=== PATIENT | male | born 1935 | race Caucasian/White ===

== ENCOUNTER → 2019-01-29 | Outpatient (CLI) | payer MEDICARE, OTHER ==
--- NOTE | 2019-01-29 16:03 | RADIOLOGY REPORT (SQ) ---
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 TECHNIQUE: Grayscale ultrasound, Doppler velocity and spectra, and color Doppler images acquired of the extra-cranial carotid and vertebral arteries. Images stored on PACS. LIMITATIONS: None. FINDINGS: RIGHT CAROTID CCA Velocities: Within normal limits. ICA Velocities Peak systolic 0.54 m/s. End diastolic 0.12 m/s. Proximal ICA/CCA peak systolic ratio normal. Spectra normal. No significant plaque. LEFT CAROTID CCA Velocities: Within normal limits. ICA Velocities Peak systolic 0.63 m/s. End diastolic 0.11 m/s. Proximal ICA/CCA peak systolic ratio normal. Spectra normal. No significant plaque. VERTEBRAL ARTERIES: Antegrade flow. Normal waveforms. SUBCLAVIAN ARTERIES: Not evaluated OTHER: No other significant finding. IMPRESSION: NO HEMODYNAMICALLY SIGNIFICANT STENOSIS. COMMENT: Quality ID #[id number]: Velocity criteria are extrapolated from the diameter data as defined by t he Society of Radiologists in Ultrasound Consensus Conference. Radiology 2003: 229; 340-346. TECHNICAL DOCUMENTATION: JOB ID: [id number] [employer]- All Rights Reserved Reading location - IP/workstation name: [email or web address]
== END ==
LOC: SP 08:54
PROVIDERS: ATTEND Ophthalmology
DX: H34.8111 Central retinal vein occlusion, right eye, with retinal neovascularization (principal)
CPT/HCPCS: 93880

== ENCOUNTER 2019-03-12 11:33 | Inpatient (IN) | payer MEDICARE, OTHER ==
[2019-03-12 12:20] LABS: HEMATOCRIT 38.9 % (37.9-51.0); MEAN CORPUSCULAR HEMOGLOBIN 29.4 pg (27.0-33.4); MEAN CORPUSCULAR HGB CONC 33.4 g/dL (32.0-36.0); MEAN CORPUSCULAR VOLUME 88 fl (80-97); PLATELET COUNT 226 10^3/uL (150-450); RED BLOOD COUNT 4.42 10^6/uL (4.35-5.55); RED CELL DISTRIBUTION WIDTH 14.4 % (11.5-14.0)
[2019-03-12 12:29] LABS: INTERNATIONAL RATION (INR) 1.56; PROTHROMBIN TIME 18.9 SEC (11.4-15.4)
[2019-03-12 12:36] LABS: ALBUMIN 4.5 g/dL (3.5-5.0); ALKALINE PHOSPHATASE 83 U/L (38-126); ANION GAP 19 (5-19); ASPARTATE AMINO TRANSFERASE 20 U/L (17-59); BILIRUBIN,DIRECT 0.4 mg/dL (0.0-0.4); BILIRUBIN,TOTAL 0.9 mg/dL (0.2-1.3); BLOOD UREA NITROGEN 24 mg/dL (7-20); CALCIUM 9.6 mg/dL (8.4-10.2); CARBON DIOXIDE 17 mmol/L (22-30); CHLORIDE 102 mmol/L (98-107); GLUCOSE 153 mg/dL (75-110); POTASSIUM 4.5 mmol/L (3.6-5.0); TOTAL PROTEIN 8.3 g/dL (6.3-8.2)
[2019-03-12 12:45] LABS: VENOUS BLOOD BASE EXCESS -2.7 mmol/L; VENOUS BLOOD HCO3 19.9 mmol/L (20-32); VENOUS BLOOD PCO2 28.8 mmHg (35-63); VENOUS BLOOD PH 7.46 (7.30-7.42)
[2019-03-12] MEDS ORDERED: NORMAL SALINE 1000 ML 500 ML IV ONE (12:46)
[2019-03-12 12:48] LABS: ABSOLUTE LYMPHOCYTES# (MANUAL) 0.4 10^3/uL (0.5-4.7); ABSOLUTE MONOCYTES # (MANUAL) 1.1 10^3/uL (0.1-1.4); BASOPHILS % (MANUAL) 0 % (0-2); EOSINOPHILS % (MANUAL) 0 % (0-6); LYMPHOCYTES % (MANUAL) 2 % (13-45); MONOCYTES % (MANUAL) 5 % (3-13); PLATELET COMMENT ADEQUATE; RBC MORPHOLOGY COMMENT NORMO-CYTIC/CHROMIC; SEGMENTED NEUTROPHILS % (MAN) 93 % (42-78); TOTAL CELLS COUNTED 100; TOXIC GRANULATION SLIGHT
[2019-03-12 12:59] LABS: CREATINE KINASE 53 U/L (55-170)
[2019-03-12 13:01] LABS: DIGOXIN < 0.40 ng/mL (0.8-2.0)
[2019-03-12 13:33] LABS: A TYPE INFLUENZA AG NEGATIVE (NEGATIVE); B INFLUENZA AG NEGATIVE (NEGATIVE)
--- NOTE | 2019-03-12 13:41 | ER Document Report ---
Entered by CLAYTON SAUNDERS SCRIBE 03/12/19 1234 Acting as scribe for:BRITTANY SULLIVAN MD ED General - General Chief Complaint: Fever Stated Complaint: POSSIBLE SEPSIS Time Seen by Provider: 03/12/19 12:32 Primary Care Provider: FRANCISCO PADRON DO [ACTIVE STAFF] - Follow up as needed Mode of Arrival: Medic Information source: Patient Notes: This 83 year old male patient with A fib on digoxin and pradaxa brought in by EMS presents to the ED today with complaints of aching in the left lower 2nd premolar that woke him up around midnight. Patient states that the pain has progressively worsened. Per EMS, patient was febrile and a HR in the 130s that was irregular. EMS administered 650 mg tylenol and 1g of rocephin IV prior to arrival. Patient reports an intermittent productive cough that began this morning and states that he had a flu shot earlier this year. TRAVEL OUTSIDE OF THE [place] IN LAST 30 DAYS: No - Related Data Allergies/Adverse Reactions: aspirin Allergy (Verified 03/12/19 12:44) Past Medical History - General Information source: Patient - Social History Smoking Status: Former Smoker Cigarette use (# per day): No Chew tobacco use (# tins/day): No Smoking Education Provided: No Frequency of alcohol use: Rare Drug Abuse: None Lives with: Family Family History: Reviewed & Not Pertinent Patient has suicidal ideation: No Patient has homicidal ideation: No - Past Medical History Cardiac Medical History: Reports: Hx Atrial Fibrillation, Hx Hypertension EENT Medical History: Reports: Ears - Hearing aid in R ear Renal/ Medical History: Reports: Hx Benign Prostatic Hyperplasia Malignancy Medical History: Reports Hx Lung Cancer - Left lower lung mother mentioned he had a third of the lung resected Past Surgical History: Reports: Other - 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 Other: One third of the left lower lung was resected for cancer surgery about 2010. Review of Systems - Review of Systems Constitutional: See HPI, Fever EENT: See HPI, Dental problem Cardiovascular: No symptoms reported Respiratory: See HPI, Cough, Sputum Gastrointestinal: No symptoms reported Genitourinary: No symptoms reported Male Genitourinary: No symptoms reported Musculoskeletal: No symptoms reported Skin: No symptoms reported Hematologic/Lymphatic: No symptoms reported Neurological/Psychological: No symptoms reported -: Yes All other systems reviewed and negative Physical Exam - Vital signs Vitals: Temp Resp BP Pulse Ox 100.0 F 24 H 113/62 97 03/12/19 11:53 03/12/19 11:53 03/12/19 11:53 03/12/19 11:53 Interpretation: Tachycardic, Febrile - General General appearance: Appears well, Alert - HEENT Head: Normocephalic, Atraumatic Eyes: Normal Pupils: PERRL Mouth/Lips: Other - 2nd premolar in the left lower side of mouth is tender to percussion. No gum swelling or adenopathy. 1st and 2nd molar of left side of mouth are gone. 3rd molar is broken off and decayed. On the right side of the mouth, molars 1-3 are gone. Neck: No: Carotid bruit - Respiratory Respiratory status: No respiratory distress Chest status: Nontender Breath sounds: Normal Chest palpation: Normal - Cardiovascular Rhythm: Irregularly irregular, Tachycardia Heart sounds: Normal auscultation Murmur: No - Abdominal Inspection: Normal Distension: No distension Bowel sounds: Normal Tenderness: Nontender Organomegaly: No organomegaly - Back Back: Normal, Nontender - Extremities General upper extremity: Normal inspection General lower extremity: Normal inspection. No: Edema - No peripheral edema - Neurological Neuro grossly intact: Yes - Psychological Associated symptoms: Normal affect, Normal mood - Skin Skin Temperature: Warm Skin Moisture: Dry Skin Color: Normal Notes: Patient has a excoriated lesion on the right preauricular area of his face. Course - Re-evaluation Re-evalutation: 03/12/19 13:57 The patient's digoxin level is undetectable, he will be given an IV dose of 0.25 mg IV. 03/12/19 14:17 At this time the patient's cough and congestion seems to be getting a little worse. His skin is quite warm now so I suspect his fever starting to spike. We will give him some Tylenol. - Vital Signs Vital signs: Temp Pulse Resp BP Pulse Ox 99.3 F 19 116/92 H 98 03/12/19 13:00 03/12/19 13:01 03/12/19 13:01 03/12/19 13:01 - Laboratory Result Diagrams: 03/12/19 11:04 03/12/19 11:04 Laboratory results interpreted by me: 03/12/19 03/12/19 03/12/19 11:04 11:04 11:04 WBC 22.0 H Hgb 13.0 L RDW 14.4 H Seg Neuts % (Manual) 93 H Lymphocytes % (Manual) 2 L Abs Neuts (Manual) 20.5 H Abs Lymphs (Manual) 0.4 L PT 18.9 H VBG pH VBG pCO2 VBG HCO3 Carbon Dioxide 17 L BUN 24 H Glucose 153 H Magnesium Creatine Kinase Total Protein 8.3 H Digoxin 03/12/19 03/12/19 12:20 12:20 WBC Hgb RDW Seg Neuts % (Manual) Lymphocytes % (Manual) Abs Neuts (Manual) Abs Lymphs (Manual) PT VBG pH 7.46 H VBG pCO2 28.8 L VBG HCO3 19.9 L Carbon Dioxide BUN Glucose Magnesium 1.5 L Creatine Kinase 53 L Total Protein Digoxin < 0.40 L - Diagnostic Test Radiology reviewed: Image reviewed, Reports reviewed - Chest x-ray shows developing left lower lobe pneumonia - EKG Interpretation by Me EKG shows normal: [place], Intervals, QRS Complexes. abnormal: ST-T Waves - Rate related repolarization abnormality Rate: Tachycardia - 135 Rhythm: A.Fib - Consults Dr. Solomon Time consulted: 14:10 Consulted provider: will come to ER Critical Care Note - Critical Care Note Total time excluding time spent on procedures (mins): 40 Discharge - Discharge Clinical Impression: Atrial fibrillation with RVR, Subtherapeutic digoxin level, Toothache, Dehydration Pneumonia Qualifiers: Pneumonia type: due to unspecified organism Laterality: left Lung location: lower lobe of lung Qualified Code(s): J18.9 - Pneumonia, unspecified organism Fever Qualifiers: Fever type: unspecified Qualified Code(s): R50.9 - Fever, unspecified Leukocytosis Qualifiers: Leukocytosis type: unspecified Qualified Code(s): D72.829 - Elevated white blood cell count, unspecified Condition: Fair Disposition: ADMITTED INPATIENT Admitting Provider: Neha (Hospitalist) Unit Admitted: Telemetry Referrals: FRANCISCO PADRON DO [ACTIVE STAFF] - Follow up as needed Scribe Attestation: 03/12/19 14:00 I personally performed the services described in the documentation, reviewed and edited the documentation which was dictated to the scribe in my presence, and it accurately records my words and actions. I personally performed the services described in the documentation, reviewed and edited the documentation which was dictated to the scribe in my presence, and it accurately records my words and actions.
--- NOTE | 2019-03-12 13:44 | RADIOLOGY REPORT (SQ) ---
EXAM DESCRIPTION: CHEST SINGLE VIEW COMPLETED DATE/TIME: 03/12/2019 1:24 pm REASON FOR STUDY: Fever, cough, toothache COMPARISON: None. EXAM PARAMETERS: NUMBER OF VIEWS: One view. TECHNIQUE: Single frontal radiographic view of the chest acquired. RADIATION DOSE: NA LIMITATIONS: None. FINDINGS: LUNGS AND PLEURA: Indistinct density in the left lung base with volume loss and indistinct appearance of the left hemidiaphragm. Right lung relatively clear. Chronic appearing interstitial changes. MEDIASTINUM AND HILAR STRUCTURES: No masses. Contour normal. HEART AND VASCULAR STRUCTURES: Heart normal in size. Normal vasculature. BONES: No acute findings. HARDWARE: Surgical clips on the left. OTHER: No other significant finding. IMPRESSION: INDISTINCT DENSITY IN THE LEFT LUNG BASE. NO PRIOR STUDIES SO UNABLE TO DETERMINE IF TH IS IS CHRONIC RELATED TO PREVIOUS SURGERY OR ACUTE SECONDARY TO DEVELOPING PNEUMONIA. TECHNICAL DOCUMENTATION: JOB ID: [id number] [employer]- All Rights Reserved Reading location - IP/workstation name: [email or web address]
[2019-03-12] MEDS ORDERED: DIGOXIN INJ 0.5 MG/2 ML AMPULE IV ONE (13:56)
[2019-03-12] MEDS ORDERED: ACETAMINOPHEN 325 MG TABLET PO ONE (14:08)
[2019-03-12] MEDS ORDERED: NORMAL SALINE 1000 ML 1,000 ML IV ONE (14:19)
--- NOTE | 2019-03-12 14:37 | EKG REPORT ---
SEVERITY:- ABNORMAL ECG - ATRIAL FIBRILLATION, V-RATE 87-161 RVR 130/min REPOLARIZATION ABNORMALITY, PROB RATE RELATED : Confirmed by: Osorio Hilton MD 12-Mar-2019 14:36:31
[2019-03-12 14:59] LABS: APPEARANCE,URINE CLOUDY; BILIRUBIN,URINE NEGATIVE (NEGATIVE); COLOR,URINE YELLOW; GLUCOSE, URINE NEGATIVE (NEGATIVE); KETONES,URINE NEGATIVE (NEGATIVE); LEUKOCYTE ESTERASE,URINE LARGE (NEGATIVE); NITRITE,URINE NEGATIVE (NEGATIVE); PROTEIN,URINE 30 mg/dL (NEGATIVE); UROBILINOGEN,URINE NEGATIVE mg/dL (<2.0)
[2019-03-12] MEDS ORDERED: ACETAMINOPHEN 325 MG TABLET PO PRN (15:04)
[2019-03-12] MEDS ORDERED: METOPROLOL TARTRATE 25 MG TABLET PO SCH (15:15)
[2019-03-12] MEDS ORDERED: DEXTROSE 40% GEL 15 GM TUBE PO PRN ×2 (15:16)
[2019-03-12] MEDS ORDERED: GLUCAGON,HUMAN RECOMB 1 MG INJ IM PRN (15:16)
[2019-03-12] MEDS ORDERED: DEXTROSE 50%-WATER 25 GM/50 ML DISP.SYRIN IV PRN ×2 (15:16)
--- NOTE | 2019-03-12 15:35 | PDOC H&P ---
History of Present Illness Admission Date/PCP: 03/12/19 14:27 TERRY SANDOVAL MD Patient complains of: fever, tooth pain, cough History of Present Illness: MICHAEL PIZARRO is a 83 year old male with a past medical history of lung cancer with prior left lower lobe resection, atrial fibrillation on Pradaxa, hypertension, and diabetes mellitus type 2 and history of retinal vein occlusion who presented with fever. Patient says that he woke last night because of pain on the left lower second premolar. He also reported fever at home. He does report he has been having minimally productive cough in the past 2 days. EMS was called and he was found to be in atrial fibrillation with RVR with a heart rate in the 130s. Reportedly he had POC lactate level of 8.0. He was also noted to be febrile. He was given Tylenol and was also given Rocephin. In the ER, he was noted to have leukocytosis with a neutrophilic predominance. He was also in A. fib in the 120s and 130s. Blood pressures running in the low normal end. 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 Social History Lives with: Family Smoking Status: Former Smoker Family History Family History: Reviewed & Not Pertinent Parental Family History Reviewed: Yes - No premature CAD Children Family History Reviewed: No Sibling(s) Family History Reviewed.: No Medication/Allergy Home Medications: Brinzolamide/Brimonidine Tart [Simbrinza 1%-0.2% Eye Drops] 1 drop OU TID 03/12/19 Dabigatran Etexilate Mesylate [Pradaxa 150 mg Capsule] 150 mg PO DAILY 03/12/19 Diltiazem HCl [Diltiazem 12Hr ER] 120 mg PO Q12 03/12/19 Finasteride [Proscar 5 mg Tablet] 5 mg PO DAILY 03/12/19 Meloxicam [Mobic 7.5 mg Tablet] 7.5 mg PO Q12 03/12/19 Metformin HCl 1,000 mg PO BIDBS 03/12/19 Metoprolol Succinate [Toprol Xl 25 mg Tab.sr] 25 mg PO Q12 03/12/19 Allergies/Adverse Reactions: aspirin Allergy (Verified 03/12/19 12:44) Review of Systems All systems: reviewed and no additional remarkable complaints except as stated - As mentioned in HPI Physical Exam Vital Signs: Temp Pulse Resp BP Pulse Ox 99.3 F 16 101/56 L 98 03/12/19 13:00 03/12/19 14:01 03/12/19 14:01 03/12/19 14:01 Intake & Output 03/11/19 03/12/19 03/13/19 06:59 06:59 06:59 Intake Total 500 Balance 500 Weight 185 lb 10.067 oz General appearance: PRESENT: no acute distress, well-developed, well-nourished Head exam: PRESENT: atraumatic, normocephalic Eye exam: PRESENT: conjunctiva pink, EOMI, PERRLA. ABSENT: scleral icterus Ear exam: PRESENT: normal external ear exam Mouth exam: PRESENT: moist, tongue midline Neck exam: ABSENT: carotid bruit, JVD, lymphadenopathy, thyromegaly Respiratory exam: PRESENT: rhonchi. ABSENT: rales, wheezes Cardiovascular exam: PRESENT: irregular rhythm, tachycardia. ABSENT: diastolic murmur, rubs, systolic murmur Pulses: PRESENT: normal dorsalis pedis pul GI/Abdominal exam: PRESENT: normal bowel sounds, soft. ABSENT: distended, guarding, mass, organolmegaly, rebound, tenderness Rectal exam: PRESENT: deferred Extremities exam: PRESENT: full ROM. ABSENT: calf tenderness, clubbing, pedal e minda Neurological exam: PRESENT: alert, awake, oriented to person, oriented to place, oriented to time, oriented to situation, CN II-XII grossly intact. ABSENT: motor sensory deficit Results Laboratory Results: 03/12/19 11:04 03/12/19 11:04 03/12/19 03/12/19 03/12/19 11:04 11:04 12:20 WBC 22.0 H RBC 4.42 Hgb 13.0 L Hct 38.9 MCV 88 MCH 29.4 MCHC 33.4 RDW 14.4 H Plt Count 226 Seg Neutrophils % Not Reportable VBG pH 7.46 H VBG pCO2 28.8 L VBG HCO3 19.9 L VBG Base Excess -2.7 Sodium 138.0 Potassium 4.5 Chloride 102 Carbon Dioxide 17 L Anion Gap 19 BUN 24 H Creatinine 1.10 Est GFR ( Amer) > 60 Glucose 153 H Lactic Acid Calcium 9.6 Magnesium Total Bilirubin 0.9 AST 20 Alkaline Phosphatase 83 Total Protein 8.3 H Albumin 4.5 Urine Color Urine Appearance Urine pH Ur Specific [place] Urine Protein Urine Glucose (UA) Urine Ketones Urine Blood Urine Nitrite Ur Leukocyte Esterase Urine WBC (Auto) Urine RBC (Auto) 03/12/19 03/12/19 03/12/19 12:20 12:20 14:45 WBC RBC Hgb Hct MCV MCH MCHC RDW Plt Count Seg Neutrophils % VBG pH VBG pCO2 VBG HCO3 VBG Base Excess Sodium Potassium Chloride Carbon Dioxide Anion Gap BUN Creatinine Est GFR ( Amer) Glucose Lactic Acid 2.1 Calcium Magnesium 1.5 L Total Bilirubin AST Alkaline Phosphatase Total Protein Albumin Urine Color YELLOW Urine Appearance CLOUDY Urine pH 6.0 Ur Specific [place] 1.010 Urine Protein 30 H Urine Glucose (UA) NEGATIVE Urine Ketones NEGATIVE Urine Blood LARGE H Urine Nitrite NEGATIVE Ur Leukocyte Esterase LARGE H Urine WBC (Auto) >182 Urine RBC (Auto) >182 03/12/19 03/12/19 11:04 12:20 Creatine Kinase 53 L Troponin I < 0.012 Impressions: Chest X-Ray 03/12/19 12:46 IMPRESSION: INDISTINCT DENSITY IN THE LEFT LUNG BASE. NO PRIOR STUDIES SO UNABLE TO DETERMINE IF THIS IS CHRONIC RELATED TO PREVIOUS SURGERY OR ACUTE SECONDARY TO DEVELOPING PNEUMONIA. Assessment and Plan - Diagnosis (1) Sepsis Is this a current diagnosis for this admission?: Yes Plan: He had initial reported lactic level of 8. Was also noted to be febrile by EMS. He is tachycardic and also has leukocytosis with neutrophilic predominance. He was given IV fluids, Tylenol and Rocephin. Lactate drawn in the ER appear to have normalized. Chest x-ray shows possible left sided pneumonia but he does have a prior history of lung mass resection on the left. Will pursue a chest CT to further assess the opacity. He does have a possible periodontitis on the left lower second premolar. Will start patient on IV antibiotics. Blood cultures have been drawn. He denies LUTS but he does have significant pyuria and bacteria in the urine. (2) Pneumonia Qualifiers: Pneumonia type: due to unspecified organism Laterality: left Lung location: lower lobe of lung Qualified Code(s): J18.9 - Pneumonia, unspecified organism Is this a current diagnosis for this admission?: Yes Plan: As per #1. (3) Atrial fibrillation with RVR Is this a current diagnosis for this admission?: Yes Plan: A. fib with RVR likely related to ongoing infection/sepsis. IV Lanoxin has been ordered in the ER. Will resume home meds once verified. (4) Hypertension Is this a current diagnosis for this admission?: Yes Plan: Hold off on home meds due to low normal blood pressures. (5) Diabetes mellitus type 2 in nonobese Is this a current diagnosis for this admission?: Yes - Time Time Spent with patient: 25-34 minutes
--- NOTE | 2019-03-12 15:36 | ADVANCED CARE ---
- Diagnosis (1) Atrial fibrillation with RVR Diagnosis Current: Yes (2) Diabetes mellitus type 2 in nonobese Diagnosis Current: Yes (3) Pneumonia Diagnosis Current: Yes (4) Sepsis Diagnosis Current: Yes Resuscitation Status: Full Code Discussion: Patient says that he wants us to attempt resuscitation and prefers to receive chest compressions, defibrillation or mechanical ventilation if the need arises. He does verbalize that he does not want to be on long-term ventilation. He says that his daughter Jocelyn in [place] is his surrogate medical decision maker.
--- NOTE | 2019-03-12 15:42 | RADIOLOGY REPORT (SQ) ---
EXAM DESCRIPTION: CT CHEST WITHOUT COMPLETED DATE/TIME: 03/12/2019 3:27 pm REASON FOR STUDY: cough, further assess infiltrates on CXR COMPARISON: 03/12/2019 radiographs. TECHNIQUE: CT scan performed of the chest without intravenous contrast. Images reviewed with lung, soft tissue and bone windows. Reconstructed coronal and sagittal MPR images reviewed. All images st ored on PACS. All CT scanners at this facility use dose modulation, iterative reconstruction, and/or weight based d osing when appropriate to reduce radiation dose to as low as reasonably achievable (ALARA). [facility]: Dose Right [facility]: CareDose [facility]: Dose Right [facility]: Teradose 4D [facility]: Smart American Board of Addiction Medicine (ABAM) RADIATION DOSE: CT Rad equipment meets quality standard of care and radiation dose reduction techniq ues were employed. CTDIvol: 9.1 mGy. DLP: 352 mGy-cm. mGy. LIMITATIONS: No technical limitations. FINDINGS: LUNGS AND PLEURA: Peripheral subpleural reticular opacities in the right greater than left upper lobes and in the bilateral lower lobes. Mild basilar fibrosis. Suspected areas of scarring. Mild areas of calcified pleural plaque. Acute bacterial pneumonia is not suggested. HILAR AND MEDIASTINAL STRUCTURES: Predominantly shotty mediastinal adenopathy. HEART AND VASCULAR STRUCTURES: Cardiomegaly. Moderate coronary calcification. No pericardial effusi on. No evidence of overt aortic aneurysm. UPPER ABDOMEN: No significant findings. Limited exam. THYROID AND OTHER SOFT TISSUES: No masses. No adenopathy. BONES: No significant finding. HARDWARE: None in the chest. OTHER: No other significant findings. IMPRESSION: 1. Lung changes are suspected to be generally chronic as above. 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 TECHNICAL DOCUMENTATION: JOB ID: [id number] Quality ID # [id number]: Final reports with documentation of one or more dose reduction techniques (e.g., Au tomated exposure control, adjustment of the mA and/or kV according to patient size, use of iterative reconstruction technique) 2010 [employer]- All Rights Reserved Reading location - IP/workstation name: [email or web address]
[2019-03-12] MEDS: CEFTRIAXONE 1 GM/D5W RTU 1 GM/50 ML RTUPB IV SCH (15:52)
[2019-03-12] MEDS ORDERED: MAGNESIUM SULFATE/D5W 1 GM/100 ML RTUPB IV ONE (16:00)
[2019-03-12] MEDS: CLINDAMYCIN 300 MG/D5W RTU 300 MG/50 ML RTUPB IV SCH ×2 (16:03→22:51)
[2019-03-12] MEDS: INSULIN LISPRO 100 UNIT/ML 3 ML VIAL SUBCUT SCH ×2 (18:35→22:47)
[2019-03-12] MEDS: NORMAL SALINE 1000 ML 1,000 ML IV PRN ×2 (18:37→20:27)
[2019-03-12] MEDS ORDERED: DABIGATRAN ETEXILATE 150 MG CAPSULE PO SCH (22:00)
[2019-03-12] MEDS: METOPROLOL SUCCINATE 25 MG TAB.SR.24H PO SCH (22:15)
[2019-03-12] MEDS: DILTIAZEM HCL 120 MG CAP.SR.24H PO SCH (22:16)
[2019-03-12] MEDS ORDERED: MELOXICAM 7.5 MG TABLET ONE (22:27)
[2019-03-12] MEDS ORDERED: CLINDAMYCIN PHOSPHATE INJ 300 MG/2 ML SDV ONE (22:27)
[2019-03-12] MEDS: MELOXICAM 7.5 MG TABLET PO SCH (22:52)
[2019-03-13 05:24] LABS: ABSOLUTE LYMPHOCYTES (AUTO) 0.9 10^3/uL (0.5-4.7); ABSOLUTE MONOCYTES (AUTO) 0.5 10^3/uL (0.1-1.4); BASOPHILS % (AUTO) 0.2 % (0-2); EOSINOPHILS % (AUTO) 0.2 % (0-6); HEMATOCRIT 35.6 % (37.9-51.0); HEMOGLOBIN 11.8 g/dL (13.5-17.0); LYMPHOCYTES % (AUTO) 8.1 % (13-45); MEAN CORPUSCULAR HEMOGLOBIN 29.2 pg (27.0-33.4); MEAN CORPUSCULAR VOLUME 88 fl (80-97); MONOCYTES % (AUTO) 4.5 % (3-13); PLATELET COUNT 191 10^3/uL (150-450); RED BLOOD COUNT 4.03 10^6/uL (4.35-5.55); RED CELL DISTRIBUTION WIDTH 14.7 % (11.5-14.0); TOTAL CELLS COUNTED % (AUTO) 100 %; WHITE BLOOD COUNT 11.5 10^3/uL (4.0-10.5)
[2019-03-13] MEDS: CLINDAMYCIN 300 MG/D5W RTU 300 MG/50 ML RTUPB IV SCH ×3 (05:33→21:17)
[2019-03-13 05:53] LABS: ANION GAP 11 (5-19); BLOOD UREA NITROGEN 20 mg/dL (7-20); CALCIUM 8.8 mg/dL (8.4-10.2); CARBON DIOXIDE 20 mmol/L (22-30); CHLORIDE 110 mmol/L (98-107); GLUCOSE 109 mg/dL (75-110); POTASSIUM 4.4 mmol/L (3.6-5.0)
[2019-03-13] MEDS: METOPROLOL TARTRATE PF/INJ 5 MG/5 ML SDV IV PRN ×2 (06:45)
[2019-03-13] MEDS: METOPROLOL SUCCINATE 25 MG TAB.SR.24H PO SCH ×2 (09:11→21:17)
[2019-03-13] MEDS: FINASTERIDE 5 MG TABLET PO SCH (09:11)
[2019-03-13] MEDS: DILTIAZEM HCL 120 MG CAP.SR.24H PO SCH ×2 (09:11→21:16)
[2019-03-13] MEDS: MELOXICAM 7.5 MG TABLET PO SCH ×2 (09:12→21:16)
[2019-03-13] MEDS: DABIGATRAN ETEXILATE 150 MG CAPSULE PO SCH (09:12)
[2019-03-13] MEDS: NORMAL SALINE 1000 ML 1,000 ML IV PRN ×2 (09:13→21:10)
[2019-03-13] MEDS: CEFTRIAXONE 1 GM/D5W RTU 1 GM/50 ML RTUPB IV SCH (09:13)
[2019-03-13] MEDS ORDERED: (PENDING PHARMACY ID) (Brinzolamide/Brimonidine Tart [Simbrinza 1%-0.2% Eye Drops] 1 DROP) OU SCH (10:00)
[2019-03-13] MEDS: INSULIN LISPRO 100 UNIT/ML 3 ML VIAL SUBCUT SCH ×2 (12:19→16:48)
--- NOTE | 2019-03-13 13:23 | PDOC PROGRESS REPORT ---
Subjective Progress Note for:: 03/13/19 Subjective:: MICHAEL PIZARRO is a 83 year old male with a past medical history of lung cancer with prior left lower lobe resection, atrial fibrillation on Pradaxa, hypertension, and diabetes mellitus type 2 and history of retinal vein occlusion who presented with fever. No acute event overnight. No recurrence of fever so far. Heart rate is slightly improved in the low 100s. He says he feels a lot better today but overall still feels weak. He denies LUTS but does have significant pyuria and bacteria in the urine. He says that his left premolar is a little less tender today. Reason For Visit: SEPSIS AFIB W/ RVR Physical Exam Vital Signs: Temp Pulse Resp BP Pulse Ox 98.9 F 109 H 16 138/71 H 100 03/13/19 11:24 03/13/19 11:24 03/13/19 11:24 03/13/19 11:24 03/13/19 11:24 Intake & Output 03/12/19 03/13/19 03/14/19 06:59 06:59 06:59 Intake Total 3458 360 Output Total 175 450 Balance 3283 -90 Weight 182 lb 15.739 oz General appearance: PRESENT: no acute distress, well-developed, well-nourished Head exam: PRESENT: atraumatic, normocephalic Eye exam: PRESENT: conjunctiva pink, EOMI, PERRLA. ABSENT: scleral icterus Ear exam: PRESENT: normal external ear exam Mouth exam: PRESENT: moist, tongue midline Neck exam: ABSENT: carotid bruit, JVD, lymphadenopathy, thyromegaly Respiratory exam: PRESENT: rhonchi. ABSENT: rales, wheezes Cardiovascular exam: PRESENT: RRR. ABSENT: diastolic murmur, rubs, systolic murmur Pulses: PRESENT: normal dorsalis pedis pul GI/Abdominal exam: PRESENT: normal bowel sounds, soft. ABSENT: distended, guarding, mass, organolmegaly, rebound, tenderness Rectal exam: PRESENT: deferred Neurological exam: PRESENT: alert, awake, oriented to person, oriented to place, oriented to time, oriented to situation, CN II-XII grossly intact. ABSENT: motor sensory deficit Results Laboratory Results: 03/13/19 04:25 03/13/19 04:25 03/12/19 03/12/19 03/12/19 14:45 15:39 18:46 WBC RBC Hgb Hct MCV MCH MCHC RDW Plt Count Seg Neutrophils % Sodium Potassium Chloride Carbon Dioxide Anion Gap BUN Creatinine Est GFR ( Amer) Glucose Lactic Acid 1.7 1.5 Calcium Magnesium TSH Urine Color YELLOW Urine Appearance CLOUDY Urine pH 6.0 Ur Specific [place] 1.010 Urine Protein 30 H Urine Glucose (UA) NEGATIVE Urine Ketones NEGATIVE Urine Blood LARGE H Urine Nitrite NEGATIVE Ur Leukocyte Esterase LARGE H Urine WBC (Auto) >182 Urine RBC (Auto) >182 03/13/19 03/13/19 03/13/19 04:25 04:25 04:25 WBC 11.5 H RBC 4.03 L Hgb 11.8 L Hct 35.6 L MCV 88 MCH 29.2 MCHC 33.0 RDW 14.7 H Plt Count 191 Seg Neutrophils % 87.0 H Sodium 141.2 Potassium 4.4 Chloride 110 H Carbon Dioxide 20 L Anion Gap 11 BUN 20 Creatinine 1.21 Est GFR ( Amer) > 60 Glucose 109 Lactic Acid Calcium 8.8 Magnesium 1.9 TSH 0.79 Urine Color Urine Appearance Urine pH Ur Specific [place] Urine Protein Urine Glucose (UA) Urine Ketones Urine Blood Urine Nitrite Ur Leukocyte Esterase Urine WBC (Auto) Urine RBC (Auto) 03/12/19 16:00 Sputum Gram Stain - Final 03/12/19 16:00 Sputum Sputum Culture - Final 03/12/19 03/12/19 11:04 12:20 Creatine Kinase 53 L Troponin I < 0.012 Impressions: Chest X-Ray 03/12/19 12:46 IMPRESSION: INDISTINCT DENSITY IN THE LEFT LUNG BASE. NO PRIOR STUDIES SO UNABLE TO DETERMINE IF THIS IS CHRONIC RELATED TO PREVIOUS SURGERY OR ACUTE SECONDARY TO DEVELOPING PNEUMONIA. Chest CT 03/12/19 15:02 IMPRESSION: 1. Lung changes are suspected to be generally chronic as above. Includes mild interstitial subpleural disease and basilar fibrosis with left basilar pleural calcified plaque. Assessment and Plan - Diagnosis (1) Sepsis Is this a current diagnosis for this admission?: Yes Plan: 03/12: He had initial reported lactic level of 8. Was also noted to be febrile by EMS. He is tachycardic and also has leukocytosis with neutrophilic predominance. He was given IV fluids, Tylenol and Rocephin. Lactate drawn in the ER appear to have normalized. Chest x-ray shows possible left sided pneumonia but he does have a prior history of lung mass resection on the left. Will pursue a chest CT to further assess the opacity. He does have a possible periodontitis on the left lower second premolar. Will start patient on IV antibiotics. Blood cultures have been drawn. 1/2: Chest CT does not show pneumonia. He denies LUTS but he does have significant pyuria and bacteria in the urine. We will send for a urine culture. Blood and sputum cultures pending. Continue Rocephin and clindamycin. (2) Atrial fibrillation with RVR Is this a current diagnosis for this admission?: Yes Plan: A. fib with RVR likely related to ongoing infection/sepsis. IV Lanoxin has been ordered in the ER. Will resume home meds once verified. 1/2: HR better in the low 100w. Continue metoprolol, cardizem and Pradaxa. (3) Diabetes mellitus type 2 in nonobese Is this a current diagnosis for this admission?: Yes (4) UTI (urinary tract infection) Is this a current diagnosis for this admission?: Yes Plan: Continue Rocephin. Urine culture ordered. - Time Time Spent with patient: 25-34 minutes
[2019-03-14] MEDS: INSULIN LISPRO 100 UNIT/ML 3 ML VIAL SUBCUT SCH ×2 (04:12→09:13)
[2019-03-14] MEDS: CLINDAMYCIN 300 MG/D5W RTU 300 MG/50 ML RTUPB IV SCH (05:25)
[2019-03-14 09:10] LABS: ABSOLUTE EOSINOPHILS # (AUTO) 0.1 10^3/uL (0.0-0.6); ABSOLUTE LYMPHOCYTES (AUTO) 1.4 10^3/uL (0.5-4.7); ABSOLUTE MONOCYTES (AUTO) 0.7 10^3/uL (0.1-1.4); ABSOLUTE NEUT (AUTO) 4.2 10^3/uL (1.7-8.2); BASOPHILS % (AUTO) 0.5 % (0-2); EOSINOPHILS % (AUTO) 2.2 % (0-6); HEMATOCRIT 35.6 % (37.9-51.0); HEMOGLOBIN 12.1 g/dL (13.5-17.0); LYMPHOCYTES % (AUTO) 21.5 % (13-45); MEAN CORPUSCULAR HEMOGLOBIN 29.8 pg (27.0-33.4); MEAN CORPUSCULAR HGB CONC 34.1 g/dL (32.0-36.0); MEAN CORPUSCULAR VOLUME 87 fl (80-97); PLATELET COUNT 183 10^3/uL (150-450); RED BLOOD COUNT 4.08 10^6/uL (4.35-5.55); SEGMENTED NEUTROPHILS % (AUTO) 64.8 % (42-78); TOTAL CELLS COUNTED % (AUTO) 100 %; WHITE BLOOD COUNT 6.4 10^3/uL (4.0-10.5)
[2019-03-14 09:29] LABS: ANION GAP 10 (5-19); BLOOD UREA NITROGEN 14 mg/dL (7-20); CALCIUM 8.9 mg/dL (8.4-10.2); CARBON DIOXIDE 21 mmol/L (22-30); CHLORIDE 109 mmol/L (98-107); GLUCOSE 121 mg/dL (75-110); POTASSIUM 4.2 mmol/L (3.6-5.0)
[2019-03-14] MEDS: DILTIAZEM HCL 120 MG CAP.SR.24H PO SCH (10:23)
[2019-03-14] MEDS: METOPROLOL SUCCINATE 25 MG TAB.SR.24H PO SCH (10:23)
[2019-03-14] MEDS: MELOXICAM 7.5 MG TABLET PO SCH (10:24)
[2019-03-14] MEDS: DABIGATRAN ETEXILATE 150 MG CAPSULE PO SCH (10:24)
[2019-03-14] MEDS: FINASTERIDE 5 MG TABLET PO SCH (10:25)
[2019-03-14] MEDS: CEFTRIAXONE 1 GM/D5W RTU 1 GM/50 ML RTUPB IV SCH (10:25)
[2019-03-14 11:35] VITALS: BP 124/69
--- NOTE | 2019-03-15 17:48 | PDOC DISCHARGE SUMMARY ---
Impression - Admit/DC Date/PCP Admission Date/Primary Care Provider: 03/12/19 14:27 TERRY SANDOVAL MD Discharge Date: 03/14/19 - Discharge Diagnosis (1) Sepsis Is this a current diagnosis for this admission?: Yes (2) Atrial fibrillation with RVR Is this a current diagnosis for this admission?: Yes (3) Diabetes mellitus type 2 in nonobese Is this a current diagnosis for this admission?: Yes (4) UTI (urinary tract infection) Is this a current diagnosis for this admission?: Yes - Additional Information Resuscitation Status: Full Code Discharge Diet: As Tolerated Discharge Activity: Activity As Tolerated, Balance Activity w/Rest Referrals: TERRY SANDOVAL MD [Primary Care Provider] - (sticker in book) Prescriptions: Amoxicillin/Potassium Clav [Augmentin 500-125 Tablet] 1 each PO BID 5 Days #10 tablet Home Medications: Brinzolamide/Brimonidine Tart [Simbrinza 1%-0.2% Eye Drops] 1 drop OU TID 03/12/19 Dabigatran Etexilate Mesylate [Pradaxa 150 mg Capsule] 150 mg PO DAILY 03/12/19 Diltiazem HCl [Diltiazem 12Hr ER] 120 mg PO Q12 03/12/19 Finasteride [Proscar 5 mg Tablet] 5 mg PO DAILY 03/12/19 Meloxicam [Mobic 7.5 mg Tablet] 7.5 mg PO Q12 03/12/19 Metformin HCl 1,000 mg PO BIDBS 03/12/19 Metoprolol Succinate [Toprol Xl 25 mg Tab.sr] 25 mg PO Q12 03/12/19 Amoxicillin/Potassium Clav [Augmentin 500-125 Tablet] 1 each PO BID 5 Days #10 tablet 03/14/19 History of Present Illiness History of Present Illness: MICHAEL PIZARRO is a 83 year old male with a past medical history of lung cancer with prior left lower lobe resection, atrial fibrillation on Pradaxa, hypertension, and diabetes mellitus type 2 and history of retinal vein occlusion who presented with fever. Patient says that he woke last night because of pain on the left lower second premolar. He also reported fever at home. He does report he has been having minimally productive cough in the past 2 days. EMS was called and he was found to be in atrial fibrillation with RVR with a heart rate in the 130s. Reportedly he had POC lactate level of 8.0. He was also noted to be febrile. He was given Tylenol and was also given Rocephin. In the ER, he was noted to have leukocytosis with a neutrophilic predominance. He was also in A. fib in the 120s and 130s. Blood pressures running in the low normal end. Hospital Course Hospital Course: This is an 84-year-old male who was admitted for sepsis. He did also present with worsening left lower premolar tenderness and pain. He was started on IV antibiotics for peritonitis as well. He initially denied lower urinary tract symptoms however later reported that he has been having urinary frequency in the past few weeks. His urinalysis did show significant pyuria and bacteria. Urine culture was done unfortunately 24 hours after he received IV antibiotics. He was initially also in A. fib with RVR. His home regimen for A. fib was released soon. His A. fib was better controlled. He significantly improved and returned to his baseline. He will be sent home on Augmentin to treat both periodontitis and UTI. His has confirmed an appointment with his dentist to have his premolar treated. Physical Exam Vital Signs: Temp Pulse Resp BP Pulse Ox 98.1 F 89 18 124/69 98 03/14/19 12:12 03/14/19 12:12 03/14/19 12:12 03/14/19 11:33 03/14/19 12:12 Intake & Output 03/14/19 03/15/19 03/16/19 06:59 06:59 06:59 Intake Total 8629 480 Output Total 8318 825 Balance -85 -345 Weight 182 lb 8.684 oz General appearance: PRESENT: no acute distress, well-developed, well-nourished Head exam: PRESENT: atraumatic, normocephalic Eye exam: PRESENT: conjunctiva pink, EOMI, PERRLA. ABSENT: scleral icterus Ear exam: PRESENT: normal external ear exam Mouth exam: PRESENT: moist, tongue midline Neck exam: ABSENT: carotid bruit, JVD, lymphadenopathy, thyromegaly Respiratory exam: PRESENT: clear to auscultation [place]. ABSENT: rales, rhonchi, wheezes Cardiovascular exam: PRESENT: irregular rhythm. ABSENT: diastolic murmur, rubs, systolic murmur Pulses: PRESENT: normal dorsalis pedis pul GI/Abdominal exam: PRESENT: normal bowel sounds, soft. ABSENT: distended, guarding, mass, organolmegaly, rebound, tenderness Rectal exam: PRESENT: deferred Extremities exam: PRESENT: full ROM. ABSENT: calf tenderness, clubbing, pedal edema Neurological exam: PRESENT: alert, awake, oriented to person, oriented to place, oriented to time, oriented to situation, CN II-XII grossly intact. ABSENT: motor sensory deficit Results Laboratory Results: WBC 6.4 10^3/uL (4.0-10.5) 03/14/19 08:34 RBC 4.08 10^6/uL (4.35-5.55) L 03/14/19 08:34 Hgb 12.1 g/dL (13.5-17.0) L 03/14/19 08:34 Hct 35.6 % (37.9-51.0) L 03/14/19 08:34 MCV 87 fl (80-97) 03/14/19 08:34 MCH 29.8 pg (27.0-33.4) 03/14/19 08:34 MCHC 34.1 g/dL (32.0-36.0) 03/14/19 08:34 RDW 15.0 % (11.5-14.0) H 03/14/19 08:34 Plt Count 183 10^3/uL (150-450) 03/14/19 08:34 Lymph % (Auto) 21.5 % (13-45) 03/14/19 08:34 [place] % (Auto) 11.0 % (3-13) 03/14/19 08:34 Eos % (Auto) 2.2 % (0-6) 03/14/19 08:34 Baso % (Auto) 0.5 % (0-2) 03/14/19 08:34 Absolute Neuts (auto) 4.2 10^3/uL (1.7-8.2) 03/14/19 08:34 Absolute Lymphs (auto) 1.4 10^3/uL (0.5-4.7) 03/14/19 08:34 Absolute Monos (auto) 0.7 10^3/uL (0.1-1.4) 03/14/19 08:34 Absolute Eos (auto) 0.1 10^3/uL (0.0-0.6) 03/14/19 08:34 Absolute Basos (auto) 0.0 10^3/uL (0.0-0.2) 03/14/19 08:34 Total Counted 100 03/12/19 11:04 Seg Neutrophils % 64.8 % (42-78) 03/14/19 08:34 Seg Neuts % (Manual) 93 % (42-78) H 03/12/19 11:04 Lymphocytes % (Manual) 2 % (13-45) L 03/12/19 11:04 Monocytes % (Manual) 5 % (3-13) 03/12/19 11:04 Eosinophils % (Manual) 0 % (0-6) 03/12/19 11:04 Basophils % (Manual) 0 % (0-2) 03/12/19 11:04 Abs Neuts (Manual) 20.5 10^3/uL (1.7-8.2) H 03/12/19 11:04 Abs Lymphs (Manual) 0.4 10^3/uL (0.5-4.7) L 03/12/19 11:04 Abs Monocytes (Manual) 1.1 10^3/uL (0.1-1.4) 03/12/19 11:04 Absolute Eos (Manual) 0.0 10^3/uL (0.0-0.6) 03/12/19 11:04 Abs Basophils (Manual) 0.0 10^3/uL (0.0-0.2) 03/12/19 11:04 Toxic Granulation SLIGHT 03/12/19 11:04 Platelet Comment ADEQUATE 03/12/19 11:04 RBC Morph Comment NORMO-CYTIC/CHROMIC 03/12/19 11:04 PT 18.9 SEC (11.4-15.4) H 03/12/19 11:04 INR 1.56 03/12/19 11:04 VBG pH 7.46 (7.30-7.42) H 03/12/19 12:20 VBG pCO2 28.8 mmHg (35-63) L 03/12/19 12:20 VBG HCO3 19.9 mmol/L (20-32) L 03/12/19 12:20 VBG Base Excess -2.7 mmol/L 03/12/19 12:20 Sodium 139.6 mmol/L (137-145) 03/14/19 08:34 Potassium 4.2 mmol/L (3.6-5.0) 03/14/19 08:34 Chloride 109 mmol/L (98-107) H 03/14/19 08:34 Carbon Dioxide 21 mmol/L (22-30) L 03/14/19 08:34 Anion Gap 10 (5-19) 03/14/19 08:34 BUN 14 mg/dL (7-20) 03/14/19 08:34 Creatinine 0.88 mg/dL (0.52-1.25) 03/14/19 08:34 Est GFR ( Amer) > 60 (>60) 03/14/19 08:34 Est GFR (MDRD) Non-Af > 60 (>60) 03/14/19 08:34 Glucose 121 mg/dL (75-110) H 03/14/19 08:34 POC Glucose 144 mg/dL (70-110) H 03/14/19 11:30 Hemoglobin A1c % 6.2 % (4.7-6.0) H 03/12/19 11:04 Lactic Acid 1.5 mmol/L (0.7-2.1) 03/12/19 18:46 Calcium 8.9 mg/dL (8.4-10.2) 03/14/19 08:34 Magnesium 1.9 mg/dL (1.6-2.3) 03/13/19 04:25 Total Bilirubin 0.9 mg/dL (0.2-1.3) 03/12/19 11:04 Direct Bilirubin 0.4 mg/dL (0.0-0.4) 03/12/19 11:04 Neonat Total Bilirubin Not Reportable 03/12/19 11:04 Neonat Direct Bilirubin Not Reportable 03/12/19 11:04 Neonat Indirect Bili Not Reportable 03/12/19 11:04 AST 20 U/L (17-59) 03/12/19 11:04 ALT 13 U/L (<50) 03/12/19 11:04 Alkaline Phosphatase 83 U/L (38-126) 03/12/19 11:04 Creatine Kinase 53 U/L (55-170) L 03/12/19 12:20 Troponin I < 0.012 ng/mL 03/12/19 11:04 Total Protein 8.3 g/dL (6.3-8.2) H 03/12/19 11:04 Albumin 4.5 g/dL (3.5-5.0) 03/12/19 11:04 TSH 0.79 uIU/mL (0.47-4.68) 03/13/19 04:25 Urine Color YELLOW 03/12/19 14:45 Urine Appearance CLOUDY 03/12/19 14:45 Urine pH 6.0 (5.0-9.0) 03/12/19 14:45 Ur Specific [place] 1.010 03/12/19 14:45 Urine Protein 30 mg/dL (NEGATIVE) H 03/12/19 14:45 Urine Glucose (UA) NEGATIVE mg/dL (NEGATIVE) 03/12/19 14:45 Urine Ketones NEGATIVE mg/dL (NEGATIVE) 03/12/19 14:45 Urine Blood LARGE (NEGATIVE) H 03/12/19 14:45 Urine Nitrite NEGATIVE (NEGATIVE) 03/12/19 14:45 Urine Bilirubin NEGATIVE (NEGATIVE) 03/12/19 14:45 Urine Urobilinogen NEGATIVE mg/dL (<2.0) 03/12/19 14:45 Ur Leukocyte Esterase LARGE (NEGATIVE) H 03/12/19 14:45 Urine WBC (Auto) >182 /HPF 03/12/19 14:45 Urine RBC (Auto) >182 /HPF 03/12/19 14:45 Urine Bacteria (Auto) 3+ /HPF 03/12/19 14:45 Urine WBC Clumps FEW /HPF 03/12/19 14:45 Squamous Epi Cells Auto <1 /HPF 03/12/19 14:45 U Non-Squamous Epis Auto 2 /HPF 03/12/19 14:45 Urine Mucus (Auto) RARE /LPF 03/12/19 14:45 Urine Yeast (Budding) PRESENT /HPF 03/12/19 14:45 Urine Ascorbic Acid NEGATIVE (NEGATIVE) 03/12/19 14:45 Digoxin < 0.40 ng/mL (0.8-2.0) L 03/12/19 12:20 Influenza A (Rapid) NEGATIVE (NEGATIVE) 03/12/19 13:00 Influenza B (Rapid) NEGATIVE (NEGATIVE) 03/12/19 13:00 03/12/19 11:04 Troponin I < 0.012 Impressions: Chest X-Ray 03/12/19 12:46 IMPRESSION: INDISTINCT DENSITY IN THE LEFT LUNG BASE. NO PRIOR STUDIES SO UNABLE TO DETERMINE IF THIS IS CHRONIC RELATED TO PREVIOUS SURGERY OR ACUTE SECONDARY TO DEVELOPING PNEUMONIA. Chest CT 03/12/19 15:02 IMPRESSION: 1. Lung changes are suspected to be generally chronic as above. Includes mild interstitial subpleural disease and basilar fibrosis with left basilar pleural calcified plaque. Stroke Is this a Stroke Patient?: No Acute Heart Failure - Is this a Heart Failure Patient?: No
== END 2019-03-14 13:30 | disposition home or self-care (01) | DRG 872 ==
LOC: ER 11:33 → EH 14:27 → 3N 20:02
PROVIDERS: ADMIT Internal Medicine; ATTEND Internal Medicine
DX: A41.9 Sepsis, unspecified organism (principal); N39.0 Urinary tract infection, site not specified; C34.32 Malignant neoplasm of lower lobe, left bronchus or lung; K05.30 Chronic periodontitis, unspecified; I48.91 Unspecified atrial fibrillation; K08.89 Other specified disorders of teeth and supporting structures; I10 Essential (primary) hypertension; E11.8 Type 2 diabetes mellitus with unspecified complications; R00.0 Tachycardia, unspecified; E86.0 Dehydration; D72.829 Elevated white blood cell count, unspecified; N40.0 Benign prostatic hyperplasia without lower urinary tract symptoms; Z79.02 Long term (current) use of antithrombotics/antiplatelets; Z90.2 Acquired absence of lung [part of]; Z79.84 Long term (current) use of oral hypoglycemic drugs
CPT/HCPCS: 36415; 71045; 71250; 80048; 80053; 80162; 81001; 82550; 82803; 82962; 83036; 83605; 83735; 84443; 84484; 85025; 85610; 87040; 87070; 87077; 87086; 87205; 87804; 93005; 93010; 96360; 99291; J0696; J1160; J3475; J3490; J7030

== ENCOUNTER 2019-04-30 10:07 | Inpatient (IN) | payer MEDICARE, OTHER ==
[2019-04-30] MEDS ORDERED: DILTIAZEM HCL INJ 25 MG/5 ML VIAL IV ONE (12:13)
[2019-04-30 12:40] LABS: ABSOLUTE EOSINOPHILS # (AUTO) 0.1 10^3/uL (0.0-0.6); ABSOLUTE LYMPHOCYTES (AUTO) 1.5 10^3/uL (0.5-4.7); ABSOLUTE MONOCYTES (AUTO) 0.6 10^3/uL (0.1-1.4); ABSOLUTE NEUT (AUTO) 9.6 10^3/uL (1.7-8.2); BASOPHILS % (AUTO) 0.3 % (0-2); EOSINOPHILS % (AUTO) 0.6 % (0-6); HEMATOCRIT 38.8 % (37.9-51.0); LYMPHOCYTES % (AUTO) 12.8 % (13-45); MEAN CORPUSCULAR HEMOGLOBIN 29.4 pg (27.0-33.4); MEAN CORPUSCULAR HGB CONC 33.6 g/dL (32.0-36.0); MEAN CORPUSCULAR VOLUME 88 fl (80-97); MONOCYTES % (AUTO) 5.4 % (3-13); PLATELET COUNT 226 10^3/uL (150-450); RED BLOOD COUNT 4.42 10^6/uL (4.35-5.55); RED CELL DISTRIBUTION WIDTH 15.8 % (11.5-14.0); SEGMENTED NEUTROPHILS % (AUTO) 80.9 % (42-78); TOTAL CELLS COUNTED % (AUTO) 100 %; WHITE BLOOD COUNT 11.9 10^3/uL (4.0-10.5)
--- NOTE | 2019-04-30 12:45 | RADIOLOGY REPORT (SQ) ---
EXAM DESCRIPTION: CT HEAD WITHOUT COMPLETED DATE/TIME: 04/30/2019 12:32 pm REASON FOR STUDY: left side weak COMPARISON: None. TECHNIQUE: Axial images acquired through the brain without intravenous contrast. Images reviewed wi th bone, brain and subdural windows. Additional sagittal and coronal reconstructions were generated. Images stored on PACS. All CT scanners at this facility use dose modulation, iterative reconstruction, and/or weight based d osing when appropriate to reduce radiation dose to as low as reasonably achievable (ALARA). [facility]: Dose Right [facility]: CareDose [facility]: Dose Right [facility]: Teradose 4D [facility]: Limbo RADIATION DOSE: CT Rad equipment meets quality standard of care and radiation dose reduction techniq ues were employed. CTDIvol: 23.9 - 53.2 mGy. DLP: 1527 mGy-cm. mGy. LIMITATIONS: None. FINDINGS: VENTRICLES: Normal for patient's age. CEREBRUM: No masses. No hemorrhage. No midline shift. Areas of low density in the white matter mos t likely due to chronic micro-vascular ischemic change. No evidence for acute infarction. CEREBELLUM: No masses. No hemorrhage. No alteration of density. No evidence for acute infarction. EXTRAAXIAL SPACES: Mild age-related involutional change. No fluid collections. No masses. ORBITS AND GLOBE: No intra- or extraconal masses. Normal contour of globe without masses. CALVARIUM: No fracture. PARANASAL SINUSES: No fluid or mucosal thickening. SOFT TISSUES: No mass or hematoma. OTHER: No other significant finding. IMPRESSION: MILD CHRONIC CHANGES OF ATROPHY AND MICROVASCULAR ISCHEMIA. NO ACUTE PROCESS. EVIDENCE OF ACUTE STROKE: NO. TECHNICAL DOCUMENTATION: JOB ID: [id number] Quality ID # [id number]: Final reports with documentation of one or more dose reduction techniques (e.g., Au tomated exposure control, adjustment of the mA and/or kV according to patient size, use of iterative reconstruction technique) 2010 [employer]- All Rights Reserved Reading location - IP/workstation name: [email or web address]
[2019-04-30 12:56] LABS: ALKALINE PHOSPHATASE 81 U/L (38-126); ANION GAP 16 (5-19); ASPARTATE AMINO TRANSFERASE 24 U/L (17-59); BILIRUBIN,DIRECT 0.6 mg/dL (0.0-0.4); BILIRUBIN,TOTAL 0.9 mg/dL (0.2-1.3); BLOOD UREA NITROGEN 30 mg/dL (7-20); CALCIUM 9.5 mg/dL (8.4-10.2); CARBON DIOXIDE 14 mmol/L (22-30); CHLORIDE 113 mmol/L (98-107); GLUCOSE 137 mg/dL (75-110); TOTAL PROTEIN 7.9 g/dL (6.3-8.2)
--- NOTE | 2019-04-30 12:58 | RADIOLOGY REPORT (SQ) ---
EXAM DESCRIPTION: CHEST SINGLE VIEW COMPLETED DATE/TIME: 04/30/2019 12:46 pm REASON FOR STUDY: htn COMPARISON: 03/12/2019 EXAM PARAMETERS: NUMBER OF VIEWS: One view. TECHNIQUE: Single frontal radiographic view of the chest acquired. RADIATION DOSE: NA LIMITATIONS: None. FINDINGS: LUNGS AND PLEURA: Persistent blunting of the costophrenic angles most likely chronic as de scribed on recent CT. Increasing left basilar airspace disease most likely atelectasis or pneumonia. MEDIASTINUM AND HILAR STRUCTURES: No masses. Contour normal. HEART AND VASCULAR STRUCTURES: Heart normal in size. Normal vasculature. BONES: No acute findings. HARDWARE: None in the chest. OTHER: No other significant finding. IMPRESSION: Increasing left basilar airspace disease probable effusion with underlying atelectasis o r pneumonia. TECHNICAL DOCUMENTATION: JOB ID: [id number] 2010 [employer]- All Rights Reserved Reading location - IP/workstation name: [email or web address]
[2019-04-30 13:00] LABS: A TYPE INFLUENZA AG NEGATIVE (NEGATIVE); B INFLUENZA AG NEGATIVE (NEGATIVE)
[2019-04-30 13:07] LABS: NT PRO BNP 1560 pg/mL (<450)
[2019-04-30 13:08] LABS: TROPONIN I < 0.012 ng/mL
[2019-04-30] MEDS ORDERED: CEFTRIAXONE 1 GM/D5W RTU 1 GM/50 ML RTUPB IV ONE (14:33)
[2019-04-30] MEDS ORDERED: AZITHROMYCIN INJ 500 MG VIAL IV ONE (14:33)
--- NOTE | 2019-04-30 14:48 | ER Document Report ---
Entered by ADALBERTO GEORGE SCRIBE 04/30/19 1144 Acting as scribe for:HOLLY IRBY DO ED General - General Chief Complaint: Irregular Pulse Stated Complaint: SHORTNESS OF BREATH Time Seen by Provider: 04/30/19 11:32 Primary Care Provider: TERRY SANDOVAL MD [Primary Care Provider] - Follow up as needed Mode of Arrival: Ambulatory Information source: Patient Notes: Patient is an 83 year old male that presents to the emergency department today with complaints of chest congestion with clear sputum as well as left-sided weakness. Patient states 3 days ago he woke up with left arm and left leg weakness as well as left shoulder pain. Patient states left shoulder pain has subsided but the weakness has remained. Patient is on Pradaxa for atrial fibrillation. 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 TRAVEL OUTSIDE OF THE [place] IN LAST 30 DAYS: No - Related Data Allergies/Adverse Reactions: aspirin Allergy (Verified 03/12/19 12:44) Past Medical History - General Information source: Patient - Social History Smoking Status: Former Smoker Cigarette use (# per day): No Chew tobacco use (# tins/day): No Frequency of alcohol use: None Drug Abuse: None Lives with: Family Family History: Reviewed & Not Pertinent Patient has suicidal ideation: No Patient has homicidal ideation: No - Past Medical History Cardiac Medical History: Reports: Hx Atrial Fibrillation, Hx Hypercholesterolemia, Hx Hypertension Pulmonary Medical History: Reports: Hx COPD Endocrine Medical History: Reports: Hx Diabetes Mellitus Type 2 Renal/ Medical History: Reports: Hx Benign Prostatic Hyperplasia Malignancy Medical History: Reports Hx Lung Cancer - left 1/3 lung resected Past Surgical History: Reports: Hx Orthopedic Surgery - knee replacement, back, Other - 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 Review of Systems - Review of Systems Constitutional: No symptoms reported EENT: See HPI, Nose congestion, Other - visual disturbance in right eye at baseline Cardiovascular: No symptoms reported Respiratory: See HPI, Cough Gastrointestinal: No symptoms reported Genitourinary: No symptoms reported Male Genitourinary: No symptoms reported Musculoskeletal: No symptoms reported Skin: No symptoms reported Hematologic/Lymphatic: No symptoms reported Neurological/Psychological: See HPI, Weakness - left sided -: Yes All other systems reviewed and negative Physical Exam - Vital signs Vitals: Resp 16 04/30/19 10:35 - Notes Notes: Physical Exam: General: Alert, appears well. HEENT: Normocephalic. Atraumatic. PERRL. Extraocular movements intact. Oropharynx clear. Right eye visual disturbance at baseline. Neck: Supple. Non-tender. Respiratory: No respiratory distress. Diminished at the bases bilaterally. Cardiovascular: Tachycardic, irregularly irregular. Abdominal: Normal Inspection. Non-tender. No distension. Normal Bowel Sounds. Back: No gross abnormalities. Extremities: Moves all four extremities. Upper extremities: 5/5 RUE strength, 4/5 LUE strength, diminished policy advisor strength on the left. Lower extremities: 5/5 RLE strength, 4/5 LLE strength. Neurological: Normal cognition. AAOx4. Normal speech. Psychological: Normal affect. Normal Mood. Skin: Warm. Dry. Normal color. Course - Re-evaluation Re-evalutation: 04/30/19 14:43 MDM Delightful 83 year old male has RLL airspace disease and had A fib with RVR upon arrival here. His HR is better after treatment with 10mg of cardizem. I have discussed with Dr Perrin who has graciously agreed to see and evaluate for admission. - Vital Signs Vital signs: Temp Pulse Resp BP Pulse Ox 18 126/98 H 99 04/30/19 13:32 04/30/19 13:32 04/30/19 13:32 - Laboratory Result Diagrams: 04/30/19 10:28 04/30/19 10:28 Laboratory results interpreted by me: 04/30/19 04/30/19 04/30/19 10:28 10:28 10:28 WBC 11.9 H Hgb 13.0 L RDW 15.8 H Lymph % (Auto) 12.8 L Absolute Neuts (auto) 9.6 H Seg Neutrophils % 80.9 H Chloride 113 H Carbon Dioxide 14 L BUN 30 H Creatinine 1.37 H Est GFR (MDRD) Non-Af 50 L Glucose 137 H Direct Bilirubin 0.6 H NT-Pro-B Natriuret Pep 1560 H - Diagnostic Test Radiology reviewed: Reports reviewed Critical Care Note - Critical Care Note Total time excluding time spent on procedures (mins): 30 Discharge - Discharge Clinical Impression: Atrial fibrillation with RVR Pneumonia Qualifiers: Pneumonia type: due to unspecified organism Laterality: right Lung location: lower lobe of lung Qualified Code(s): J18.9 - Pneumonia, unspecified organism Condition: Fair Disposition: ADMITTED INPATIENT Admitting Provider: Marychuy (Hospitalist) Unit Admitted: Telemetry Referrals: TERRY SANDOVAL MD [Primary Care Provider] - Follow up as needed I personally performed the services described in the documentation, reviewed and edited the documentation which was dictated to the scribe in my presence, and it accurately records my words and actions.
[2019-04-30] MEDS ORDERED: GUAIFENESIN SYRP 200 MG/10 ML UDC PO PRN (16:25)
[2019-04-30] MEDS ORDERED: LEVALBUTEROL HCL NEB 1.25 MG/3 ML AMPUL NEB PRN (16:25)
[2019-04-30] MEDS ORDERED: ACETAMINOPHEN 325 MG TABLET PO PRN (16:25)
[2019-04-30] MEDS ORDERED: PHARMACY COMMUNICATION ORDER MC NR (16:30)
--- NOTE | 2019-04-30 16:42 | PDOC H&P ---
History of Present Illness Admission Date/PCP: 04/30/19 16:07 TERRY SANDOVAL MD Patient complains of: Chest congestion with shortness of breath. Coughing up clear phlegm. History of Present Illness: MICHAEL PIZARRO is a 83 year old male who reports a 1 day history of chest congestion and cough. He does feel short of breath with exertion and is coughing up clear phlegm. He reports no wheezes, fever or chills. Of note, 3 days ago he woke up with left leg weakness and pain in his left arm. His left shoulder tends to hurt in the mornings. The left leg weakness and left arm discomfort resolve slowly on its own. The patient did not seek medical attention and it is likely he had a TIA as the symptoms appear to have completely resolved. This occurred while on anticoagulation. He does have a history of chronic atrial fibrillation and upon presentation he was found to be in A. fib with rapid ventricular response no doubt triggered by the infection. He did have a slightly elevated white blood cell count and imaging suggestive of left lower lobe pneumonia. He is not exhibiting any significant increased work of breathing nor does he require oxygen. He will be admitted primarily for the pneumonia and atrial fibrillation with rapid ventricular response but we will also obtain a physical therapy consult and consider modifications of his medications due to the likely TIA. 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, left lower lobectomy Social History Information Source: Patient, [facility] Records - Patient is Lives with: Family Smoking Status: Former Smoker Electronic Cigarette use?: No Last Time Smoked: 1964 Frequency of Alcohol Use: Rare Hx Recreational Drug Use: No Hx Prescription Drug Abuse: No - Advance Directive Resuscitation Status: Full Code Surrogate healthcare decision maker:: Children would be the decision makers as he is and has no siblings Family History Family History: DM Parental Family History Reviewed: Yes Children Family History Reviewed: Yes Sibling(s) Family History Reviewed.: NA Medication/Allergy Home Medications: Brinzolamide/Brimonidine Tart [Simbrinza 1%-0.2% Eye Drops] 1 drop OU TID 04/30/19 Dabigatran Etexilate Mesylate [Pradaxa 150 mg Capsule] 150 mg PO DAILY 04/30/19 Diltiazem HCl [Diltiazem 12Hr ER] 120 mg PO Q12 04/30/19 Finasteride [Proscar 5 mg Tablet] 5 mg PO DAILY 04/30/19 Meloxicam [Mobic] 7.5 mg PO Q12 04/30/19 Metformin HCl [Glucophage] 1,000 mg PO BIDBS 04/30/19 Metoprolol Succinate [Toprol Xl 25 mg Tab.sr] 25 mg PO Q12 04/30/19 Allergies/Adverse Reactions: aspirin Allergy (Verified 03/12/19 12:44) Review of Systems All systems: reviewed and no additional remarkable complaints except as stated Eyes: PRESENT: visual disturbances Cardiovascular: PRESENT: other - Fast heart rate Respiratory: PRESENT: cough, dyspnea, sputum Musculoskeletal: PRESENT: back pain, other - Neck pain Physical Exam Vital Signs: Temp Pulse Resp BP Pulse Ox 17 143/83 H 86 L 04/30/19 15:21 04/30/19 15:21 04/30/19 15:21 Intake & Output 04/29/19 04/30/19 05/01/19 06:59 06:59 06:59 Intake Total 50 Balance 50 Weight 78.2 kg General appearance: PRESENT: no acute distress, cooperative, well-developed Head exam: PRESENT: atraumatic, normocephalic Eye exam: PRESENT: conjunctiva pink, EOMI. ABSENT: scleral icterus Ear exam: PRESENT: normal external ear exam, other - Hearing aid. ABSENT: blee ding, drainage Mouth exam: PRESENT: moist, tongue midline Neck exam: ABSENT: carotid bruit, JVD, lymphadenopathy Respiratory exam: PRESENT: rales - Lateral bases, rhonchi - On the left, symmetrical, unlabored. ABSENT: prolonged expiratory phas, tachypnea, wheezes Cardiovascular exam: PRESENT: irregular rhythm, tachycardia GI/Abdominal exam: PRESENT: normal bowel sounds, soft. ABSENT: distended, guarding, tenderness Rectal exam: PRESENT: deferred Gentrourinary exam: ABSENT: indwelling catheter Extremities exam: ABSENT: pedal edema Musculoskeletal exam: PRESENT: ambulatory, normal inspection. ABSENT: deformity Neurological exam: PRESENT: alert, awake, oriented to person, oriented to place, oriented to time, oriented to situation, CN II-XII grossly intact - Except hearing and vision, motor sensory deficit - Hearing and vision loss Psychiatric exam: PRESENT: appropriate affect. ABSENT: agitated, anxious Focused psych exam: ABSENT: delusional, restlessness Skin exam: PRESENT: dry, normal color, warm. ABSENT: rash Results Laboratory Results: 04/30/19 10:28 04/30/19 10:28 04/30/19 04/30/19 10:28 10:28 WBC 11.9 H RBC 4.42 Hgb 13.0 L Hct 38.8 MCV 88 MCH 29.4 MCHC 33.6 RDW 15.8 H Plt Count 226 Seg Neutrophils % 80.9 H Sodium 143.1 Potassium 4.0 Chloride 113 H Carbon Dioxide 14 L Anion Gap 16 BUN 30 H Creatinine 1.37 H Est GFR ( Amer) > 60 Glucose 137 H Calcium 9.5 Magnesium 1.9 Total Bilirubin 0.9 AST 24 Alkaline Phosphatase 81 Total Protein 7.9 Albumin 4.0 04/30/19 10:28 Troponin I < 0.012 NT-Pro-B Natriuret Pep 1560 H Impressions: Chest X-Ray 04/30/19 12:11 IMPRESSION: Increasing left basilar airspace disease probable effusion with underlying atelectasis or pneumonia. Head CT 04/30/19 12:12 IMPRESSION: MILD CHRONIC CHANGES OF ATROPHY AND MICROVASCULAR ISCHEMIA. NO ACUTE PROCESS. EVIDENCE OF ACUTE STROKE: NO. Assessment and Plan - Diagnosis (1) Left lower lobe pneumonia Qualifiers: Pneumonia type: due to unspecified organism Qualified Code(s): J18.9 - Pneumonia, unspecified organism Is this a current diagnosis for this admission?: Yes (2) Leukocytosis Qualifiers: Leukocytosis type: unspecified Qualified Code(s): D72.829 - Elevated white blood cell count, unspecified Is this a current diagnosis for this admission?: Yes (3) Atrial fibrillation with RVR Is this a current diagnosis for this admission?: Yes (4) Hyperglycemia due to type 2 diabetes mellitus Qualifiers: Diabetes mellitus intermediate insulin use: without bed bug exterminator use Qualified Code(s): E11.65 - Type 2 diabetes mellitus with hyperglycemia Is this a current diagnosis for this admission?: Yes (5) Hypertension Qualifiers: Hypertension type: essential hypertension Qualified Code(s): I10 - Essential (primary) hypertension Is this a current diagnosis for this admission?: Yes (6) Benign prostatic hyperplasia with lower urinary tract symptoms Qualifiers: Lower urinary tract symptom detail: urinary hesitancy Qualified Code(s): N40.1 - Benign prostatic hyperplasia with lower urinary tract symptoms; R39.11 - Hesitancy of micturition Is this a current diagnosis for this admission?: Yes - Plan Summary Summary: 04/30/2019 Left lower lobe pneumonia-continue ceftriaxone and azithromycin. Monitor symptoms and pulse oximetry. Leukocytosis-secondary to pneumonia. Continue to monitor white blood cell count while on antibiotics. Atrial fibrillation with rapid ventricular response-A. fib adversely affected by the pneumonia. The patient's it program engagement director will consult. We may need to adjust medications to compensate. We will continue his metoprolol and diltiazem and I have made IV metoprolol available if needed. Continue anticoagulation. Diabetes mellitus-continue metformin. Monitor with Accu-Cheks and a sliding scale will be available. The patient will be on a diabetic/cardiac diet. Hypertension-in addition to monitor on telemetry the patient will have regular vital signs. Will monitor his blood pressure in addition to his pulse. Adjust medications if required. BPH with urinary symptoms-continue finasteride - Time Time Spent with patient: 35 or more minutes Medications reviewed and adjusted accordingly: Yes Anticipated discharge: Home - Inpatient Certification Based on my medical assessment, after consideration of the patient's comorbidities, presenting symptoms, or acuity I expect that the services needed warrant INPATIENT care.: Yes I certify that my determination is in accordance with my understanding of Medicare's requirements for reasonable and necessary INPATIENT services [42 CFR 412.3e].: Yes Medical Necessity: Need For Continuous Telemetry Monitoring, Need for IV Antibiotics Post Hospital Care: 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
[2019-04-30] MEDS ORDERED: (PENDING PHARMACY ID) (Brinzolamide/Brimonidine Tart [Simbrinza 1%-0.2% Eye Drops] 1 DROP) OU SCH (18:00)
[2019-04-30] MEDS: METFORMIN HCL 500 MG TABLET PO SCH (18:43)
[2019-04-30] MEDS: METOPROLOL TARTRATE PF/INJ 5 MG/5 ML SDV IV PRN (18:44)
[2019-04-30] MEDS ORDERED: (PENDING PHARMACY ID) (Diltiazem Hcl [Diltiazem 12hr Er] 120 MG) PO SCH (22:00)
[2019-04-30] MEDS: DILTIAZEM HCL 120 MG CAP.SR.24H PO SCH (22:04)
[2019-04-30] MEDS: GUAIFENESIN 600 MG TABLET.SA PO SCH (22:04)
[2019-04-30] MEDS: MELOXICAM 7.5 MG TABLET PO SCH (22:04)
[2019-04-30] MEDS: METOPROLOL SUCCINATE 25 MG TAB.SR.24H PO SCH (22:04)
--- NOTE | 2019-04-30 22:29 | EKG REPORT ---
SEVERITY:- ABNORMAL ECG - ATRIAL FIBRILLATION, V-RATE 75-142 BORDERLINE T WAVE ABNORMALITIES BORDERLINE PROLONGED QT INTERVAL : Confirmed by: Cathleen George 30-Apr-2019 22:28:24
[2019-05-01 06:31] LABS: ABSOLUTE BASOPHILS # (AUTO) 0.1 10^3/uL (0.0-0.2); ABSOLUTE EOSINOPHILS # (AUTO) 0.3 10^3/uL (0.0-0.6); ABSOLUTE LYMPHOCYTES (AUTO) 2.1 10^3/uL (0.5-4.7); ABSOLUTE MONOCYTES (AUTO) 0.6 10^3/uL (0.1-1.4); ABSOLUTE NEUT (AUTO) 6.4 10^3/uL (1.7-8.2); BASOPHILS % (AUTO) 0.7 % (0-2); EOSINOPHILS % (AUTO) 3.5 % (0-6); HEMATOCRIT 39.2 % (37.9-51.0); HEMOGLOBIN 13.7 g/dL (13.5-17.0); LYMPHOCYTES % (AUTO) 21.7 % (13-45); MEAN CORPUSCULAR HGB CONC 34.8 g/dL (32.0-36.0); MEAN CORPUSCULAR VOLUME 86 fl (80-97); MONOCYTES % (AUTO) 6.6 % (3-13); PLATELET COUNT 235 10^3/uL (150-450); RED BLOOD COUNT 4.56 10^6/uL (4.35-5.55); RED CELL DISTRIBUTION WIDTH 15.9 % (11.5-14.0); SEGMENTED NEUTROPHILS % (AUTO) 67.5 % (42-78); TOTAL CELLS COUNTED % (AUTO) 100 %; WHITE BLOOD COUNT 9.5 10^3/uL (4.0-10.5)
[2019-05-01 07:00] LABS: ANION GAP 13 (5-19); BLOOD UREA NITROGEN 23 mg/dL (7-20); CALCIUM 9.6 mg/dL (8.4-10.2); CARBON DIOXIDE 15 mmol/L (22-30); CHLORIDE 113 mmol/L (98-107); GLUCOSE 102 mg/dL (75-110)
[2019-05-01] MEDS: METOPROLOL TARTRATE PF/INJ 5 MG/5 ML SDV IV PRN ×2 (08:15→12:01)
[2019-05-01] MEDS: METFORMIN HCL 500 MG TABLET PO SCH ×2 (09:29→17:01)
[2019-05-01] MEDS: METOPROLOL SUCCINATE 25 MG TAB.SR.24H PO SCH (09:29)
[2019-05-01] MEDS: GUAIFENESIN 600 MG TABLET.SA PO SCH ×2 (09:30→21:28)
[2019-05-01] MEDS: DILTIAZEM HCL 120 MG CAP.SR.24H PO SCH ×2 (09:30→21:28)
[2019-05-01] MEDS: MELOXICAM 7.5 MG TABLET PO SCH ×2 (09:30→21:28)
[2019-05-01] MEDS: DABIGATRAN ETEXILATE 150 MG CAPSULE PO SCH (09:33)
[2019-05-01] MEDS: FINASTERIDE 5 MG TABLET PO SCH (09:33)
[2019-05-01] MEDS: CEFTRIAXONE 1 GM/D5W RTU 1 GM/50 ML RTUPB IV SCH (09:34)
--- NOTE | 2019-05-01 14:36 | PDOC PROGRESS REPORT ---
Subjective Progress Note for:: 05/01/19 Subjective:: The patient is doing well today. Unfortunately his heart rate gets above 110 and just walking to the bathroom. He is certainly improved from a pneumonia standpoint but I do not feel safe sending him home just yet as we need to get his atrial fibrillation under better control. Reason For Visit: PNEUMONIA, A FIB WITH RVR,DIABETES MELLITUS Physical Exam Vital Signs: Temp Pulse Resp BP Pulse Ox 96.8 F L 104 H 17 138/83 H 93 05/01/19 08:00 05/01/19 10:40 05/01/19 10:40 05/01/19 08:00 05/01/19 12:04 Pulse Oximeter Continuous Start: 04/30/19 16:25 Freq: RTQ4 Status: Active Protocol: Document 05/01/19 12:04 HCR (Rec: 05/01/19 12:04 HCR [id number]) Pulse Oximetry Assessment Oxygen Saturation (92-100) 93 Oxygen Delivery Method Room Air Fraction of Inspired Oxygen (FIO2) 21 Equipment Usage Equipment in Use Continuous SpO2 Machine # 3 Intake & Output 04/30/19 05/01/19 05/02/19 06:59 06:59 06:59 Intake Total 50 50 Balance 50 50 Weight 73.1 kg General appearance: PRESENT: no acute distress, cooperative, well-developed Head exam: PRESENT: atraumatic, normocephalic Eye exam: PRESENT: conjunctiva pink. ABSENT: scleral icterus Ear exam: PRESENT: normal external ear exam, other - Earing aids. ABSENT: bleeding, drainage Mouth exam: PRESENT: moist, tongue midline Respiratory exam: PRESENT: rales - Faint rales bilaterally, rhonchi - Left base, symmetrical, unlabored. ABSENT: tachypnea, wheezes Cardiovascular exam: PRESENT: irregular rhythm GI/Abdominal exam: PRESENT: normal bowel sounds, soft. ABSENT: distended, gu arding, mass, tenderness Rectal exam: PRESENT: deferred Gentrourinary exam: ABSENT: indwelling catheter Extremities exam: ABSENT: pedal edema Musculoskeletal exam: PRESENT: ambulatory, normal inspection. ABSENT: deformity Neurological exam: PRESENT: alert, awake, oriented to person, oriented to place, oriented to time, oriented to situation, CN II-XII grossly intact, other - Hearing loss Psychiatric exam: PRESENT: flat affect. ABSENT: agitated, anxious Results Laboratory Results: 05/01/19 05:37 05/01/19 05:37 05/01/19 05/01/19 05:37 05:37 WBC 9.5 RBC 4.56 Hgb 13.7 Hct 39.2 MCV 86 MCH 30.0 MCHC 34.8 RDW 15.9 H Plt Count 235 Seg Neutrophils % 67.5 Sodium 140.8 Potassium 4.0 Chloride 113 H Carbon Dioxide 15 L Anion Gap 13 BUN 23 H Creatinine 1.13 Est GFR ( Amer) > 60 Glucose 102 Calcium 9.6 Magnesium 1.7 04/30/19 10:28 Troponin I < 0.012 NT-Pro-B Natriuret Pep 1560 H Impressions: Chest X-Ray 04/30/19 12:11 IMPRESSION: Increasing left basilar airspace disease probable effusion with underlying atelectasis or pneumonia. Head CT 04/30/19 12:12 IMPRESSION: MILD CHRONIC CHANGES OF ATROPHY AND MICROVASCULAR ISCHEMIA. NO ACUTE PROCESS. EVIDENCE OF ACUTE STROKE: NO. Assessment and Plan - Diagnosis (1) Left lower lobe pneumonia Qualifiers: Pneumonia type: due to unspecified organism Qualified Code(s): J18.9 - Pneumonia, unspecified organism Is this a current diagnosis for this admission?: Yes (2) Leukocytosis Qualifiers: Leukocytosis type: unspecified Qualified Code(s): D72.829 - Elevated white blood cell count, unspecified Is this a current diagnosis for this admission?: Yes (3) Atrial fibrillation with RVR Is this a current diagnosis for this admission?: Yes (4) Hyperglycemia due to type 2 diabetes mellitus Qualifiers: Diabetes mellitus shelter insulin use: without shelter use Qualified Code(s): E11.65 - Type 2 diabetes mellitus with hyperglycemia Is this a current diagnosis for this admission?: Yes (5) Hypertension Qualifiers: Hypertension type: essential hypertension Qualified Code(s): I10 - Essential (primary) hypertension Is this a current diagnosis for this admission?: Yes (6) Benign prostatic hyperplasia with lower urinary tract symptoms Qualifiers: Lower urinary tract symptom detail: urinary hesitancy Qualified Code(s): N40.1 - Benign prostatic hyperplasia with lower urinary tract symptoms; R39.11 - Hesitancy of micturition Is this a current diagnosis for this admission?: Yes - Plan Summary Summary: 04/30/2019 Left lower lobe pneumonia-continue ceftriaxone and azithromycin. Monitor symptoms and pulse oximetry. Leukocytosis-secondary to pneumonia. Continue to monitor white blood cell count while on antibiotics. Atrial fibrillation with rapid ventricular response-A. fib adversely affected by the pneumonia. The patient's antenna machine operator will consult. We may need to adjust medications to compensate. We will continue his metoprolol and diltiazem and I have made IV metoprolol available if needed. Continue anticoagulation. Diabetes mellitus-continue metformin. Monitor with Accu-Cheks and a sliding scale will be available. The patient will be on a diabetic/cardiac diet. Hypertension-in addition to monitor on telemetry the patient will have regular vital signs. Will monitor his blood pressure in addition to his pulse. Adjust medications if required. BPH with urinary symptoms-continue finasteride 05/01/2019 Pneumonia-the patient's white blood cell count has normalized and his breathing is better. His lung sounds are clinically improved. He does not require oxygen supplementation. We will continue the current antibiotic regimen. Atrial fibrillation-unfortunately the patient is exhibiting very labile heart rate. I will change his metoprolol to metoprolol tartrate 50 mg twice daily. He still has intravenous metoprolol available if needed. We will continue the diltiazem at the same 120 mg dose twice daily. Continue anticoagulation. Diabetes mellitus-the Accu-Cheks are improved and with the metformin and diabetic diet the diabetes is well controlled. I did discuss the patient with his antenna machine operator. Because of the presence of diabetes I am going to add low- dose statin and low-dose FAHAD inhibitor therapy. Hypertension-good blood pressure control. Will need to continue to monitor on telemetry for the fibrillation and monitor vital signs especially with the addition of the low-dose lisinopril and increase in the metoprolol dose. Continue finasteride for BPH. I did review the patient with his antenna machine operator today as well. - Time Time Spent with patient: 15-24 minutes Medications reviewed and adjusted accordingly: Yes Anticipated discharge: Home Within: within 48 hours - Hopefully within a day or 2.
--- NOTE | 2019-05-01 14:56 | CDI QUERY ---
CDI Query CDI Review: Dear DANE, To better reflect your patients severity of illness, morbidity, and resource utilization Please LINK any condition to present on admission, if applicable. The terms probable, suspected, likely, possible or still to be ruled out may be used. If you agree, please add to the Progress Notes and Discharge Summary Query Clinical indicators PLEASE SPECIFY TYPE A FIB: PERSISTENT? PERMANENT? PAROXYSMAL? Atrial fibrillation with RVR Thank you, CANDY Clinical Documentation Physician Advisors SHELIA [email or web address] [email or web address] Office [phone]
[2019-05-01] MEDS ORDERED: METOPROLOL TARTRATE 25 MG TABLET PO ONE (15:00)
[2019-05-01] MEDS ORDERED: AZITHROMYCIN 500 MG in DEXTROSE 5%-WATER 250 ML IV SCH (18:00)
[2019-05-01 20:13] LABS: APPEARANCE,URINE SLIGHTLY-CLOUDY; BILIRUBIN,URINE NEGATIVE (NEGATIVE); COLOR,URINE YELLOW; GLUCOSE, URINE NEGATIVE (NEGATIVE); KETONES,URINE NEGATIVE (NEGATIVE); LEUKOCYTE ESTERASE,URINE SMALL (NEGATIVE); NITRITE,URINE NEGATIVE (NEGATIVE); PROTEIN,URINE 30 mg/dL (NEGATIVE); URINE SPECIFIC GRAVITY 1.019; UROBILINOGEN,URINE NEGATIVE mg/dL (<2.0)
[2019-05-01] MEDS: METOPROLOL SUCCINATE 50 MG TAB.SR.24H PO SCH (21:28)
[2019-05-01] MEDS ORDERED: ATORVASTATIN CALCIUM 20 MG TABLET PO SCH (22:00)
[2019-05-02] MEDS: METOPROLOL SUCCINATE 50 MG TAB.SR.24H PO SCH (09:14)
[2019-05-02] MEDS: MELOXICAM 7.5 MG TABLET PO SCH (09:15)
[2019-05-02] MEDS: METFORMIN HCL 500 MG TABLET PO SCH (09:15)
[2019-05-02] MEDS: GUAIFENESIN 600 MG TABLET.SA PO SCH (09:15)
[2019-05-02] MEDS: DABIGATRAN ETEXILATE 150 MG CAPSULE PO SCH (09:15)
[2019-05-02] MEDS: DILTIAZEM HCL 120 MG CAP.SR.24H PO SCH (09:15)
[2019-05-02] MEDS: FINASTERIDE 5 MG TABLET PO SCH (09:15)
[2019-05-02] MEDS: CEFTRIAXONE 1 GM/D5W RTU 1 GM/50 ML RTUPB IV SCH (09:16)
[2019-05-02] MEDS ORDERED: LISINOPRIL 5 MG TABLET PO SCH (10:00)
[2019-05-02 10:08] VITALS: BP 127/81
--- NOTE | 2019-05-02 12:54 | PDOC DISCHARGE SUMMARY ---
Impression - Admit/DC Date/PCP Admission Date/Primary Care Provider: 04/30/19 16:07 TERRY SANDOVAL MD Discharge Date: 05/02/19 - Discharge Diagnosis (1) Left lower lobe pneumonia Is this a current diagnosis for this admission?: Yes (2) Leukocytosis Is this a current diagnosis for this admission?: Yes (3) Atrial fibrillation with RVR Is this a current diagnosis for this admission?: Yes (4) Longstanding persistent atrial fibrillation Is this a current diagnosis for this admission?: Yes (5) Hyperglycemia due to type 2 diabetes mellitus Is this a current diagnosis for this admission?: Yes (6) Hypertension Is this a current diagnosis for this admission?: Yes (7) Benign prostatic hyperplasia with lower urinary tract symptoms Is this a current diagnosis for this admission?: Yes (8) Acute kidney injury Is this a current diagnosis for this admission?: Yes - Assessment Summary: 04/30/2019 Left lower lobe pneumonia-continue ceftriaxone and azithromycin. Monitor symptoms and pulse oximetry. Leukocytosis-secondary to pneumonia. Continue to monitor white blood cell count while on antibiotics. Atrial fibrillation with rapid ventricular response-A. fib adversely affected by the pneumonia. The patient's crimp setter will consult. We may need to adjust medications to compensate. We will continue his metoprolol and diltiazem and I have made IV metoprolol available if needed. Continue anticoagulation. Diabetes mellitus-continue metformin. Monitor with Accu-Cheks and a sliding scale will be available. The patient will be on a diabetic/cardiac diet. Hypertension-in addition to monitor on telemetry the patient will have regular vital signs. Will monitor his blood pressure in addition to his pulse. Adjust medications if required. BPH with urinary symptoms-continue finasteride 05/01/2019 Pneumonia-the patient's white blood cell count has normalized and his breathing is better. His lung sounds are clinically improved. He does not require oxygen supplementation. We will continue the current antibiotic regimen. Atrial fibrillation-unfortunately the patient is exhibiting very labile heart rate. I will change his metoprolol to metoprolol tartrate 50 mg twice daily. He still has intravenous metoprolol available if needed. We will continue the diltiazem at the same 120 mg dose twice daily. Continue anticoagulation. Diabetes mellitus-the Accu-Cheks are improved and with the metformin and diabetic diet the diabetes is well controlled. I did discuss the patient with his crimp setter. Because of the presence of diabetes I am going to add low- dose statin and low-dose FAHAD inhibitor therapy. Hypertension-good blood pressure control. Will need to continue to monitor on telemetry for the fibrillation and monitor vital signs especially with the addition of the low-dose lisinopril and increase in the metoprolol dose. Continue finasteride for BPH. I did review the patient with his crimp setter today as well. 05/01/2019-clarification The patient has longstanding persistent atrial fibrillation. The pneumonia has caused the rapid ventricular response. 05/02/2019- The patient's pneumonia continues to improve. His breathing is comfortable and he is stable and is comfortable with discharge to home. With the increase in his metoprolol he has better rate control for his longstanding atrial fibrillation. He will continue anticoagulation. He has Accu-Cheks continue to exhibit good control and his blood pressure is well controlled. Urinary symptoms from BPH remained stable. Lastly, his BUN and creatinine were slightly elevated admission. Mild acute kidney injury likely from his infection. His serum creatinine is now normal and his BUN is barely above the upper limit normal. - Additional Information Resuscitation Status: Full Code Discharge Diet: Cardiac, Diabetic Discharge Activity: Activity As Tolerated, Slowly Increase Activity Referrals: YONY AUSTIN MD [ASSOCIATE] - (NEXT WEEK AFIB) TERRY SANDOVAL MD [Primary Care Provider] - 05/12/19 10:00 am Prescriptions: Cefuroxime Axetil [Ceftin 250 mg Tablet] 1 tab PO BID 8 Days #16 tablet Atorvastatin Calcium [Lipitor 20 mg Tablet] 20 mg PO QHS 30 Days #30 tablet Lisinopril [Prinivil 5 mg Tablet] 2.5 mg PO DAILY 30 Days #30 tablet Metoprolol Succinate [Toprol Xl 50 mg Tab.sr] 50 mg PO Q12 30 Days #60 tab.sr.24h Azithromycin [Zithromax 250 mg Tablet] 250 mg PO DAILY #5 tablet Home Medications: Brinzolamide/Brimonidine Tart [Simbrinza 1%-0.2% Eye Drops] 1 drop OU TID 04/30/19 Dabigatran Etexilate Mesylate [Pradaxa 150 mg Capsule] 150 mg PO DAILY 04/30/19 Diltiazem HCl [Diltiazem 12Hr ER] 120 mg PO Q12 04/30/19 Finasteride [Proscar 5 mg Tablet] 5 mg PO DAILY 04/30/19 Meloxicam [Mobic] 7.5 mg PO Q12 04/30/19 Metformin HCl [Glucophage] 1,000 mg PO BIDBS 04/30/19 Atorvastatin Calcium [Lipitor 20 mg Tablet] 20 mg PO QHS 30 Days #30 tablet 05/02/19 Azithromycin [Zithromax 250 mg Tablet] 250 mg PO DAILY #5 tablet 05/02/19 Cefuroxime Axetil [Ceftin 250 mg Tablet] 1 tab PO BID 8 Days #16 tablet 05/02/19 Guaifenesin [Mucinex Sr 600 mg Tablet.sa] 600 mg PO Q12 tablet.sa 05/02/19 Lisinopril [Prinivil 5 mg Tablet] 2.5 mg PO DAILY 30 Days #30 tablet 05/02/19 Metoprolol Succinate [Toprol Xl 50 mg Tab.sr] 50 mg PO Q12 30 Days #60 tab.sr.24h 05/02/19 History of Present Illiness History of Present Illness: MICHAEL PIZARRO is a 83 year old male who reports a 1 day history of chest congestion and cough. He does feel short of breath with exertion and is coughing up clear phlegm. He reports no wheezes, fever or chills. Of note, 3 days ago he woke up with left leg weakness and pain in his left arm. His left shoulder tends to hurt in the mornings. The left leg weakness and left arm discomfort resolve slowly on its own. The patient did not seek medical attention and it is likely he had a TIA as the symptoms appear to have completely resolved. This occurred while on anticoagulation. He does have a history of chronic atrial fibrillation and upon presentation he was found to be in A. fib with rapid ventricular response no doubt triggered by the infection. He did have a slightly elevated white blood cell count and imaging suggestive of left lower lobe pneumonia. He is not exhibiting any significant increased work of breathing nor does he require oxygen. He will be admitted primarily for the pneumonia and atrial fibrillation with rapid ventricular response but we will also obtain a physical therapy consult and consider modifications of his medications due to the likely TIA. 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 Hospital Course Hospital Course: Benign hospital course. His atrial fibrillation is very sensitive to his comorbidities but with his increased metoprolol dose he is achieving reasonable control. See details of hospitalization above. Physical Exam Vital Signs: Temp Pulse Resp BP Pulse Ox 97.9 F 100 18 127/81 H 98 05/02/19 12:00 05/02/19 12:00 05/02/19 12:00 05/02/19 12:00 05/02/19 12:00 Pulse Oximeter Continuous Start: 04/30/19 16:25 Freq: RTQ4 Status: Complete Protocol: Document 05/01/19 21:15 LDI (Rec: 05/01/19 21:15 LDI [email or web address]) Pulse Oximetry Assessment Oxygen Saturation (92-100) 100 Oxygen Delivery Method Room Air Equipment Usage Equipment in Use Continuous SpO2 Machine # 3 Intake & Output 05/01/19 05/02/19 05/03/19 06:59 06:59 06:59 Intake Total 50 1050 Balance 50 1050 Weight 73.1 kg 73.2 kg General appearance: PRESENT: no acute distress, cooperative, well-developed Respiratory exam: PRESENT: rhonchi - Still with some rhonchi but improved, symmetrical, unlabored. ABSENT: prolonged expiratory phas, tachypnea, wheezes Cardiovascular exam: PRESENT: irregular rhythm GI/Abdominal exam: PRESENT: normal bowel sounds, soft. ABSENT: tenderness Results Laboratory Results: WBC 9.5 10^3/uL (4.0-10.5) 05/01/19 05:37 RBC 4.56 10^6/uL (4.35-5.55) 05/01/19 05:37 Hgb 13.7 g/dL (13.5-17.0) 05/01/19 05:37 Hct 39.2 % (37.9-51.0) 05/01/19 05:37 MCV 86 fl (80-97) 05/01/19 05:37 MCH 30.0 pg (27.0-33.4) 05/01/19 05:37 MCHC 34.8 g/dL (32.0-36.0) 05/01/19 05:37 RDW 15.9 % (11.5-14.0) H 05/01/19 05:37 Plt Count 235 10^3/uL (150-450) 05/01/19 05:37 Lymph % (Auto) 21.7 % (13-45) 05/01/19 05:37 [place] % (Auto) 6.6 % (3-13) 05/01/19 05:37 Eos % (Auto) 3.5 % (0-6) 05/01/19 05:37 Baso % (Auto) 0.7 % (0-2) 05/01/19 05:37 Absolute Neuts (auto) 6.4 10^3/uL (1.7-8.2) 05/01/19 05:37 Absolute Lymphs (auto) 2.1 10^3/uL (0.5-4.7) 05/01/19 05:37 Absolute Monos (auto) 0.6 10^3/uL (0.1-1.4) 05/01/19 05:37 Absolute Eos (auto) 0.3 10^3/uL (0.0-0.6) 05/01/19 05:37 Absolute Basos (auto) 0.1 10^3/uL (0.0-0.2) 05/01/19 05:37 Seg Neutrophils % 67.5 % (42-78) 05/01/19 05:37 Sodium 140.8 mmol/L (137-145) 05/01/19 05:37 Potassium 4.0 mmol/L (3.6-5.0) 05/01/19 05:37 Chloride 113 mmol/L (98-107) H 05/01/19 05:37 Carbon Dioxide 15 mmol/L (22-30) L 05/01/19 05:37 Anion Gap 13 (5-19) 05/01/19 05:37 BUN 23 mg/dL (7-20) H 05/01/19 05:37 Creatinine 1.13 mg/dL (0.52-1.25) 05/01/19 05:37 Est GFR ( Amer) > 60 (>60) 05/01/19 05:37 Est GFR (MDRD) Non-Af > 60 (>60) 05/01/19 05:37 Glucose 102 mg/dL (75-110) 05/01/19 05:37 Calcium 9.6 mg/dL (8.4-10.2) 05/01/19 05:37 Magnesium 1.7 mg/dL (1.6-2.3) 05/01/19 05:37 Total Bilirubin 0.9 mg/dL (0.2-1.3) 04/30/19 10:28 Direct Bilirubin 0.6 mg/dL (0.0-0.4) H 04/30/19 10:28 Neonat Total Bilirubin Not Reportable 04/30/19 10:28 Neonat Direct Bilirubin Not Reportable 04/30/19 10:28 Neonat Indirect Bili Not Reportable 04/30/19 10:28 AST 24 U/L (17-59) 04/30/19 10:28 ALT 14 U/L (<50) 04/30/19 10:28 Alkaline Phosphatase 81 U/L (38-126) 04/30/19 10:28 Troponin I < 0.012 ng/mL 04/30/19 10:28 NT-Pro-B Natriuret Pep 1560 pg/mL (<450) H 04/30/19 10:28 Total Protein 7.9 g/dL (6.3-8.2) 04/30/19 10:28 Albumin 4.0 g/dL (3.5-5.0) 04/30/19 10:28 Urine Color YELLOW 05/01/19 18:50 Urine Appearance SLIGHTLY-CLOUDY 05/01/19 18:50 Urine pH 5.0 (5.0-9.0) 05/01/19 18:50 Ur Specific [place] 1.019 05/01/19 18:50 Urine Protein 30 mg/dL (NEGATIVE) H 05/01/19 18:50 Urine Glucose (UA) NEGATIVE mg/dL (NEGATIVE) 05/01/19 18:50 Urine Ketones NEGATIVE mg/dL (NEGATIVE) 05/01/19 18:50 Urine Blood LARGE (NEGATIVE) H 05/01/19 18:50 Urine Nitrite NEGATIVE (NEGATIVE) 05/01/19 18:50 Urine Bilirubin NEGATIVE (NEGATIVE) 05/01/19 18:50 Urine Urobilinogen NEGATIVE mg/dL (<2.0) 05/01/19 18:50 Ur Leukocyte Esterase SMALL (NEGATIVE) H 05/01/19 18:50 Urine WBC (Auto) 20 /HPF 05/01/19 18:50 Urine RBC (Auto) >182 /HPF 05/01/19 18:50 Squamous Epi Cells Auto <1 /HPF 05/01/19 18:50 Urine Mucus (Auto) OCC /LPF 05/01/19 18:50 Urine Ascorbic Acid NEGATIVE (NEGATIVE) 05/01/19 18:50 Influenza A (Rapid) NEGATIVE (NEGATIVE) 04/30/19 12:37 Influenza B (Rapid) NEGATIVE (NEGATIVE) 04/30/19 12:37 04/30/19 10:28 Troponin I < 0.012 NT-Pro-B Natriuret Pep 1560 H Impressions: Chest X-Ray 04/30/19 12:11 IMPRESSION: Increasing left basilar airspace disease probable effusion with underlying atelectasis or pneumonia. Head CT 04/30/19 12:12 IMPRESSION: MILD CHRONIC CHANGES OF ATROPHY AND MICROVASCULAR ISCHEMIA. NO ACUTE PROCESS. EVIDENCE OF ACUTE STROKE: NO. Plan Health Concerns: Has longstanding atrial fibrillation is extremely sensitive to comorbidities. The infection caused him to experience rapid ventricular response. Also with underlying diabetes he is at increased risk for heart and kidney disease. Plan of Treatment: Follow-up with cardiology. Metoprolol dose has been increased. Low-dose statin therapy and low-dose FAHAD inhibitor therapy have been added for cardiorenal protection. Goals: Complete resolution of his pneumonia Time Spent: Greater than 30 Minutes Stroke Is this a Stroke Patient?: No Acute Heart Failure - Is this a Heart Failure Patient?: No
== END 2019-05-02 13:56 | disposition home or self-care (01) | DRG 194 ==
LOC: ER 10:07 → EH 16:07 → 4N 17:55
PROVIDERS: ADMIT Hospitalist; ATTEND Hospitalist
DX: J18.9 Pneumonia, unspecified organism (principal); I48.11 Longstanding persistent atrial fibrillation; N17.9 Acute kidney failure, unspecified; J44.9 Chronic obstructive pulmonary disease, unspecified; N40.1 Benign prostatic hyperplasia with lower urinary tract symptoms; R39.11 Hesitancy of micturition; I10 Essential (primary) hypertension; E78.5 Hyperlipidemia, unspecified; H53.8 Other visual disturbances; E11.65 Type 2 diabetes mellitus with hyperglycemia; I69.398 Other sequelae of cerebral infarction; Z79.84 Long term (current) use of oral hypoglycemic drugs; Z79.899 Other long term (current) drug therapy; Z96.642 Presence of left artificial hip joint; Z88.6 Allergy status to analgesic agent; Z87.891 Personal history of nicotine dependence; Z85.118 Personal history of other malignant neoplasm of bronchus and lung; Z90.2 Acquired absence of lung [part of]
CPT/HCPCS: 36415; 70450; 71045; 80048; 80053; 81001; 83735; 83880; 84484; 85025; 87040; 87804; 93005; 93010; 94762; 94799; 96365; 96375; 99285; J0456; J0696; J3490; J7060

== ENCOUNTER 2019-12-29 11:21 | Inpatient (IN) | payer MEDICARE, OTHER ==
--- NOTE | 2019-12-29 11:31 | ER Document Report ---
ED Medical Screen (RME) - General Chief Complaint: Arrhythmia Stated Complaint: DIFFCULTY BREATHING Time Seen by Provider: 12/29/19 11:28 Mode of Arrival: Wheelchair Information source: Patient Notes: 84-year-old male presents to ED with known history of A. fib. He states he woke up very short of breath this morning. He does have a very rapid heartbeat at this time. EKG showed rapid heartbeat of 135. Will get cardiac work-up started and get him on a monitor. He is always short of breath when his pulse is rapid. I have greeted and performed a rapid initial assessment of this patient. A comprehensive ED assessment and evaluation of the patient, analysis of test results and completion of medical decision making process will be conducted by an additional ED providers. TRAVEL OUTSIDE OF THE [place] IN LAST 30 DAYS: No - Related Data Allergies/Adverse Reactions: aspirin Allergy (Verified 03/12/19 12:44) Past Medical History - Past Medical History Cardiac Medical History: Reports: Hx Atrial Fibrillation, Hx Hypercholesterolemia, Hx Hypertension Pulmonary Medical History: Reports: Hx COPD Endocrine Medical History: Reports: Hx Diabetes Mellitus Type 2 Renal/ Medical History: Reports: Hx Benign Prostatic Hyperplasia Malignancy Medical History: Reports Hx Lung Cancer - left 1/3 lung resected Musculoskeltal Medical History: Reports Hx Arthritis - Neck and back primarily with other joint involvement. 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, left lower lobectomy Physical Exam - Vital signs Vitals: Temp Pulse Resp BP Pulse Ox 97.5 F 148 H 16 100/86 H 97 12/29/19 11:27 12/29/19 11:27 12/29/19 11:27 12/29/19 11:27 12/29/19 11:27 Course - Vital Signs Vital signs: Temp Pulse Resp BP Pulse Ox 97.5 F 148 H 15 128/87 H 98 12/29/19 11:29 12/29/19 11:27 12/29/19 18:46 12/29/19 18:46 12/29/19 18:46 - Laboratory Result Diagrams: 12/29/19 11:42 12/29/19 11:42 Laboratory results interpreted by me: 10/12/29/19 12/29/19 11:42 11:42 11:42 RBC 4.23 L Hgb 12.0 L Hct 36.8 L RDW 17.0 H PT APTT Chloride 108 H Carbon Dioxide 20 L BUN 26 H Creatinine 1.49 H Est GFR ( Amer) 54 L Est GFR (MDRD) Non-Af 45 L Glucose 126 H Direct Bilirubin 0.7 H NT-Pro-B Natriuret Pep 4370 H 12/29/19 11:42 RBC Hgb Hct RDW PT 24.8 H APTT 64.0 H Chloride Carbon Dioxide BUN Creatinine Est GFR ( Amer) Est GFR (MDRD) Non-Af Glucose Direct Bilirubin NT-Pro-B Natriuret Pep Doctor's Discharge - Discharge Clinical Impression: Atrial fibrillation with RVR, CHF (congestive heart failure) Condition: Fair Disposition: ADMITTED INPATIENT
[2019-12-29 11:54] LABS: ABSOLUTE BASOPHILS # (AUTO) 0.1 10^3/uL (0.0-0.2); ABSOLUTE LYMPHOCYTES (AUTO) 1.4 10^3/uL (0.5-4.7); ABSOLUTE MONOCYTES (AUTO) 0.6 10^3/uL (0.1-1.4); BASOPHILS % (AUTO) 0.8 % (0-2); EOSINOPHILS % (AUTO) 0.4 % (0-6); HEMATOCRIT 36.8 % (37.9-51.0); LYMPHOCYTES % (AUTO) 17.5 % (13-45); MEAN CORPUSCULAR HEMOGLOBIN 28.4 pg (27.0-33.4); MEAN CORPUSCULAR HGB CONC 32.7 g/dL (32.0-36.0); MEAN CORPUSCULAR VOLUME 87 fl (80-97); PLATELET COUNT 219 10^3/uL (150-450); RED BLOOD COUNT 4.23 10^6/uL (4.35-5.55); SEGMENTED NEUTROPHILS % (AUTO) 74.3 % (42-78); TOTAL CELLS COUNTED % (AUTO) 100 %
[2019-12-29] MEDS ORDERED: METOPROLOL TARTRATE PF/INJ 5 MG/5 ML SDV IV ONE (12:08)
[2019-12-29] MEDS: METOPROLOL TARTRATE PF/INJ 5 MG/5 ML SDV IV PRN ×3 (12:21→12:33)
[2019-12-29 12:35] LABS: INTERNATIONAL RATION (INR) 2.24; PROTHROMBIN TIME 24.8 SEC (11.4-15.4)
--- NOTE | 2019-12-29 12:35 | RADIOLOGY REPORT (SQ) ---
EXAM DESCRIPTION: CHEST 2 VIEWS IMAGES COMPLETED DATE/TIME: 12/29/2019 11:58 am REASON FOR STUDY: palpitation COMPARISON: 04/30/2019 EXAM PARAMETERS: NUMBER OF VIEWS: two views TECHNIQUE: Digital Frontal and Lateral radiographic views of the chest acquired. RADIATION DOSE: NA LIMITATIONS: none FINDINGS: LUNGS AND PLEURA: Persistent versus recurrent left-sided pleural effusion. Interval devel opment of diffusely increased interstitial markings. No pneumothorax. MEDIASTINUM AND HILAR STRUCTURES: No masses or contour abnormalities. HEART AND VASCULAR STRUCTURES: Cardiomegaly with mild central vascular congestion. BONES: No acute findings. HARDWARE: Midline surgical changes. OTHER: No other significant finding. IMPRESSION: Constellation of findings suggests CHF exacerbation. Infectious etiology is not exclude d. TECHNICAL DOCUMENTATION: JOB ID: [id number] [employer]- All Rights Reserved Reading location - IP/workstation name: [email or web address]
[2019-12-29 12:39] LABS: ALBUMIN 4.1 g/dL (3.5-5.0); ALKALINE PHOSPHATASE 65 U/L (38-126); ANION GAP 14 (5-19); ASPARTATE AMINO TRANSFERASE 23 U/L (17-59); BILIRUBIN,DIRECT 0.7 mg/dL (0.0-0.4); BILIRUBIN,TOTAL 1.3 mg/dL (0.2-1.3); BLOOD UREA NITROGEN 26 mg/dL (7-20); CALCIUM 9.6 mg/dL (8.4-10.2); CARBON DIOXIDE 20 mmol/L (22-30); CHLORIDE 108 mmol/L (98-107); CREATINE KINASE 63 U/L (55-170); GLUCOSE 126 mg/dL (75-110); POTASSIUM 4.1 mmol/L (3.6-5.0); TOTAL PROTEIN 7.3 g/dL (6.3-8.2)
[2019-12-29] MEDS ORDERED: METOPROLOL SUCCINATE 25 MG TAB.SR.24H PO ONE (12:51)
[2019-12-29 13:00] LABS: NT PRO BNP 4370 pg/mL (<450)
[2019-12-29 13:01] LABS: TROPONIN I < 0.012 ng/mL
[2019-12-29] MEDS ORDERED: FUROSEMIDE INJ/PF 40 MG/4 ML SDV IV ONE (15:05)
[2019-12-29] MEDS ORDERED: DILTIAZEM HCL INJ 25 MG/5 ML VIAL IV ONE (15:07)
[2019-12-29] MEDS ORDERED: DILTIAZEM HCL/D5W 125 MG/125 ML RTUINJ IV PRN (15:50)
--- NOTE | 2019-12-29 16:33 | ER Document Report ---
Entered by CLAYTON SAUNDERS SCRIBE 12/29/19 1206 Acting as scribe for:ANITHA CLINE MD ED General - General Chief Complaint: Arrhythmia Stated Complaint: DIFFCULTY BREATHING Time Seen by Provider: 12/29/19 11:28 Primary Care Provider: TERRY SANDOVAL MD [Primary Care Provider] - Follow up as needed Mode of Arrival: Wheelchair Information source: Patient Notes: This 84 year old male patient with a history of A fib on Pradaxa and COPD presents to the ED today with complaints of shortness of breath for the past x2 days. Patient states that the shortness of breath is worse with minimal exertion. He reports that he saw his PCP this morning with concerns for a UTI and was found to be short of breath at the office, so he advised to come to the ED for evaluation. He reports a runny nose, but denies any chest pain or nausea/vomiting/diarrhea. He states that he did take all of his medications this morning. Upon arrival to the ED, patient was found to be in A fib with a heart rate of 152 bpm via EKG. TRAVEL OUTSIDE OF THE [place] IN LAST 30 DAYS: No - Related Data Allergies/Adverse Reactions: aspirin Allergy (Verified 03/12/19 12:44) Past Medical History - General Information source: Patient, [facility] Records - Social History Smoking Status: Former Smoker Cigarette use (# per day): No Chew tobacco use (# tins/day): No Smoking Education Provided: No Frequency of alcohol use: None Drug Abuse: None Family History: Reviewed & Not Pertinent, DM Patient has suicidal ideation: No Patient has homicidal ideation: No - Past Medical History Cardiac Medical History: Reports: Hx Atrial Fibrillation, Hx Hypercholesterolemia, Hx Hypertension Pulmonary Medical History: Reports: Hx COPD Endocrine Medical History: Reports: Hx Diabetes Mellitus Type 2 Renal/ Medical History: Reports: Hx Benign Prostatic Hyperplasia Malignancy Medical History: Reports Hx Lung Cancer - left 1/3 lung resected Musculoskeletal Medical History: Reports Hx Arthritis - Neck and back primarily with other joint involvement. 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 denies: Chest pain Respiratory: See HPI, Short of breath Gastrointestinal: See HPI. denies: Abdominal pain, Diarrhea, Nausea, Vomiting Genitourinary: No symptoms reported Male Genitourinary: No symptoms reported Musculoskeletal: No symptoms reported Skin: No symptoms reported Hematologic/Lymphatic: No symptoms reported Neurological/Psychological: No symptoms reported -: Yes All other systems reviewed and negative Physical Exam - Vital signs Vitals: Temp Pulse Resp BP Pulse Ox 97.5 F 148 H 16 100/86 H 97 12/29/19 11:27 12/29/19 11:27 12/29/19 11:27 12/29/19 11:27 12/29/19 11:27 Interpretation: Normal - General General appearance: Alert In distress: Moderate - HEENT Head: Normocephalic, Atraumatic Eyes: Normal Pupils: PERRL - Respiratory Respiratory status: No respiratory distress Chest status: Nontender Breath sounds: Decreased air movement - Diminished breath sounds in the left base, Rales - Rales in bilateral bases, worse on the left Chest palpation: Normal - Cardiovascular Rhythm: Tachycardia Heart sounds: Normal auscultation Murmur: No Friction rub: No Gallop: None auscultated - Abdominal Inspection: Normal Distension: No distension Bowel sounds: Normal Tenderness: Nontender - Abdomen soft Organomegaly: No organomegaly - Back Back: Normal, Nontender - Extremities General upper extremity: Normal inspection General lower extremity: Normal inspection. No: Edema - Neurological Neuro grossly intact: Yes Orientation: AAOx4 [place] Coma Scale Eye Opening: Spontaneous [place] Coma Scale Verbal: Oriented [place] Coma Scale Motor: Obeys Commands [place] Coma Scale Total: 15 - Psychological Associated symptoms: Normal affect, Normal mood - Skin Skin Temperature: Warm Skin Moisture: Dry Skin Color: Normal Course - Vital Signs Vital signs: Temp Pulse Resp BP Pulse Ox 97.5 F 148 H 15 128/87 H 98 12/29/19 11:29 12/29/19 11:27 12/29/19 18:46 12/29/19 18:46 12/29/19 18:46 - Laboratory Result Diagrams: 12/29/19 11:42 12/29/19 11:42 Laboratory results interpreted by me: 12/29/19 12/29/19 12/29/19 11:42 11:42 11:42 RBC 4.23 L Hgb 12.0 L Hct 36.8 L RDW 17.0 H PT APTT Chloride 108 H Carbon Dioxide 20 L BUN 26 H Creatinine 1.49 H Est GFR ( Amer) 54 L Est GFR (MDRD) Non-Af 45 L Glucose 126 H Direct Bilirubin 0.7 H NT-Pro-B Natriuret Pep 4370 H 12/29/19 11:42 RBC Hgb Hct RDW PT 24.8 H APTT 64.0 H Chloride Carbon Dioxide BUN Creatinine Est GFR ( Amer) Est GFR (MDRD) Non-Af Glucose Direct Bilirubin NT-Pro-B Natriuret Pep Discharge - Discharge Clinical Impression: Atrial fibrillation with RVR CHF (congestive heart failure) Qualifiers: Heart failure type: unspecified Heart failure chronicity: acute on chronic Qualified Code(s): I50.9 - Heart failure, unspecified Condition: Fair Disposition: ADMITTED INPATIENT Admitting Provider: Edward (Hospitalist) Unit Admitted: Telemetry Referrals: TERRY SANDOVAL MD [Primary Care Provider] - Follow up as needed I personally performed the services described in the documentation, reviewed and edited the documentation which was dictated to the scribe in my presence, and it accurately records my words and actions.
[2019-12-29] MEDS ORDERED: ONDANSETRON 4 MG TAB.RAPDIS PO PRN (18:44)
[2019-12-29] MEDS ORDERED: ONDANSETRON HCL INJ/PF 4 MG/2 ML SDV IV PRN (18:44)
[2019-12-29] MEDS ORDERED: ACETAMINOPHEN 325 MG TABLET PO PRN (18:44)
--- NOTE | 2019-12-29 18:49 | EKG REPORT ---
SEVERITY:- ABNORMAL ECG - ATRIAL FIBRILLATION BORDERLINE LEFT AXIS DEVIATION BORDERLINE PROLONGED QT INTERVAL : Confirmed by: Rubén Painting MD 29-Dec-2019 18:48:55
--- NOTE | 2019-12-29 18:49 | EKG REPORT ---
SEVERITY:- ABNORMAL ECG - ATRIAL FIBRILLATION WITH RAPID V-RATE BORDERLINE LEFT AXIS DEVIATION NONSPECIFIC T ABNORMALITIES, LATERAL LEADS : Confirmed by: Rubén Painting MD 29-Dec-2019 18:49:03
--- NOTE | 2019-12-29 18:50 | EKG REPORT ---
SEVERITY:- ABNORMAL ECG - SINUS RHYTHM NONSPECIFIC T ABNORMALITIES, ANT-LAT LEADS BORDERLINE ST ELEVATION, INFERIOR LEADS : Confirmed by: Rubén Painting MD 29-Dec-2019 18:49:17
--- NOTE | 2019-12-29 18:55 | PDOC H&P ---
History of Present Illness Admission Date/PCP: TERRY SANDOVAL MD History of Present Illness: MICHAEL PIZARRO is a 84 year old male) looking for permanent A. fib, HTN, HLD, T2DM, right eye stroke, unspecified CHF, lung cancer status post left upper lobectomy who presents with a 3-day history of progressive shortness of breath/HERNANDEZ found to have heart rate in the 150s on admission. Patient has longstanding A. fib and states he is unable to feel palpitations since he was diagnosed with this. Patient takes Pradaxa and denies missing any doses of this or any of his other cardiac medications including diltiazem and his beta- [place]. He denies any fever/chills/recent illness. Patient follows with Dr. Painting in cardiology and Dr. Granados has been consulted from his group for this admission. Patient started on diltiazem drip in the ED with good response, continued on this. Home medications selectively restarted. Echocardiogram ordered. Pradaxa continued. Past Medical History Cardiac Medical History: Reports: Atrial Fibrillation, Congestive Heart Failure, Hyperlipidema, Hypertension Pulmonary Medical History: Reports: Chronic Obstructive Pulmonary Disease (COPD) Neurological Medical History: Reports: Ischemic CVA Endocrine Medical History: Reports: Diabetes Mellitus Type 2 Malignancy Medical History: Reports: Lung Cancer - left 1/3 lung resected Musculoskeltal Medical History: Reports: Arthritis - Neck and back primarily with other joint involvement. 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 fib with acute RVR All aspects of code status discussed with patient/POA including cardioversion, chest compressions, and intubation and the patient/POA indicated they wish to be full code MPOA is designated as: [email or web address] Time spent: Greater than 16 minutes Family History Family History: Reviewed & Not Pertinent, DM Parental Family History Reviewed: Yes Children Family History Reviewed: Yes Sibling(s) Family History Reviewed.: Yes Medication/Allergy Home Medications: Brinzolamide/Brimonidine Tart [Simbrinza 1%-0.2% Eye Drops] 1 drop OU TID 04/30/19 Dabigatran Etexilate Mesylate [Pradaxa 150 mg Capsule] 150 mg PO DAILY 04/30/19 Diltiazem HCl [Diltiazem 12Hr ER] 120 mg PO Q12 04/30/19 Finasteride [Proscar 5 mg Tablet] 5 mg PO DAILY 04/30/19 Meloxicam [Mobic] 7.5 mg PO Q12 04/30/19 Metformin HCl [Glucophage] 1,000 mg PO BIDBS 04/30/19 Atorvastatin Calcium [Lipitor 20 mg Tablet] 20 mg PO QHS 30 Days #30 tablet 05/02/19 Azithromycin [Zithromax 250 mg Tablet] 250 mg PO DAILY #5 tablet 05/02/19 Cefuroxime Axetil [Ceftin 250 mg Tablet] 1 tab PO BID 8 Days #16 tablet 05/02/19 Guaifenesin [Mucinex Sr 600 mg Tablet.sa] 600 mg PO Q12 tablet.sa 05/02/19 Lisinopril [Prinivil 5 mg Tablet] 2.5 mg PO DAILY 30 Days #30 tablet 05/02/19 Metoprolol Succinate [Toprol Xl 50 mg Tab.sr] 50 mg PO Q12 30 Days #60 ta b.sr.24h 05/02/19 Allergies/Adverse Reactions: aspirin Allergy (Verified 03/12/19 12:44) Review of Systems All systems: reviewed and no additional remarkable complaints except as stated - Review of systems per HPI otherwise negative Physical Exam Vital Signs: Temp Pulse Resp BP Pulse Ox 97.5 F 148 H 20 113/100 H 98 12/29/19 11:29 12/29/19 11:27 12/29/19 18:01 12/29/19 18:01 12/29/19 18:01 Intake & Output 12/28/19 12/29/19 12/30/19 06:59 06:59 06:59 Weight 77 kg Exam: General appearance: PRESENT: no acute distress, well-developed, well-nourished Head exam: PRESENT: atraumatic, normocephalic Eye exam: PRESENT: conjunctiva pink. ABSENT: scleral icterus Mouth exam: PRESENT: moist Respiratory exam: PRESENT: clear to auscultation socorro. ABSENT: rales, rhonchi, wheezes Cardiovascular exam: PRESENT: Irregularly irregular heart rhythm with tachycardic rate ABSENT: diastolic murmur, rubs, systolic murmur GI/Abdominal exam: PRESENT: normal bowel sounds, soft. ABSENT: distended, guarding, mass, organolmegaly, rebound, tenderness Neurological exam: PRESENT: alert, awake, oriented to person, oriented to place, oriented to time, oriented to situation Psychiatric exam: PRESENT: appropriate affect, normal mood Skin exam: PRESENT: dry, intact, warm, questionable gynecomastia Results Laboratory Results: 12/29/19 11:42 12/29/19 11:42 12/29/19 12/29/19 11:42 11:42 WBC 8.0 RBC 4.23 L Hgb 12.0 L Hct 36.8 L MCV 87 MCH 28.4 MCHC 32.7 RDW 17.0 H Plt Count 219 Seg Neutrophils % 74.3 Sodium 142.4 Potassium 4.1 Chloride 108 H Carbon Dioxide 20 L Anion Gap 14 BUN 26 H Creatinine 1.49 H Est GFR ( Amer) 54 L Glucose 126 H Calcium 9.6 Magnesium 1.6 Total Bilirubin 1.3 AST 23 Alkaline Phosphatase 65 Total Protein 7.3 Albumin 4.1 12/29/19 12/29/19 12/29/19 11:42 11:42 17:33 Creatine Kinase 63 Troponin I < 0.012 < 0.012 NT-Pro-B Natriuret Pep 4370 H Impressions: Chest X-Ray 12/29/19 11:29 IMPRESSION: Constellation of findings suggests CHF exacerbation. Infectious etiology is not excluded. Assessment and Plan - Diagnosis (1) Atrial fibrillation with RVR Is this a current diagnosis for this admission?: Yes Plan: Permanent A. fib with acute RVR rate up to 150 on admission Started on diltiazem drip, continued Restart home rate control medications Restart home Pradaxa Dr. Granados consulted Patient follows with Dr. Painting outpatient. (2) CHF (congestive heart failure) Qualifiers: Heart failure type: unspecified Heart failure chronicity: acute on chronic Qualified Code(s): I50.9 - Heart failure, unspecified Is this a current diagnosis for this admission?: Yes Plan: Unclear if systolic or diastolic or combined as there are no echocardiograms in his chart Get echocardiogram IV Lasix twice daily, he was only on 20 mg p.o. Lasix daily at home Suspect acute CHF with volume overload as a cause of acute RVR TSH, T4 (3) History of lung cancer Is this a current diagnosis for this admission?: Yes Plan: "Cancer free" per patient since his left upper lobectomy 12 years ago (4) History of lobectomy of lung Is this a current diagnosis for this admission?: Yes (5) Diabetes mellitus type 2 in nonobese Is this a current diagnosis for this admission?: Yes Plan: Accu-Cheks, low-dose correctional insulin (6) Hypertension Qualifiers: Hypertension type: essential hypertension Qualified Code(s): I10 - Essential (primary) hypertension Is this a current diagnosis for this admission?: Yes Plan: Home medications continued (7) Longstanding persistent atrial fibrillation Is this a current diagnosis for this admission?: Yes Plan: As above - Time Time Spent with patient: 35 or more minutes Medications reviewed and adjusted accordingly: Yes Anticipated Discharge Disposition: Home, Self Care Anticipated Discharge Timeframe: within 72 hours - Inpatient Certification Based on my medical assessment, after consideration of the patient's comorbidities, presenting symptoms, or acuity I expect that the services needed warrant INPATIENT care.: Yes I certify that my determination is in accordance with my understanding of Medicare's requirements for reasonable and necessary INPATIENT services [42 CFR 412.3e].: Yes Medical Necessity: Significant Comorbidiites Make Outpatient Treatment Too Ri soto, Need Close Monitoring Due to Risk of Patient Decompensation, Need For Continuous Telemetry Monitoring, Risk of Complication if Not Cared For in Hospital, Risk of Diagnosis Which Will Require Inpatient Eval/Care/Monitoring
--- NOTE | 2019-12-29 21:21 | XCELERA REPORT ---
[address] [address] Transthoracic Echocardiogram Report Name: MICHAEL PIZARRO Age: 84 yrs Gender: Male : 1935 Patient Status: Inpatient Patient [address] Study Date: 12/29/2019 07:37 PM Height: 71 in Weight: 169 lb BSA: 2.0 m2 Procedure: A complete two-dimensional transthoracic echocardiogram was performed (2D, M-mode, spectral and color flow Doppler). The study was technically adequate with some images being suboptimal in quality. The subcostal views were difficult to obtain and are suboptimal in quality. Reason For Study: CHF, afib Ordering Physician: KENDRA SCHULZ Performed By: Marie Monahan Interpretation Summary The left ventricle is grossly normal size. Left ventricular systolic function is severely reduced. The Ejection Fraction estimate is <20%. LV diastolic function could not be adequately assessed due to atrial fibrilation. There is severe global hypokinesis of the left ventricle. LV diastolic function could not be adequately assessed due to atrial fibrilation. RV systolic function is moderately decreased. Severe biatrial enlargement. Mild to moderate MR, trace AI, moderate to severe TR, mild PI. Moderate pulmonary hypertension with pressures estimated between 53 and 58 mmHg. Mildly dilated IVC with less than 50% respiratory variation. Minimal pericardial effusion. Small left pleural effusion. No prior studies for comparison. MMode/2D Measurements & Calculations RVDd: 3.1 cm LVIDd: 5.6 cm FS: 14.3 % Ao root diam: 3.5 cm IVSd: 1.2 cm LVIDs: 4.8 cm EDV(Teich): Ao root area: 152.0 ml LVPWd: 0.84 cm 9.6 cm2 ESV(Teich): LA dimension: 5.0 cm 106.4 ml EF(Teich): 30.0 % LVLd ap4: 6.8 cm SV(MOD-sp4): EDV(MOD-sp4): 35.0 ml 92.0 ml LVLs ap4: 6.6 cm ESV(MOD-sp4): 57.0 ml EF(MOD-sp4): 38.0 % Doppler Measurements & Calculations MV E max skip: MV P1/2t max skip: Ao V2 max: LV V1 max P.0 cm/sec 116.1 cm/sec 96.1 cm/sec 1.6 mmHg MV A max skip: MV P1/2t: 53.1 msec Ao max PG: LV V1 max: 26.8 cm/sec 3.7 mmHg 63.6 cm/sec MVA(P1/2t): 4.1 cm2 MV E/A: 3.1 MV dec slope: 640.6 cm/sec2 MV dec time: 0.18 sec PA V2 max: PI end-d skip: TR max skip: MV P1/2t-pr_phl: 51.3 cm/sec 187.3 cm/sec 329.8 cm/sec 53.1 msec PA max PG: TR max P.1 mmHg 43.5 mmHg Left Ventricle The left ventricle is grossly normal size. Left ventricular systolic function is severely reduced. The Ejection Fraction estimate is <20%. LV diastolic function could not be adequately assessed due to atrial fibrilation. There is severe global hypokinesis of the left ventricle. Right Ventricle The right ventricle is grossly normal size. The right ventricular systolic function is moderately reduced. Atria The right atrium is severely dilated. The left atrium is severely dilated. The interatrial septum is difficult to see, but appears to be grossly normal. Mitral Valve There is mild mitral leaflet calcification. There is no evidence of mitral valve prolapse. There is no mitral valve stenosis. There is a mild to moderate amount of mitral regurgitation. Aortic Valve The aortic valve is mildly calcified. There is no aortic valvular vegetation. There is no aortic valve stenosis. There is a trace amount of aortic regurgitation. Tricuspid Valve There is tricuspid annular calcification. There is no tricuspid valve prolapse. There is no tricuspid stenosis. There is a moderate to severe amount of tricuspid regurgitation. There is moderate pulmonary hypertension by echo. Best estimated RVSP is approximately 53-58 mm/Hg. Pulmonic Valve The pulmonic valve is not well seen, but is grossly normal. There is no vegetation on the pulmonic valve. There is no pulmonic valvular stenosis. There is a mild amount of pulmonic regurgitation. Great Vessels Mildly dilated IVC with less than 50% respiratory variation. Effusions Minimal pericardial effusion. Small left pleural effusion. : KENDRA SCHULZ Antonio
[2019-12-29] MEDS ORDERED: (PENDING PHARMACY ID) (Diltiazem Hcl [Diltiazem 12hr Er] 120 MG) PO SCH (22:00)
[2019-12-29] MEDS ORDERED: METOPROLOL SUCCINATE 50 MG TAB.SR.24H PO SCH (22:00)
[2019-12-29] MEDS ORDERED: ATORVASTATIN CALCIUM 20 MG TABLET PO SCH (22:00)
[2019-12-29] MEDS: METOPROLOL SUCCINATE 50 MG TAB.SR.24H PO SCH (23:09)
[2019-12-29] MEDS: INSULIN LISPRO 100 UNIT/ML 3 ML VIAL SUBCUT SCH (23:40)
[2019-12-30] MEDS: METOPROLOL SUCCINATE 50 MG TAB.SR.24H PO SCH
[2019-12-30] MEDS: DILTIAZEM HCL 120 MG CAP.SR.24H PO SCH ×2 (00:07→11:03)
[2019-12-30] MEDS: METOPROLOL TARTRATE 50 MG TABLET PO SCH ×4 (05:27→17:31)
[2019-12-30 06:52] LABS: ABSOLUTE EOSINOPHILS # (AUTO) 0.1 10^3/uL (0.0-0.6); ABSOLUTE LYMPHOCYTES (AUTO) 1.6 10^3/uL (0.5-4.7); ABSOLUTE MONOCYTES (AUTO) 0.6 10^3/uL (0.1-1.4); ABSOLUTE NEUT (AUTO) 4.4 10^3/uL (1.7-8.2); BASOPHILS % (AUTO) 0.5 % (0-2); EOSINOPHILS % (AUTO) 2.1 % (0-6); HEMATOCRIT 35.3 % (37.9-51.0); HEMOGLOBIN 11.8 g/dL (13.5-17.0); MEAN CORPUSCULAR HEMOGLOBIN 28.5 pg (27.0-33.4); MEAN CORPUSCULAR HGB CONC 33.5 g/dL (32.0-36.0); MEAN CORPUSCULAR VOLUME 85 fl (80-97); MONOCYTES % (AUTO) 8.6 % (3-13); PLATELET COUNT 197 10^3/uL (150-450); RED BLOOD COUNT 4.16 10^6/uL (4.35-5.55); RED CELL DISTRIBUTION WIDTH 16.4 % (11.5-14.0); SEGMENTED NEUTROPHILS % (AUTO) 64.8 % (42-78); TOTAL CELLS COUNTED % (AUTO) 100 %; WHITE BLOOD COUNT 6.7 10^3/uL (4.0-10.5)
[2019-12-30 07:04] LABS: ANION GAP 14 (5-19); BLOOD UREA NITROGEN 27 mg/dL (7-20); CALCIUM 9.5 mg/dL (8.4-10.2); CARBON DIOXIDE 22 mmol/L (22-30); CHLORIDE 105 mmol/L (98-107); GLUCOSE 111 mg/dL (75-110); POTASSIUM 3.7 mmol/L (3.6-5.0)
[2019-12-30 07:45] LABS: FREE T4 (FREE THYROXINE) 1.74 ng/dL (0.78-2.19); THYROID STIMULATING HORMONE 1.72 uIU/mL (0.47-4.68)
[2019-12-30] MEDS: INSULIN LISPRO 100 UNIT/ML 3 ML VIAL SUBCUT SCH ×4 (08:18→21:53)
[2019-12-30] MEDS ORDERED: LISINOPRIL 5 MG TABLET PO SCH (10:00)
[2019-12-30] MEDS ORDERED: (PENDING PHARMACY ID) (Brinzolamide/Brimonidine Tart [Simbrinza 1%-0.2% Eye Drops] 1 DROP) OU SCH (10:00)
[2019-12-30] MEDS: FINASTERIDE 5 MG TABLET PO SCH (11:07)
[2019-12-30] MEDS: DOCUSATE SODIUM 100 MG CAPSULE PO SCH (11:07)
[2019-12-30] MEDS: FUROSEMIDE INJ/PF 20 MG/2 ML SDV IV SCH ×2 (11:07→17:31)
[2019-12-30] MEDS: DABIGATRAN ETEXILATE 150 MG CAPSULE PO SCH (11:17)
--- NOTE | 2019-12-30 12:41 | PDOC CONSULTATION ---
Consultation Consult Date: 12/30/19 Attending physician:: KENDRA SCHULZ Provider Consulted: EDOUARD PRICE Consult reason:: Rapid a-fib History of Present Illness Admission Date/PCP: 12/29/19 18:58 TERRY SANDOVAL MD History of Present Illness: MICHAEL PIZARRO is a 84 year old male with history of permanent atrial fibrillation, hypertension, hyperlipidemia, type 2 diabetes, prior stroke, heart failure with preserved ejection fraction, lung cancer status post left upper lobe lobectomy whose outpatient invasive cardiologist is Dr. Rubén Painting and who is consulted to our service for evaluation of rapid atrial fibrillation and heart failure. I did receive some records from Dr. Painting's office at which time the patient was hemodynamically stable and without evidence of heart failure. His echocardiogram in 2019 demonstrated a normal ejection fraction. His outpatient heart rate was documented to be between 80 and 90 bpm. It is also noted that he was on digoxin 250 mcg daily at some point but the medication was discontinued due to being not effective. He presented to our emergency room yesterday in rapid A. fib in heart failure. Today he is found in bed with shortness of breath out of proportion to physical activity. He stated that he felt really short of breath when going to the bathroom however when he is doing leg kicks in the bed his heart rate only peaked at 110 bpm. His telemetry shows rapid atrial fibrillation without ventricular dysrhythmias. Physical exam on 12/30/2019: GENERAL: Pleasant and conversational. Oriented x3 with normal mood. Not in acute distress. Well groomed and well developed. HEENT: Normocephalic, atraumatic. Pupils equal. Sclerae anicteric. Oropharynx moist. NECK: No JVD. No carotid bruits. LUNGS: Crackles at both bases.. Normal respiratory effort without the use of accessory muscles or intercostal retractions. CARDIOVASCULAR: Tachycardic, irregularly irregular rate and rhythm, normal S1 and S2 without murmurs, rubs, or gallops. PMI not displaced. ABDOMEN: No masses or tenderness to palpation. No bruit. No splenomegaly or hepatomegaly. No abdominal aorta bruit noted. EXTREMITIES: No edema, no cyanosis, no clubbing. +2 pulses femoral and pedal pulses bilaterally. SKIN: No lesions or rashes. MUSCULOSKELETAL: No chest tenderness to palpation. NEUROLOGIC: Nonfocal. No gross sensory or motor deficits bilateral upper or lower extremities. Cardiac studies: Echocardiogram on 12/29/2019 at [facility]: -EF less than 20%. -The patient was in rapid A. fib during the study. -Severe global hypokinesis. -Moderately depressed right ventricular systolic function. -Severe biatrial lodgment. -Mild to moderate MR, trace AI, moderate to severe TR, mild PI. -Moderate pulmonary hypertension estimated between 53 and 58 mmHg. -Small left pleural effusion. Past Medical History Cardiac Medical History: Reports: Atrial Fibrillation, Congestive Heart Failure, Hyperlipidema, Hypertension Pulmonary Medical History: Reports: Chronic Obstructive Pulmonary Disease (COPD) Neurological Medical History: Reports: Ischemic CVA Endocrine Medical History: Reports: Diabetes Mellitus Type 2 Malignancy Medical History: Reports: Lung Cancer - left 1/3 lung resected Musculoskeltal Medical History: Reports: Arthritis - Neck and back primarily with other joint involvement. 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, left lower lobectomy Social History Lives with: Alone Smoking Status: Former Smoker Electronic Cigarette use?: No Frequency of Alcohol Use: Rare Hx Recreational Drug Use: No Drugs: None Hx Prescription Drug Abuse: No - Advance Directive Resuscitation Status: Full Code Family History Family History: Reviewed & Not Pertinent, DM Parental Family History Reviewed: Yes Children Family History Reviewed: Yes Sibling(s) Family History Reviewed.: Yes Medication/Allergy Home Medications: Dabigatran Etexilate Mesylate [Pradaxa 150 mg Capsule] 150 mg PO DAILY 04/30/19 Diltiazem HCl [Diltiazem 12Hr ER] 120 mg PO Q12 04/30/19 Meloxicam [Mobic] 7.5 mg PO Q12 04/30/19 Metformin HCl [Glucophage] 1,000 mg PO BIDBS 04/30/19 Metoprolol Succinate [Toprol Xl 50 mg Tab.sr] 50 mg PO Q12 30 Days #60 tab .sr.24h 05/02/19 Furosemide [Lasix 20 mg Tablet] 20 mg PO QAM 12/29/19 Tamsulosin HCl [Flomax] 0.4 mg PO DAILY 12/29/19 Allergies/Adverse Reactions: aspirin Allergy (Verified 03/12/19 12:44) Physical Exam Vital Signs: Temp Pulse Resp BP Pulse Ox 98.2 F 132 H 16 102/74 88 L 12/30/19 08:01 12/30/19 08:01 12/30/19 08:01 12/30/19 08:01 12/30/19 08:01 Intake & Output 12/29/19 12/30/19 12/31/19 06:59 06:59 06:59 Weight 77.7 kg Results Laboratory Results: 12/30/19 06:18 12/30/19 06:18 12/29/19 12/29/19 12/30/19 11:42 11:42 06:18 WBC 8.0 6.7 RBC 4.23 L 4.16 L Hgb 12.0 L 11.8 L Hct 36.8 L 35.3 L MCV 87 85 MCH 28.4 28.5 MCHC 32.7 33.5 RDW 17.0 H 16.4 H Plt Count 219 197 Seg Neutrophils % 74.3 64.8 Sodium 142.4 Potassium 4.1 Chloride 108 H Carbon Dioxide 20 L Anion Gap 14 BUN 26 H Creatinine 1.49 H Est GFR ( Amer) 54 L Glucose 126 H Calcium 9.6 Phosphorus Magnesium 1.6 Total Bilirubin 1.3 AST 23 Alkaline Phosphatase 65 Total Protein 7.3 Albumin 4.1 TSH Free T4 12/30/19 12/30/19 06:18 06:18 WBC RBC Hgb Hct MCV MCH MCHC RDW Plt Count Seg Neutrophils % Sodium 140.6 Potassium 3.7 Chloride 105 Carbon Dioxide 22 Anion Gap 14 BUN 27 H Creatinine 1.24 Est GFR ( Amer) > 60 Glucose 111 H Calcium 9.5 Phosphorus 4.0 Magnesium 1.6 Total Bilirubin AST Alkaline Phosphatase Total Protein Albumin TSH 1.72 Free T4 1.74 12/29/19 12/29/19 12/29/19 11:42 11:42 17:33 Creatine Kinase 63 Troponin I < 0.012 < 0.012 NT-Pro-B Natriuret Pep 4370 H 12/29/19 21:07 Creatine Kinase Troponin I < 0.012 NT-Pro-B Natriuret Pep Impressions: Chest X-Ray 12/29/19 11:29 IMPRESSION: Constellation of findings suggests CHF exacerbation. Infectious etiology is not excluded. 12/30/19 06:18 12/30/19 06:18 MCV 85 fl (80-97) 12/30/19 06:18 MCH 28.5 pg (27.0-33.4) 12/30/19 06:18 MCHC 33.5 g/dL (32.0-36.0) 12/30/19 06:18 RDW 16.4 % (11.5-14.0) H 12/30/19 06:18 Seg Neutrophils % 64.8 % (42-78) 12/30/19 06:18 Chloride 105 mmol/L (98-107) 12/30/19 06:18 Carbon Dioxide 22 mmol/L (22-30) 12/30/19 06:18 Anion Gap 14 (5-19) 12/30/19 06:18 Est GFR ( Amer) > 60 (>60) 12/30/19 06:18 Glucose 111 mg/dL (75-110) H 12/30/19 06:18 Calcium 9.5 mg/dL (8.4-10.2) 12/30/19 06:18 Phosphorus 4.0 mg/dL (2.5-4.5) 12/30/19 06:18 Magnesium 1.6 mg/dL (1.6-2.3) 12/30/19 06:18 Total Bilirubin 1.3 mg/dL (0.2-1.3) 12/29/19 11:42 AST 23 U/L (17-59) 12/29/19 11:42 Alkaline Phosphatase 65 U/L (38-126) 12/29/19 11:42 Total Protein 7.3 g/dL (6.3-8.2) 12/29/19 11:42 Albumin 4.1 g/dL (3.5-5.0) 12/29/19 11:42 TSH 1.72 uIU/mL (0.47-4.68) 12/30/19 06:18 Free T4 1.74 ng/dL (0.78-2.19) 12/30/19 06:18 12/29/19 12/29/19 12/29/19 11:42 11:42 17:33 Creatine Kinase 63 Troponin I < 0.012 < 0.012 NT-Pro-B Natriuret Pep 4370 H 12/29/19 21:07 Creatine Kinase Troponin I < 0.012 NT-Pro-B Natriuret Pep Current Medication List Generic Name Dose Route Start Last Admin Trade Name Melissa PRN Reason Stop Dose Admin Acetaminophen 650 mg 12/29/19 18:44 Tylenol 325 Mg Tablet PO 01/28/20 18:43 Q4HP PRN Pain or fever Dabigatran 150 mg 12/30/19 10:00 Pradaxa 150 Mg Capsule PO 01/29/20 09:59 DAILY [facility] Diltiazem HCl 120 mg 12/29/19 22:00 12/30/19 00:07 Cardizem Cd 120 Mg Capsule PO 01/28/20 21:59 Not Given Q12 [facility] Docusate Sodium 100 mg 12/30/19 10:00 Colace 100 Mg Capsule PO 01/29/20 09:59 DAILY [facility] Finasteride 5 mg 12/30/19 10:00 Proscar 5 Mg Tablet PO 01/29/20 09:59 DAILY [facility] Furosemide 20 mg 12/30/19 10:00 Lasix Inj/Pf 20 Mg/2 Ml Sdv IV 01/29/20 09:59 BID [facility] Insulin Human Lispro 0 - 12 unit 12/29/19 22:00 12/30/19 08:18 Humalog Insulin 100 Unit/1 Ml 3 Ml Vial SUBCUT 01/28/20 21:59 Not Given ACHS [facility] Protocol Lisinopril 2.5 mg 12/30/19 10:00 Prinivil 5 Mg Tablet PO 01/29/20 09:59 DAILY [facility] Metoprolol Tartrate 50 mg 12/30/19 00:00 12/30/19 05:27 Lopressor 50 Mg Tablet PO 01/29/20 00:00 50 mg Q6 [facility] Administration Ondansetron HCl 4 mg 12/29/19 18:44 Zofran Odt 4 Mg Tablet PO 01/28/20 18:43 Q4HP PRN FOR NAUSEA/VOMITING Ondansetron HCl 4 mg 12/29/19 18:44 Zofran Inj/Pf 4 Mg/2 Ml Sdv IV 01/28/20 18:43 Q4HP PRN FOR NAUSEA/VOMITING Patient Own Medication 1 drop 12/30/19 10:00 Brinzolamide/Brimonidine Tart [Simbrinza 1%-0.2% Eye Drops] OU 01/29/20 09:59 TID MONISHA Discontinued Medications Generic Name Dose Route Start Last Admin Trade Name Melissa PRN Reason Stop Dose Admin Diltiazem HCl 20 mg 12/29/19 15:07 12/29/19 15:26 Cardizem Inj 25 Mg/5 Ml Vial IV 12/29/19 15:08 10 mg NOW ONE Administration Furosemide 40 mg 12/29/19 15:05 12/29/19 15:22 Lasix Inj/Pf 40 Mg/4 Ml Sdv IV 12/29/19 15:06 40 mg NOW ONE Administration Diltiazem HCl 125 mg in 125 mls @ 0 mls/hr 12/29/19 15:50 Cardizem Rtu Inj 125 Mg-D5w 125 Ml Premix IV 01/28/20 15:49 CONTINUOUS PRN THIS MED IS NOT "PRN" Protocol Titrate Metoprolol Succinate 25 mg 12/29/19 12:51 12/29/19 12:58 Toprol Xl 25 Mg Tab.Sr PO 12/29/19 12:52 25 mg NOW ONE Administration Metoprolol Succinate 50 mg 12/29/19 22:00 Toprol Xl 50 Mg Tab.Sr PO 01/28/20 21:59 Q12 MONISHA Metoprolol Succinate 50 mg 12/29/19 18:33 12/30/19 00:00 Toprol Xl 50 Mg Tab.Sr PO 01/28/20 18:32 50 mg Q12 MONISHA Administration Metoprolol Tartrate 15 mg 12/29/19 12:08 12/29/19 12:26 Lopressor Inj/Pf 5 Mg/5 Ml Sdv IV 12/29/19 12:09 Not Given NOW ONE Metoprolol Tartrate 5 mg 12/29/19 12:17 12/29/19 12:33 Lopressor Inj/Pf 5 Mg/5 Ml Sdv IV 12/29/19 23:59 5 mg Q5MP PRN Administration SEE COMMENTS Assessment & Plan - Diagnosis (1) Atrial fibrillation with RVR Is this a current diagnosis for this admission?: Yes Plan: His heart rate is better controlled after receiving only 3 doses of Lopressor 50 mg although he continues to be short of breath out of proportion to his physical activities which I believe is secondary to his heart failure, pulmonary hypertension and fluid overload. Recommendations: -Continue with current doses of Lopressor. -Continue with cardiac telemetry. -Continue with anticoagulation. (2) Heart failure with reduced ejection fraction Is this a current diagnosis for this admission?: Yes Plan: Per Dr. Painting's records, the patient had a normal ejection fraction in 2019. Unfortunately, he presented in rapid A. fib with heart failure and now has an ejection fraction less than 20% among other findings including moderate pulmonary hypertension. It is possible that his heart failure is secondary to tachycardia induced cardiomyopathy versus other cardiomyopathies versus acute ischemic heart disease however his cardiac troponin has been negative x3 and he denies ischemic symptoms. He continues to be fluid overloaded and unfortunately his intake and output has not been measured. He does have crackles at both bases. His blood pressure is on the low side therefore I will discontinue his lisinopril to allow for more aggressive diuresis and addition of ARNI after 36- hour of discontinuing lisinopril. Recommendations: -Discontinue diltiazem and avoid calcium channel blockers. -Continue with diuresis with current doses of Lasix for now, if blood pressure allows increase it to 40 mg IV twice daily. -Discontinue lisinopril. -Restrict fluid intake to 1500 cc daily. -Low sodium diet, less than 1500 mg daily. -Strict intake and output. -Daily weights. -Daily BMP and magnesium and replace electrolytes as needed.
--- NOTE | 2019-12-30 15:36 | PDOC PROGRESS REPORT ---
Subjective Progress Note for:: 12/30/19 Subjective:: As per admitting physician MICHAEL PIZARRO is a 84 year old male) looking for permanent A. fib, HTN, HLD, T2DM, right eye stroke, unspecified CHF, lung cancer status post left upper lobectomy who presents with a 3-day history of progressive shortness of breath/HERNANDEZ found to have heart rate in the 150s on admission. Patient has longstanding A. fib and states he is unable to feel palpitations since he was diagnosed with this. Patient takes Pradaxa and denies missing any doses of this or any of his other cardiac medications including diltiazem and his beta-america. He denies any fever/chills/recent illness. Patient follows with Dr. Painting in cardiology and Dr. Granados has been consulted from his group for this admission. Patient started on diltiazem drip in the ED with good response, continued on this. Home medications selectively restarted. Echocardiogram ordered. Pradaxa continued. 12/30/2019. No acute events overnight. Patient currently resting bed no apparent rashes, off of Cardizem drip, heart rate is controlled, still on A. fib, has been evaluated by cardiology, recommendations noted, patient denies any palpitation, lightheadedness, chest pain, fever, chills, nausea, vomiting, diarrhea, constipation or any urinary symptoms. Reason For Visit: ATRIAL FIBRILLATION WITH RVR CHF Physical Exam Vital Signs: Temp Pulse Resp BP Pulse Ox 97.4 F 106 H 17 106/73 98 12/30/19 11:18 12/30/19 14:00 12/30/19 11:18 12/30/19 11:18 12/30/19 11:18 Intake & Output 12/29/19 12/30/19 12/31/19 06:59 06:59 06:59 Intake Total 460 Balance 460 Weight 77.7 kg General appearance: PRESENT: no acute distress, well-developed, well-nourished Head exam: PRESENT: atraumatic, normocephalic Neck exam: ABSENT: carotid bruit, JVD, lymphadenopathy, thyromegaly Respiratory exam: PRESENT: clear to auscultation socorro. ABSENT: rales, rhonchi, wheezes Cardiovascular exam: PRESENT: irregular rhythm. ABSENT: diastolic murmur, rubs, systolic murmur GI/Abdominal exam: PRESENT: normal bowel sounds, soft. ABSENT: distended, guarding, mass, organolmegaly, rebound, tenderness Extremities exam: PRESENT: full ROM. ABSENT: calf tenderness, clubbing, pedal edema Neurological exam: PRESENT: alert, awake, oriented to person, oriented to place, oriented to time, oriented to situation, CN II-XII grossly intact. ABSENT: motor sensory deficit Results Laboratory Results: 12/30/19 06:18 12/30/19 06:18 12/30/19 12/30/19 12/30/19 06:18 06:18 06:18 WBC 6.7 RBC 4.16 L Hgb 11.8 L Hct 35.3 L MCV 85 MCH 28.5 MCHC 33.5 RDW 16.4 H Plt Count 197 Seg Neutrophils % 64.8 Sodium 140.6 Potassium 3.7 Chloride 105 Carbon Dioxide 22 Anion Gap 14 BUN 27 H Creatinine 1.24 Est GFR ( Amer) > 60 Glucose 111 H Calcium 9.5 Phosphorus 4.0 Magnesium 1.6 TSH 1.72 Free T4 1.74 12/29/19 12/29/19 12/29/19 11:42 11:42 17:33 Creatine Kinase 63 Troponin I < 0.012 < 0.012 NT-Pro-B Natriuret Pep 4370 H 12/29/19 21:07 Creatine Kinase Troponin I < 0.012 NT-Pro-B Natriuret Pep Impressions: Chest X-Ray 12/29/19 11:29 IMPRESSION: Constellation of findings suggests CHF exacerbation. Infectious etiology is not excluded. Assessment and Plan - Diagnosis (1) Atrial fibrillation with RVR Is this a current diagnosis for this admission?: Yes Plan: History Permanent A. fib with acute RVR rate up to 150 on admission Initially placed on started on diltiazem drip, switched to p.o. beta-blockers. Anticoagulated. Rate controlled. Off of IV Cardizem. Restart home rate control medications Continue beta-blockers. As needed IV beta-blockers. Continue Pradaxa. Cardiology consulted. Recommendations noted. Patient follows with Dr. Mert westbrook. (2) CHF (congestive heart failure) Qualifiers: Heart failure type: unspecified Heart failure chronicity: acute on chronic Qualified Code(s): I50.9 - Heart failure, unspecified Is this a current diagnosis for this admission?: Yes Plan: Acute systolic heart failure. As per cardiology note patient has an ejection fraction of 20%. Likely due to A. fib RVR. TSH, T4 and troponins WNL. Cardiology consulted. Recommendations noted. Lisinopril has been discontinued. Pending initiation of ARNI 36 hours after lisinopril discontinuation. Continue IV Lasix, uptitrate as tolerated, strict in and out, cardiac diet, daily weights, fluid restriction, daily electrolytes. No diltiazem or calcium channel blockers as per cardiology. (3) History of lung cancer Is this a current diagnosis for this admission?: Yes Plan: "Cancer free" per patient since his left upper lobectomy 12 years ago Outpatient PCP and oncology follow-up. (4) Diabetes mellitus type 2 in nonobese Is this a current diagnosis for this admission?: Yes Plan: Controlled. Hemoglobin A1c 5.7%. Home medication is Metformin at 1000 mg p.o. twice daily. Hold metformin. Continue diabetic diet, sliding scale insulin, Accu-Chek, hypoglycemia protocol. Resume home meds upon discharge. Outpatient PCP follow-up. (5) Hypertension Qualifiers: Hypertension type: essential hypertension Qualified Code(s): I10 - Essential (primary) hypertension Is this a current diagnosis for this admission?: Yes Plan: Volume overloaded. Normotensive. Lisinopril discontinued by manager strategic sourcing. Pending initiation of ARNI's. Continue diltiazem and avoid calcium channel blockers as per cardiology recommendation. Beta-blockers, diuretics, ARNI. Adjust meds as needed. Outpatient PCP and cardiology follow-up. (6) Longstanding persistent atrial fibrillation Is this a current diagnosis for this admission?: Yes Plan: As above - Time Time Spent with patient: 25-34 minutes Anticipated Discharge Disposition: Home, Self Care Anticipated Discharge Timeframe: within 48 hours
[2019-12-31] MEDS: METOPROLOL TARTRATE 50 MG TABLET PO SCH ×2 (05:08)
[2019-12-31 06:44] LABS: ABSOLUTE EOSINOPHILS # (AUTO) 0.2 10^3/uL (0.0-0.6); ABSOLUTE LYMPHOCYTES (AUTO) 1.8 10^3/uL (0.5-4.7); ABSOLUTE MONOCYTES (AUTO) 0.7 10^3/uL (0.1-1.4); ABSOLUTE NEUT (AUTO) 4.6 10^3/uL (1.7-8.2); BASOPHILS % (AUTO) 0.7 % (0-2); EOSINOPHILS % (AUTO) 3.1 % (0-6); HEMATOCRIT 36.7 % (37.9-51.0); HEMOGLOBIN 12.2 g/dL (13.5-17.0); LYMPHOCYTES % (AUTO) 24.3 % (13-45); MEAN CORPUSCULAR HEMOGLOBIN 28.5 pg (27.0-33.4); MEAN CORPUSCULAR HGB CONC 33.2 g/dL (32.0-36.0); MEAN CORPUSCULAR VOLUME 86 fl (80-97); MONOCYTES % (AUTO) 9.4 % (3-13); PLATELET COUNT 192 10^3/uL (150-450); RED BLOOD COUNT 4.27 10^6/uL (4.35-5.55); RED CELL DISTRIBUTION WIDTH 16.3 % (11.5-14.0); SEGMENTED NEUTROPHILS % (AUTO) 62.5 % (42-78); TOTAL CELLS COUNTED % (AUTO) 100 %; WHITE BLOOD COUNT 7.4 10^3/uL (4.0-10.5)
[2019-12-31 07:07] LABS: ANION GAP 11 (5-19); BLOOD UREA NITROGEN 26 mg/dL (7-20); CALCIUM 9.2 mg/dL (8.4-10.2); CARBON DIOXIDE 22 mmol/L (22-30); CHLORIDE 106 mmol/L (98-107); GLUCOSE 93 mg/dL (75-110); POTASSIUM 3.5 mmol/L (3.6-5.0)
[2019-12-31] MEDS ORDERED: FUROSEMIDE 20 MG TABLET PO SCH (10:00)
--- NOTE | 2019-12-31 10:04 | PDOC PROGRESS REPORT ---
Subjective Progress Note for:: 12/31/19 Subjective:: MICHAEL PIZARRO is a 84 year old male with history of permanent atrial fibrillation, hypertension, hyperlipidemia, type 2 diabetes, prior stroke, heart failure with preserved ejection fraction, lung cancer status post left upper lobe lobectomy whose outpatient supervisor respiratory is Dr. Rubén Painting and who is consulted to our service for evaluation of rapid atrial fibrillation and heart failure. I did receive some records from Dr. Painting's office at which time the patient was hemodynamically stable and without evidence of heart failure. His echocardiogram in 2019 demonstrated a normal ejection fraction. His outpatient heart rate was documented to be between 80 and 90 bpm. It is also noted that he was on digoxin 250 mcg daily at some point but the medication was discontinued due to being not effective. He presented to our emergency room yesterday in rapid A. fib in heart failure. Today he is found in bed with shortness of breath out of proportion to physical activity. He stated that he felt really short of breath when going to the bathroom however when he is doing leg kicks in the bed his heart rate only peaked at 110 bpm. His telemetry shows rapid atrial fibrillation without ventricular dysrhythmias. 12/31/2019: The patient had an uneventful night and actually feels much better. He specifically denies cardiovascular complaints particularly heart failure symptoms. Unfortunately his telemetry continues to show rapid atrial fibrillation without ventricular dysrhythmias. He is found sitting up in bed eating breakfast with a heart rate of 120 bpm. His nurse walked him in the mobley and just reported that his heart rate was 150 bpm sustained but he remained asymptomatic. Physical exam on 12/31/2019: GENERAL: Pleasant and conversational. Oriented x3 with normal mood. Not in acute distress. Well groomed and well developed. HEENT: Normocephalic, atraumatic. Pupils equal. Sclerae anicteric. Oropharynx moist. NECK: No JVD. No carotid bruits. LUNGS: Crackles at both bases.. Normal respiratory effort without the use of accessory muscles or intercostal retractions. CARDIOVASCULAR: Tachycardic, irregularly irregular rate and rhythm, normal S1 and S2 without murmurs, rubs, or gallops. PMI not displaced. ABDOMEN: No masses or tenderness to palpation. No bruit. No splenomegaly or hepatomegaly. No abdominal aorta bruit noted. EXTREMITIES: No edema, no cyanosis, no clubbing. +2 pulses femoral and pedal pulses bilaterally. SKIN: No lesions or rashes. MUSCULOSKELETAL: No chest tenderness to palpation. NEUROLOGIC: Nonfocal. No gross sensory or motor deficits bilateral upper or lower extremities. Cardiac studies: Echocardiogram on 12/29/2019 at [facility]: -EF less than 20%. -The patient was in rapid A. fib during the study. -Severe global hypokinesis. -Moderately depressed right ventricular systolic function. -Severe biatrial lodgment. -Mild to moderate MR, trace AI, moderate to severe TR, mild PI. -Moderate pulmonary hypertension estimated between 53 and 58 mmHg. -Small left pleural effusion. Reason For Visit: ATRIAL FIBRILLATION WITH RVR CHF Physical Exam Vital Signs: Temp Pulse Resp BP Pulse Ox 97.7 F 107 H 20 113/74 98 12/31/19 03:18 12/31/19 03:18 12/31/19 03:18 12/31/19 03:18 12/31/19 03:18 Intake & Output 12/29/19 12/30/19 12/31/19 06:59 06:59 06:59 Intake Total 980 Output Total 750 Balance 230 Weight 77.7 kg Results Laboratory Results: 12/31/19 06:15 12/30/19 12/30/19 12/30/19 06:18 06:18 06:18 WBC 6.7 RBC 4.16 L Hgb 11.8 L Hct 35.3 L MCV 85 MCH 28.5 MCHC 33.5 RDW 16.4 H Plt Count 197 Seg Neutrophils % 64.8 Sodium 140.6 Potassium 3.7 Chloride 105 Carbon Dioxide 22 Anion Gap 14 BUN 27 H Creatinine 1.24 Est GFR ( Amer) > 60 Glucose 111 H Calcium 9.5 Phosphorus 4.0 Magnesium 1.6 TSH 1.72 Free T4 1.74 12/31/19 06:15 WBC 7.4 RBC 4.27 L Hgb 12.2 L Hct 36.7 L MCV 86 MCH 28.5 MCHC 33.2 RDW 16.3 H Plt Count 192 Seg Neutrophils % 62.5 Sodium Potassium Chloride Carbon Dioxide Anion Gap BUN Creatinine Est GFR ( Amer) Glucose Calcium Phosphorus Magnesium TSH Free T4 12/29/19 12/29/19 12/29/19 11:42 11:42 17:33 Creatine Kinase 63 Troponin I < 0.012 < 0.012 NT-Pro-B Natriuret Pep 4370 H 12/29/19 21:07 Creatine Kinase Troponin I < 0.012 NT-Pro-B Natriuret Pep Impressions: Chest X-Ray 12/29/19 11:29 IMPRESSION: Constellation of findings suggests CHF exacerbation. Infectious etiology is not excluded. Assessment & Plan - Diagnosis (1) Atrial fibrillation with RVR Is this a current diagnosis for this admission?: Yes Plan: Unfortunately he continues to have rapid atrial fibrillation particularly with walking at which time his heart rate increased to 150 bpm despite 200 mg of Lopressor daily. I discussed the case with his outpatient supervisor respiratory, Dr. Painting, and we both agree to load the patient up on amiodarone in an attempt to get better rate control and may be consider cardioversion down the road. Recommendations: -Change Lopressor to 100 mg p.o. twice daily. -IV amiodarone load per protocol followed by 400 mg of amiodarone twice daily p.o. -Continue with cardiac telemetry. -Continue with anticoagulation. (2) Heart failure with reduced ejection fraction Is this a current diagnosis for this admission?: Yes Plan: He denies heart failure symptoms. His exam is unchanged from yesterday and without gross evidence of fluid overload. His fluid balance is -220 cc. Recommendations: -Continue with current medical management for now. -Restrict fluid intake to 1500 cc daily. -Low sodium diet, less than 1500 mg daily. -Strict intake and output. -Daily weights. -Daily BMP and magnesium and replace electrolytes as needed.
[2019-12-31] MEDS: INSULIN LISPRO 100 UNIT/ML 3 ML VIAL SUBCUT SCH ×4 (11:15→22:11)
[2019-12-31] MEDS ORDERED: DEXTROSE 5%-WATER 500 ML with AMIODARONE HCL 900 MG IV PRN ×2 (11:30)
[2019-12-31] MEDS: FINASTERIDE 5 MG TABLET PO SCH (11:51)
[2019-12-31] MEDS: DOCUSATE SODIUM 100 MG CAPSULE PO SCH (11:51)
[2019-12-31] MEDS: DABIGATRAN ETEXILATE 150 MG CAPSULE PO SCH (11:52)
[2019-12-31] MEDS: FUROSEMIDE INJ/PF 20 MG/2 ML SDV IV SCH ×2 (11:52→22:28)
[2019-12-31] MEDS ORDERED: AMIODARONE HCL 150 MG in DEXTROSE 5%-WATER 100 ML IV ONE (12:00)
--- NOTE | 2019-12-31 13:38 | PDOC PROGRESS REPORT ---
Subjective Progress Note for:: 12/31/19 Subjective:: As per admitting physician MICHAEL PIZARRO is a 84 year old male) looking for permanent A. fib, HTN, HLD, T2DM, right eye stroke, unspecified CHF, lung cancer status post left upper lobectomy who presents with a 3-day history of progressive shortness of breath/HERNANDEZ found to have heart rate in the 150s on admission. Patient has longstanding A. fib and states he is unable to feel palpitations since he was diagnosed with this. Patient takes Pradaxa and denies missing any doses of this or any of his other cardiac medications including diltiazem and his beta-[place]. He denies any fever/chills/recent illness. Patient follows with Dr. Painting in cardiology and Dr. Granados has been consulted from his group for this admission. Patient started on diltiazem drip in the ED with good response, continued on this. Home medications selectively restarted. Echocardiogram ordered. Pradaxa continued. 12/30/2019. No acute events overnight. Patient currently resting bed no apparent rashes, off of Cardizem drip, heart rate is controlled, still on A. fib, has been evaluated by cardiology, recommendations noted, patient denies any palpitation, lightheadedness, chest pain, fever, chills, nausea, vomiting, diarrhea, constipation or any urinary symptoms. 12/31/2019. No acute events overnight. Unfortunately she was noted to have uncontrolled heart rate upon ambulation, was started on amiodarone by cardiology, patient denies any chest pain, palpitation, lightheadedness, nausea, vomiting, diarrhea, constipation or any urinary symptoms. Alert and oriented x3, no apparent distress, cooperative with physical examination. Answers question appropriately Reason For Visit: ATRIAL FIBRILLATION WITH RVR CHF Physical Exam Vital Signs: Temp Pulse Resp BP Pulse Ox 97.9 F 107 H 20 98/62 L 99 12/31/19 11:07 12/31/19 12:22 12/31/19 11:07 12/31/19 12:22 12/31/19 11:07 Intake & Output 12/30/19 12/31/19 01/01/20 06:59 06:59 06:59 Intake Total 980 Output Total 1200 Balance -220 Weight 77.7 kg 76.9 kg General appearance: PRESENT: no acute distress, well-developed, well-nourished Head exam: PRESENT: atraumatic, normocephalic Respiratory exam: PRESENT: clear to auscultation socorro. ABSENT: rales, rhonchi, wheezes Cardiovascular exam: PRESENT: irregular rhythm. ABSENT: diastolic murmur, rubs, systolic murmur GI/Abdominal exam: PRESENT: normal bowel sounds, soft. ABSENT: distended, guarding, mass, organolmegaly, rebound, tenderness Neurological exam: PRESENT: alert, awake, oriented to person, oriented to place, oriented to time, oriented to situation, CN II-XII grossly intact. ABSENT: motor sensory deficit Results Laboratory Results: 12/31/19 06:15 12/31/19 06:15 12/31/19 12/31/19 06:15 06:15 WBC 7.4 RBC 4.27 L Hgb 12.2 L Hct 36.7 L MCV 86 MCH 28.5 MCHC 33.2 RDW 16.3 H Plt Count 192 Seg Neutrophils % 62.5 Sodium 139.4 Potassium 3.5 L Chloride 106 Carbon Dioxide 22 Anion Gap 11 BUN 26 H Creatinine 1.38 H Est GFR ( Amer) 59 L Glucose 93 Calcium 9.2 12/29/19 12/29/19 12/29/19 11:42 11:42 17:33 Creatine Kinase 63 Troponin I < 0.012 < 0.012 NT-Pro-B Natriuret Pep 4370 H 12/29/19 21:07 Creatine Kinase Troponin I < 0.012 NT-Pro-B Natriuret Pep Impressions: Chest X-Ray 12/29/19 11:29 IMPRESSION: Constellation of findings suggests CHF exacerbation. Infectious etiology is not excluded. Assessment and Plan - Diagnosis (1) Atrial fibrillation with RVR Is this a current diagnosis for this admission?: Yes Plan: History Permanent A. fib with acute RVR rate up to 150 on admission Initially placed on started on diltiazem drip, switched to p.o. beta-blockers. Anticoagulated. Off of IV Cardizem. Restart home rate control medications rate not controlled. Has been a started on amiodarone by icd 9 coder. Continue beta-blockers and amiodarone. As needed IV beta-blockers. Continue Pradaxa. Cardiology consulted. Recommendations noted. Patient follows with Dr. Mert outpatient. (2) CHF (congestive heart failure) Qualifiers: Heart failure type: unspecified Heart failure chronicity: acute on chronic Qualified Code(s): I50.9 - Heart failure, unspecified Is this a current diagnosis for this admission?: Yes Plan: Acute systolic heart failure. As per cardiology note patient has an ejection fraction of 20%. Likely due to A. fib RVR. TSH, T4 and troponins WNL. Cardiology consulted. Recommendations noted. Lisinopril has been discontinued. Pending initiation of ARNI 36 hours after lisinopril discontinuation. Continue IV Lasix, uptitrate as tolerated, strict in and out, cardiac diet, daily weights, fluid restriction, daily electrolytes. No diltiazem or calcium channel blockers as per cardiology. (3) History of lung cancer Is this a current diagnosis for this admission?: Yes Plan: "Cancer free" per patient since his left upper lobectomy 12 years ago Outpatient PCP and oncology follow-up. (4) Diabetes mellitus type 2 in nonobese Is this a current diagnosis for this admission?: Yes Plan: Controlled. Hemoglobin A1c 5.7%. Home medication is Metformin at 1000 mg p.o. twice daily. Hold metformin. Continue diabetic diet, sliding scale insulin, Accu-Chek, hypoglycemia protocol. Resume home meds upon discharge. Outpatient PCP follow-up. (5) Hypertension Qualifiers: Hypertension type: essential hypertension Qualified Code(s): I10 - Essen tial (primary) hypertension Is this a current diagnosis for this admission?: Yes Plan: Volume overloaded. Normotensive. Lisinopril discontinued by icd 9 coder. Pending initiation of ARNI's. Continue diltiazem and avoid calcium channel blockers as per cardiology recommendation. Beta-blockers, diuretics, ARNI. Adjust meds as needed. Outpatient PCP and cardiology follow-up. (6) Longstanding persistent atrial fibrillation Is this a current diagnosis for this admission?: Yes Plan: As above - Time Time Spent with patient: 25-34 minutes Medications reviewed and adjusted accordingly: Yes Anticipated Discharge Disposition: Home, Self Care Anticipated Discharge Timeframe: within 48 hours
[2019-12-31] MEDS: METOPROLOL TARTRATE 100 MG TABLET PO SCH (22:28)
[2020-01-01 07:08] LABS: ABSOLUTE EOSINOPHILS # (AUTO) 0.2 10^3/uL (0.0-0.6); ABSOLUTE LYMPHOCYTES (AUTO) 1.9 10^3/uL (0.5-4.7); ABSOLUTE MONOCYTES (AUTO) 0.7 10^3/uL (0.1-1.4); ABSOLUTE NEUT (AUTO) 5.6 10^3/uL (1.7-8.2); BASOPHILS % (AUTO) 0.5 % (0-2); EOSINOPHILS % (AUTO) 2.4 % (0-6); HEMOGLOBIN 12.5 g/dL (13.5-17.0); LYMPHOCYTES % (AUTO) 22.4 % (13-45); MEAN CORPUSCULAR HEMOGLOBIN 28.7 pg (27.0-33.4); MEAN CORPUSCULAR HGB CONC 33.8 g/dL (32.0-36.0); MEAN CORPUSCULAR VOLUME 85 fl (80-97); MONOCYTES % (AUTO) 8.2 % (3-13); PLATELET COUNT 210 10^3/uL (150-450); RED BLOOD COUNT 4.34 10^6/uL (4.35-5.55); RED CELL DISTRIBUTION WIDTH 16.4 % (11.5-14.0); SEGMENTED NEUTROPHILS % (AUTO) 66.5 % (42-78); TOTAL CELLS COUNTED % (AUTO) 100 %; WHITE BLOOD COUNT 8.4 10^3/uL (4.0-10.5)
[2020-01-01 07:33] LABS: ANION GAP 13 (5-19); BLOOD UREA NITROGEN 28 mg/dL (7-20); CALCIUM 9.4 mg/dL (8.4-10.2); CARBON DIOXIDE 21 mmol/L (22-30); CHLORIDE 105 mmol/L (98-107); GLUCOSE 122 mg/dL (75-110); POTASSIUM 3.8 mmol/L (3.6-5.0)
[2020-01-01] MEDS: INSULIN LISPRO 100 UNIT/ML 3 ML VIAL SUBCUT SCH ×4 (08:33→22:00)
--- NOTE | 2020-01-01 09:40 | PDOC PROGRESS REPORT ---
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 Rubén Painting and who is consulted to our service for evaluation of rapid atrial fibrillation and heart failure. I did receive some records from Dr. Painting's office at which time the patient was hemodynamically stable and without evidence of heart failure. His echocardiogram in 2019 demonstrated a normal ejection fraction. His outpatient heart rate was documented to be between 80 and 90 bpm. It is also noted that he was on digoxin 250 mcg daily at some point but the medication was discontinued due to being not effective. He presented to our emergency room yesterday in rapid A. fib in heart failure. Today he is found in bed with shortness of breath out of proportion to physical activity. He stated that he felt really short of breath when going to the bathroom however when he is doing leg kicks in the bed his heart rate only peaked at 110 bpm. His telemetry shows rapid atrial fibrillation without ventricular dysrhythmias. 01/01/2020: The patient had an uneventful night and actually feels much better. His amiodarone IV loading is still ongoing. He specifically denies cardiovascular complaints particularly heart failure symptoms. His telemetry continues to show rapid atrial fibrillation with an improved heart rate and no ventricular dysrhythmias. He is found sitting up in bed eating breakfast with a heart rate of approximately 100 bpm which is better than yesterday. His fluid balance is - 590 cc. Physical exam on 01/01/2020: GENERAL: Pleasant and conversational. Oriented x3 with normal mood. Not in acute distress. Well groomed and well developed. HEENT: Normocephalic, atraumatic. Pupils equal. Sclerae anicteric. Oropharynx moist. NECK: No JVD. No carotid bruits. LUNGS: Clear to auscultation bilaterally with decreased breath sounds at the left base. Normal respiratory effort without the use of accessory muscles or intercostal retractions. CARDIOVASCULAR: Mildly tachycardic, irregularly irregular rate and rhythm, normal S1 and S2 without murmurs, rubs, or gallops. PMI not displaced. ABDOMEN: No masses or tenderness to palpation. No bruit. No splenomegaly or hepatomegaly. No abdominal aorta bruit noted. EXTREMITIES: No edema, no cyanosis, no clubbing. +2 pulses femoral and pedal pulses bilaterally. SKIN: No lesions or rashes. MUSCULOSKELETAL: No chest tenderness to palpation. NEUROLOGIC: Nonfocal. No gross sensory or motor deficits bilateral upper or lower extremities. Cardiac studies: Echocardiogram on 12/29/2019 at [facility]: -EF less than 20%. -The patient was in rapid A. fib during the study. -Severe global hypokinesis. -Moderately depressed right ventricular systolic function. -Severe biatrial lodgment. -Mild to moderate MR, trace AI, moderate to severe TR, mild PI. -Moderate pulmonary hypertension estimated between 53 and 58 mmHg. -Small left pleural effusion. Reason For Visit: ATRIAL FIBRILLATION WITH RVR CHF Physical Exam Vital Signs: Temp Pulse Resp BP Pulse Ox 97.8 F 86 14 98/69 L 99 01/01/20 04:06 01/01/20 04:06 01/01/20 04:06 01/01/20 04:06 01/01/20 04:06 Intake & Output 12/30/19 12/31/19 01/01/20 06:59 06:59 06:59 Intake Total 980 1211 Output Total 1200 1500 Balance -220 -289 Weight 77.7 kg 76.9 kg Results Laboratory Results: 12/31/19 06:15 12/31/19 06:15 12/31/19 12/31/19 06:15 06:15 WBC 7.4 RBC 4.27 L Hgb 12.2 L Hct 36.7 L MCV 86 MCH 28.5 MCHC 33.2 RDW 16.3 H Plt Count 192 Seg Neutrophils % 62.5 Sodium 139.4 Potassium 3.5 L Chloride 106 Carbon Dioxide 22 Anion Gap 11 BUN 26 H Creatinine 1.38 H Est GFR ( Amer) 59 L Glucose 93 Calcium 9.2 12/29/19 12/29/19 12/29/19 11:42 11:42 17:33 Creatine Kinase 63 Troponin I < 0.012 < 0.012 NT-Pro-B Natriuret Pep 4370 H 12/29/19 21:07 Creatine Kinase Troponin I < 0.012 NT-Pro-B Natriuret Pep Impressions: Chest X-Ray 12/29/19 11:29 IMPRESSION: Constellation of findings suggests CHF exacerbation. Infectious etiology is not excluded. 01/01/20 06:22 01/01/20 06:22 MCV 85 fl (80-97) 01/01/20 06:22 MCH 28.7 pg (27.0-33.4) 01/01/20 06:22 MCHC 33.8 g/dL (32.0-36.0) 01/01/20 06:22 RDW 16.4 % (11.5-14.0) H 01/01/20 06:22 Seg Neutrophils % 66.5 % (42-78) 01/01/20 06:22 Chloride 105 mmol/L (98-107) 01/01/20 06:22 Carbon Dioxide 21 mmol/L (22-30) L 01/01/20 06:22 Anion Gap 13 (5-19) 01/01/20 06:22 Est GFR ( Amer) > 60 (>60) 01/01/20 06:22 Glucose 122 mg/dL (75-110) H 01/01/20 06:22 Calcium 9.4 mg/dL (8.4-10.2) 01/01/20 06:22 Phosphorus 4.0 mg/dL (2.5-4.5) 12/30/19 06:18 Magnesium 1.9 mg/dL (1.6-2.3) 01/01/20 06:22 Total Bilirubin 1.3 mg/dL (0.2-1.3) 12/29/19 11:42 AST 23 U/L (17-59) 12/29/19 11:42 Alkaline Phosphatase 65 U/L (38-126) 12/29/19 11:42 Total Protein 7.3 g/dL (6.3-8.2) 12/29/19 11:42 Albumin 4.1 g/dL (3.5-5.0) 12/29/19 11:42 TSH 1.72 uIU/mL (0.47-4.68) 12/30/19 06:18 Free T4 1.74 ng/dL (0.78-2.19) 12/30/19 06:18 12/29/19 12/29/19 12/29/19 11:42 11:42 17:33 Creatine Kinase 63 Troponin I < 0.012 < 0.012 NT-Pro-B Natriuret Pep 4370 H 12/29/19 21:07 Creatine Kinase Troponin I < 0.012 NT-Pro-B Natriuret Pep Current Medication List Generic Name Dose Route Start Last Admin Trade Name Melissa PRN Reason Stop Dose Admin Acetaminophen 650 mg 12/29/19 18:44 Tylenol 325 Mg Tablet PO 01/28/20 18:43 Q4HP PRN Pain or fever Dabigatran 150 mg 12/30/19 10:00 12/31/19 11:52 Pradaxa 150 Mg Capsule PO 01/29/20 09:59 150 mg DAILY MONISHA Administration Docusate Sodium 100 mg 12/30/19 10:00 12/31/19 11:51 Colace 100 Mg Capsule PO 01/29/20 09:59 100 mg DAILY MONISHA Administration Finasteride 5 mg 12/30/19 10:00 12/31/19 11:51 Proscar 5 Mg Tablet PO 01/29/20 09:59 5 mg DAILY MONISHA Administration Furosemide 20 mg 12/31/19 10:00 12/31/19 22:28 Lasix Inj/Pf 20 Mg/2 Ml Sdv IV 01/30/20 09:59 20 mg Q12 MONISHA Administration Amiodarone HCl 900 mg/ 500 mls @ 0 mls/hr 12/31/19 11:30 12/31/19 18:19 Dextrose IV 01/03/20 11:29 16.6 mls/hr CONTINUOUS PRN 16.6 mls/hr THIS MED IS NOT "PRN" Titration Protocol Per Protocol Insulin Human Lispro 0 - 12 unit 12/29/19 22:00 01/01/20 08:33 Humalog Insulin 100 Unit/1 Ml 3 Ml Vial SUBCUT 01/28/20 21:59 Not Given ACHS [facility] Protocol Metoprolol Tartrate 100 mg 12/31/19 22:00 12/31/19 22:28 Lopressor 100 Mg Tablet PO 01/30/20 21:59 100 mg Q12 MONISHA Administration Ondansetron HCl 4 mg 12/29/19 18:44 Zofran Odt 4 Mg Tablet PO 01/28/20 18:43 Q4HP PRN FOR NAUSEA/VOMITING Ondansetron HCl 4 mg 12/29/19 18:44 Zofran Inj/Pf 4 Mg/2 Ml Sdv IV 01/28/20 18:43 Q4HP PRN FOR NAUSEA/VOMITING Patient Own Medication 1 drop 12/30/19 10:00 Brinzolamide/Brimonidine Tart [Simbrinza 1%-0.2% Eye Drops] OU 01/29/20 09:59 TID MONISHA Discontinued Medications Generic Name Dose Route Start Last Admin Trade Name Freq PRN Reason Stop Dose Admin Diltiazem HCl 20 mg 12/29/19 15:07 12/29/19 15:26 Cardizem Inj 25 Mg/5 Ml Vial IV 12/29/19 15:08 10 mg NOW ONE Administration Diltiazem HCl 120 mg 12/29/19 22:00 12/30/19 11:03 Cardizem Cd 120 Mg Capsule PO 01/28/20 21:59 Not Given Q12 MONISHA Furosemide 40 mg 12/29/19 15:05 12/29/19 15:22 Lasix Inj/Pf 40 Mg/4 Ml Sdv IV 12/29/19 15:06 40 mg NOW ONE Administration Furosemide 20 mg 12/30/19 10:00 12/30/19 17:31 Lasix Inj/Pf 20 Mg/2 Ml Sdv IV 01/29/20 09:59 20 mg BID MONISHA Administration Furosemide 10 mg 12/31/19 10:00 Lasix 20 Mg Tablet PO 01/30/20 09:59 DAILY MONISHA Diltiazem HCl 125 mg in 125 mls @ 0 mls/hr 12/29/19 15:50 Cardizem Rtu Inj 125 Mg-D5w 125 Ml Premix IV 01/28/20 15:49 CONTINUOUS PRN THIS MED IS NOT "PRN" Protocol Titrate Amiodarone HCl 150 mg/ 100 mls @ 600 mls/hr 12/31/19 12:00 12/31/19 11:52 Dextrose IV 12/31/19 12:09 600 mls/hr NOW ONE Administration Protocol Lisinopril 2.5 mg 12/30/19 10:00 12/30/19 11:07 Prinivil 5 Mg Tablet PO 01/29/20 09:59 2.5 mg DAILY MONISHA Administration Metoprolol Succinate 25 mg 12/29/19 12:51 12/29/19 12:58 Toprol Xl 25 Mg Tab.Sr PO 12/29/19 12:52 25 mg NOW ONE Administration Metoprolol Succinate 50 mg 12/29/19 22:00 Toprol Xl 50 Mg Tab.Sr PO 01/28/20 21:59 Q12 MONISHA Metoprolol Succinate 50 mg 12/29/19 18:33 12/30/19 00:00 Toprol Xl 50 Mg Tab.Sr PO 01/28/20 18:32 50 mg Q12 MONISHA Administration Metoprolol Tartrate 15 mg 12/29/19 12:08 12/29/19 12:26 Lopressor Inj/Pf 5 Mg/5 Ml Sdv IV 12/29/19 12:09 Not Given NOW ONE Metoprolol Tartrate 5 mg 12/29/19 12:17 12/29/19 12:33 Lopressor Inj/Pf 5 Mg/5 Ml Sdv IV 12/29/19 23:59 5 mg Q5MP PRN Administration SEE COMMENTS Metoprolol Tartrate 50 mg 12/30/19 00:00 12/31/19 05:08 Lopressor 50 Mg Tablet PO 01/29/20 00:00 50 mg Q6 MONISHA Administration Assessment & Plan - Diagnosis (1) Atrial fibrillation with RVR Is this a current diagnosis for this admission?: Yes Plan: He was begun on amiodarone IV loading which is still ongoing. His heart rate is improved with less episodes of rapid ventricular response. As a matter of fact, his heart rate was around 100 bpm while eating breakfast this morning which is much better than yesterday at which point he was set up around 120 bpm. Recommendations: -Continue with current medical management. -Once IV amiodarone loading is completed we will start him on amiodarone 400 mg p.o. twice daily. -I anticipate discharge him in the next 24 hours. (2) Heart failure with reduced ejection fraction Is this a current diagnosis for this admission?: Yes Plan: He continues to deny heart failure symptoms and his fluid balance is -509 cc although there is decreased breath sounds at the left base. Recommendations: -Continue with current medical management for now. -Restrict fluid intake to 1500 cc daily. -Low sodium diet, less than 1500 mg daily. -Strict intake and output. -Daily weights. -Daily BMP and magnesium and replace electrolytes as needed. -Chest x-ray and proBNP today.
[2020-01-01] MEDS: DABIGATRAN ETEXILATE 150 MG CAPSULE PO SCH (10:47)
[2020-01-01] MEDS: DOCUSATE SODIUM 100 MG CAPSULE PO SCH (10:47)
[2020-01-01] MEDS: METOPROLOL TARTRATE 100 MG TABLET PO SCH ×2 (10:47→21:36)
[2020-01-01] MEDS: FINASTERIDE 5 MG TABLET PO SCH (10:47)
--- NOTE | 2020-01-01 10:49 | PDOC PROGRESS REPORT ---
Subjective Progress Note for:: 01/01/20 Subjective:: As per admitting physician MICHAEL PIZARRO is a 84 year old male) looking for permanent A. fib, HTN, HLD, T2DM, right eye stroke, unspecified CHF, lung cancer status post left upper lobectomy who presents with a 3-day history of progressive shortness of breath/HERNANDEZ found to have heart rate in the 150s on admission. Patient has longstanding A. fib and states he is unable to feel palpitations since he was diagnosed with this. Patient takes Pradaxa and denies missing any doses of this or any of his other cardiac medications including diltiazem and his beta-amer[place]. He denies any fever/chills/recent illness. Patient follows with Dr. Painting in cardiology and Dr. Granados has been consulted from his group for this admission. Patient started on diltiazem drip in the ED with good response, continued on this. Home medications selectively restarted. Echocardiogram ordered. Pradaxa continued. 12/30/2019. No acute events overnight. Patient currently resting bed no apparent rashes, off of Cardizem drip, heart rate is controlled, still on A. fib, has been evaluated by cardiology, recommendations noted, patient denies any palpitation, lightheadedness, chest pain, fever, chills, nausea, vomiting, diarrhea, constipation or any urinary symptoms. 12/31/2019. No acute events overnight. Unfortunately she was noted to have uncontrolled heart rate upon ambulation, was started on amiodarone by cardiology, patient denies any chest pain, palpitation, lightheadedness, nausea, vomiting, diarrhea, constipation or any urinary symptoms. Alert and oriented x3, no apparent distress, cooperative with physical examination. Answers question appropriately 01/01/2020. No acute events overnight. Patient is still on amiodarone drip, will be transition to p.o. nitroglycerin, possible discharge home tomorrow, denies any fever, chills, nausea, vomiting, diarrhea, constipation or any urinary symptoms. Ambulatory, having normal bowel and bladder movements. Reason For Visit: ATRIAL FIBRILLATION WITH RVR CHF Physical Exam Vital Signs: Temp Pulse Resp BP Pulse Ox 97.8 F 105 H 19 94/77 L 100 01/01/20 04:06 01/01/20 08:05 01/01/20 08:05 01/01/20 08:05 01/01/20 08:05 Intake & Output 12/31/19 01/01/20 01/02/20 06:59 06:59 06:59 Intake Total 980 1211 Output Total 1200 3478 Balance -220 -764 Weight 76.9 kg 76.7 kg General appearance: PRESENT: no acute distress, well-developed, well-nourished Head exam: PRESENT: atraumatic, normocephalic Respiratory exam: PRESENT: clear to auscultation socorro. ABSENT: rales, rhonchi, wheezes Cardiovascular exam: PRESENT: irregular rhythm. ABSENT: diastolic murmur, rubs, systolic murmur Pulses: PRESENT: normal dorsalis pedis pul GI/Abdominal exam: PRESENT: normal bowel sounds, soft. ABSENT: distended, guarding, mass, organolmegaly, rebound, tenderness Neurological exam: PRESENT: alert, awake, oriented to person, oriented to place, oriented to time, oriented to situation, CN II-XII grossly intact. ABSENT: motor sensory deficit Results Laboratory Results: 01/01/20 06:22 01/01/20 06:22 01/01/20 01/01/20 06:22 06:22 WBC 8.4 RBC 4.34 L Hgb 12.5 L Hct 37.0 L MCV 85 MCH 28.7 MCHC 33.8 RDW 16.4 H Plt Count 210 Seg Neutrophils % 66.5 Sodium 139.0 Potassium 3.8 Chloride 105 Carbon Dioxide 21 L Anion Gap 13 BUN 28 H Creatinine 1.36 H Est GFR ( Amer) > 60 Glucose 122 H Calcium 9.4 Magnesium 1.9 12/29/19 12/29/19 12/29/19 11:42 11:42 17:33 Creatine Kinase 63 Troponin I < 0.012 < 0.012 NT-Pro-B Natriuret Pep 4370 H 12/29/19 21:07 Creatine Kinase Troponin I < 0.012 NT-Pro-B Natriuret Pep Impressions: Chest X-Ray 12/29/19 11:29 IMPRESSION: Constellation of findings suggests CHF exacerbation. Infectious etiology is not excluded. Assessment and Plan - Diagnosis (1) Atrial fibrillation with RVR Is this a current diagnosis for this admission?: Yes Plan: Improving. History chronic permanent A. fib with acute RVR rate up to 150 on admission Initially placed on started on diltiazem drip, switched to p.o. beta-blockers. Anticoagulated. Off of IV Cardizem. Restart home rate control medications rate not controlled. Has been started on amiodarone drip to be transitioned to p.o. this afternoon by cardiology. Continue beta-blockers and amiodarone. As needed IV beta-blockers. Continue Pradaxa. Cardiology consulted. Recommendations noted. Patient follows with Dr. Painting outpatient. (2) CHF (congestive heart failure) Qualifiers: Heart failure type: unspecified Heart failure chronicity: acute on chronic Qualified Code(s): I50.9 - Heart failure, unspecified Is this a current diagnosis for this admission?: Yes Plan: Acute systolic heart failure. As per cardiology note patient has an ejection fraction of 20%. Likely due to A. fib RVR. TSH, T4 and troponins WNL. Cardiology consulted. Recommendations noted. Lisinopril has been discontinued. Pending initiation of ARNI 36 hours after lisinopril discontinuation. Continue IV Lasix, uptitrate as tolerated, strict in and out, cardiac diet, daily weights, fluid restriction, daily electrolytes. No diltiazem or calcium channel blockers as per cardiology. (3) History of lung cancer Is this a current diagnosis for this admission?: Yes Plan: "Cancer free" per patient since his left upper lobectomy 12 years ago Outpatient PCP and oncology follow-up. (4) Diabetes mellitus type 2 in nonobese Is this a current diagnosis for this admission?: Yes Plan: Controlled. Hemoglobin A1c 5.7%. Home medication is Metformin at 1000 mg p.o. twice daily. Hold metformin. Continue diabetic diet, sliding scale insulin, Accu-Chek, hypoglycemia protocol. Resume home meds upon discharge. Outpatient PCP follow-up. (5) Hypertension Qualifiers: Hypertension type: essential hypertension Qualified Code(s): I10 - Essential (primary) hypertension Is this a current diagnosis for this admission?: Yes Plan: Volume overloaded. BP is on the soft side. Asymptomatic. Lisinopril discontinued by child support agent. Discontinue diltiazem and avoid calcium channel blockers as per cardiology recommendation. Beta-blockers, ARNI. Hold IV diuretics if mean arterial pressure less than 65 or symptomatic. Adjust meds as needed. Outpatient PCP and cardiology follow-up. (6) Longstanding persistent atrial fibrillation Is this a current diagnosis for this admission?: Yes Plan: As above - Time Time Spent with patient: 25-34 minutes Medications reviewed and adjusted accordingly: Yes Anticipated Discharge Disposition: Home, Self Care Anticipated Discharge Timeframe: within 24 hours
[2020-01-01] MEDS: FUROSEMIDE INJ/PF 20 MG/2 ML SDV IV SCH ×2 (11:19→21:37)
--- NOTE | 2020-01-01 12:55 | RADIOLOGY REPORT (SQ) ---
EXAM DESCRIPTION: CHEST 2 VIEWS IMAGES COMPLETED DATE/TIME: 01/01/2020 12:42 pm REASON FOR STUDY: Heart failure COMPARISON: 12/29/2019. EXAM PARAMETERS: NUMBER OF VIEWS: two views TECHNIQUE: Digital Frontal and Lateral radiographic views of the chest acquired. RADIATION DOSE: NA LIMITATIONS: none FINDINGS: LUNGS AND PLEURA: Diffuse interstitial prominence. Elevated left hemidiaphragm with faint left basilar atelectasis. Possible small left pleural effusion. MEDIASTINUM AND HILAR STRUCTURES: No masses or contour abnormalities. HEART AND VASCULAR STRUCTURES: Borderline cardiomegaly. BONES: No acute findings. Degenerative changes in the spine. HARDWARE: Surgical clips. OTHER: No other significant finding. IMPRESSION: DIFFUSE INTERSTITIAL PROMINENCE LIKELY DUE TO SCARRING. THERE MAY BE A MILD COMPONENT O F INTERSTITIAL EDEMA. LEFT BASILAR ATELECTASIS AND SMALL LEFT PLEURAL EFFUSION. SLIGHT IMPROVEMENT SINCE THE PRIOR STUDY. TECHNICAL DOCUMENTATION: JOB ID: [id number] 2010 [employer]- All Rights Reserved Reading location - IP/workstation name: [email or web address]
[2020-01-01] MEDS: AMIODARONE HCL 200 MG TABLET PO SCH (21:36)
[2020-01-02 08:30] LABS: ANION GAP 13 (5-19); BLOOD UREA NITROGEN 33 mg/dL (7-20); CALCIUM 9.6 mg/dL (8.4-10.2); CARBON DIOXIDE 21 mmol/L (22-30); CHLORIDE 108 mmol/L (98-107); GLUCOSE 112 mg/dL (75-110); POTASSIUM 3.9 mmol/L (3.6-5.0)
[2020-01-02] MEDS: INSULIN LISPRO 100 UNIT/ML 3 ML VIAL SUBCUT SCH ×2 (09:55→11:49)
[2020-01-02] MEDS: AMIODARONE HCL 200 MG TABLET PO SCH (10:06)
[2020-01-02] MEDS: FUROSEMIDE INJ/PF 20 MG/2 ML SDV IV SCH (10:06)
[2020-01-02] MEDS: DOCUSATE SODIUM 100 MG CAPSULE PO SCH (10:06)
[2020-01-02] MEDS: FINASTERIDE 5 MG TABLET PO SCH (10:06)
[2020-01-02] MEDS: DABIGATRAN ETEXILATE 150 MG CAPSULE PO SCH (10:06)
[2020-01-02] MEDS: METOPROLOL TARTRATE 100 MG TABLET PO SCH (10:12)
--- NOTE | 2020-01-02 12:07 | PDOC PROGRESS REPORT ---
Subjective Progress Note for:: 01/02/20 Subjective:: MICHAEL PIZARRO is a 84 year old male with history of permanent atrial fibrillation, hypertension, hyperlipidemia, type 2 diabetes, prior stroke, heart failure with preserved ejection fraction, lung cancer status post left upper lobe lobectomy whose outpatient commercial intern is Dr. Rubén Painting and who is consulted to our service for evaluation of rapid atrial fibrillation and heart failure. I did receive some records from Dr. Painting's office at which time the patient was hemodynamically stable and without evidence of heart failure. His echocardiogram in 2019 demonstrated a normal ejection fraction. His outpatient heart rate was documented to be between 80 and 90 bpm. It is also noted that he was on digoxin 250 mcg daily at some point but the medication was discontinued due to being not effective. He presented to our emergency room yesterday in rapid A. fib in heart failure. Today he is found in bed with shortness of breath out of proportion to physical activity. He stated that he felt really short of breath when going to the bathroom however when he is doing leg kicks in the bed his heart rate only peaked at 110 bpm. His telemetry shows rapid atrial fibrillation without ventricular dysrhythmias. 01/02/2020: The patient had an uneventful night and continues to feel better. His amiodarone IV was completed and he is tolerating PO amiodarone. He specifically denies cardiovascular complaints particularly heart failure symptoms. His telemetry shows a much better controlled ventricular response. He is found sitting up in bed eating breakfast without cardiac complaints. Physical exam on 01/02/2020: GENERAL: Pleasant and conversational. Oriented x3 with normal mood. Not in acute distress. Well groomed and well developed. HEENT: Normocephalic, atraumatic. Pupils equal. Sclerae anicteric. Oropharynx moist. NECK: No JVD. No carotid bruits. LUNGS: Clear to auscultation bilaterally with decreased breath sounds at the left base. Normal respiratory effort without the use of accessory muscles or intercostal retractions. CARDIOVASCULAR: Irregularly irregular rate and rhythm, normal S1 and S2 without murmurs, rubs, or gallops. PMI not displaced. ABDOMEN: No masses or tenderness to palpation. No bruit. No splenomegaly or hepatomegaly. No abdominal aorta bruit noted. EXTREMITIES: No edema, no cyanosis, no clubbing. +2 pulses femoral and pedal pulses bilaterally. SKIN: No lesions or rashes. MUSCULOSKELETAL: No chest tenderness to palpation. NEUROLOGIC: Nonfocal. No gross sensory or motor deficits bilateral upper or lower extremities. Cardiac studies: Echocardiogram on 12/29/2019 at [facility]: -EF less than 20%. -The patient was in rapid A. fib during the study. -Severe global hypokinesis. -Moderately depressed right ventricular systolic function. -Severe biatrial lodgment. -Mild to moderate MR, trace AI, moderate to severe TR, mild PI. -Moderate pulmonary hypertension estimated between 53 and 58 mmHg. -Small left pleural effusion. Reason For Visit: ATRIAL FIBRILLATION WITH RVR CHF Physical Exam Vital Signs: Temp Pulse Resp BP Pulse Ox 98.1 F 101 H 12 121/71 97 01/02/20 03:56 01/02/20 03:56 01/02/20 03:56 01/02/20 03:56 01/02/20 03:56 Intake & Output 12/31/19 01/01/20 01/02/20 06:59 06:59 06:59 Intake Total 980 1211 1499 Output Total 1200 1975 200 Balance -220 -764 1299 Weight 76.9 kg 76.7 kg Results Laboratory Results: 01/01/20 06:22 01/01/20 01/01/20 06:22 06:22 WBC 8.4 RBC 4.34 L Hgb 12.5 L Hct 37.0 L MCV 85 MCH 28.7 MCHC 33.8 RDW 16.4 H Plt Count 210 Seg Neutrophils % 66.5 Sodium 139.0 Potassium 3.8 Chloride 105 Carbon Dioxide 21 L Anion Gap 13 BUN 28 H Creatinine 1.36 H Est GFR ( Amer) > 60 Glucose 122 H Calcium 9.4 Magnesium 1.9 12/29/19 12/29/19 12/29/19 11:42 11:42 17:33 Creatine Kinase 63 Troponin I < 0.012 < 0.012 NT-Pro-B Natriuret Pep 4370 H 12/29/19 01/01/20 21:07 06:22 Creatine Kinase Troponin I < 0.012 NT-Pro-B Natriuret Pep 3050 H Impressions: Chest X-Ray 01/01/20 00:00 IMPRESSION: DIFFUSE INTERSTITIAL PROMINENCE LIKELY DUE TO SCARRING. THERE MAY BE A MILD COMPONENT OF INTERSTITIAL EDEMA. LEFT BASILAR ATELECTASIS AND SMALL LEFT PLEURAL EFFUSION. SLIGHT IMPROVEMENT SINCE THE PRIOR STUDY. 01/01/20 06:22 01/02/20 06:09 MCV 85 fl (80-97) 01/01/20 06:22 MCH 28.7 pg (27.0-33.4) 01/01/20 06:22 MCHC 33.8 g/dL (32.0-36.0) 01/01/20 06:22 RDW 16.4 % (11.5-14.0) H 01/01/20 06:22 Seg Neutrophils % 66.5 % (42-78) 01/01/20 06:22 Chloride 108 mmol/L (98-107) H 01/02/20 06:09 Carbon Dioxide 21 mmol/L (22-30) L 01/02/20 06:09 Anion Gap 13 (5-19) 01/02/20 06:09 Est GFR ( Amer) > 60 (>60) 01/02/20 06:09 Glucose 112 mg/dL (75-110) H 01/02/20 06:09 Calcium 9.6 mg/dL (8.4-10.2) 01/02/20 06:09 Phosphorus 4.0 mg/dL (2.5-4.5) 12/30/19 06:18 Magnesium 1.9 mg/dL (1.6-2.3) 01/02/20 06:09 Total Bilirubin 1.3 mg/dL (0.2-1.3) 12/29/19 11:42 AST 23 U/L (17-59) 12/29/19 11:42 Alkaline Phosphatase 65 U/L (38-126) 12/29/19 11:42 Total Protein 7.3 g/dL (6.3-8.2) 12/29/19 11:42 Albumin 4.1 g/dL (3.5-5.0) 12/29/19 11:42 TSH 1.72 uIU/mL (0.47-4.68) 12/30/19 06:18 Free T4 1.74 ng/dL (0.78-2.19) 12/30/19 06:18 12/29/19 12/29/19 12/29/19 11:42 11:42 17:33 Creatine Kinase 63 Troponin I < 0.012 < 0.012 NT-Pro-B Natriuret Pep 4370 H 12/29/19 01/01/20 21:07 06:22 Creatine Kinase Troponin I < 0.012 NT-Pro-B Natriuret Pep 3050 H Current Medication List Generic Name Dose Route Start Last Admin Trade Name Freq PRN Reason Stop Dose Admin Acetaminophen 650 mg 12/29/19 18:44 Tylenol 325 Mg Tablet PO 01/28/20 18:43 Q4HP PRN Pain or fever Amiodarone HCl 400 mg 01/01/20 22:00 01/02/20 10:06 Cordarone 200 Mg Tablet PO 01/31/20 21:59 400 mg Q12 MONISHA Administration Dabigatran 150 mg 12/30/19 10:00 01/02/20 10:06 Pradaxa 150 Mg Capsule PO 01/29/20 09:59 150 mg DAILY MONISHA Administration Docusate Sodium 100 mg 12/30/19 10:00 01/02/20 10:06 Colace 100 Mg Capsule PO 01/29/20 09:59 100 mg DAILY MONISHA Administration Finasteride 5 mg 12/30/19 10:00 01/02/20 10:06 Proscar 5 Mg Tablet PO 01/29/20 09:59 5 mg DAILY MONISHA Administration Furosemide 20 mg 12/31/19 10:00 01/02/20 10:06 Lasix Inj/Pf 20 Mg/2 Ml Sdv IV 01/30/20 09:59 20 mg Q12 MONISHA Administration Insulin Human Lispro 0 - 12 unit 12/29/19 22:00 01/02/20 09:55 Humalog Insulin 100 Unit/1 Ml 3 Ml Vial SUBCUT 01/28/20 21:59 Not Given ACHS [facility] Protocol Metoprolol Tartrate 100 mg 12/31/19 22:00 01/02/20 10:12 Lopressor 100 Mg Tablet PO 01/30/20 21:59 100 mg Q12 MONISHA Administration Ondansetron HCl 4 mg 12/29/19 18:44 Zofran Odt 4 Mg Tablet PO 01/28/20 18:43 Q4HP PRN FOR NAUSEA/VOMITING Ondansetron HCl 4 mg 12/29/19 18:44 Zofran Inj/Pf 4 Mg/2 Ml Sdv IV 01/28/20 18:43 Q4HP PRN FOR NAUSEA/VOMITING Patient Own Medication 1 drop 12/30/19 10:00 Brinzolamide/Brimonidine Tart [Simbrinza 1%-0.2% Eye Drops] OU 01/29/20 09:59 TID MONISHA Discontinued Medications Generic Name Dose Route Start Last Admin Trade Name Freq PRN Reason Stop Dose Admin Diltiazem HCl 20 mg 12/29/19 15:07 12/29/19 15:26 Cardizem Inj 25 Mg/5 Ml Vial IV 12/29/19 15:08 10 mg NOW ONE Administration Diltiazem HCl 120 mg 12/29/19 22:00 12/30/19 11:03 Cardizem Cd 120 Mg Capsule PO 01/28/20 21:59 Not Given Q12 MONISHA Furosemide 40 mg 12/29/19 15:05 12/29/19 15:22 Lasix Inj/Pf 40 Mg/4 Ml Sdv IV 12/29/19 15:06 40 mg NOW ONE Administration Furosemide 20 mg 12/30/19 10:00 12/30/19 17:31 Lasix Inj/Pf 20 Mg/2 Ml Sdv IV 01/29/20 09:59 20 mg BID MONISHA Administration Furosemide 10 mg 12/31/19 10:00 Lasix 20 Mg Tablet PO 01/30/20 09:59 DAILY MONISHA Diltiazem HCl 125 mg in 125 mls @ 0 mls/hr 12/29/19 15:50 Cardizem Rtu Inj 125 Mg-D5w 125 Ml Premix IV 01/28/20 15:49 CONTINUOUS PRN THIS MED IS NOT "PRN" Protocol Titrate Amiodarone HCl 150 mg/ 100 mls @ 600 mls/hr 12/31/19 12:00 12/31/19 11:52 Dextrose IV 12/31/19 12:09 600 mls/hr NOW ONE Administration Protocol Amiodarone HCl 900 mg/ 500 mls @ 0 mls/hr 12/31/19 11:30 01/01/20 14:13 Dextrose IV 01/03/20 11:29 Infused CONTINUOUS PRN Titration THIS MED IS NOT "PRN" Protocol Per Protocol Lisinopril 2.5 mg 12/30/19 10:00 12/30/19 11:07 Prinivil 5 Mg Tablet PO 01/29/20 09:59 2.5 mg DAILY MONISHA Administration Metoprolol Succinate 25 mg 12/29/19 12:51 12/29/19 12:58 Toprol Xl 25 Mg Tab.Sr PO 12/29/19 12:52 25 mg NOW ONE Administration Metoprolol Succinate 50 mg 12/29/19 22:00 Toprol Xl 50 Mg Tab.Sr PO 01/28/20 21:59 Q12 MONISHA Metoprolol Succinate 50 mg 12/29/19 18:33 12/30/19 00:00 Toprol Xl 50 Mg Tab.Sr PO 01/28/20 18:32 50 mg Q12 MONISHA Administration Metoprolol Tartrate 15 mg 12/29/19 12:08 12/29/19 12:26 Lopressor Inj/Pf 5 Mg/5 Ml Sdv IV 12/29/19 12:09 Not Given NOW ONE Metoprolol Tartrate 5 mg 12/29/19 12:17 12/29/19 12:33 Lopressor Inj/Pf 5 Mg/5 Ml Sdv IV 12/29/19 23:59 5 mg Q5MP PRN Administration SEE COMMENTS Metoprolol Tartrate 50 mg 12/30/19 00:00 12/31/19 05:08 Lopressor 50 Mg Tablet PO 01/29/20 00:00 50 mg Q6 MONISHA Administration Assessment & Plan - Diagnosis (1) Atrial fibrillation with RVR Is this a current diagnosis for this admission?: Yes Plan: He is doing much better and with an improved ventricular response. At this point he can be discharged from the cardiovascular standpoint with follow up with Dr. Painting in one week. Recommendations: -Continue with current medical management. -EKG prior to discharge. -F/U with Dr. Painting within one week of discharge, I will arrange for this. (2) Heart failure with reduced ejection fraction Is this a current diagnosis for this admission?: Yes Plan: He continues to deny heart failure symptoms and his fluid balance is -509 cc although there is decreased breath sounds at the left base. Recommendations: -Continue with current medical management for now. -Restrict fluid intake to 1500 cc daily. -Low sodium diet, less than 1500 mg daily. -Strict intake and output. -Daily weights. -Daily BMP and magnesium and replace electrolytes as needed. -Chest x-ray and proBNP today.
--- NOTE | 2020-01-02 15:27 | PDOC DISCHARGE SUMMARY ---
Impression - Admit/DC Date/PCP Admission Date/Primary Care Provider: 12/29/19 18:58 TERRY SANDOVAL MD Discharge Date: 01/02/20 - Discharge Diagnosis (1) Atrial fibrillation with RVR Is this a current diagnosis for this admission?: Yes (2) CHF (congestive heart failure) Is this a current diagnosis for this admission?: Yes (3) History of lung cancer Is this a current diagnosis for this admission?: Yes (4) Diabetes mellitus type 2 in nonobese Is this a current diagnosis for this admission?: Yes (5) Hypertension Is this a current diagnosis for this admission?: Yes (6) Longstanding persistent atrial fibrillation Is this a current diagnosis for this admission?: Yes - Additional Information Resuscitation Status: Full Code Discharge Diet: Cardiac, Diabetic Discharge Activity: Activity As Tolerated, Balance Activity w/Rest, Weigh Daily Referrals: LIZ CAMPOS MD [ACTIVE STAFF] - 01/08/20 10:15 am ETRRY SANDOVAL MD [Primary Care Provider] - 01/07/20 11:00 am Prescriptions: Amiodarone HCl [Amiodarone HCl 400 mg Tablet] 400 mg PO BID 30 Days #60 tablet Metoprolol Tartrate [Lopressor] 100 mg PO Q12 30 Days #60 tablet Home Medications: Dabigatran Etexilate Mesylate [Pradaxa 150 mg Capsule] 150 mg PO DAILY 04/30/19 Metformin HCl [Glucophage] 1,000 mg PO BIDBS 04/30/19 Furosemide [Lasix 20 mg Tablet] 20 mg PO QAM 12/29/19 Tamsulosin HCl [Flomax] 0.4 mg PO DAILY 12/29/19 Amiodarone HCl [Amiodarone HCl 400 mg Tablet] 400 mg PO BID 30 Days #60 tablet 01/02/20 Metoprolol Tartrate [Lopressor] 100 mg PO Q12 30 Days #60 tablet 01/02/20 History of Present Illiness History of Present Illness: As per admitting physician MICHAEL PIZARRO is a 84 year old male) looking for permanent A. fib, HTN, HLD, T2DM, right eye stroke, unspecified CHF, lung cancer status post left upper lobectomy who presents with a 3-day history of progressive shortness of breath/HERNANDEZ found to have heart rate in the 150s on admission. Patient has longstanding A. fib and states he is unable to feel pa lpitations since he was diagnosed with this. Patient takes Pradaxa and denies missing any doses of this or any of his other cardiac medications including diltiazem and his beta-america. He denies any fever/chills/recent illness. Patient follows with Dr. Campos in cardiology and Dr. Granados has been consulted from his group for this admission. Patient started on diltiazem drip in the ED with good response, continued on this. Home medications selectively restarted. Echocardiogram ordered. Pradaxa continued. Hospital Course Hospital Course: (1) Atrial fibrillation with RVR Rate controlled. History chronic permanent A. fib with acute RVR rate up to 150 on admission Initially placed on started on diltiazem drip, switched to p.o. beta-blockers. Anticoagulated. Cardizem was DC'd and switched to amiodarone drip followed by amiodarone p.o. by christmas tree grower. Was discharged on metoprolol and amiodarone. When asked to follow-up with PCP and cardiology within 1 week. Qtc WNL upon discharge. (2) CHF (congestive heart failure) Euvolemic. Admitted with acute systolic heart failure. As per cardiology note patient has an ejection fraction of 20%. Likely due to A. fib RVR. TSH, T4 and troponins WNL. Cardiology consulted. Recommendations noted. Lisinopril has discontinued by cardiology. Once started on IV Lasix uptitrate as tolerated, strict in and out, cardiac diet, daily weights, fluid restriction, daily electrolytes. No diltiazem or calcium channel blockers as per cardiology. Discharged on beta-blockers, Lasix, advised on cardiac diet and fluid restriction. (3) History of lung cancer "Cancer free" per patient since his left upper lobectomy 12 years ago Outpatient PCP and oncology follow-up. (4) Diabetes mellitus type 2 in nonobese Controlled. Hemoglobin A1c 5.7%. Home medication is Metformin at 1000 mg p.o. twice daily. Hold metformin. Continue diabetic diet, sliding scale insulin, Accu-Chek, hypoglycemia protocol. Advised to resume home meds upon discharge. Outpatient PCP follow-up. (5) Hypertension Euvolemic. Normotensive. Lisinopril discontinued by christmas tree grower. Discontinue diltiazem and avoid calcium channel blockers as per cardiology recommendation. Was discharged on beta-blockers and diuretics. Adjust meds as needed. Outpatient PCP and cardiology follow-up. (6) Longstanding persistent atrial fibrillation As above Physical Exam Vital Signs: Temp Pulse Resp BP Pulse Ox 97.3 F 90 18 97/70 L 99 01/02/20 11:07 01/02/20 11:07 01/02/20 11:07 01/02/20 11:07 01/02/20 11:07 Intake & Output 01/01/20 01/02/20 01/03/20 06:59 06:59 06:59 Intake Total 1211 1649 Output Total 1975 525 Balance -764 1124 Weight 76.7 kg 73.4 kg General appearance: PRESENT: no acute distress, well-developed, well-nourished Head exam: PRESENT: atraumatic, normocephalic Respiratory exam: PRESENT: clear to auscultation socorro. ABSENT: rales, rhonchi, wheezes Cardiovascular exam: PRESENT: irregular rhythm. ABSENT: diastolic murmur, rubs, systolic murmur GI/Abdominal exam: PRESENT: normal bowel sounds, soft. ABSENT: distended, guarding, mass, organolmegaly, rebound, tenderness Extremities exam: PRESENT: full ROM. ABSENT: calf tenderness, clubbing, pedal edema Neurological exam: PRESENT: alert, awake, oriented to person, oriented to place, oriented to time, oriented to situation, CN II-XII grossly intact. ABSENT: motor sensory deficit Skin exam: PRESENT: dry, intact, warm. ABSENT: cyanosis, rash Results Laboratory Results: WBC 8.4 10^3/uL (4.0-10.5) 01/01/20 06:22 RBC 4.34 10^6/uL (4.35-5.55) L 01/01/20 06:22 Hgb 12.5 g/dL (13.5-17.0) L 01/01/20 06:22 Hct 37.0 % (37.9-51.0) L 01/01/20 06:22 MCV 85 fl (80-97) 01/01/20 06:22 MCH 28.7 pg (27.0-33.4) 01/01/20 06:22 MCHC 33.8 g/dL (32.0-36.0) 01/01/20 06:22 RDW 16.4 % (11.5-14.0) H 01/01/20 06:22 Plt Count 210 10^3/uL (150-450) 01/01/20 06:22 Lymph % (Auto) 22.4 % (13-45) 01/01/20 06:22 Loíza % (Auto) 8.2 % (3-13) 01/01/20 06:22 Eos % (Auto) 2.4 % (0-6) 01/01/20 06:22 Baso % (Auto) 0.5 % (0-2) 01/01/20 06:22 Absolute Neuts (auto) 5.6 10^3/uL (1.7-8.2) 01/01/20 06:22 Absolute Lymphs (auto) 1.9 10^3/uL (0.5-4.7) 01/01/20 06:22 Absolute Monos (auto) 0.7 10^3/uL (0.1-1.4) 01/01/20 06:22 Absolute Eos (auto) 0.2 10^3/uL (0.0-0.6) 01/01/20 06:22 Absolute Basos (auto) 0.0 10^3/uL (0.0-0.2) 01/01/20 06:22 Seg Neutrophils % 66.5 % (42-78) 01/01/20 06:22 PT 24.8 SEC (11.4-15.4) H 12/29/19 11:42 INR 2.24 12/29/19 11:42 APTT 64.0 SEC (23.5-35.8) H 12/29/19 11:42 Sodium 141.7 mmol/L (137-145) 01/02/20 06:09 Potassium 3.9 mmol/L (3.6-5.0) 01/02/20 06:09 Chloride 108 mmol/L (98-107) H 01/02/20 06:09 Carbon Dioxide 21 mmol/L (22-30) L 01/02/20 06:09 Anion Gap 13 (5-19) 01/02/20 06:09 BUN 33 mg/dL (7-20) H 01/02/20 06:09 Creatinine 1.33 mg/dL (0.52-1.25) H 01/02/20 06:09 Est GFR ( Amer) > 60 (>60) 01/02/20 06:09 Est GFR (MDRD) Non-Af 51 (>60) L 01/02/20 06:09 Glucose 112 mg/dL (75-110) H 01/02/20 06:09 POC Glucose 126 mg/dL (70-110) H 01/02/20 11:07 Hemoglobin A1c % 5.7 % (4.7-6.0) 12/30/19 06:18 Calcium 9.6 mg/dL (8.4-10.2) 01/02/20 06:09 Phosphorus 4.0 mg/dL (2.5-4.5) 12/30/19 06:18 Magnesium 1.9 mg/dL (1.6-2.3) 01/02/20 06:09 Total Bilirubin 1.3 mg/dL (0.2-1.3) 12/29/19 11:42 Direct Bilirubin 0.7 mg/dL (0.0-0.4) H 12/29/19 11:42 Neonat Total Bilirubin Not Reportable 12/29/19 11:42 Neonat Direct Bilirubin Not Reportable 12/29/19 11:42 Neonat Indirect Bili Not Reportable 12/29/19 11:42 AST 23 U/L (17-59) 12/29/19 11:42 ALT 14 U/L (<50) 12/29/19 11:42 Alkaline Phosphatase 65 U/L (38-126) 12/29/19 11:42 Creatine Kinase 63 U/L (55-170) 12/29/19 11:42 Troponin I < 0.012 ng/mL 12/29/19 21:07 NT-Pro-B Natriuret Pep 3050 pg/mL (<450) H 01/01/20 06:22 Total Protein 7.3 g/dL (6.3-8.2) 12/29/19 11:42 Albumin 4.1 g/dL (3.5-5.0) 12/29/19 11:42 TSH 1.72 uIU/mL (0.47-4.68) 12/30/19 06:18 Free T4 1.74 ng/dL (0.78-2.19) 12/30/19 06:18 12/29/19 12/29/19 12/29/19 11:42 17:33 21:07 Troponin I < 0.012 < 0.012 < 0.012 NT-Pro-B Natriuret Pep 4370 H 01/01/20 06:22 Troponin I NT-Pro-B Natriuret Pep 3050 H Impressions: Chest X-Ray 12/29/19 11:29 IMPRESSION: Constellation of findings suggests CHF exacerbation. Infectious etiology is not excluded. Chest X-Ray 01/01/20 00:00 IMPRESSION: DIFFUSE INTERSTITIAL PROMINENCE LIKELY DUE TO SCARRING. THERE MAY BE A MILD COMPONENT OF INTERSTITIAL EDEMA. LEFT BASILAR ATELECTASIS AND SMALL LEFT PLEURAL EFFUSION. SLIGHT IMPROVEMENT SINCE THE PRIOR STUDY. Stroke Is this a Stroke Patient?: No Acute Heart Failure Is this a Heart Failure Patient?: No
--- NOTE | 2020-01-02 16:01 | EKG REPORT ---
SEVERITY:- ABNORMAL ECG - ATRIAL FIBRILLATION BORDERLINE LEFT AXIS DEVIATION CONSIDER ANTERIOR INFARCT NONSPECIFIC T ABNORMALITIES, LATERAL LEADS BORDERLINE PROLONGED QT INTERVAL : Confirmed by: Rubén Painting MD 02-Jan-2020 16:00:41
[2020-01-02 16:16] VITALS: BP 136/95
== END 2020-01-02 17:21 | disposition home or self-care (01) | DRG 308 ==
LOC: ER 11:21 → EH 18:58 → 3S 22:15
PROVIDERS: ADMIT Internal Medicine; ATTEND Internal Medicine
PROC: B24BZZ4 Ultrasonography of Heart with Aorta, Transesophageal (ICD-10-PCS; principal; 2019-12-29)
DX: I48.11 Longstanding persistent atrial fibrillation (principal); I50.23 Acute on chronic systolic (congestive) heart failure; E11.9 Type 2 diabetes mellitus without complications; I11.0 Hypertensive heart disease with heart failure; E78.5 Hyperlipidemia, unspecified; J44.9 Chronic obstructive pulmonary disease, unspecified; I48.21 Permanent atrial fibrillation; I27.20 Pulmonary hypertension, unspecified; E78.00 Pure hypercholesterolemia, unspecified; Z96.652 Presence of left artificial knee joint; Z60.2 Problems related to living alone; Z87.891 Personal history of nicotine dependence; Z85.118 Personal history of other malignant neoplasm of bronchus and lung; Z90.2 Acquired absence of lung [part of]; Z79.899 Other long term (current) drug therapy; Z79.84 Long term (current) use of oral hypoglycemic drugs; Z88.6 Allergy status to analgesic agent
CPT/HCPCS: 36415; 71046; 80048; 80053; 82550; 82962; 83036; 83735; 83880; 84100; 84439; 84443; 84484; 85025; 85610; 85730; 93005; 93010; 93306; 96374; 96375; 99285; J0282; J1940; J3490; J7060

== ENCOUNTER 2020-01-08 07:45 | Inpatient (IN) | payer MEDICARE, OTHER ==
--- NOTE | 2020-01-08 08:12 | RADIOLOGY REPORT (SQ) ---
EXAM DESCRIPTION: CHEST SINGLE VIEW IMAGES COMPLETED DATE/TIME: 01/08/2020 8:02 am REASON FOR STUDY: difficulty breathing COMPARISON: 01/01/2020 EXAM PARAMETERS: NUMBER OF VIEWS: One view. TECHNIQUE: Single frontal radiographic view of the chest acquired. RADIATION DOSE: NA LIMITATIONS: None. FINDINGS: LUNGS AND PLEURA: Persistent bilateral pleural effusions and basilar airspace disease left greater than right. Stable elevation of left hemidiaphragm. No significant interval change from pr ior study. MEDIASTINUM AND HILAR STRUCTURES: No masses. Contour normal. HEART AND VASCULAR STRUCTURES: Heart normal in size. Normal vasculature. BONES: No acute findings. HARDWARE: None in the chest. OTHER: No other significant finding. IMPRESSION: No significant interval changes with persistent basilar airspace disease and small effus ions left greater than right. TECHNICAL DOCUMENTATION: JOB ID: [id number] 2010 [employer]- All Rights Reserved Reading location - IP/workstation name: [email or web address]
[2020-01-08 08:21] LABS: ABSOLUTE BASOPHILS # (AUTO) 0.1 10^3/uL (0.0-0.2); ABSOLUTE EOSINOPHILS # (AUTO) 0.1 10^3/uL (0.0-0.6); ABSOLUTE LYMPHOCYTES (AUTO) 1.8 10^3/uL (0.5-4.7); ABSOLUTE MONOCYTES (AUTO) 0.5 10^3/uL (0.1-1.4); ABSOLUTE NEUT (AUTO) 4.6 10^3/uL (1.7-8.2); BASOPHILS % (AUTO) 1.2 % (0-2); EOSINOPHILS % (AUTO) 1.3 % (0-6); HEMATOCRIT 38.4 % (37.9-51.0); HEMOGLOBIN 12.7 g/dL (13.5-17.0); LYMPHOCYTES % (AUTO) 25.4 % (13-45); MEAN CORPUSCULAR HEMOGLOBIN 28.1 pg (27.0-33.4); MEAN CORPUSCULAR HGB CONC 33.1 g/dL (32.0-36.0); MEAN CORPUSCULAR VOLUME 85 fl (80-97); MONOCYTES % (AUTO) 7.7 % (3-13); PLATELET COUNT 241 10^3/uL (150-450); RED BLOOD COUNT 4.51 10^6/uL (4.35-5.55); RED CELL DISTRIBUTION WIDTH 16.4 % (11.5-14.0); SEGMENTED NEUTROPHILS % (AUTO) 64.4 % (42-78); TOTAL CELLS COUNTED % (AUTO) 100 %; WHITE BLOOD COUNT 7.1 10^3/uL (4.0-10.5)
[2020-01-08 08:57] LABS: ALBUMIN 4.2 g/dL (3.5-5.0); ALKALINE PHOSPHATASE 65 U/L (38-126); ANION GAP 14 (5-19); ASPARTATE AMINO TRANSFERASE 26 U/L (17-59); BILIRUBIN,DIRECT 0.4 mg/dL (0.0-0.4); BLOOD UREA NITROGEN 43 mg/dL (7-20); CALCIUM 9.6 mg/dL (8.4-10.2); CARBON DIOXIDE 24 mmol/L (22-30); CHLORIDE 100 mmol/L (98-107); GLUCOSE 107 mg/dL (75-110); POTASSIUM 4.7 mmol/L (3.6-5.0); TOTAL PROTEIN 8.1 g/dL (6.3-8.2)
[2020-01-08 09:22] LABS: NT PRO BNP 4610 pg/mL (<450)
[2020-01-08 09:26] LABS: TROPONIN I < 0.012 ng/mL
--- NOTE | 2020-01-08 10:25 | RADIOLOGY REPORT (SQ) ---
EXAM DESCRIPTION: CT CHEST WITHOUT IMAGES COMPLETED DATE/TIME: 01/08/2020 10:08 am REASON FOR STUDY: dyspnea/effusion COMPARISON: CT chest 03/12/2019 Chest films 01/08/2020, 01/01/2020, 12/29/2019 TECHNIQUE: CT scan performed of the chest without intravenous contrast. Images reviewed with lung, soft tissue and bone windows. Reconstructed coronal and sagittal MPR images reviewed. All images st ored on PACS. All CT scanners at this facility use dose modulation, iterative reconstruction, and/or weight based d osing when appropriate to reduce radiation dose to as low as reasonably achievable (ALARA). [facility]: Dose Right [facility]: CareDose [facility]: Dose Right [facility]: Teradose 4D [facility]: [employer] RADIATION DOSE: CT Rad equipment meets quality standard of care and radiation dose reduction techniq ues were employed. CTDIvol: 6.4 mGy. DLP: 243 mGy-cm. mGy. LIMITATIONS: No technical limitations. FINDINGS: LUNGS AND PLEURA: New alveolar and interstitial infiltrates are present in the posterior a spect right upper lobe (Image 20) and in the right lower lobe (axial image 32). Underlying pulmonary fibrosis with honeycomb appearance and thickened interlobular septa around the p eriphery of both lung bases, stable. Stable left pleural plaques. No pleural effusion. No pneumothorax. Old postsurgical changes left hilum post upper lobectomy. HILAR AND MEDIASTINAL STRUCTURES: No identified masses or abnormal nodes. No obvious aneurysm. HEART AND VASCULAR STRUCTURES: No aneurysm. No pericardial effusion. Heavily calcified coronary art eries UPPER ABDOMEN: 2 mm left upper pole intrarenal nonobstructive stone THYROID AND OTHER SOFT TISSUES: No masses. No adenopathy. BONES: No significant finding. HARDWARE: None in the chest. OTHER: No other significant findings. IMPRESSION: New alveolar and interstitial infiltrates in the right upper and lower lobe. TECHNICAL DOCUMENTATION: JOB ID: [id number] Quality ID # [id number]: Final reports with documentation of one or more dose reduction techniques (e.g., Au tomated exposure control, adjustment of the mA and/or kV according to patient size, use of iterative reconstruction technique) 2010 [employer]- All Rights Reserved Reading location - IP/workstation name: [email or web address]
--- NOTE | 2020-01-08 11:18 | ER Document Report ---
ED General - General Chief Complaint: Shortness Of Breath Stated Complaint: DIFFICULTY BREATHING Time Seen by Provider: 01/08/20 08:27 Primary Care Provider: TERRY SANDOVAL MD [Primary Care Provider] - Follow up as needed Mode of Arrival: Medic Information source: Patient TRAVEL OUTSIDE OF THE [place] IN LAST 30 DAYS: No - HPI Notes: Patient presents from home with shortness of breath. Patient states he was recently in the hospital with congestive heart failure and atrial fibrillation. He states he has had some subjective fever chills and congestion over the last couple of days today he woke up and felt that he could not catch his breath and called the ambulance. He has been short of breath it is worse with exertion. Is been moderate to severe in intensity. Is been relatively constant over the last couple of days. Patient states he has had no known Covid exposures. No vomiting or diarrhea. - Related Data Allergies/Adverse Reactions: aspirin Allergy (Verified 03/12/19 12:44) Past Medical History - General Information source: Patient - Social History Smoking Status: Former Smoker Frequency of alcohol use: None Drug Abuse: None Family History: Reviewed & Not Pertinent, DM - Past Medical History Cardiac Medical History: Reports: Hx Atrial Fibrillation, Hx Congestive Heart Failure, Hx Hypercholesterolemia, Hx Hypertension Pulmonary Medical History: Reports: Hx COPD Endocrine Medical History: Reports: Hx Diabetes Mellitus Type 2 Renal/ Medical History: Reports: Hx Benign Prostatic Hyperplasia Malignancy Medical History: Reports Hx Lung Cancer - left 1/3 lung resected Musculoskeletal Medical History: Reports Hx Arthritis - Neck and back primarily with other joint involvement. 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 denies: Chest pain Respiratory: Cough, Short of breath -: Yes All other systems reviewed and negative Physical Exam - Vital signs Vitals: Resp Pulse Ox 26 H 99 01/08/20 07:55 01/08/20 07:55 Interpretation: Normal - General General appearance: Appears well, Alert - HEENT Head: Normocephalic, Atraumatic Eyes: Normal Pupils: PERRL - Respiratory Respiratory status: Tachypnea Chest status: Nontender Breath sounds: Decreased air movement Chest palpation: Normal - Cardiovascular Rhythm: Irregularly irregular Heart sounds: Normal auscultation Murmur: No - Abdominal Inspection: Normal Distension: No distension Bowel sounds: Normal Tenderness: Nontender Organomegaly: No organomegaly - Back Back: Normal, Nontender - Extremities General upper extremity: Normal inspection, Nontender, Normal color, Normal ROM, Normal temperature General lower extremity: Normal inspection, Nontender, Normal color, Normal ROM, Normal temperature, Normal weight bearing. No: Sebastian's sign - Neurological Neuro grossly intact: Yes Cognition: Normal Orientation: AAOx4 Lori Coma Scale Eye Opening: Spontaneous [place] Coma Scale Verbal: Oriented [place] Coma Scale Motor: Obeys Commands [place] Coma Scale Total: 15 Speech: Normal Motor strength normal: LUE, RUE, LLE, RLE Sensory: Normal - Psychological Associated symptoms: Normal affect, Normal mood - Skin Skin Temperature: Warm Skin Moisture: Dry Skin Color: Normal Course - Re-evaluation Re-evalutation: 01/08/20 11:17 The patient was evaluated during a global COVID-19 pandemic and that diagnosis was suspected/considered upon their initial presentation. Their evaluation, treatment and testing was consistent with current guidelines for patients who present with complaints or symptoms and may be related to COVID-19. Patient presents with shortness of breath. CT scan shows bilateral pneumonia. Patient has significant comorbidities including an EF of less than 20%, a history of lung cancer with lobectomy, history of recent hospitalization for A. fib with congestive heart failure as well. No known Covid exposures however patient does have bilateral infiltrates on x-ray. - Vital Signs Vital signs: Temp Pulse Resp BP Pulse Ox 16 110/79 98 01/08/20 08:01 01/08/20 08:01 01/08/20 08:03 - Laboratory Result Diagrams: 01/08/20 07:54 01/08/20 07:54 Laboratory results interpreted by me: 01/08/20 01/08/20 01/08/20 07:54 07:54 07:54 Hgb 12.7 L RDW 16.4 H BUN 43 H Creatinine 1.81 H Est GFR ( Amer) 43 L Est GFR (MDRD) Non-Af 36 L NT-Pro-B Natriuret Pep 4610 H - Diagnostic Test Radiology reviewed: Image reviewed, Reports reviewed - EKG Interpretation by Me EKG shows normal: abnormal: Sinus rhythm Rate: Normal - 83 Rhythm: A.Fib Voltage: Consistent with LVH Discharge - Discharge Clinical Impression: Pneumonia Qualifiers: Pneumonia type: due to unspecified organism Laterality: bilateral Lung location: lower lobe of lung Qualified Code(s): J18.9 - Pneumonia, unspecified o rganism Condition: Serious Disposition: ADMITTED INPATIENT Admitting Provider: Edward (Hospitalist) Unit Admitted: IMCU Referrals: TERRY SANDOVAL MD [Primary Care Provider] - Follow up as needed
[2020-01-08] MEDS ORDERED: PIPERACILLIN/TAZOBACTAM 3.375 GM VIAL IV ONE (11:19)
--- NOTE | 2020-01-08 13:14 | EKG REPORT ---
SEVERITY:- ABNORMAL ECG - ATRIAL FIBRILLATION PROBABLE LEFT VENTRICULAR HYPERTROPHY BORDERLINE PROLONGED QT INTERVAL : Confirmed by: Osorio Hilton MD 08-Jan-2020 13:12:59
[2020-01-08] MEDS ORDERED: ONDANSETRON HCL INJ/PF 4 MG/2 ML SDV IV PRN (13:47)
[2020-01-08] MEDS ORDERED: ONDANSETRON 4 MG TAB.RAPDIS PO PRN (13:47)
[2020-01-08] MEDS ORDERED: IPRATROPIUM/ALBUTEROL 0.5-2.5 MG/3 ML AMPUL NEB PRN (13:47)
[2020-01-08] MEDS ORDERED: ACETAMINOPHEN 325 MG TABLET PO PRN (13:47)
[2020-01-08] MEDS ORDERED: METFORMIN HCL 500 MG TABLET PO SCH (16:00)
[2020-01-08 18:22] LABS: APPEARANCE,URINE CLEAR; BILIRUBIN,URINE NEGATIVE (NEGATIVE); COLOR,URINE YELLOW; GLUCOSE, URINE NEGATIVE (NEGATIVE); KETONES,URINE TRACE mg/dL (NEGATIVE); LEUKOCYTE ESTERASE,URINE MODERATE (NEGATIVE); NITRITE,URINE NEGATIVE (NEGATIVE); PROTEIN,URINE NEGATIVE (NEGATIVE); URINE SPECIFIC GRAVITY 1.015; UROBILINOGEN,URINE NEGATIVE mg/dL (<2.0)
[2020-01-08] MEDS: VANCOMYCIN HCL 1,000 MG in DEXTROSE 5%-WATER 250 ML IV SCH (18:22)
--- NOTE | 2020-01-08 19:32 | PDOC H&P ---
History of Present Illness Admission Date/PCP: 01/08/20 11:44 TERRY SANDOVAL MD History of Present Illness: MICHAEL PIZARRO is a 84 year old male) looking for permanent A. fib, HTN, HLD, T2 DM, right eye stroke, unspecified CHF, lung cancer status post left upper lobectomy who presents with a 3-day history of progressive shortness of breath/HERNANDEZ/productive cough/generalized fatigue and weakness/malaise. Patient was recently discharged from the hospital when he was admitted for A. fib with RVR. Patient states his current illness does not feel anything like his previous episodes of CHF and A. fib. He denies missing any of his medications. He denies fevers/chills/nausea/vomiting/diarrhea/sick contacts. He states that he primarily stays at home and does not have any 1 around him that could give him COVID-19. He was tested for COVID-19 in ED and this test is pending. His chest CT scan showed new alveolar and interstitial infiltrates in the right upper and lower lobe. WBC normal. Creatinine elevated at 1.81. BNP elevated but consistent with previous values. UA was not overtly positive for infection. Patient has no urinary symptoms. Given recent hospitalization, patient will be treated for HAP with broad-spectrum antibiotics. He is admitted to the coronavirus unit until we have his test results. Past Medical History Cardiac Medical History: Reports: Atrial Fibrillation, Congestive Heart Failure, Hyperlipidema, Hypertension Pulmonary Medical History: Reports: Chronic Obstructive Pulmonary Disease (COPD) Endocrine Medical History: Reports: Diabetes Mellitus Type 2 Malignancy Medical History: Reports: Lung Cancer - left 1/3 lung resected Musculoskeltal Medical History: Reports: Arthritis - Neck and back primarily with other joint involvement. 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, left lower lobectomy Social History Information Source: Patient, Emergency Med Personnel Smoking Status: Former Smoker Frequency of Alcohol Use: Rare Hx Recreational Drug Use: No Drugs: None Hx Prescription Drug Abuse: No - Advance Directive Resuscitation Status: Full Code Surrogate healthcare decision maker:: Admitting diagnosis: Right-sided hospital-acquired All aspects of code status discussed with patient/POA including cardioversion, chest compressions, and intubation and the patient/POA indicated they wish to be full code MPOA is designated as: [email or web address] Time spent: Greater than 16 minutes Family History Family History: Reviewed & Not Pertinent, DM Parental Family History Reviewed: Yes Children Family History Reviewed: Yes Sibling(s) Family History Reviewed.: Yes Medication/Allergy Home Medications: Dabigatran Etexilate Mesylate [Pradaxa 150 mg Capsule] 150 mg PO Q12 04/30/19 Metformin HCl [Glucophage] 1,000 mg PO BIDBS 04/30/19 Furosemide [Lasix 20 mg Tablet] 20 mg PO QAM 12/29/19 Tamsulosin HCl [Flomax] 0.4 mg PO DAILY 12/29/19 Metoprolol Tartrate [Lopressor] 100 mg PO Q12 30 Days #60 tablet 01/02/20 Amiodarone HCl [Amiodarone HCl 400 mg Tablet] 400 mg PO Q12 01/08/20 Cholecalciferol (Vitamin D3) [Vitamin D3 1000 Unit Tablet] 5,000 unit PO DAILY 01/08/20 Allergies/Adverse Reactions: aspirin Allergy (Verified 01/08/20 16:36) Review of Systems All systems: reviewed and no additional remarkable complaints except as stated - Per HPI otherwise negative Physical Exam Vital Signs: Temp Pulse Resp BP Pulse Ox 23 H 115/71 97 01/08/20 18:03 01/08/20 18:03 01/08/20 18:03 Intake & Output 01/07/20 01/08/20 01/09/20 06:59 06:59 06:59 Weight 74.843 kg Exam: General appearance: PRESENT: no acute distress, well-developed, well-nourished, states he feels poorly Head exam: PRESENT: atraumatic, normocephalic Eye exam: PRESENT: conjunctiva pink. ABSENT: scleral icterus Mouth exam: PRESENT: moist Respiratory exam: PRESENT: Scant right-sided rhonchi. ABSENT: rales, wheezes Cardiovascular exam: PRESENT: Irregularly irregular heart rhythm with tachycardic rate ABSENT: diastolic murmur, rubs, systolic murmur GI/Abdominal exam: PRESENT: normal bowel sounds, soft. ABSENT: distended, guarding, mass, organolmegaly, rebound, tenderness Neurological exam: PRESENT: alert, awake, oriented to person, oriented to place, oriented to time, oriented to situation Psychiatric exam: PRESENT: appropriate affect, normal mood Skin exam: PRESENT: dry, intact, warm, questionable gynecomastia Results Laboratory Results: 01/08/20 07:54 01/08/20 07:54 01/08/20 01/08/20 01/08/20 07:54 07:54 16:59 WBC 7.1 RBC 4.51 Hgb 12.7 L Hct 38.4 MCV 85 MCH 28.1 MCHC 33.1 RDW 16.4 H Plt Count 241 Seg Neutrophils % 64.4 Sodium 138.2 Potassium 4.7 Chloride 100 Carbon Dioxide 24 Anion Gap 14 BUN 43 H Creatinine 1.81 H Est GFR ( Amer) 43 L Glucose 107 Calcium 9.6 Total Bilirubin 1.0 AST 26 Alkaline Phosphatase 65 Total Protein 8.1 Albumin 4.2 Urine Color YELLOW Urine Appearance CLEAR Urine pH 6.0 Ur Specific [place] 1.015 Urine Protein NEGATIVE Urine Glucose (UA) NEGATIVE Urine Ketones TRACE H Urine Blood SMALL H Urine Nitrite NEGATIVE Ur Leukocyte Esterase MODERATE H Urine WBC (Auto) 4 Urine RBC (Auto) 1 01/08/20 07:54 Troponin I < 0.012 NT-Pro-B Natriuret Pep 4610 H Impressions: Chest X-Ray 01/08/20 07:52 IMPRESSION: No significant interval changes with persistent basilar airspace disease and small effusions left greater than right. Chest CT 01/08/20 08:56 IMPRESSION: New alveolar and interstitial infiltrates in the right upper and lower lobe. Assessment and Plan - Diagnosis (1) Hospital-acquired pneumonia Is this a current diagnosis for this admission?: Yes Plan: Right-sided pneumonia seen on CT chest, recent hospitalization necessitating treatment for hospital-acquired pneumonia Denies fever/chills, white blood cells normal Broad-spectrum antibiotics: Vancomycin and cefepime Respiratory culture Blood cultures (2) Acute kidney injury Is this a current diagnosis for this admission?: Yes Plan: Likely due to acute illness with pneumonia Hold Lasix and avoid IV fluids for the time being, high risk for volume overload but also admitted for acute pneumonia without sepsis; will need a delicate fluid balance Trend BMP Consider nephrology consult if this worsens (3) CHF (congestive heart failure) Qualifiers: Heart failure type: unspecified Heart failure chronicity: acute on chronic Qualified Code(s): I50.9 - Heart failure, unspecified Is this a current diagnosis for this admission?: Yes Plan: Stable, cardiac medications continued (4) Diabetes mellitus type 2 in nonobese Is this a current diagnosis for this admission?: Yes Plan: Accu-Chek, sliding scale insulin (5) Heart failure with reduced ejection fraction Is this a current diagnosis for this admission?: Yes Plan: As above (6) History of lobectomy of lung Is this a current diagnosis for this admission?: Yes (7) History of lung cancer Is this a current diagnosis for this admission?: Yes Plan: Cancer free per patient (8) Hypertension Qualifiers: Hypertension type: essential hypertension Qualified Code(s): I10 - Essential (primary) hypertension Is this a current diagnosis for this admission?: Yes Plan: Home meds (9) Longstanding persistent atrial fibrillation Is this a current diagnosis for this admission?: Yes Plan: Continue Pradaxa and rate control meds Heart rate stable Follows with Dr. Painting (10) Suspected COVID-19 virus infection Is this a current diagnosis for this admission?: Yes Plan: Test pending - Time Time Spent with patient: 35 or more minutes Medications reviewed and adjusted accordingly: Yes Anticipated Discharge Disposition: Home with Home Health Anticipated Discharge Timeframe: within 72 hours - Inpatient Certification Based on my medical assessment, after consideration of the patient's comorbidities, presenting symptoms, or acuity I expect that the services needed warrant INPATIENT care.: Yes I certify that my determination is in accordance with my understanding of Medicare's requirements for reasonable and necessary INPATIENT services [42 CFR 412.3e].: Yes Medical Necessity: Significant Comorbidiites Make Outpatient Treatment Too Risky, Need Close Monitoring Due to Risk of Patient Decompensation, Need for IV Antibiotics, Risk of Complication if Not Cared For in Hospital, Risk of Diagnosis Which Will Require Inpatient Eval/Care/Monitoring
[2020-01-08] MEDS: METOPROLOL TARTRATE 100 MG TABLET PO SCH (21:55)
[2020-01-08] MEDS: AMIODARONE HCL 200 MG TABLET PO SCH (21:55)
[2020-01-08] MEDS: DABIGATRAN ETEXILATE 150 MG CAPSULE PO SCH (21:57)
[2020-01-08] MEDS ORDERED: AMIODARONE HCL 400 MG PO SCH (22:00)
[2020-01-08] MEDS ORDERED: CEFEPIME 2 GM/D5W RTU 2 GM/50 ML RTUPB IV SCH (22:00)
[2020-01-08] MEDS: CEFEPIME 1 GM/D5W RTU 1 GM/50 ML RTUPB IV SCH (22:03)
[2020-01-08] MEDS: INSULIN LISPRO 100 UNIT/ML 3 ML VIAL SUBCUT SCH (22:04)
[2020-01-09 05:32] LABS: ABSOLUTE BASOPHILS # (AUTO) 0.1 10^3/uL (0.0-0.2); ABSOLUTE EOSINOPHILS # (AUTO) 0.2 10^3/uL (0.0-0.6); ABSOLUTE LYMPHOCYTES (AUTO) 1.5 10^3/uL (0.5-4.7); ABSOLUTE MONOCYTES (AUTO) 0.7 10^3/uL (0.1-1.4); ABSOLUTE NEUT (AUTO) 5.6 10^3/uL (1.7-8.2); BASOPHILS % (AUTO) 0.7 % (0-2); EOSINOPHILS % (AUTO) 2.2 % (0-6); HEMATOCRIT 39.3 % (37.9-51.0); LYMPHOCYTES % (AUTO) 18.9 % (13-45); MEAN CORPUSCULAR VOLUME 85 fl (80-97); MONOCYTES % (AUTO) 9.2 % (3-13); PLATELET COUNT 226 10^3/uL (150-450); RED BLOOD COUNT 4.63 10^6/uL (4.35-5.55); RED CELL DISTRIBUTION WIDTH 16.3 % (11.5-14.0); TOTAL CELLS COUNTED % (AUTO) 100 %; WHITE BLOOD COUNT 8.1 10^3/uL (4.0-10.5)
[2020-01-09 06:21] LABS: ANION GAP 12 (5-19); BLOOD UREA NITROGEN 33 mg/dL (7-20); CARBON DIOXIDE 25 mmol/L (22-30); CHLORIDE 102 mmol/L (98-107); GLUCOSE 89 mg/dL (75-110); PHOSPHORUS 3.8 mg/dL (2.5-4.5); POTASSIUM 4.7 mmol/L (3.6-5.0)
[2020-01-09 06:23] LABS: CALCIUM 9.6 mg/dL (8.4-10.2)
[2020-01-09] MEDS ORDERED: FUROSEMIDE 20 MG TABLET PO SCH (08:00)
[2020-01-09] MEDS ORDERED: VANCOMYCIN HCL INJ 1000 MG VIAL IV SCH (10:00)
[2020-01-09] MEDS: DABIGATRAN ETEXILATE 150 MG CAPSULE PO SCH ×2 (10:28→21:13)
[2020-01-09] MEDS: METOPROLOL TARTRATE 100 MG TABLET PO SCH ×2 (10:28→23:58)
[2020-01-09] MEDS: CHOLECALCIFEROL (D3) 1,000 UNIT (25 MCG) TABLET PO SCH (10:28)
[2020-01-09] MEDS: TAMSULOSIN HCL 0.4 MG CAP.SR.24H PO SCH (10:28)
[2020-01-09] MEDS: INSULIN LISPRO 100 UNIT/ML 3 ML VIAL SUBCUT SCH ×4 (10:29→21:18)
[2020-01-09] MEDS: CEFEPIME 1 GM/D5W RTU 1 GM/50 ML RTUPB IV SCH ×2 (10:29→21:13)
[2020-01-09] MEDS: AMIODARONE HCL 200 MG TABLET PO SCH ×2 (10:29→21:13)
--- NOTE | 2020-01-09 13:47 | CDI QUERY ---
CDI Query CDI Review: We are seeking further clarification of documentation to reflect the severity of illness of your patient. Hospital-acquired pneumonia Right-sided pneumonia seen on CT chest, recent hospitalization necessitating treatment for hospital-acquired pneumonia Broad-spectrum antibiotics: Vancomycin and cefepime Based on your medical judgment, can you further clarify in the progress notes the most likely or suspected underlying cause of the pneumonia: Viral Gram negative Staph Pseudomonas Pneumococcus Aspiration Other cause (please specify) None of the above / Not applicable Thank you for your consideration. SHELIA Finley RN Clinical Safety Investigator Physician Advisor [email or web address]
--- NOTE | 2020-01-09 13:59 | CDI QUERY ---
<ROBERT ELLIS - Last Filed: 01/09/20 13:57> CDI Query CDI Review: We are seeking further clarification of documentation to reflect the severity of illness of your patient. Per ED note: Patient has significant comorbidities including an EF of less than 20% Per H&P: CHF (congestive heart failure) Heart failure type: unspecified Heart failure chronicity: acute on chronic Qualified Code(s): I50.9 - Heart failure, unspecified Based on your medical judgment, can you further clarify in the progress notes the Type of the patients heart failure/dysfunction for this admission: Systolic Diastolic Combined systolic/diastolic Other (please specify) Unable to determine Thank you for your consideration. SHELIA Finley RN Clinical Human Resources Operations Specialist Physician Advisor [email or web address] <KENDRA SCHULZ - Last Filed: 01/11/20 07:43> CDI Query CDI Review: Look at Dr Palomares's progress notes Agree with Query: No
--- NOTE | 2020-01-09 14:16 | PDOC PROGRESS REPORT ---
Subjective Progress Note for:: 01/09/20 Subjective:: No adverse events overnight. No new complaints. He remains on room air. He said he is feeling little bit better. He has been afebrile. His cough has been productive. His coronavirus test was negative. Reason For Visit: SUSPECTED COVID-19 Physical Exam Vital Signs: Temp Pulse Resp BP Pulse Ox 97.1 F 73 18 99/60 L 99 01/09/20 13:09 01/09/20 13:09 01/09/20 13:09 01/09/20 13:09 01/09/20 13:09 Intake & Output 01/08/20 01/09/20 01/10/20 06:59 06:59 06:59 Intake Total 300 50 Balance 300 50 Weight 74.8 kg General appearance: PRESENT: no acute distress, cooperative, disheveled Head exam: PRESENT: atraumatic, normocephalic Eye exam: PRESENT: EOMI. ABSENT: conjunctival injection, scleral icterus Ear exam: PRESENT: normal external ear exam Respiratory exam: PRESENT: rhonchi, symmetrical, unlabored. ABSENT: accessory muscle use, chest wall tenderness, crackles, prolonged expiratory phas, tachypne a, wheezes Cardiovascular exam: PRESENT: irregular rhythm, +S1, +S2 Pulses: PRESENT: normal carotid pulses Vascular exam: PRESENT: normal capillary refill GI/Abdominal exam: PRESENT: normal bowel sounds, soft. ABSENT: distended, guarding, rebound, tenderness Extremities exam: ABSENT: clubbing, pedal edema Musculoskeletal exam: PRESENT: normal inspection. ABSENT: deformity Neurological exam: PRESENT: alert, awake, oriented to person, oriented to place, oriented to situation Psychiatric exam: PRESENT: appropriate affect, normal mood Skin exam: PRESENT: dry, warm Results Laboratory Results: 01/09/20 05:09 01/09/20 05:09 01/08/20 01/09/20 01/09/20 16:59 05:09 05:09 WBC 8.1 RBC 4.63 Hgb 13.0 L Hct 39.3 MCV 85 MCH 28.0 MCHC 33.0 RDW 16.3 H Plt Count 226 Seg Neutrophils % 69.0 Sodium 139.1 Potassium 4.7 Chloride 102 Carbon Dioxide 25 Anion Gap 12 BUN 33 H Creatinine 1.77 H Est GFR ( Amer) 44 L Glucose 89 Calcium 9.6 Phosphorus 3.8 Magnesium 1.9 Urine Color YELLOW Urine Appearance CLEAR Urine pH 6.0 Ur Specific [place] 1.015 Urine Protein NEGATIVE Urine Glucose (UA) NEGATIVE Urine Ketones TRACE H Urine Blood SMALL H Urine Nitrite NEGATIVE Ur Leukocyte Esterase MODERATE H Urine WBC (Auto) 4 Urine RBC (Auto) 1 01/08/20 07:54 Troponin I < 0.012 NT-Pro-B Natriuret Pep 4610 H Impressions: Chest X-Ray 01/08/20 07:52 IMPRESSION: No significant interval changes with persistent basilar airspace disease and small effusions left greater than right. Chest CT 01/08/20 08:56 IMPRESSION: New alveolar and interstitial infiltrates in the right upper and lower lobe. Assessment and Plan - Diagnosis (1) Hospital-acquired pneumonia Is this a current diagnosis for this admission?: Yes Plan: Most likely a bacterial pneumonia, coronavirus ruled out (2) Acute kidney injury Is this a current diagnosis for this admission?: Yes (3) CHF (congestive heart failure) Qualifiers: Heart failure type: combined systolic and diastolic Heart failure chronicity: chronic Qualified Code(s): I50.42 - Chronic combined systolic (congestive) and diastolic (congestive) heart failure Is this a current diagnosis for this admission?: Yes Plan: He has chronic combined systolic and diastolic congestive heart failure (4) Diabetes mellitus type 2 in nonobese Is this a current diagnosis for this admission?: Yes (5) History of lobectomy of lung Is this a current diagnosis for this admission?: Yes (6) History of lung cancer Is this a current diagnosis for this admission?: Yes (7) Longstanding persistent atrial fibrillation Is this a current diagnosis for this admission?: Yes (8) Sepsis Qualifiers: Sepsis type: sepsis due to unspecified organism Sepsis acute organ dysfunction status: with acute organ dysfunction Severe sepsis acute organ dysfunction type: acute renal failure Acute renal failure type: unspecified Severe sepsis shock status: without septic shock Qualified Code(s): A41.9 - Sepsis, unspecified organism; R65.20 - Severe sepsis without septic shock; N17.9 - Acute kidney failure, unspecified Is this a current diagnosis for this admission?: Yes (9) Benign prostatic hyperplasia with lower urinary tract symptoms Qualifiers: Lower urinary tract symptom detail: urinary hesitancy Qualified Code(s): N40.1 - Benign prostatic hyperplasia with lower urinary tract symptoms; R39.11 - Hesitancy of micturition Is this a current diagnosis for this admission?: Yes (10) Dehydration Is this a current diagnosis for this admission?: Yes - Plan Summary Summary: His coronavirus test was negative. He is improving with antibiotics. His heart failure does not appear to be exacerbated. We are gently hydrating him. His creatinine is slowly improving. His baseline seems to be around 1.3 or 1.4. With the severity of his chronic heart failure we will not try to get his creatinine back down to normal rapidly, more likely we will just give him some fluid and make sure that his creatinine is trending the right way. His atrial fibrillation is rate controlled. Blood and sputum cultures are pending. - Time Time Spent with patient: 15-24 minutes Anticipated Discharge Disposition: Home with Home Health Anticipated Discharge Timeframe: within 72 hours
[2020-01-09] MEDS: VANCOMYCIN HCL 1,000 MG in DEXTROSE 5%-WATER 250 ML IV SCH (18:05)
[2020-01-10 06:20] LABS: ABSOLUTE EOSINOPHILS # (AUTO) 0.2 10^3/uL (0.0-0.6); ABSOLUTE LYMPHOCYTES (AUTO) 1.9 10^3/uL (0.5-4.7); ABSOLUTE MONOCYTES (AUTO) 0.8 10^3/uL (0.1-1.4); ABSOLUTE NEUT (AUTO) 4.8 10^3/uL (1.7-8.2); BASOPHILS % (AUTO) 0.5 % (0-2); EOSINOPHILS % (AUTO) 2.3 % (0-6); HEMOGLOBIN 12.8 g/dL (13.5-17.0); LYMPHOCYTES % (AUTO) 24.8 % (13-45); MEAN CORPUSCULAR HEMOGLOBIN 28.5 pg (27.0-33.4); MEAN CORPUSCULAR HGB CONC 33.6 g/dL (32.0-36.0); MEAN CORPUSCULAR VOLUME 85 fl (80-97); MONOCYTES % (AUTO) 10.1 % (3-13); PLATELET COUNT 236 10^3/uL (150-450); RED BLOOD COUNT 4.48 10^6/uL (4.35-5.55); RED CELL DISTRIBUTION WIDTH 16.7 % (11.5-14.0); SEGMENTED NEUTROPHILS % (AUTO) 62.3 % (42-78); TOTAL CELLS COUNTED % (AUTO) 100 %; WHITE BLOOD COUNT 7.7 10^3/uL (4.0-10.5)
[2020-01-10 06:54] LABS: ANION GAP 12 (5-19); BLOOD UREA NITROGEN 29 mg/dL (7-20); CALCIUM 9.5 mg/dL (8.4-10.2); CARBON DIOXIDE 23 mmol/L (22-30); CHLORIDE 105 mmol/L (98-107); GLUCOSE 93 mg/dL (75-110); POTASSIUM 4.3 mmol/L (3.6-5.0)
[2020-01-10] MEDS: INSULIN LISPRO 100 UNIT/ML 3 ML VIAL SUBCUT SCH ×4 (07:28→21:42)
[2020-01-10] MEDS: CHOLECALCIFEROL (D3) 1,000 UNIT (25 MCG) TABLET PO SCH (09:13)
[2020-01-10] MEDS: METOPROLOL TARTRATE 100 MG TABLET PO SCH ×2 (09:13→21:42)
[2020-01-10] MEDS: AMIODARONE HCL 200 MG TABLET PO SCH ×2 (09:13→21:37)
[2020-01-10] MEDS: CEFEPIME 1 GM/D5W RTU 1 GM/50 ML RTUPB IV SCH ×2 (09:13→21:38)
[2020-01-10] MEDS: TAMSULOSIN HCL 0.4 MG CAP.SR.24H PO SCH (09:13)
[2020-01-10] MEDS: DABIGATRAN ETEXILATE 150 MG CAPSULE PO SCH ×2 (09:13→21:37)
--- NOTE | 2020-01-10 14:08 | PDOC PROGRESS REPORT ---
Subjective Progress Note for:: 01/10/20 Subjective:: No adverse events overnight. No new complaints. He remains on room air. He remains afebrile. Appetite is improving. Reason For Visit: SUSPECTED COVID-19 Physical Exam Vital Signs: Temp Pulse Resp BP Pulse Ox 97.9 F 92 16 117/66 97 01/10/20 08:45 01/10/20 07:37 01/10/20 07:37 01/10/20 07:37 01/10/20 07:37 Intake & Output 01/09/20 01/10/20 01/11/20 06:59 06:59 05:59 Intake Total 300 1006 50 Balance 300 1006 50 Weight 74.8 kg 71.7 kg General appearance: PRESENT: no acute distress, cooperative, disheveled Head exam: PRESENT: atraumatic, normocephalic Eye exam: PRESENT: EOMI. ABSENT: conjunctival injection, scleral icterus Ear exam: PRESENT: normal external ear exam Respiratory exam: PRESENT: rhonchi, symmetrical, unlabored. ABSENT: accessory muscle use, chest wall tenderness, crackles, prolonged expiratory phas, tachypnea, wheezes Cardiovascular exam: PRESENT: irregular rhythm, +S1, +S2 Pulses: PRESENT: normal carotid pulses Vascular exam: PRESENT: normal capillary refill GI/Abdominal exam: PRESENT: normal bowel sounds, soft. ABSENT: distended, guarding, rebound, tenderness Extremities exam: ABSENT: clubbing, pedal edema Musculoskeletal exam: PRESENT: normal inspection. ABSENT: deformity Neurological exam: PRESENT: alert, awake, oriented to person, oriented to place, oriented to situation Psychiatric exam: PRESENT: appropriate affect, normal mood Skin exam: PRESENT: dry, warm Results Laboratory Results: 01/10/20 05:25 01/10/20 05:25 01/10/20 01/10/20 05:25 05:25 WBC 7.7 RBC 4.48 Hgb 12.8 L Hct 38.0 MCV 85 MCH 28.5 MCHC 33.6 RDW 16.7 H Plt Count 236 Seg Neutrophils % 62.3 Sodium 139.8 Potassium 4.3 Chloride 105 Carbon Dioxide 23 Anion Gap 12 BUN 29 H Creatinine 1.57 H Est GFR ( Amer) 51 L Glucose 93 Calcium 9.5 01/09/20 12:00 Sputum Gram Stain - Final 01/09/20 12:00 Sputum Sputum Culture - Final 01/08/20 07:54 Troponin I < 0.012 NT-Pro-B Natriuret Pep 4610 H Impressions: Chest X-Ray 01/08/20 07:52 IMPRESSION: No significant interval changes with persistent basilar airspace disease and small effusions left greater than right. Chest CT 01/08/20 08:56 IMPRESSION: New alveolar and interstitial infiltrates in the right upper and lower lobe. Assessment and Plan - Diagnosis (1) Hospital-acquired pneumonia Is this a current diagnosis for this admission?: Yes (2) Acute kidney injury Is this a current diagnosis for this admission?: Yes (3) CHF (congestive heart failure) Qualifiers: Heart failure type: combined systolic and diastolic Heart failure chronicity: chronic Qualified Code(s): I50.42 - Chronic combined systolic (congestive) and diastolic (congestive) heart failure Is this a current diagnosis for this admission?: Yes (4) Diabetes mellitus type 2 in nonobese Is this a current diagnosis for this admission?: Yes (5) History of lobectomy of lung Is this a current diagnosis for this admission?: Yes (6) History of lung cancer Is this a current diagnosis for this admission?: Yes (7) Longstanding persistent atrial fibrillation Is this a current diagnosis for this admission?: Yes (8) Sepsis Qualifiers: Sepsis type: sepsis due to unspecified organism Sepsis acute organ dysfunction status: with acute organ dysfunction Severe sepsis acute organ dysfunction type: acute renal failure Acute renal failure type: unspecified Severe sepsis shock status: without septic shock Qualified Code(s): A41.9 - Sepsis, unspecified organism; R65.20 - Severe sepsis without septic shock; N17.9 - Acute kidney failure, unspecified Is this a current diagnosis for this admission?: Yes (9) Benign prostatic hyperplasia with lower urinary tract symptoms Qualifiers: Lower urinary tract symptom detail: urinary hesitancy Qualified Code(s): N40.1 - Benign prostatic hyperplasia with lower urinary tract symptoms; R39.11 - Hesitancy of micturition Is this a current diagnosis for this admission?: Yes (10) Dehydration Is this a current diagnosis for this admission?: Yes - Plan Summary Summary: His coronavirus test was negative. He is improving with antibiotics. His heart failure does not appear to be exacerbated. We are gently hydrating him. His creatinine is slowly improving. His baseline seems to be around 1.3 or 1.4. With the severity of his chronic heart failure we will not try to get his creatinine back down to normal rapidly, more likely we will just give him some fluid and make sure that his creatinine is trending the right way. His atrial fibrillation is rate controlled. Blood and sputum cultures are pending. If he continues to look this good tomorrow, we will probably discharge him home. - Time Time Spent with patient: 15-24 minutes Anticipated Discharge Disposition: Home, Self Care Anticipated Discharge Timeframe: within 24 hours
[2020-01-10] MEDS: VANCOMYCIN HCL 1,000 MG in DEXTROSE 5%-WATER 250 ML IV SCH (17:21)
[2020-01-11 06:26] LABS: ABSOLUTE BASOPHILS # (AUTO) 0.1 10^3/uL (0.0-0.2); ABSOLUTE EOSINOPHILS # (AUTO) 0.2 10^3/uL (0.0-0.6); ABSOLUTE LYMPHOCYTES (AUTO) 1.9 10^3/uL (0.5-4.7); ABSOLUTE MONOCYTES (AUTO) 0.7 10^3/uL (0.1-1.4); ABSOLUTE NEUT (AUTO) 4.8 10^3/uL (1.7-8.2); BASOPHILS % (AUTO) 0.7 % (0-2); EOSINOPHILS % (AUTO) 2.7 % (0-6); HEMATOCRIT 39.6 % (37.9-51.0); LYMPHOCYTES % (AUTO) 24.8 % (13-45); MEAN CORPUSCULAR HEMOGLOBIN 27.9 pg (27.0-33.4); MEAN CORPUSCULAR HGB CONC 32.8 g/dL (32.0-36.0); MEAN CORPUSCULAR VOLUME 85 fl (80-97); MONOCYTES % (AUTO) 9.4 % (3-13); PLATELET COUNT 224 10^3/uL (150-450); RED BLOOD COUNT 4.64 10^6/uL (4.35-5.55); RED CELL DISTRIBUTION WIDTH 16.6 % (11.5-14.0); SEGMENTED NEUTROPHILS % (AUTO) 62.4 % (42-78); TOTAL CELLS COUNTED % (AUTO) 100 %; WHITE BLOOD COUNT 7.7 10^3/uL (4.0-10.5)
[2020-01-11 07:13] LABS: ANION GAP 12 (5-19); BLOOD UREA NITROGEN 23 mg/dL (7-20); CALCIUM 9.6 mg/dL (8.4-10.2); CARBON DIOXIDE 23 mmol/L (22-30); CHLORIDE 105 mmol/L (98-107); GLUCOSE 102 mg/dL (75-110)
[2020-01-11 07:14] LABS: POTASSIUM 4.2 mmol/L (3.6-5.0)
[2020-01-11] MEDS: INSULIN LISPRO 100 UNIT/ML 3 ML VIAL SUBCUT SCH ×4 (07:59→21:56)
[2020-01-11] MEDS: CEFEPIME 1 GM/D5W RTU 1 GM/50 ML RTUPB IV SCH (10:31)
[2020-01-11] MEDS: DABIGATRAN ETEXILATE 150 MG CAPSULE PO SCH ×2 (10:37→21:20)
[2020-01-11] MEDS: TAMSULOSIN HCL 0.4 MG CAP.SR.24H PO SCH (10:39)
[2020-01-11] MEDS: AMIODARONE HCL 200 MG TABLET PO SCH ×2 (10:39→21:20)
[2020-01-11] MEDS: METOPROLOL TARTRATE 100 MG TABLET PO SCH ×2 (10:39→21:20)
[2020-01-11] MEDS: CHOLECALCIFEROL (D3) 1,000 UNIT (25 MCG) TABLET PO SCH (10:39)
[2020-01-11] MEDS: CEFPODOXIME 200 MG TABLET PO SCH ×2 (12:12→21:20)
[2020-01-11] MEDS: DOXYCYCLINE HYCLATE 100 MG TABLET PO SCH ×2 (12:12→21:20)
--- NOTE | 2020-01-11 16:08 | PDOC PROGRESS REPORT ---
Subjective Progress Note for:: 01/11/20 Subjective:: No adverse events overnight. No new complaints. He remains on room air. He remains afebrile. He said he has a little discomfort off and on in his right lateral posterior chest or flank area but it comes and goes. He feels pretty fatigued. Reason For Visit: SUSPECTED COVID-19 Physical Exam Vital Signs: Temp Pulse Resp BP Pulse Ox 97.3 F 58 L 18 98/74 L 100 01/11/20 12:13 01/11/20 12:13 01/11/20 08:01 01/11/20 12:13 01/11/20 12:13 Intake & Output 01/10/20 01/11/20 01/12/20 07:59 06:59 06:59 Intake Total 480 Balance 480 Weight General appearance: PRESENT: no acute distress, cooperative, disheveled Head exam: PRESENT: atraumatic, normocephalic Eye exam: PRESENT: EOMI. ABSENT: conjunctival injection, scleral icterus Ear exam: PRESENT: normal external ear exam Respiratory exam: PRESENT: rhonchi, symmetrical, unlabored. ABSENT: accessory muscle use, chest wall tenderness, crackles, prolonged expiratory phas, tachypnea, wheezes Cardiovascular exam: PRESENT: irregular rhythm, +S1, +S2 Pulses: PRESENT: normal carotid pulses Vascular exam: PRESENT: normal capillary refill GI/Abdominal exam: PRESENT: normal bowel sounds, soft. ABSENT: distended, guarding, rebound, tenderness Extremities exam: ABSENT: clubbing, pedal edema Musculoskeletal exam: PRESENT: normal inspection. ABSENT: deformity Neurological exam: PRESENT: alert, awake, oriented to person, oriented to place, oriented to situation Psychiatric exam: PRESENT: appropriate affect, normal mood Skin exam: PRESENT: dry, warm Results Laboratory Results: 01/11/20 05:49 01/11/20 05:49 01/11/20 01/11/20 05:49 05:49 WBC 7.7 RBC 4.64 Hgb 13.0 L Hct 39.6 MCV 85 MCH 27.9 MCHC 32.8 RDW 16.6 H Plt Count 224 Seg Neutrophils % 62.4 Sodium 139.6 Potassium 4.2 Chloride 105 Carbon Dioxide 23 Anion Gap 12 BUN 23 H Creatinine 1.46 H Est GFR ( Amer) 56 L Glucose 102 Calcium 9.6 01/08/20 07:54 Troponin I < 0.012 NT-Pro-B Natriuret Pep 4610 H Impressions: Chest X-Ray 01/08/20 07:52 IMPRESSION: No significant interval changes with persistent basilar airspace disease and small effusions left greater than right. Chest CT 01/08/20 08:56 IMPRESSION: New alveolar and interstitial infiltrates in the right upper and lower lobe. Assessment and Plan - Diagnosis (1) Hospital-acquired pneumonia Is this a current diagnosis for this admission?: Yes (2) Acute kidney injury Is this a current diagnosis for this admission?: Yes (3) CHF (congestive heart failure) Qualifiers: Heart failure type: combined systolic and diastolic Heart failure chronicity: chronic Qualified Code(s): I50.42 - Chronic combined systolic (congestive) and diastolic (congestive) heart failure Is this a current diagnosis for this admission?: Yes (4) Diabetes mellitus type 2 in nonobese Is this a current diagnosis for this admission?: Yes (5) History of lobectomy of lung Is this a current diagnosis for this admission?: Yes (6) History of lung cancer Is this a current diagnosis for this admission?: Yes (7) Longstanding persistent atrial fibrillation Is this a current diagnosis for this admission?: Yes (8) Sepsis Qualifiers: Sepsis type: sepsis due to unspecified organism Sepsis acute organ dysfunction status: with acute organ dysfunction Severe sepsis acute organ dysfunction type: acute renal failure Acute renal failure type: unspecified Severe sepsis shock status: without septic shock Qualified Code(s): A41.9 - Sepsis, unspecified organism; R65.20 - Severe sepsis without septic shock; N17.9 - Acute kidney failure, unspecified Is this a current diagnosis for this admission?: Yes (9) Benign prostatic hyperplasia with lower urinary tract symptoms Qualifiers: Lower urinary tract symptom detail: urinary hesitancy Qualified Code(s): N40.1 - Benign prostatic hyperplasia with lower urinary tract symptoms; R39.11 - Hesitancy of micturition Is this a current diagnosis for this admission?: Yes (10) Dehydration Is this a current diagnosis for this admission?: Yes - Plan Summary Summary: His coronavirus test was negative. He is improving with antibiotics. His heart failure does not appear to be exacerbated. We are gently hydrating him. His creatinine is slowly improving. His baseline seems to be around 1.3 or 1.4. With the severity of his chronic heart failure we will not try to get his creatinine back down to normal rapidly, more likely we will just give him some fluid and make sure that his creatinine is trending the right way. His atrial fibrillation is rate controlled. Blood and sputum cultures are pending but negative thus far. He looks a little more rundown today I am going to switch him to oral antibiotics today, watch him overnight, with possible discharge home in the morning. - Time Time Spent with patient: 15-24 minutes Anticipated Discharge Disposition: Home with Home Health Anticipated Discharge Timeframe: within 72 hours
[2020-01-12] MEDS: INSULIN LISPRO 100 UNIT/ML 3 ML VIAL SUBCUT SCH ×2 (07:20→12:08)
[2020-01-12] MEDS: DOXYCYCLINE HYCLATE 100 MG TABLET PO SCH (09:49)
[2020-01-12] MEDS: CEFPODOXIME 200 MG TABLET PO SCH (09:49)
[2020-01-12] MEDS: CHOLECALCIFEROL (D3) 1,000 UNIT (25 MCG) TABLET PO SCH (09:49)
[2020-01-12] MEDS: TAMSULOSIN HCL 0.4 MG CAP.SR.24H PO SCH (09:50)
[2020-01-12] MEDS: DABIGATRAN ETEXILATE 150 MG CAPSULE PO SCH (09:51)
[2020-01-12] MEDS: METOPROLOL TARTRATE 100 MG TABLET PO SCH (09:53)
[2020-01-12] MEDS: AMIODARONE HCL 200 MG TABLET PO SCH (09:53)
[2020-01-12 12:42] VITALS: BP 98/56
--- NOTE | 2020-01-12 15:54 | PDOC DISCHARGE SUMMARY ---
Impression - Admit/DC Date/PCP Admission Date/Primary Care Provider: 01/08/20 11:44 TERRY SANDOVAL MD Discharge Date: 01/12/20 - Discharge Diagnosis (1) Hospital-acquired pneumonia Is this a current diagnosis for this admission?: Yes (2) Acute kidney injury Is this a current diagnosis for this admission?: Yes (3) CHF (congestive heart failure) Is this a current diagnosis for this admission?: Yes (4) Diabetes mellitus type 2 in nonobese Is this a current diagnosis for this admission?: Yes (5) History of lobectomy of lung Is this a current diagnosis for this admission?: Yes (6) History of lung cancer Is this a current diagnosis for this admission?: Yes (7) Longstanding persistent atrial fibrillation Is this a current diagnosis for this admission?: Yes (8) Sepsis Is this a current diagnosis for this admission?: Yes (9) Benign prostatic hyperplasia with lower urinary tract symptoms Is this a current diagnosis for this admission?: Yes (10) Dehydration Is this a current diagnosis for this admission?: Yes - Assessment Summary: His coronavirus test was negative. He is improving with antibiotics. His heart failure does not appear to be exacerbated. We are gently hydrating him. His creatinine is slowly improving. His baseline seems to be around 1.3 or 1.4. With the severity of his chronic heart failure we will not try to get his creatinine back down to normal rapidly, more likely we will just give him some fluid and make sure that his creatinine is trending the right way. His atrial fibrillation is rate controlled. Blood and sputum cultures are pending but negative thus far. He looks a little more rundown today I am going to switch him to oral antibiotics today, watch him overnight, with possible discharge home in the morning. - Additional Information Resuscitation Status: Full Code Discharge Diet: Cardiac Discharge Activity: Activity As Tolerated, Balance Activity w/Rest, Weigh Daily Referrals: TERRY SANDOVAL MD [Primary Care Provider] - 01/14/20 10:15 am () Prescriptions: Cefpodoxime Proxetil [Vantin 200 mg Tablet] 200 mg PO Q12 #12 tablet Doxycycline Hyclate [Vibramycin 100 mg Tablet] 100 mg PO Q12 #12 tablet Home Medications: Dabigatran Etexilate Mesylate [Pradaxa 150 mg Capsule] 150 mg PO Q12 04/30/19 Metformin HCl [Glucophage] 1,000 mg PO BIDBS 04/30/19 Furosemide [Lasix 20 mg Tablet] 20 mg PO QAM 12/29/19 Tamsulosin HCl [Flomax] 0.4 mg PO DAILY 12/29/19 Metoprolol Tartrate [Lopressor] 100 mg PO Q12 30 Days #60 tablet 01/02/20 Amiodarone HCl [Amiodarone HCl 400 mg Tablet] 400 mg PO Q12 01/08/20 Cholecalciferol (Vitamin D3) [Vitamin D3 1000 Unit Tablet] 5,000 unit PO DAILY 01/08/20 Cefpodoxime Proxetil [Vantin 200 mg Tablet] 200 mg PO Q12 #12 tablet 01/12/20 Doxycycline Hyclate [Vibramycin 100 mg Tablet] 100 mg PO Q12 #12 tablet 01/12/20 History of Present Illiness History of Present Illness: MICHAEL PIZARRO is a 84 year old male with past medical history significant for permanent A. fib, HTN, HLD, T2DM, right eye stroke, unspecified CHF, lung cancer status post left upper lobectomy who presents with a 3-day history of progressive shortness of breath/HERNANDEZ/productive cough/generalized fatigue and weakness/malaise. Patient was recently discharged from the hospital when he was admitted for A. fib with RVR. Patient states his current illness does not feel anything like his previous episodes of CHF and A. fib. He denies missing any of his medications. He denies fevers/chills/nausea/vomiting/diarrhea/sick contacts. He states that he primarily stays at home and does not have any 1 around him that could give him COVID-19. He was tested for COVID-19 in ED and this test is pending. His chest CT scan showed new alveolar and interstitial infiltrates in the right upper and lower lobe. WBC normal. Creatinine elevated at 1.81. BNP elevated but consistent with previous values. UA was not overtly positive for infection. Patient has no urinary symptoms. Given recent hospitalization, patient will be treated for HAP with broad-spectrum antibiotics. He is admitted to the coronavirus unit until we have his test results. Hospital Course Hospital Course: He tested negative for coronavirus. With some IV fluids antibiotics, his creatinine trended back down to his baseline. He was on room air and was ambulating independently in the room. His blood cultures were negative. He will go home on a course of cefdinir and doxycycline to complete his treatment at home. His labs and examination were reassuring and he was discharged in stable condition. He has follow-up with his primary care provider within 1 week. Physical Exam Vital Signs: Temp Pulse Resp BP Pulse Ox 97.5 F 83 20 98/56 L 99 01/12/20 13:06 01/12/20 13:06 01/12/20 13:06 01/12/20 13:06 01/12/20 13:06 Intake & Output 01/11/20 01/12/20 01/13/20 06:59 06:59 06:59 Intake Total 720 1127 Balance 720 1127 Weight 72.4 kg 72.4 kg General appearance: PRESENT: no acute distress, cooperative, disheveled Head exam: PRESENT: atraumatic, normocephalic Eye exam: PRESENT: EOMI. ABSENT: conjunctival injection, scleral icterus Ear exam: PRESENT: normal external ear exam Respiratory exam: PRESENT: rhonchi, symmetrical, unlabored. ABSENT: accessory muscle use, chest wall tenderness, crackles, prolonged expiratory phas, tachypnea, wheezes Cardiovascular exam: PRESENT: irregular rhythm, +S1, +S2 Pulses: PRESENT: normal carotid pulses Vascular exam: PRESENT: normal capillary refill GI/Abdominal exam: PRESENT: normal bowel sounds, soft. ABSENT: distended, guarding, rebound, tenderness Extremities exam: ABSENT: clubbing, pedal edema Musculoskeletal exam: PRESENT: normal inspection. ABSENT: deformity Neurological exam: PRESENT: alert, awake, oriented to person, oriented to place, oriented to situation Psychiatric exam: PRESENT: appropriate affect, normal mood Skin exam: PRESENT: dry, warm Results Laboratory Results: WBC 7.7 10^3/uL (4.0-10.5) 01/11/20 05:49 RBC 4.64 10^6/uL (4.35-5.55) 01/11/20 05:49 Hgb 13.0 g/dL (13.5-17.0) L 01/11/20 05:49 Hct 39.6 % (37.9-51.0) 01/11/20 05:49 MCV 85 fl (80-97) 01/11/20 05:49 MCH 27.9 pg (27.0-33.4) 01/11/20 05:49 MCHC 32.8 g/dL (32.0-36.0) 01/11/20 05:49 RDW 16.6 % (11.5-14.0) H 01/11/20 05:49 Plt Count 224 10^3/uL (150-450) 01/11/20 05:49 Lymph % (Auto) 24.8 % (13-45) 01/11/20 05:49 [place] % (Auto) 9.4 % (3-13) 01/11/20 05:49 Eos % (Auto) 2.7 % (0-6) 01/11/20 05:49 Baso % (Auto) 0.7 % (0-2) 01/11/20 05:49 Absolute Neuts (auto) 4.8 10^3/uL (1.7-8.2) 01/11/20 05:49 Absolute Lymphs (auto) 1.9 10^3/uL (0.5-4.7) 01/11/20 05:49 Absolute Monos (auto) 0.7 10^3/uL (0.1-1.4) 01/11/20 05:49 Absolute Eos (auto) 0.2 10^3/uL (0.0-0.6) 01/11/20 05:49 Absolute Basos (auto) 0.1 10^3/uL (0.0-0.2) 01/11/20 05:49 Seg Neutrophils % 62.4 % (42-78) 01/11/20 05:49 Sodium 139.6 mmol/L (137-145) 01/11/20 05:49 Potassium 4.2 mmol/L (3.6-5.0) 01/11/20 05:49 Chloride 105 mmol/L (98-107) 01/11/20 05:49 Carbon Dioxide 23 mmol/L (22-30) 01/11/20 05:49 Anion Gap 12 (5-19) 01/11/20 05:49 BUN 23 mg/dL (7-20) H 01/11/20 05:49 Creatinine 1.46 mg/dL (0.52-1.25) H 01/11/20 05:49 Est GFR ( Amer) 56 (>60) L 01/11/20 05:49 Est GFR (MDRD) Non-Af 46 (>60) L 01/11/20 05:49 Glucose 102 mg/dL (75-110) 01/11/20 05:49 POC Glucose 105 mg/dL (70-110) 01/12/20 11:09 Calcium 9.6 mg/dL (8.4-10.2) 01/11/20 05:49 Phosphorus 3.8 mg/dL (2.5-4.5) 01/09/20 05:09 Magnesium 1.9 mg/dL (1.6-2.3) 01/09/20 05:09 Total Bilirubin 1.0 mg/dL (0.2-1.3) 01/08/20 07:54 Direct Bilirubin 0.4 mg/dL (0.0-0.4) 01/08/20 07:54 Neonat Total Bilirubin Not Reportable 01/08/20 07:54 Neonat Direct Bilirubin Not Reportable 01/08/20 07:54 Neonat Indirect Bili Not Reportable 01/08/20 07:54 AST 26 U/L (17-59) 01/08/20 07:54 ALT 12 U/L (<50) 01/08/20 07:54 Alkaline Phosphatase 65 U/L (38-126) 01/08/20 07:54 Troponin I < 0.012 ng/mL 01/08/20 07:54 NT-Pro-B Natriuret Pep 4610 pg/mL (<450) H 01/08/20 07:54 Total Protein 8.1 g/dL (6.3-8.2) 01/08/20 07:54 Albumin 4.2 g/dL (3.5-5.0) 01/08/20 07:54 Urine Color YELLOW 01/08/20 16:59 Urine Appearance CLEAR 01/08/20 16:59 Urine pH 6.0 (5.0-9.0) 01/08/20 16:59 Ur Specific [place] 1.015 01/08/20 16:59 Urine Protein NEGATIVE mg/dL (NEGATIVE) 01/08/20 16:59 Urine Glucose (UA) NEGATIVE mg/dL (NEGATIVE) 01/08/20 16:59 Urine Ketones TRACE mg/dL (NEGATIVE) H 01/08/20 16:59 Urine Blood SMALL (NEGATIVE) H 01/08/20 16:59 Urine Nitrite NEGATIVE (NEGATIVE) 01/08/20 16:59 Urine Bilirubin NEGATIVE (NEGATIVE) 01/08/20 16:59 Urine Urobilinogen NEGATIVE mg/dL (<2.0) 01/08/20 16:59 Ur Leukocyte Esterase MODERATE (NEGATIVE) H 01/08/20 16:59 Urine WBC (Auto) 4 /HPF 01/08/20 16:59 Urine RBC (Auto) 1 /HPF 01/08/20 16:59 Urine Bacteria (Auto) TRACE /HPF 01/08/20 16:59 Urine Mucus (Auto) RARE /LPF 01/08/20 16:59 Urine Ascorbic Acid NEGATIVE (NEGATIVE) 01/08/20 16:59 COVID-19 Source See comment 01/08/20 10:07 COVID-19 (NIR) Not Detected (Not Detect) 01/08/20 10:07 01/08/20 07:54 Troponin I < 0.012 NT-Pro-B Natriuret Pep 4610 H Impressions: Chest X-Ray 01/08/20 07:52 IMPRESSION: No significant interval changes with persistent basilar airspace disease and small effusions left greater than right. Chest CT 01/08/20 08:56 IMPRESSION: New alveolar and interstitial infiltrates in the right upper and lower lobe. Plan Time Spent: Greater than 30 Minutes Stroke Is this a Stroke Patient?: No Acute Heart Failure Is this a Heart Failure Patient?: No
== END 2020-01-12 13:43 | disposition home or self-care (01) | DRG 194 ==
LOC: ER 07:45 → EH 11:44 → 3W 01-09 → 4N 01-09 12:55
PROVIDERS: ADMIT Internal Medicine; ATTEND Family Medicine
DX: J18.9 Pneumonia, unspecified organism (principal); N17.9 Acute kidney failure, unspecified; I48.11 Longstanding persistent atrial fibrillation; I50.42 Chronic combined systolic (congestive) and diastolic (congestive) heart failure; I11.0 Hypertensive heart disease with heart failure; E11.9 Type 2 diabetes mellitus without complications; R39.11 Hesitancy of micturition; Z20.828 Contact with and (suspected) exposure to other viral communicable diseases; M19.90 Unspecified osteoarthritis, unspecified site; Z96.652 Presence of left artificial knee joint; Z86.73 Personal history of transient ischemic attack (TIA), and cerebral infarction without residual deficits; Z85.118 Personal history of other malignant neoplasm of bronchus and lung; Z90.2 Acquired absence of lung [part of]; J44.9 Chronic obstructive pulmonary disease, unspecified; N40.1 Benign prostatic hyperplasia with lower urinary tract symptoms; Z79.84 Long term (current) use of oral hypoglycemic drugs; Z88.8 Allergy status to other drugs, medicaments and biological substances; Z79.899 Other long term (current) drug therapy
CPT/HCPCS: 36415; 71045; 71250; 80048; 80053; 81001; 82962; 83735; 83880; 84100; 84484; 85025; 87040; 87070; 87205; 87635; 93005; 93010; 99285; C9803; J0692; J2543; J3370; J3490; J7060

== ENCOUNTER 2020-01-14 18:00 | Inpatient (IN) | payer MEDICARE, OTHER ==
[2020-01-14] MEDS ORDERED: OXYCODONE-ACETAMINOPHEN 5-325 MG TABLET PO ONE (19:15)
--- NOTE | 2020-01-14 19:19 | ER Document Report ---
ED Medical Screen (RME) - General Chief Complaint: Fall Stated Complaint: FALL - RIGHT HIP PAIN Time Seen by Provider: 01/14/20 19:08 Primary Care Provider: TERRY SANDOVAL MD [Primary Care Provider] - Follow up as needed Mode of Arrival: Medic Information source: Patient Notes: 84-year-old male presented to ED for tripping and falling at home. He states he landed on his right hip. He states that up to answer the front door and his leg gave out and he fell landing on the hip. He has excruciating pain in the right hip. He states when he was in the they went to do an epidural for surgery and next upper nerve that goes to his foot and he has had problems with that leg since then. He does have a extensive medical history he stated. He states he was just recently in the hospital for pneumonia and tested negative for Covid. He states he is a former smoker very rarely drinks and does not use any illicit drugs. He states he is on Pradaxa. I have ordered an x-ray and some Percocet and he will be seen by another provider. I have greeted and performed a rapid initial assessment of this patient. A comprehensive ED assessment and evaluation of the patient, analysis of test results and completion of medical decision making process will be conducted by an additional ED providers. TRAVEL OUTSIDE OF THE [place] IN LAST 30 DAYS: No - Related Data Allergies/Adverse Reactions: aspirin Allergy (Verified 01/08/20 16:36) Past Medical History - General Information source: Patient - Social History Cigarette use (# per day): No - former Frequency of alcohol use: None Drug Abuse: None Lives with: Alone Family history: Reviewed & Not Pertinent - Past Medical History Cardiac Medical History: Reports: Hx Atrial Fibrillation, Hx Congestive Heart Failure, Hx Hypercholesterolemia, Hx Hypertension Pulmonary Medical History: Reports: Hx COPD, Hx Pneumonia EENT Medical History: Reports: None Neurological Medical History: Reports: None Endocrine Medical History: Reports: Hx Diabetes Mellitus Type 2 Renal/ Medical History: Reports: Hx Benign Prostatic Hyperplasia Malignancy Medical History: Reports Hx Lung Cancer - left 1/3 lung resected GI Medical History: Reports: None Musculoskeltal Medical History: Reports Hx Arthritis - Neck and back primarily with other joint involvement. 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
--- NOTE | 2020-01-14 20:17 | RADIOLOGY REPORT (SQ) ---
EXAM DESCRIPTION: HIP RIGHT AP/LATERAL IMAGES COMPLETED DATE/TIME: 01/14/2020 7:32 pm REASON FOR STUDY: Fall pain to the right hip and pelvis COMPARISON: None. NUMBER OF VIEWS: Two views. TECHNIQUE: AP pelvis and additional frog legview of the right hip. LIMITATIONS: None. FINDINGS: MINERALIZATION: Osteopenic RIGHT HIP: Acute nondisplaced nonangulated right intertrochanteric proximal femur fracture. LEFT HIP: No fracture or dislocation. No worrisome bone lesions. Limited views. PUBIS AND ISCHIUM: No fracture. PELVIS: No fracture. SACRUM: No fracture or dislocation. No worrisome bone lesions. LOWER LUMBAR SPINE: Fusion at L3-4 SOFT TISSUES: Densely calcified prostate OTHER: No other significant finding. IMPRESSION: Acute nondisplaced nonangulated right intertrochanteric proximal femoral fracture TECHNICAL DOCUMENTATION: JOB ID: [id number] 2010 [employer]- All Rights Reserved Reading location - IP/workstation name: [id number]
--- NOTE | 2020-01-14 21:35 | RADIOLOGY REPORT (SQ) ---
EXAM DESCRIPTION: XR CHEST 1 VIEW COMPLETED DATE/TME: 01/14/2020 20:43 CLINICAL HISTORY: 84 years, Male, lung ca copd mi fall COMPARISON: CT chest 01/08/2020. Chest x-ray 01/01/2020. TECHNIQUE: Semiupright portable chest x-ray FINDINGS: Mild decreased size of the left hemithorax secondary to lobectomy. Surgical clips are present. Right lung mildly hyperinflated. Bilateral interstitial abnormalities better appreciated on recent CT chest. The current study demonstrates increased opacity in the left lower chest which may represent a new left pleural effusion as well as parenchymal abnormality. No overt left rib fractures on the image provided. IMPRESSION: 1. Significant chronic findings. 2. There is increased left lower chest pleural parenchymal abnormality which may be related to trauma. The finding could also represent worsening of parenchymal abnormality related to the patient's interstitial lung disease and cancer.
[2020-01-14 21:46] LABS: ABSOLUTE LYMPHOCYTES (AUTO) 1.5 10^3/uL (0.5-4.7); ABSOLUTE MONOCYTES (AUTO) 0.7 10^3/uL (0.1-1.4); ABSOLUTE NEUT (AUTO) 12.3 10^3/uL (1.7-8.2); BASOPHILS % (AUTO) 0.2 % (0-2); EOSINOPHILS % (AUTO) 0.1 % (0-6); HEMATOCRIT 40.2 % (37.9-51.0); HEMOGLOBIN 13.2 g/dL (13.5-17.0); LYMPHOCYTES % (AUTO) 10.5 % (13-45); MEAN CORPUSCULAR HEMOGLOBIN 27.7 pg (27.0-33.4); MEAN CORPUSCULAR HGB CONC 32.7 g/dL (32.0-36.0); MEAN CORPUSCULAR VOLUME 85 fl (80-97); MONOCYTES % (AUTO) 4.8 % (3-13); PLATELET COUNT 225 10^3/uL (150-450); RED BLOOD COUNT 4.75 10^6/uL (4.35-5.55); RED CELL DISTRIBUTION WIDTH 16.7 % (11.5-14.0); SEGMENTED NEUTROPHILS % (AUTO) 84.4 % (42-78); TOTAL CELLS COUNTED % (AUTO) 100 %; WHITE BLOOD COUNT 14.6 10^3/uL (4.0-10.5)
[2020-01-14 21:53] LABS: INTERNATIONAL RATION (INR) 1.98; PROTHROMBIN TIME 22.6 SEC (11.4-15.4)
[2020-01-14 21:54] LABS: PARTIAL THROMBOPLASTIN TIME 53.5 SEC (23.5-35.8)
[2020-01-14 22:04] LABS: ALBUMIN 4.4 g/dL (3.5-5.0); ALKALINE PHOSPHATASE 79 U/L (38-126); ANION GAP 11 (5-19); ASPARTATE AMINO TRANSFERASE 29 U/L (17-59); BILIRUBIN,DIRECT 0.4 mg/dL (0.0-0.4); BILIRUBIN,TOTAL 0.8 mg/dL (0.2-1.3); BLOOD UREA NITROGEN 34 mg/dL (7-20); CALCIUM 9.8 mg/dL (8.4-10.2); CARBON DIOXIDE 23 mmol/L (22-30); CHLORIDE 102 mmol/L (98-107); GLUCOSE 146 mg/dL (75-110); POTASSIUM 4.4 mmol/L (3.6-5.0); TOTAL PROTEIN 8.3 g/dL (6.3-8.2)
[2020-01-14] MEDS ORDERED: ACETAMINOPHEN 1,000 MG/100 ML RTUPB IV ONE (23:40)
[2020-01-14] MEDS ORDERED: MORPHINE SULFATE 10 MG/ML INJ IV PRN (23:42)
--- NOTE | 2020-01-14 23:42 | PDOC H&P ---
History of Present Illness Admission Date/PCP: TERRY SANDOVAL MD Patient complains of: Fall, right hip pain History of Present Illness: MICHAEL PIZARRO is a 84 year old male with a history of lung cancer status post lobectomy, A. fib on anticoagulation, type 2 diabetes, heart failure and BPH who was recently discharged from hospital after being treated for pneumonia now presents to the ED after he sustained a fall while he was trying to get outdoor to walk his dog. Patient states that he had no dizziness/lightheadedness, shortness of breath, chest pain, palpitation or loss of consciousness immediately before during or after the fall. Currently patient reports 8/10 intensity right hip pain which is dull aching in character, nonradiating and aggravated by movement. He denies any cough, fever, chills, nausea, vomiting. He denies any head injury during the incident. He had no bleeding from the site. X-ray done at the ED shows acute nondisplaced and nonangulated right internal trochanteric proximal femoral fracture and orthopedic surgeon was cont acted and recommended admitting patient for possible surgery in the a.m. Past Medical History Cardiac Medical History: Reports: Atrial Fibrillation, Congestive Heart Failure, Hyperlipidema, Hypertension Pulmonary Medical History: Reports: Chronic Obstructive Pulmonary Disease (COPD), Pneumonia EENT Medical History: Reports: None Neurological Medical History: Reports: None Endocrine Medical History: Reports: Diabetes Mellitus Type 2 Malignancy Medical History: Reports: Lung Cancer - left 1/3 lung resected GI Medical History: Reports: None Musculoskeltal Medical History: Reports: Arthritis - Neck and back primarily with other joint involvement. 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, left lower lobectomy Social History Information Source: Patient Lives with: Alone Smoking Status: Former Smoker Frequency of Alcohol Use: Rare Hx Recreational Drug Use: No Drugs: None Hx Prescription Drug Abuse: No - Advance Directive Resuscitation Status: Full Code Family History Family History: Reviewed & Not Pertinent, DM Parental Family History Reviewed: Yes Children Family History Reviewed: Yes Sibling(s) Family History Reviewed.: Yes Medication/Allergy Home Medications: Dabigatran Etexilate Mesylate [Pradaxa 150 mg Capsule] 150 mg PO Q12 04/30/19 Metformin HCl [Glucophage] 1,000 mg PO BIDBS 04/30/19 Furosemide [Lasix 20 mg Tablet] 20 mg PO QAM 12/29/19 Tamsulosin HCl [Flomax] 0.4 mg PO DAILY 12/29/19 Metoprolol Tartrate [Lopressor] 100 mg PO Q12 30 Days #60 tablet 01/02/20 Amiodarone HCl [Amiodarone HCl 400 mg Tablet] 400 mg PO Q12 01/08/20 Cholecalciferol (Vitamin D3) [Vitamin D3 1000 Unit Tablet] 5,000 unit PO DAILY 01/08/20 Cefpodoxime Proxetil [Vantin 200 mg Tablet] 200 mg PO Q12 #12 tablet 01/12/20 Doxycycline Hyclate [Vibramycin 100 mg Tablet] 100 mg PO Q12 #12 tablet 01/12/20 Allergies/Adverse Reactions: aspirin Allergy (Verified 01/08/20 16:36) Review of Systems Constitutional: ABSENT: chills, fever(s), headache(s), weight gain, weight loss Eyes: ABSENT: visual disturbances Ears: ABSENT: hearing changes Nose, Mouth, and Throat: ABSENT: as per HPI, headache(s), mouth pain, sore throat, vertigo, other Cardiovascular: ABSENT: chest pain, dyspnea on exertion, edema, orthropnea, palpitations Respiratory: ABSENT: cough, hemoptysis Gastrointestinal: ABSENT: abdominal pain, constipation, diarrhea, hematemesis, hematochezia, nausea, vomiting Genitourinary: ABSENT: dysuria, hematuria Musculoskeletal: PRESENT: as per HPI Integumentary: ABSENT: rash, wounds Neurological: ABSENT: abnormal gait, abnormal speech, confusion, dizziness, focal weakness, syncope Psychiatric: ABSENT: anxiety, depression, homidical ideation, suicidal ideation Endocrine: ABSENT: cold intolerance, heat intolerance, polydipsia, polyuria Hematologic/Lymphatic: ABSENT: easy bleeding, easy bruising Physical Exam Vital Signs: Temp Pulse Resp BP Pulse Ox 98.3 F 82 18 123/76 100 01/14/20 18:58 01/14/20 20:22 01/14/20 20:22 01/14/20 20:22 01/14/20 20:22 Intake & Output 01/13/20 01/14/20 01/15/20 06:59 06:59 06:59 Weight 68.7 kg Additional comments: GENERAL APPEARANCE: Alert and oriented x4, in no acute respiratory distress HEENT: Normocephalic and atraumatic. No scleral icterus. Moist oral mucosa NECK: Supple. No evidence of thyroid enlargement. No lymphadenopathy or tenderness. No JVD CHEST: Symmetric. Nontender to palpation. LUNGS: Breath sounds are equal and clear bilaterally. No wheezes, rhonchi, or rales. HEART: Regular rate and rhythm with normal S1 and S2. No murmurs, gallops, or rubs. ABDOMEN: Soft, flat, and benign. No mass, tenderness, guarding, or rebound. No organomegaly or hernia. Bowel sounds are present. No CVA tenderness or flank mass.. EXTREMITIES: No cyanosis, clubbing, or edema. MUSCULOSKELETAL: Tenderness to palpation on the lateral aspect of the right hip but there is no visible open wound or bruits PSYCHIATRIC: The patient is awake, alert, and oriented x3. Recent and remote memory is intact. Appropriate mood and affect. SKIN: Warm, dry, and well perfused. No lesions or rashes are noted. NEUROLOGIC: No focal sensory or motor deficits are noted. Patient unable to m ove right lower extremity due to pain and femoral fracture but can fully move toes and no sensory loss noted Results Laboratory Results: 01/14/20 21:25 01/14/20 21:25 01/14/20 01/14/20 01/14/20 21:25 21:25 22:06 WBC 14.6 H RBC 4.75 Hgb 13.2 L Hct 40.2 MCV 85 MCH 27.7 MCHC 32.7 RDW 16.7 H Plt Count 225 Seg Neutrophils % 84.4 H Sodium 135.7 L Potassium 4.4 Chloride 102 Carbon Dioxide 23 Anion Gap 11 BUN 34 H Creatinine 1.59 H Est GFR ( Amer) 50 L Glucose 146 H Calcium 9.8 Total Bilirubin 0.8 AST 29 Alkaline Phosphatase 79 Total Protein 8.3 H Albumin 4.4 Blood Type A NEGATIVE Antibody Screen NEGATIVE 01/14/20 21:25 NT-Pro-B Natriuret Pep 3030 H Impressions: Hip/Pelvis X-Ray 01/14/20 19:13 IMPRESSION: Acute nondisplaced nonangulated right intertrochanteric proximal femoral fracture Chest X-Ray 01/14/20 20:43 overt left rib fractures on the image provided. IMPRESSION: 1. Significant chronic findings. 2. There is increased left lower chest pleural parenchymal abnormality which may be related to trauma. The finding could also represent worsening of parenchymal abnormality related to the patient's interstitial lung disease and cancer. Assessment and Plan - Diagnosis (1) Intertrochanteric fracture of right hip Is this a current diagnosis for this admission?: Yes Plan: Patient presented after a fall with right hip pain X-ray: shows a nondisplaced and nonangulated right intertrochanteric femoral fracture Orthopedic surgery on board and planning to do surgery next a.m. Will control pain with as needed morphine Will obtain repeat INR in the morning kept n.p.o. (2) Leukocytosis Qualifiers: Leukocytosis type: unspecified Qualified Code(s): D72.829 - Elevated white blood cell count, unspecified Is this a current diagnosis for this admission?: Yes Plan: Likely reactive, patient currently recovering from pneumonia Has no sign of new infection at this point Continue to closely monitor CBC (3) CHF (congestive heart failure) Qualifiers: Heart failure type: combined systolic and diastolic Heart failure chronicity: chronic Qualified Code(s): I50.42 - Chronic combined systolic (congestive) and diastolic (congestive) heart failure Is this a current diagnosis for this admission?: Yes Plan: Currently patient appears euvolemic and not in acute exacerbation Continue home medications Low-sodium diet, monitor weight and fluid restriction (4) Longstanding persistent atrial fibrillation Is this a current diagnosis for this admission?: Yes Plan: We will hold anticoagulation for possible surgery Currently rate controlled and will continue metoprolol at home dose - Time Time Spent with patient: 35 or more minutes Total Critical Time (Minutes): 40 Medications reviewed and adjusted accordingly: Yes Anticipated Discharge Disposition: Home with Home Health Anticipated Discharge Timeframe: within 72 hours - Inpatient Certification Medical Necessity: Need Close Monitoring Due to Risk of Patient Decompensation, Need for Pain Control, Need for Surgery Post Hospital Care: D/C or Transfer Summary
[2020-01-14] MEDS ORDERED: DEXTROSE 40% GEL 15 GM TUBE PO PRN ×2 (23:43)
[2020-01-14] MEDS ORDERED: GLUCAGON,HUMAN RECOMB 1 MG INJ IM PRN (23:43)
[2020-01-14] MEDS ORDERED: DEXTROSE 50%-WATER 25 GM/50 ML DISP.SYRIN IV PRN ×2 (23:43)
--- NOTE | 2020-01-15 00:51 | ER Document Report ---
ED General - General Chief Complaint: Fall Stated Complaint: FALL - RIGHT HIP PAIN Time Seen by Provider: 01/14/20 19:08 Primary Care Provider: TERRY SANDOVAL MD [Primary Care Provider] - Follow up as needed Mode of Arrival: Medic Notes: 84-year-old male history of hypertension hyperlipidemia A. fib on Pradaxa CHF distant lung CA post resection COPD diabetes recent admission for pneumonia discharged few days ago presents with right hip pain after mechanical fall. Patient says that he has chronic right leg weakness times decades after complication of surgery and has to concentrate to walk steadily and was rushing and felt his right leg gave out and fell onto right hip without any other injury. Patient has been improving since hospital discharge with mild bleed productive cough. Patient denies any chest pain, shortness of breath, fever, dizziness, LOC, headache, neck pain, back pain, urinary symptoms, weakness or numbness, GI or abdominal symptoms TRAVEL OUTSIDE OF THE [place] IN LAST 30 DAYS: No - Related Data Allergies/Adverse Reactions: aspirin Allergy (Verified 01/08/20 16:36) Home Medications: pradaxa Past Medical History - General Information source: Patient, [facility] Records - Social History Smoking Status: Former Smoker Cigarette use (# per day): No - former Frequency of alcohol use: None Drug Abuse: None Lives with: Alone Family History: Reviewed & Not Pertinent, DM - Past Medical History Cardiac Medical History: Reports: Hx Atrial Fibrillation, Hx Congestive Heart Failure, Hx Hypercholesterolemia, Hx Hypertension Pulmonary Medical History: Reports: Hx COPD, Hx Pneumonia EENT Medical History: Reports: None Neurological Medical History: Reports: None Endocrine Medical History: Reports: Hx Diabetes Mellitus Type 2 Renal/ Medical History: Reports: Hx Benign Prostatic Hyperplasia Malignancy Medical History: Reports Hx Lung Cancer - left 1/3 lung resected GI Medical History: Reports: None Musculoskeletal Medical History: Reports Hx Arthritis - Neck and back primarily with other joint involvement. 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 EENT: Denies recent cold/sinus symptoms, denies throat pain CARDIOVASCULAR: Denies chest pain, CHERYL RESPIRATORY: Denies cough, denies shortness of breath. GASTROINTESTINAL: Denies abdominal pain, nausea/vomiting. GENITOURINARY: Denies difficulty urinating, painful urination. MUSCULOSKELETAL: Denies neck pain, back pain. SKIN: Denies rash or skin lesions. HEMATOLOGIC : Denies easy bruising or bleeding. LYMPHATIC: Denies swollen, enlarged glands. NEUROLOGICAL: Denies headache, denies change in gait. PSYCHIATRIC: Denies anxiety or stress or depression. Physical Exam - Vital signs Vitals: Temp Pulse Resp BP Pulse Ox 98.3 F 84 18 100/59 L 99 01/14/20 18:58 01/14/20 18:58 01/14/20 18:58 01/14/20 18:58 01/14/20 18:58 - Notes Notes: PHYSICAL EXAMINATION: GENERAL: Well-appearing, well-nourished and in no acute distress. HEAD: Atraumatic, normocephalic. EYES: Pupils equal round and appropriate constriction, sclera anicteric, conjunctiva are normal. ENT: nares patent, moist mucous membranes. NECK/BACK: Normal range of motion, supple without lymphadenopathy, no C/C/L/L spinal tenderness or deformity LUNGS: Breath sounds clear to auscultation bilaterally and equal. No wheezes rales or rhonchi. Normal respiratory rate and effort HEART: Regular rate and rhythm with systolic murmur ABDOMEN: Soft, nontender, no guarding, no masses, no CVAT EXTREMITIES: Bilateral DP pulses 2+, full distal strength and sensation, range of motion on the right leg limited by pain and hip, tenderness at hip, no other bony tenderness in any of patient's extremities, pelvis stable NEUROLOGICAL: Awake, alert, conversing appropriately, moves all extremities spontaneously. PSYCH: Normal mood, normal affect. SKIN: Warm, Dry, normal turgor, no rashes or lesions noted. Course - Re-evaluation Re-evalutation: 01/15/20 00:51 Well-appearing patient with multiple medical comorbidities with mechanical fall just prior to arrival with isolated right hip injury likely fracture. Patient neurovascularly intact, recent admission for pneumonia but symptoms have been improving since discharge. Ordered preop labs which show a leukocytosis, equivalent possible persistent x-ray changes from recent pneumonia, patient sy mptoms improving afebrile and no indication for antibiotics at this time. Discussed case with Dr. Luz who says that if hospitalization fails patient is optimized that he can bring patient to the OR on 01/14. Discussed patient with Dr. Galvan who has accepted patient to medical floor. - Vital Signs Vital signs: Temp Pulse Resp BP Pulse Ox 98.2 F 87 18 116/72 99 01/14/20 23:41 01/14/20 23:41 01/14/20 20:22 01/14/20 23:41 01/14/20 23:41 - Laboratory Result Diagrams: 01/14/20 21:25 01/14/20 21:25 Laboratory results interpreted by me: 01/14/20 01/14/20 01/14/20 21:25 21:25 21:25 WBC 14.6 H Hgb 13.2 L RDW 16.7 H Lymph % (Auto) 10.5 L Absolute Neuts (auto) 12.3 H Seg Neutrophils % 84.4 H PT 22.6 H APTT 53.5 H Sodium 135.7 L BUN 34 H Creatinine 1.59 H Est GFR ( Amer) 50 L Est GFR (MDRD) Non-Af 42 L Glucose 146 H NT-Pro-B Natriuret Pep Total Protein 8.3 H 01/14/20 21:25 WBC Hgb RDW Lymph % (Auto) Absolute Neuts (auto) Seg Neutrophils % PT APTT Sodium BUN Creatinine Est GFR ( Amer) Est GFR (MDRD) Non-Af Glucose NT-Pro-B Natriuret Pep 3030 H Total Protein Discharge - Discharge Clinical Impression: Hip fracture, intertrochanteric Qualifiers: Encounter type: initial encounter Fracture type: closed Fracture alignment: nondisplaced Laterality: right Qualified Code(s): S72.144A - Nondisplaced in tertrochanteric fracture of right femur, initial encounter for closed fracture Leukocytosis Qualifiers: Leukocytosis type: unspecified Qualified Code(s): D72.829 - Elevated white blood cell count, unspecified Disposition: ADMITTED INPATIENT Admitting Provider: Mandy Unit Admitted: Medical Floor Referrals: TERRY SANDOVAL MD [Primary Care Provider] - Follow up as needed
[2020-01-15] MEDS: INSULIN REG, HUMAN 100 UNIT/ML 3 ML VIAL (PYX) SUBCUT SCH ×3 (01:06→11:31)
[2020-01-15] MEDS: METOPROLOL TARTRATE 100 MG TABLET PO SCH ×3 (01:11→22:24)
[2020-01-15 06:04] LABS: ABSOLUTE LYMPHOCYTES (AUTO) 1.7 10^3/uL (0.5-4.7); ABSOLUTE MONOCYTES (AUTO) 0.7 10^3/uL (0.1-1.4); ABSOLUTE NEUT (AUTO) 6.4 10^3/uL (1.7-8.2); BASOPHILS % (AUTO) 0.4 % (0-2); EOSINOPHILS % (AUTO) 0.2 % (0-6); HEMATOCRIT 35.5 % (37.9-51.0); HEMOGLOBIN 11.7 g/dL (13.5-17.0); LYMPHOCYTES % (AUTO) 19.5 % (13-45); MEAN CORPUSCULAR HEMOGLOBIN 27.9 pg (27.0-33.4); MEAN CORPUSCULAR HGB CONC 33.1 g/dL (32.0-36.0); MEAN CORPUSCULAR VOLUME 84 fl (80-97); MONOCYTES % (AUTO) 7.8 % (3-13); PLATELET COUNT 177 10^3/uL (150-450); RED BLOOD COUNT 4.21 10^6/uL (4.35-5.55); RED CELL DISTRIBUTION WIDTH 16.7 % (11.5-14.0); SEGMENTED NEUTROPHILS % (AUTO) 72.1 % (42-78); TOTAL CELLS COUNTED % (AUTO) 100 %; WHITE BLOOD COUNT 8.8 10^3/uL (4.0-10.5)
[2020-01-15 06:14] LABS: ANION GAP 12 (5-19); BLOOD UREA NITROGEN 32 mg/dL (7-20); CALCIUM 9.6 mg/dL (8.4-10.2); CARBON DIOXIDE 24 mmol/L (22-30); CHLORIDE 102 mmol/L (98-107); GLUCOSE 122 mg/dL (75-110); POTASSIUM 4.4 mmol/L (3.6-5.0)
[2020-01-15 07:44] LABS: INTERNATIONAL RATION (INR) 1.77; PROTHROMBIN TIME 20.7 SEC (11.4-15.4)
[2020-01-15] MEDS ORDERED: DEXTROSE 5%-1/2 NORMAL SALINE 1,000 ML IV PRN (09:11)
[2020-01-15] MEDS ORDERED: CEFAZOLIN SODIUM 2 GM in DEXTROSE 5%-WATER 100 ML IV PRN (09:13)
[2020-01-15] MEDS ORDERED: TRANEXAMIC ACID INJ/PF 1,000 MG/10 ML SDV IV PRN (09:14)
[2020-01-15] MEDS ORDERED: CEFAZOLIN 2 GM/D5W RTU 2 GM/50 ML RTUPB IV PRN (09:26)
--- NOTE | 2020-01-15 09:26 | PDOC CONSULTATION ---
Consultation Consult Date: 01/15/20 Attending physician:: CAMILA AUGUST Provider Consulted: BRENDA NAGEL Consult reason:: Right hip displaced intertrochanteric fracture History of Present Illness Admission Date/PCP: 01/15/20 00:46 TERRY SANDOVAL MD Patient complains of: Right hip pain following a fall History of Present Illness: MICHAEL PIZARRO is a 84 year old male with atrial fibrillation, type 2 diabetes, lung cancer post lobectomy, and COPD. He was recently discharged from the hospital after being treated for pneumonia. He sustained a low-energy fall yesterday outside his home while walking his dog. He presented to the emergency department complaining of right hip pain and inability to walk. Radiographic evaluation demonstrated a minimally displaced right hip intertrochanteric fracture. He denies lightheadedness or loss of consciousness. His only complaint is pain in his right hip. Past Medical History Cardiac Medical History: Reports: Atrial Fibrillation, Congestive Heart Failure, Hyperlipidema, Hypertension Pulmonary Medical History: Reports: Chronic Obstructive Pulmonary Disease (COPD), Pneumonia EENT Medical History: Reports: None Neurological Medical History: Reports: None Endocrine Medical History: Reports: Diabetes Mellitus Type 2 Malignancy Medical History: Reports: Lung Cancer - left 1/3 lung resected GI Medical History: Reports: None Musculoskeltal Medical History: Reports: Arthritis - Neck and back primarily with other joint involvement. 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, left lower lobectomy Social History Lives with: Alone Smoking Status: Former Smoker Electronic Cigarette use?: No Last Time Smoked: 03/12/1964 Frequency of Alcohol Use: Rare Hx Recreational Drug Use: No Drugs: None Hx Prescription Drug Abuse: No - Advance Directive Resuscitation Status: Full Code Family History Family History: Reviewed & Not Pertinent, DM Parental Family History Reviewed: No Children Family History Reviewed: No Sibling(s) Family History Reviewed.: No Medication/Allergy Home Medications: Dabigatran Etexilate Mesylate [Pradaxa 150 mg Capsule] 150 mg PO Q12 04/30/19 Metformin HCl [Glucophage] 1,000 mg PO BIDBS 04/30/19 Furosemide [Lasix 20 mg Tablet] 20 mg PO QAM 12/29/19 Tamsulosin HCl [Flomax] 0.4 mg PO DAILY 12/29/19 Metoprolol Tartrate [Lopressor] 100 mg PO Q12 30 Days #60 tablet 01/02/20 Amiodarone HCl [Amiodarone HCl 400 mg Tablet] 400 mg PO Q12 01/08/20 Diltiazem HCl [Diltiazem 12Hr ER] 120 mg PO Q12 01/15/20 Allergies/Adverse Reactions: aspirin Allergy (Verified 01/15/20 09:25) Review of Systems All systems: reviewed and no additional remarkable complaints except as stated - As per HPI Physical Exam Vital Signs: Temp Pulse Resp BP Pulse Ox 98.1 F 84 16 104/57 L 100 01/15/20 07:37 01/15/20 07:37 01/15/20 07:37 01/15/20 07:37 01/15/20 07:37 Intake & Output 01/14/20 01/15/20 01/16/20 06:59 06:59 06:59 Weight 68.7 kg General appearance: PRESENT: no acute distress, hard of hearing Head exam: PRESENT: atraumatic, normocephalic Eye exam: PRESENT: conjunctiva pink, EOMI, PERRLA. ABSENT: scleral icterus Mouth exam: PRESENT: moist, tongue midline Neck exam: PRESENT: full ROM Respiratory exam: PRESENT: clear to auscultation socorro. ABSENT: rales, rhonchi, wheezes Cardiovascular exam: PRESENT: RRR. ABSENT: diastolic murmur, rubs, systolic murmur Pulses: PRESENT: +2 pedal pulses bilateral GI/Abdominal exam: PRESENT: normal bowel sounds, soft. ABSENT: distended, guarding, mass, organolmegaly, rebound, tenderness Rectal exam: PRESENT: deferred Musculoskeletal exam: PRESENT: other - There is normal alignment of the right leg. The patient is able to dorsiflex and plantarflex the ankle. Sensation is intact to touch. 2+ DP and PT pulses. Results Laboratory Results: 01/15/20 04:59 01/15/20 04:59 01/14/20 01/14/20 01/14/20 21:25 21:25 22:06 WBC 14.6 H RBC 4.75 Hgb 13.2 L Hct 40.2 MCV 85 MCH 27.7 MCHC 32.7 RDW 16.7 H Plt Count 225 Seg Neutrophils % 84.4 H Sodium 135.7 L Potassium 4.4 Chloride 102 Carbon Dioxide 23 Anion Gap 11 BUN 34 H Creatinine 1.59 H Est GFR ( Amer) 50 L Glucose 146 H Calcium 9.8 Total Bilirubin 0.8 AST 29 Alkaline Phosphatase 79 Total Protein 8.3 H Albumin 4.4 Blood Type A NEGATIVE Antibody Screen NEGATIVE 01/15/20 01/15/20 04:59 04:59 WBC 8.8 RBC 4.21 L Hgb 11.7 L Hct 35.5 L MCV 84 MCH 27.9 MCHC 33.1 RDW 16.7 H Plt Count 177 Seg Neutrophils % 72.1 Sodium 138.2 Potassium 4.4 Chloride 102 Carbon Dioxide 24 Anion Gap 12 BUN 32 H Creatinine 1.37 H Est GFR ( Amer) > 60 Glucose 122 H Calcium 9.6 Total Bilirubin AST Alkaline Phosphatase Total Protein Albumin Blood Type Antibody Screen 01/14/20 21:25 NT-Pro-B Natriuret Pep 3030 H Impressions: Hip/Pelvis X-Ray 01/14/20 19:13 IMPRESSION: Acute nondisplaced nonangulated right intertrochanteric proximal femoral fracture Chest X-Ray 01/14/20 20:43 overt left rib fractures on the image provided. IMPRESSION: 1. Significant chronic findings. 2. There is increased left lower chest pleural parenchymal abnormality which may be related to trauma. The finding could also represent worsening of parenchymal abnormality related to the patient's interstitial lung disease and cancer. Assessment & Plan - Diagnosis (1) Intertrochanteric fracture of right hip Qualifiers: Encounter type: initial encounter Fracture alignment: displaced Is this a current diagnosis for this admission?: Yes - Time Time Spent: 30 to 50 Minutes Anticipated discharge: SNF Anticipated DC Timeframe: within 72 hours - Plan Summary Plan Summary: The patient has sustained a mildly displaced right hip intertrochanteric fracture. I have recommended open reduction internal fixation with a cephalomedullary gamma nail. Risk, benefits, and alternatives were discussed with the patient. An opportunity for questions was provided. All questions were answered to his satisfaction. The patient understands and wishes to proceed.
[2020-01-15 09:32] LABS: APPEARANCE,URINE CLEAR; BILIRUBIN,URINE NEGATIVE (NEGATIVE); COLOR,URINE YELLOW; GLUCOSE, URINE NEGATIVE (NEGATIVE); KETONES,URINE TRACE mg/dL (NEGATIVE); PROTEIN,URINE NEGATIVE (NEGATIVE); URINE SPECIFIC GRAVITY 1.015; UROBILINOGEN,URINE NEGATIVE mg/dL (<2.0)
[2020-01-15] MEDS ORDERED: MIDAZOLAM 2 MG/2 ML INJ ONE (10:34)
[2020-01-15] MEDS ORDERED: ONDANSETRON HCL INJ/PF 4 MG/2 ML SDV ONE (10:34)
[2020-01-15] MEDS ORDERED: PROPOFOL INJ 200 MG/20 ML VIAL IV ONE (10:34)
[2020-01-15] MEDS ORDERED: FENTANYL CITRATE INJ/PF 100 MCG/2 ML AMPUL ONE (10:34)
[2020-01-15] MEDS ORDERED: CEFAZOLIN INJ 1 GM VIAL ONE (10:57)
[2020-01-15] MEDS ORDERED: MORPHINE SULFATE 10 MG/ML INJ ONE (11:56)
[2020-01-15] MEDS ORDERED: ONDANSETRON HCL INJ/PF 4 MG/2 ML SDV IV PRN (12:32)
[2020-01-15] MEDS ORDERED: DIPHENHYDRAMINE HCL 50 MG/ML VIAL IV PRN (12:32)
[2020-01-15] MEDS ORDERED: OXYCODONE-ACETAMINOPHEN 5-325 MG TABLET PO PRN (12:32)
[2020-01-15] MEDS ORDERED: FENTANYL CITRATE INJ/PF 100 MCG/2 ML AMPUL IV PRN ×2 (12:32)
[2020-01-15] MEDS ORDERED: MORPHINE SULFATE 10 MG/ML INJ IV PRN (12:32)
--- NOTE | 2020-01-15 13:12 | Operative Report ---
Operative Report DATE OF SURGERY: 01/15/20 PREOPERATIVE DIAGNOSIS: Right hip displaced intertrochanteric fracture POSTOPERATIVE DIAGNOSIS: Right hip displaced intertrochanteric fracture OPERATION: Open reduction internal fixation with right hip cephalomedullary gamma nail SURGEON: BRENDA NAGEL COMPLICATIONS: None ESTIMATED BLOOD LOSS: 200 cc PROCEDURE: Indications for procedure: The patient is an 84-year-old man who sustained a low-energy fall at home yesterday resulting in a displaced intertrochanteric fracture of the right hip. Description of procedure: Following the induction of a general anesthetic and administration of 2 g of Ancef, the patient was positioned on the fracture table. All bony prominences were padded. Traction was placed on the right lower extremity to realign the fracture. Image intensification was brought in which confirmed anatomic alignment of the fracture. The right lower extremity was then sterilely prepped with ChloraPrep and draped in standard fashion. An incision was made proximal to the greater trochanter. Guidewire was placed centrally within the femur at the trochanteric insertion. The guidewire was then overreamed. A long guidewire was placed down the canal and its position checked proximally and distally. This long guidewire was then overreamed to a size 12. A 10 mm gamma nail was then placed down the medullary canal. With the guide for the gamma nail, a guidewire was placed centrally within the femoral head and neck. Its position was checked. It was then overreamed. A compression screw was placed centrally within the head. This was locked dynamically proximally. Both wounds were then copiously irrigated. The fascia was closed with 2-0 Vicryl. The subcutaneous tissue was closed with 2-0 barbed suture. The skin was reapproximated with a 3-0 Monocryl barbed suture. This was then over closed with a sterile glue tape construct. A sterile dressing was then applied. Patient tolerated procedure well without complication was brought recovery room in stable condition. Patient be maintained on 24 hours of antibiotics and begin therapy weightbearing as tolerated.
[2020-01-15] MEDS ORDERED: PHENYLEPHRINE HCL INJ/PF 10 MG/1 ML SDV ONE (14:48)
[2020-01-15] MEDS ORDERED: ETOMIDATE INJ/PF 20 MG/10 ML SDV IV ONE (14:48)
--- NOTE | 2020-01-15 15:11 | PDOC PROGRESS REPORT ---
Subjective Progress Note for:: 01/15/20 Subjective:: In the past 2 weeks, this patient has been discharged after a hospitalization for atrial fibrillation and congestive heart failure, readmitted and subsequently discharged for a pneumonia, and he is admitted this time for a mechanical fall at home with a hip fracture. He is going to the OR for surgery this morning. His vital signs have been stable. Reason For Visit: RIGHT FEMORAL FRACTURE Physical Exam Vital Signs: Temp Pulse Resp BP Pulse Ox 97.5 F 96 16 102/63 98 01/15/20 14:45 01/15/20 14:45 01/15/20 14:45 01/15/20 14:45 01/15/20 14:45 Intake & Output 01/14/20 01/15/20 01/16/20 06:59 06:59 06:59 Intake Total 200 Balance 200 Weight 68.7 kg General appearance: PRESENT: no acute distress, cooperative, thin Head exam: PRESENT: atraumatic, normocephalic Respiratory exam: PRESENT: clear to auscultation socorro, symmetrical, unlabored. ABSENT: accessory muscle use, chest wall tenderness, crackles, prolonged expiratory phas, rhonchi, tachypnea, wheezes Cardiovascular exam: PRESENT: RRR, +S1, +S2 Pulses: PRESENT: normal carotid pulses Vascular exam: PRESENT: normal capillary refill GI/Abdominal exam: PRESENT: normal bowel sounds, soft. ABSENT: distended, guarding, rebound, tenderness Extremities exam: PRESENT: other - Tenderness palpation over right hip. ABSENT: clubbing, pedal edema Neurological exam: PRESENT: alert, awake, oriented to person, oriented to place, oriented to situation Psychiatric exam: PRESENT: appropriate affect, normal mood Skin exam: PRESENT: dry, warm Results Laboratory Results: 01/15/20 04:59 01/15/20 04:59 01/14/20 01/14/20 01/14/20 21:25 21:25 22:06 WBC 14.6 H RBC 4.75 Hgb 13.2 L Hct 40.2 MCV 85 MCH 27.7 MCHC 32.7 RDW 16.7 H Plt Count 225 Seg Neutrophils % 84.4 H Sodium 135.7 L Potassium 4.4 Chloride 102 Carbon Dioxide 23 Anion Gap 11 BUN 34 H Creatinine 1.59 H Est GFR ( Amer) 50 L Glucose 146 H Calcium 9.8 Total Bilirubin 0.8 AST 29 Alkaline Phosphatase 79 Total Protein 8.3 H Albumin 4.4 Urine Color Urine Appearance Urine pH Ur Specific Lutz Urine Protein Urine Glucose (UA) Urine Ketones Urine Blood Urine RBC (Auto) Blood Type A NEGATIVE Antibody Screen NEGATIVE 01/15/20 01/15/20 01/15/20 04:59 04:59 08:40 WBC 8.8 RBC 4.21 L Hgb 11.7 L Hct 35.5 L MCV 84 MCH 27.9 MCHC 33.1 RDW 16.7 H Plt Count 177 Seg Neutrophils % 72.1 Sodium 138.2 Potassium 4.4 Chloride 102 Carbon Dioxide 24 Anion Gap 12 BUN 32 H Creatinine 1.37 H Est GFR ( Amer) > 60 Glucose 122 H Calcium 9.6 Total Bilirubin AST Alkaline Phosphatase Total Protein Albumin Urine Color YELLOW Urine Appearance CLEAR Urine pH 6.0 Ur Specific Lutz 1.015 Urine Protein NEGATIVE Urine Glucose (UA) NEGATIVE Urine Ketones TRACE H Urine Blood SMALL H Urine RBC (Auto) 5 Blood Type Antibody Screen 01/14/20 21:25 NT-Pro-B Natriuret Pep 3030 H Impressions: Hip/Pelvis X-Ray 01/14/20 19:13 IMPRESSION: Acute nondisplaced nonangulated right intertrochanteric proximal femoral fracture Chest X-Ray 01/14/20 20:43 overt left rib fractures on the image provided. IMPRESSION: 1. Significant chronic findings. 2. There is increased left lower chest pleural parenchymal abnormality which may be related to trauma. The finding could also represent worsening of parenchymal abnormality related to the patient's interstitial lung disease and cancer. Assessment and Plan - Diagnosis (1) Intertrochanteric fracture of right hip Qualifiers: Encounter type: initial encounter Fracture alignment: displaced Is this a current diagnosis for this admission?: Yes (2) Benign prostatic hyperplasia with lower urinary tract symptoms Qualifiers: Lower urinary tract symptom detail: urinary hesitancy Qualified Code(s): N40.1 - Benign prostatic hyperplasia with lower urinary tract symptoms; R39.11 - Hesitancy of micturition Is this a current diagnosis for this admission?: Yes (3) Diabetes mellitus type 2 in nonobese Is this a current diagnosis for this admission?: Yes (4) Heart failure with reduced ejection fraction Is this a current diagnosis for this admission?: Yes (5) History of lobectomy of lung Is this a current diagnosis for this admission?: Yes (6) History of lung cancer Is this a current diagnosis for this admission?: Yes (7) Longstanding persistent atrial fibrillation Is this a current diagnosis for this admission?: Yes - Plan Summary Summary: His comorbidities are all stable and will be managed with his home medications. His kidney function is at baseline. He is n.p.o. awaiting surgery to repair his hip fracture today. We will follow up on orthopedics recommendations postoperatively. - Time Time Spent with patient: 15-24 minutes Anticipated Discharge Disposition: [facility] Anticipated Discharge Timeframe: within 72 hours
--- NOTE | 2020-01-15 15:48 | RADIOLOGY REPORT (SQ) ---
EXAM DESCRIPTION: NO CHG FLUORO; HIP RIGHT AP/LATERAL IMAGES COMPLETED DATE/TIME: 01/15/2020 3:26 pm REASON FOR STUDY: ORIF/IM NAILING RIGHT HIP ASSISTED WITH FLUORO IN OR COMPARISON: None. FLUOROSCOPY TIME: 0.9 minutes 7 Images saved to PACS LIMITATIONS: None. PROCEDURE: ORIF right hip FINDINGS: Images from fluoro document placement of a long medullary diony in the femur and a long pedro ulated screw through the femoral neck. IMPRESSION: ORIF right hip. Refer to operative note for further information. COMMENT: PQRS 6045F: Fluoroscopy time of the procedure is documented in the report. TECHNICAL DOCUMENTATION: JOB ID: [id number] 2010 [employer]- All Rights Reserved Reading location - IP/workstation name: [email or web address]
--- NOTE | 2020-01-15 15:48 | RADIOLOGY REPORT (SQ) ---
EXAM DESCRIPTION: NO CHG FLUORO; HIP RIGHT AP/LATERAL IMAGES COMPLETED DATE/TIME: 01/15/2020 3:26 pm REASON FOR STUDY: ORIF/IM NAILING RIGHT HIP ASSISTED WITH FLUORO IN OR COMPARISON: None. FLUOROSCOPY TIME: 0.9 minutes 7 Images saved to PACS LIMITATIONS: None. PROCEDURE: ORIF right hip FINDINGS: Images from fluoro document placement of a long medullary diony in the femur and a long pedro ulated screw through the femoral neck. IMPRESSION: ORIF right hip. Refer to operative note for further information. COMMENT: PQRS 6045F: Fluoroscopy time of the procedure is documented in the report. TECHNICAL DOCUMENTATION: JOB ID: [id number] 2010 [employer]- All Rights Reserved Reading location - IP/workstation name: [email or web address]
[2020-01-15] MEDS ORDERED: TRAMADOL HCL 50 MG TABLET PO PRN (17:37)
[2020-01-15] MEDS ORDERED: NORMAL SALINE 1000 ML 1,000 ML IV ONE (18:00)
[2020-01-15] MEDS ORDERED: DEXTROSE 40% GEL 15 GM TUBE PO PRN (18:00)
[2020-01-15] MEDS ORDERED: DEXTROSE 40% GEL 15 GM TUBE X 2 PO PRN (18:00)
[2020-01-15] MEDS ORDERED: DEXTROSE 50%-WATER SYRINGE 25 GM/50 ML DOSE IV PRN (18:00)
[2020-01-15] MEDS ORDERED: GLUCAGON,HUMAN RECOMB 1 MG INJ IM PRN (18:00)
[2020-01-15] MEDS ORDERED: DEXTROSE 50%-WATER SYRINGE 12.5 GM/25 ML DOSE IV PRN (18:00)
[2020-01-15] MEDS ORDERED: INSULIN LISPRO 100 UNIT/ML 3 ML VIAL SUBCUT ONE (18:15)
[2020-01-15] MEDS: INSULIN LISPRO 100 UNIT/ML 3 ML VIAL SUBCUT SCH (22:22)
[2020-01-15] MEDS: CEFAZOLIN SODIUM 2 GM in DEXTROSE 5%-WATER 100 ML IV SCH (22:24)
[2020-01-16] MEDS: CEFAZOLIN SODIUM 2 GM in DEXTROSE 5%-WATER 100 ML IV SCH ×2 (05:06→13:26)
[2020-01-16 05:16] LABS: ABSOLUTE BASOPHILS # (AUTO) 0.1 10^3/uL (0.0-0.2); ABSOLUTE EOSINOPHILS # (AUTO) 0.1 10^3/uL (0.0-0.6); ABSOLUTE LYMPHOCYTES (AUTO) 1.9 10^3/uL (0.5-4.7); ABSOLUTE MONOCYTES (AUTO) 0.9 10^3/uL (0.1-1.4); BASOPHILS % (AUTO) 0.8 % (0-2); EOSINOPHILS % (AUTO) 0.7 % (0-6); HEMOGLOBIN 10.3 g/dL (13.5-17.0); LYMPHOCYTES % (AUTO) 23.6 % (13-45); MEAN CORPUSCULAR HEMOGLOBIN 28.8 pg (27.0-33.4); MEAN CORPUSCULAR HGB CONC 34.2 g/dL (32.0-36.0); MEAN CORPUSCULAR VOLUME 84 fl (80-97); MONOCYTES % (AUTO) 11.9 % (3-13); PLATELET COUNT 163 10^3/uL (150-450); RED BLOOD COUNT 3.57 10^6/uL (4.35-5.55); RED CELL DISTRIBUTION WIDTH 16.6 % (11.5-14.0); TOTAL CELLS COUNTED % (AUTO) 100 %; WHITE BLOOD COUNT 7.9 10^3/uL (4.0-10.5)
[2020-01-16 05:41] LABS: ANION GAP 9 (5-19); BLOOD UREA NITROGEN 29 mg/dL (7-20); CALCIUM 8.7 mg/dL (8.4-10.2); CARBON DIOXIDE 22 mmol/L (22-30); CHLORIDE 104 mmol/L (98-107); GLUCOSE 129 mg/dL (75-110); POTASSIUM 4.2 mmol/L (3.6-5.0)
[2020-01-16] MEDS ORDERED: TRANEXAMIC ACID INJ/PF 1,000 MG/10 ML SDV IV ONE (08:00)
[2020-01-16] MEDS: OXYCODONE-ACETAMINOPHEN 5-325 MG TABLET PO PRN (08:14)
[2020-01-16] MEDS: AMIODARONE HCL 200 MG TABLET PO SCH ×2 (09:20→21:06)
[2020-01-16] MEDS: TAMSULOSIN HCL 0.4 MG CAP.SR.24H PO SCH (09:20)
[2020-01-16] MEDS: METOPROLOL TARTRATE 100 MG TABLET PO SCH ×2 (09:20→21:06)
[2020-01-16] MEDS: DABIGATRAN ETEXILATE 150 MG CAPSULE PO SCH ×2 (09:20→21:06)
[2020-01-16] MEDS: INSULIN LISPRO 100 UNIT/ML 3 ML VIAL SUBCUT SCH ×4 (09:21→21:08)
[2020-01-16] MEDS ORDERED: DILTIAZEM HCL 120 MG CAP.SR.24H PO SCH (10:00)
--- NOTE | 2020-01-16 15:35 | PDOC PROGRESS REPORT ---
Subjective Progress Note for:: 01/16/20 Subjective:: The patient reports that he had experienced significant discomfort in the hip when out of bed with therapy. The pain has remitted now that he is back in bed and he has no discomfort with motion of his hip, knee, or ankle. He has no other complaints. Reason For Visit: RIGHT FEMORAL FRACTURE Postoperative day #1 status post cephalomedullary nail for right hip intertrochanteric fracture Physical Exam Vital Signs: Temp Pulse Resp BP Pulse Ox 98.7 F 100 16 102/59 L 95 01/16/20 10:00 01/16/20 07:41 01/16/20 07:41 01/16/20 07:41 01/16/20 07:41 Intake & Output 01/15/20 01/16/20 01/17/20 06:59 06:59 06:59 Intake Total 2400 Balance 2400 Weight 68.7 kg 68.7 kg General appearance: PRESENT: no acute distress, well-developed, well-nourished Head exam: PRESENT: atraumatic, normocephalic Eye exam: PRESENT: conjunctiva pink, EOMI, PERRLA. ABSENT: scleral icterus Ear exam: PRESENT: normal external ear exam Mouth exam: PRESENT: moist, tongue midline Neck exam: ABSENT: carotid bruit, JVD, lymphadenopathy, thyromegaly Respiratory exam: PRESENT: clear to auscultation socorro. ABSENT: rales, rhonchi, wheezes Cardiovascular exam: PRESENT: RRR. ABSENT: diastolic murmur, rubs, systolic murmur Pulses: PRESENT: normal dorsalis pedis pul Vascular exam: PRESENT: normal capillary refill GI/Abdominal exam: PRESENT: normal bowel sounds, soft. ABSENT: distended, g uarding, mass, organolmegaly, rebound, tenderness Rectal exam: PRESENT: deferred Extremities exam: PRESENT: full ROM. ABSENT: calf tenderness, clubbing, pedal edema Musculoskeletal exam: PRESENT: other - The operative dressings are in place. There is no wound drainage. There is no discomfort with active motion of the hip or knee. The patient is able to dorsiflex and plantarflex the foot. Sensation is intact. 2+ DP and PT pulses. Neurological exam: PRESENT: alert, awake, oriented to person, oriented to place, oriented to time, oriented to situation, CN II-XII grossly intact. ABSENT: joanna r sensory deficit Psychiatric exam: PRESENT: appropriate affect, normal mood. ABSENT: homicidal ideation, suicidal ideation Skin exam: PRESENT: dry, intact, warm. ABSENT: cyanosis, rash Results Laboratory Results: 01/16/20 04:40 01/16/20 04:40 01/16/20 01/16/20 04:40 04:40 WBC 7.9 RBC 3.57 L Hgb 10.3 L Hct 30.0 L MCV 84 MCH 28.8 MCHC 34.2 RDW 16.6 H Plt Count 163 Seg Neutrophils % 63.0 Sodium 134.6 L Potassium 4.2 Chloride 104 Carbon Dioxide 22 Anion Gap 9 BUN 29 H Creatinine 1.19 Est GFR ( Amer) > 60 Glucose 129 H Calcium 8.7 01/14/20 21:25 NT-Pro-B Natriuret Pep 3030 H Impressions: Chest X-Ray 01/14/20 20:43 overt left rib fractures on the image provided. IMPRESSION: 1. Significant chronic findings. 2. There is increased left lower chest pleural parenchymal abnormality which may be related to trauma. The finding could also represent worsening of parenchymal abnormality related to the patient's interstitial lung disease and cancer. Fluoroscopy 01/15/20 00:00 IMPRESSION: ORIF right hip. Refer to operative note for further information. Hip/Pelvis X-Ray 01/15/20 00:00 IMPRESSION: ORIF right hip. Refer to operative note for further information. Assessment & Plan - Diagnosis (1) Intertrochanteric fracture of right hip Qualifiers: Encounter type: initial encounter Fracture alignment: displaced Is this a current diagnosis for this admission?: Yes - Time Critical Time spent with patient: 15-24 minutes Medications reviewed and adjusted accordingly: Yes Anticipated Discharge Disposition: Longterm Facility Anticipated Discharge Timeframe: within 24 hours - Plan Summary Plan Summary: Postoperative day #1 status post cephalomedullary nail for right hip in tertrochanteric fracture 1. 24 hours of perioperative antibiotics. 2. DVT prophylaxis: The patient is back on his Pradaxa which will serve as postoperative DVT prophylaxis as well as treatment for his atrial fibrillation. 3. Physical therapy: Weightbearing as tolerated with assist device. No hip precautions. 4. Dispo: The patient is clear from an orthopedic standpoint for discharge. The patient's blood count is in an acceptable range. As long as this remains stable with tomorrow's lab draw, I would recommend discharge to a detention facility when bed available. The patient should follow-up in my office 2 weeks following discharge for a wound check.
[2020-01-16] MEDS ORDERED: GUAIFENESIN SYRP 200 MG/10 ML UDC PO PRN (18:46)
--- NOTE | 2020-01-16 18:49 | PDOC PROGRESS REPORT ---
Subjective Progress Note for:: 01/16/20 Subjective:: c/o cough Reason For Visit: RIGHT FEMORAL FRACTURE Physical Exam Vital Signs: Temp Pulse Resp BP Pulse Ox 98.5 F 97 15 100/52 L 98 01/16/20 15:20 01/16/20 15:20 01/16/20 15:20 01/16/20 15:20 01/16/20 15:20 Intake & Output 01/15/20 01/16/20 01/17/20 06:59 06:59 06:59 Intake Total 2400 Balance 2400 Weight 68.7 kg 68.7 kg General appearance: PRESENT: no acute distress, cooperative Neck exam: ABSENT: JVD Respiratory exam: PRESENT: unlabored. ABSENT: wheezes Cardiovascular exam: PRESENT: +S1, +S2. ABSENT: tachycardia GI/Abdominal exam: PRESENT: soft. ABSENT: tenderness Neurological exam: PRESENT: alert, awake, oriented to person, oriented to place, oriented to time Results Laboratory Results: 01/16/20 04:40 01/16/20 04:40 01/16/20 01/16/20 04:40 04:40 WBC 7.9 RBC 3.57 L Hgb 10.3 L Hct 30.0 L MCV 84 MCH 28.8 MCHC 34.2 RDW 16.6 H Plt Count 163 Seg Neutrophils % 63.0 Sodium 134.6 L Potassium 4.2 Chloride 104 Carbon Dioxide 22 Anion Gap 9 BUN 29 H Creatinine 1.19 Est GFR ( Amer) > 60 Glucose 129 H Calcium 8.7 01/14/20 21:25 NT-Pro-B Natriuret Pep 3030 H Impressions: Chest X-Ray 01/14/20 20:43 overt left rib fractures on the image provided. IMPRESSION: 1. Significant chronic findings. 2. There is increased left lower chest pleural parenchymal abnormality which may be related to trauma. The finding could also represent worsening of parenchymal abnormality related to the patient's interstitial lung disease and cancer. Fluoroscopy 01/15/20 00:00 IMPRESSION: ORIF right hip. Refer to operative note for further information. Hip/Pelvis X-Ray 01/15/20 00:00 IMPRESSION: ORIF right hip. Refer to operative note for further information. Assessment and Plan - Diagnosis (1) Intertrochanteric fracture of right hip Qualifiers: Encounter type: initial encounter Fracture alignment: displaced Is this a current diagnosis for this admission?: Yes (2) Benign prostatic hyperplasia with lower urinary tract symptoms Qualifiers: Lower urinary tract symptom detail: urinary hesitancy Qualified Code(s): N40.1 - Benign prostatic hyperplasia with lower urinary tract symptoms; R39.11 - Hesitancy of micturition Is this a current diagnosis for this admission?: Yes (3) Diabetes mellitus type 2 in nonobese Is this a current diagnosis for this admission?: Yes (4) Heart failure with reduced ejection fraction Is this a current diagnosis for this admission?: Yes (5) History of lobectomy of lung Is this a current diagnosis for this admission?: Yes (6) History of lung cancer Is this a current diagnosis for this admission?: Yes (7) Longstanding persistent atrial fibrillation Is this a current diagnosis for this admission?: Yes - Plan Summary Summary: Resume cardiac medications. Notably he takes diltiazem at home but this is to be placed on hold due to his depressed EF. Not currently an active heart failure. Pain control for his hip pain. PT/OT. Discharge planning consulted. - Time Time Spent with patient: Less than 15 minutes Anticipated Discharge Disposition: [facility] Facility Anticipated Discharge Timeframe: within 48 hours
[2020-01-16] MEDS: GUAIFENESIN 600 MG TABLET.SA PO SCH (21:06)
[2020-01-17] MEDS: OXYCODONE-ACETAMINOPHEN 5-325 MG TABLET PO PRN ×2 (05:31→09:57)
[2020-01-17 06:30] LABS: ABSOLUTE EOSINOPHILS # (AUTO) 0.2 10^3/uL (0.0-0.6); ABSOLUTE LYMPHOCYTES (AUTO) 1.5 10^3/uL (0.5-4.7); ABSOLUTE MONOCYTES (AUTO) 0.9 10^3/uL (0.1-1.4); ABSOLUTE NEUT (AUTO) 5.6 10^3/uL (1.7-8.2); BASOPHILS % (AUTO) 0.4 % (0-2); EOSINOPHILS % (AUTO) 1.9 % (0-6); HEMOGLOBIN 9.6 g/dL (13.5-17.0); MEAN CORPUSCULAR HEMOGLOBIN 28.7 pg (27.0-33.4); MEAN CORPUSCULAR HGB CONC 34.2 g/dL (32.0-36.0); MEAN CORPUSCULAR VOLUME 84 fl (80-97); MONOCYTES % (AUTO) 10.5 % (3-13); PLATELET COUNT 161 10^3/uL (150-450); RED BLOOD COUNT 3.33 10^6/uL (4.35-5.55); RED CELL DISTRIBUTION WIDTH 16.6 % (11.5-14.0); SEGMENTED NEUTROPHILS % (AUTO) 69.2 % (42-78); TOTAL CELLS COUNTED % (AUTO) 100 %; WHITE BLOOD COUNT 8.1 10^3/uL (4.0-10.5)
[2020-01-17] MEDS: INSULIN LISPRO 100 UNIT/ML 3 ML VIAL SUBCUT SCH ×4 (07:54→21:05)
[2020-01-17] MEDS: GUAIFENESIN 600 MG TABLET.SA PO SCH ×2 (09:56→21:04)
[2020-01-17] MEDS: AMIODARONE HCL 200 MG TABLET PO SCH ×2 (09:56→21:04)
[2020-01-17] MEDS: METOPROLOL TARTRATE 100 MG TABLET PO SCH (09:56)
[2020-01-17] MEDS: TAMSULOSIN HCL 0.4 MG CAP.SR.24H PO SCH (09:56)
[2020-01-17] MEDS: DABIGATRAN ETEXILATE 150 MG CAPSULE PO SCH ×2 (09:56→21:04)
--- NOTE | 2020-01-17 16:40 | PDOC PROGRESS REPORT ---
Subjective Progress Note for:: 01/17/20 Subjective:: Patient feels well today. Okay with going to rehab. Did feel lightheaded when working with physical therapist and had to be sat back down. His blood pressure at the time was 90s over 50s. He does have soft blood pressures which is not too surprising given his cardiomyopathy with EF of less than 20%. Did encourage him to drink some water. Reason For Visit: RIGHT FEMORAL FRACTURE Physical Exam Vital Signs: Temp Pulse Resp BP Pulse Ox 97.9 F 80 16 92/50 L 93 01/17/20 11:41 01/17/20 13:18 01/17/20 11:41 01/17/20 13:18 01/17/20 11:41 Intake & Output 01/16/20 01/17/20 01/18/20 06:59 06:59 06:59 Intake Total 2400 300 480 Output Total 475 Balance 2400 -175 480 Weight 68.7 kg 70.8 kg General appearance: PRESENT: no acute distress, cooperative Neck exam: ABSENT: JVD Respiratory exam: PRESENT: unlabored. ABSENT: crackles, rales, wheezes Cardiovascular exam: PRESENT: irregular rhythm, +S1, +S2, tachycardia GI/Abdominal exam: PRESENT: soft. ABSENT: tenderness Neurological exam: PRESENT: alert, awake, oriented to person, oriented to place Results Laboratory Results: 01/17/20 05:49 01/16/20 04:40 01/17/20 05:49 WBC 8.1 RBC 3.33 L Hgb 9.6 L Hct 28.0 L MCV 84 MCH 28.7 MCHC 34.2 RDW 16.6 H Plt Count 161 Seg Neutrophils % 69.2 01/14/20 21:25 NT-Pro-B Natriuret Pep 3030 H Impressions: Chest X-Ray 01/14/20 20:43 overt left rib fractures on the image provided. IMPRESSION: 1. Significant chronic findings. 2. There is increased left lower chest pleural parenchymal abnormality which may be related to trauma. The finding could also represent worsening of parenchymal abnormality related to the patient's interstitial lung disease and cancer. Fluoroscopy 01/15/20 00:00 IMPRESSION: ORIF right hip. Refer to operative note for further information. Hip/Pelvis X-Ray 01/15/20 00:00 IMPRESSION: ORIF right hip. Refer to operative note for further information. Assessment and Plan - Diagnosis (1) Intertrochanteric fracture of right hip Qualifiers: Encounter type: initial encounter Fracture alignment: displaced Is this a current diagnosis for this admission?: Yes Plan: S/p ORIF on 01-14 Pain control as needed PT recommending SNF Discharge planning consulted for SNF (2) Heart failure with reduced ejection fraction Is this a current diagnosis for this admission?: Yes Plan: ef < 20%. Not volume overloaded currently. Switch Lopressor to Toprol-XL. (3) Longstanding persistent atrial fibrillation Is this a current diagnosis for this admission?: Yes Plan: Continue amiodarone and beta-amer[place]. Continue Pradaxa. (4) Benign prostatic hyperplasia with lower urinary tract symptoms Qualifiers: Lower urinary tract symptom detail: urinary hesitancy Qualified Code(s): N40.1 - Benign prostatic hyperplasia with lower urinary tract symptoms; R39.11 - Hesitancy of micturition Is this a current diagnosis for this admission?: Yes (5) Diabetes mellitus type 2 in nonobese Is this a current diagnosis for this admission?: Yes (6) History of lobectomy of lung Is this a current diagnosis for this admission?: Yes (7) History of lung cancer Is this a current diagnosis for this admission?: Yes - Time Time Spent with patient: Less than 15 minutes Anticipated Discharge Disposition: Residential Facility Anticipated Discharge Timeframe: when bed available
[2020-01-18] MEDS: METOPROLOL SUCCINATE 50 MG TAB.SR.24H PO SCH ×3 (00:33→21:00)
[2020-01-18 06:17] LABS: HEMATOCRIT 26.9 % (37.9-51.0); HEMOGLOBIN 9.1 g/dL (13.5-17.0); MEAN CORPUSCULAR HEMOGLOBIN 28.5 pg (27.0-33.4); MEAN CORPUSCULAR HGB CONC 33.8 g/dL (32.0-36.0); MEAN CORPUSCULAR VOLUME 85 fl (80-97); PLATELET COUNT 170 10^3/uL (150-450); RED BLOOD COUNT 3.18 10^6/uL (4.35-5.55); RED CELL DISTRIBUTION WIDTH 16.9 % (11.5-14.0); WHITE BLOOD COUNT 7.9 10^3/uL (4.0-10.5)
[2020-01-18] MEDS: INSULIN LISPRO 100 UNIT/ML 3 ML VIAL SUBCUT SCH ×4 (07:43→21:00)
[2020-01-18] MEDS: AMIODARONE HCL 200 MG TABLET PO SCH ×2 (09:24→21:00)
[2020-01-18] MEDS: DABIGATRAN ETEXILATE 150 MG CAPSULE PO SCH ×2 (09:24→21:00)
[2020-01-18] MEDS: TAMSULOSIN HCL 0.4 MG CAP.SR.24H PO SCH (09:25)
[2020-01-18] MEDS: GUAIFENESIN 600 MG TABLET.SA PO SCH ×2 (09:25→21:00)
[2020-01-18] MEDS: DOCUSATE SODIUM 100 MG CAPSULE PO SCH ×2 (10:29→17:20)
[2020-01-18] MEDS ORDERED: ACETAMINOPHEN 325 MG TABLET ONE (11:00)
[2020-01-18] MEDS ORDERED: ONDANSETRON HCL INJ/PF 4 MG/2 ML SDV IV PRN (11:46)
--- NOTE | 2020-01-18 13:33 | PDOC PROGRESS REPORT ---
Subjective Progress Note for:: 01/18/20 Subjective:: Patient feels well today. He has no acute events. Denies any lightheadedness currently. Has not had a bowel movement. We will give him some Colace. Agreeable to going to rehab. Reason For Visit: RIGHT FEMORAL FRACTURE Physical Exam Vital Signs: Temp Pulse Resp BP Pulse Ox 98.5 F 108 H 18 106/56 L 97 01/18/20 08:50 01/18/20 07:49 01/18/20 07:49 01/18/20 07:49 01/18/20 07:49 Intake & Output 01/17/20 01/18/20 01/19/20 06:59 06:59 06:59 Intake Total 300 1020 240 Output Total 475 550 150 Balance -175 470 90 Weight 70.8 kg 69.9 kg General appearance: PRESENT: no acute distress, cooperative Neck exam: ABSENT: JVD Respiratory exam: PRESENT: crackles - Mild in the lung bases, symmetrical, unlabored. ABSENT: accessory muscle use, prolonged expiratory phas, retraction, tachypnea Cardiovascular exam: PRESENT: irregular rhythm, +S1, +S2 GI/Abdominal exam: PRESENT: soft. ABSENT: tenderness Neurological exam: PRESENT: alert, awake Psychiatric exam: ABSENT: agitated, anxious Results Laboratory Results: 01/18/20 05:41 01/16/20 04:40 01/18/20 05:41 WBC 7.9 RBC 3.18 L Hgb 9.1 L Hct 26.9 L MCV 85 MCH 28.5 MCHC 33.8 RDW 16.9 H Plt Count 170 01/15/20 08:40 Clean Catch Midstream Urine Culture - Final NO GROWTH 2 DAYS 01/14/20 21:25 NT-Pro-B Natriuret Pep 3030 H Impressions: Chest X-Ray 01/14/20 20:43 overt left rib fractures on the image provided. IMPRESSION: 1. Significant chronic findings. 2. There is increased left lower chest pleural parenchymal abnormality which may be related to trauma. The finding could also represent worsening of parenchymal abnormality related to the patient's interstitial lung disease and cancer. Fluoroscopy 01/15/20 00:00 IMPRESSION: ORIF right hip. Refer to operative note for further information. Hip/Pelvis X-Ray 01/15/20 00:00 IMPRESSION: ORIF right hip. Refer to operative note for further information. Assessment and Plan - Diagnosis (1) Intertrochanteric fracture of right hip Qualifiers: Encounter type: initial encounter Fracture alignment: displaced Is this a current diagnosis for this admission?: Yes Plan: S/p ORIF on 01-14 Pain control as needed PT recommending SNF Discharge planning consulted for SNF (2) Heart failure with reduced ejection fraction Is this a current diagnosis for this admission?: Yes Plan: ef < 20%. Not volume overloaded currently. Switched Lopressor to Toprol-XL. Has soft Bps making addition of ACEI/ARB/ARNI difficult (3) Longstanding persistent atrial fibrillation Is this a current diagnosis for this admission?: Yes Plan: Continue amiodarone and beta-amer[place]. Continue Pradaxa. (4) Benign prostatic hyperplasia with lower urinary tract symptoms Qualifiers: Lower urinary tract symptom detail: urinary hesitancy Qualified Code(s): N40.1 - Benign prostatic hyperplasia with lower urinary tract symptoms; R39.11 - Hesitancy of micturition Is this a current diagnosis for this admission?: Yes (5) Diabetes mellitus type 2 in nonobese Is this a current diagnosis for this admission?: Yes (6) History of lobectomy of lung Is this a current diagnosis for this admission?: Yes (7) History of lung cancer Is this a current diagnosis for this admission?: Yes - Time Anticipated Discharge Disposition: Nursing Home Facility Anticipated Discharge Timeframe: when bed available
[2020-01-19] MEDS: INSULIN LISPRO 100 UNIT/ML 3 ML VIAL SUBCUT SCH ×3 (07:36→16:23)
[2020-01-19 07:47] LABS: ANION GAP 7 (5-19); BLOOD UREA NITROGEN 22 mg/dL (7-20); CALCIUM 8.6 mg/dL (8.4-10.2); CARBON DIOXIDE 24 mmol/L (22-30); CHLORIDE 104 mmol/L (98-107); GLUCOSE 109 mg/dL (75-110)
[2020-01-19] MEDS: OXYCODONE-ACETAMINOPHEN 5-325 MG TABLET PO PRN (08:43)
[2020-01-19] MEDS ORDERED: NORMAL SALINE 1000 ML 1,000 ML IV PRN (10:00)
[2020-01-19] MEDS ORDERED: NORMAL SALINE 500 ML IV PRN (10:15)
[2020-01-19] MEDS: DABIGATRAN ETEXILATE 150 MG CAPSULE PO SCH (10:18)
[2020-01-19] MEDS: TAMSULOSIN HCL 0.4 MG CAP.SR.24H PO SCH (10:18)
[2020-01-19] MEDS: DOCUSATE SODIUM 100 MG CAPSULE PO SCH ×2 (10:18→17:06)
[2020-01-19] MEDS: GUAIFENESIN 600 MG TABLET.SA PO SCH (10:18)
[2020-01-19] MEDS: AMIODARONE HCL 200 MG TABLET PO SCH (10:28)
[2020-01-19] MEDS: METOPROLOL SUCCINATE 50 MG TAB.SR.24H PO SCH (10:33)
[2020-01-19] MEDS ORDERED: NORMAL SALINE 1000 ML 500 ML IV PRN (10:41)
[2020-01-19] MEDS ORDERED: ACETAMINOPHEN 325 MG TABLET PO PRN (12:56)
[2020-01-19] MEDS ORDERED: METOPROLOL SUCCINATE 50 MG TAB.SR.24H PO ONE (13:00)
--- NOTE | 2020-01-19 13:06 | PDOC TRANSFER SUMMARY ---
Impression - Admit/DC Date/PCP Admission Date/Primary Care Provider: 01/15/20 00:46 TERRY SANDOVAL MD Discharge Date: 01/19/20 - Discharge Diagnosis (1) Intertrochanteric fracture of right hip Is this a current diagnosis for this admission?: Yes (2) Heart failure with reduced ejection fraction Is this a current diagnosis for this admission?: Yes (3) Longstanding persistent atrial fibrillation Is this a current diagnosis for this admission?: Yes (4) Benign prostatic hyperplasia with lower urinary tract symptoms Is this a current diagnosis for this admission?: Yes (5) Diabetes mellitus type 2 in nonobese Is this a current diagnosis for this admission?: Yes (6) History of lobectomy of lung Is this a current diagnosis for this admission?: Yes (7) History of lung cancer Is this a current diagnosis for this admission?: Yes - Additional Information Resuscitation Status: Full Code Referrals: LIZ CAMPOS MD [ACTIVE STAFF] - BRENDA LUZ MD [ACTIVE STAFF] - 02/03/20 11:00 am (01/14 S/P RIGHT HIP FX) Prescriptions: Metoprolol Succinate [Toprol Xl 25 mg Tab.sr] 75 mg PO Q12 30 Days Home Medications: Dabigatran Etexilate Mesylate [Pradaxa 150 mg Capsule] 150 mg PO Q12 04/30/19 Metformin HCl [Glucophage] 1,000 mg PO BIDBS 04/30/19 Tamsulosin HCl [Flomax] 0.4 mg PO DAILY 12/29/19 Acetaminophen [Tylenol 325 mg Tablet] 975 mg PO Q4HP PRN tablet 01/19/20 Amiodarone HCl [Cordarone 200 mg Tablet] 200 mg PO Q12 tablet 01/19/20 Docusate Sodium [Colace 100 mg Capsule] 100 mg PO DAILY capsule 01/19/20 Furosemide [Lasix 20 mg Tablet] 20 mg PO Q2D #0 01/19/20 Metoprolol Succinate [Toprol Xl 25 mg Tab.sr] 75 mg PO Q12 30 Days 01/19/20 History of Present Illiness History of Present Illness: HPI according to admitting provider: MICHAEL PIZARRO is a 84 year old male with a history of lung cancer status post lobectomy, A. fib on anticoagulation, type 2 diabetes, heart failure and BPH who was recently discharged from hospital after being treated for pneumonia now presents to the ED after he sustained a fall while he was trying to get outdoor to walk his dog. Patient states that he had no dizziness/lightheadedness, shortness of breath, chest pain, palpitation or loss of consciousness immediately before during or after the fall. Currently patient reports 8/10 intensity right hip pain which is dull aching in character, nonradiating and aggravated by movement. He denies any cough, fever, chills, nausea, vomiting. He denies any head injury during the incident. He had no bleeding from the site. X-ray done at the ED shows acute nondisplaced and nonangulated right i nternal trochanteric proximal femoral fracture and orthopedic surgeon was contacted and recommended admitting patient for possible surgery in the a.m. Hospital Course Hospital Course: (1) Intertrochanteric fracture of right hip Qualifiers: Encounter type: initial encounter Fracture alignment: displaced Is this a current diagnosis for this admission?: Yes Plan: S/p ORIF on 01/[address] Luz who recommends follow-up in his clinic in 2 weeks to recheck wound. Weightbearing as tolerated with assistive device. Pain control as needed PT recommending SNF (2) Heart failure with reduced ejection fraction Is this a current diagnosis for this admission?: Yes Plan: Chronic systolic failure. ef < 20%. Not volume overloaded currently. Switched Lopressor to Toprol-XL. Patient's BP runs quite soft making addition of ACEI/ARB/ARNI difficult. F/u with Dr. Liz Campos. (3) Longstanding persistent atrial fibrillation Is this a current diagnosis for this admission?: Yes Plan: Amiodarone dose reduced to 200mg bid. C/w toprol XL. Continue Pradaxa. Discontinued Diltiazem. Will need f/u w/ Dr. Liz Campos within 2 weeks. (4) Benign prostatic hyperplasia with lower urinary tract symptoms Qualifiers: Lower urinary tract symptom detail: urinary hesitancy Qualified Code(s): N40.1 - Benign prostatic hyperplasia with lower urinary tract symptoms; R39.11 - Hesitancy of micturition Is this a current diagnosis for this admission?: Yes (5) Diabetes mellitus type 2 in nonobese Is this a current diagnosis for this admission?: Yes (6) History of lobectomy of lung Is this a current diagnosis for this admission?: Yes (7) History of lung cancer Is this a current diagnosis for this admission?: Yes Physical Exam Vital Signs: Temp Pulse Resp BP Pulse Ox 97.4 F 102 H 16 98/74 L 100 01/19/20 11:21 01/19/20 11:21 01/19/20 11:21 01/19/20 11:21 01/19/20 11:21 Intake & Output 01/18/20 01/19/20 01/20/20 06:59 06:59 06:59 Intake Total 1020 418 240 Output Total 550 650 Balance 470 -232 240 Weight 69.9 kg 69.9 kg General appearance: PRESENT: no acute distress, cooperative Neck exam: ABSENT: JVD Respiratory exam: PRESENT: crackles - mild basilar, unlabored. ABSENT: wheezes Cardiovascular exam: PRESENT: irregular rhythm, +S1, +S2, tachycardia - <110 GI/Abdominal exam: PRESENT: soft. ABSENT: rebound, rigid, tenderness Extremities exam: ABSENT: pedal edema Musculoskeletal exam: PRESENT: ambulatory Neurological exam: PRESENT: alert, awake Psychiatric exam: ABSENT: agitated, anxious Results Laboratory Results: WBC 7.9 10^3/uL (4.0-10.5) 01/18/20 05:41 RBC 3.18 10^6/uL (4.35-5.55) L 01/18/20 05:41 Hgb 9.1 g/dL (13.5-17.0) L 01/18/20 05:41 Hct 26.9 % (37.9-51.0) L 01/18/20 05:41 MCV 85 fl (80-97) 01/18/20 05:41 MCH 28.5 pg (27.0-33.4) 01/18/20 05:41 MCHC 33.8 g/dL (32.0-36.0) 01/18/20 05:41 RDW 16.9 % (11.5-14.0) H 01/18/20 05:41 Plt Count 170 10^3/uL (150-450) 01/18/20 05:41 Lymph % (Auto) 18.0 % (13-45) 01/17/20 05:49 Swain % (Auto) 10.5 % (3-13) 01/17/20 05:49 Eos % (Auto) 1.9 % (0-6) 01/17/20 05:49 Baso % (Auto) 0.4 % (0-2) 01/17/20 05:49 Absolute Neuts (auto) 5.6 10^3/uL (1.7-8.2) 01/17/20 05:49 Absolute Lymphs (auto) 1.5 10^3/uL (0.5-4.7) 01/17/20 05:49 Absolute Monos (auto) 0.9 10^3/uL (0.1-1.4) 01/17/20 05:49 Absolute Eos (auto) 0.2 10^3/uL (0.0-0.6) 01/17/20 05:49 Absolute Basos (auto) 0.0 10^3/uL (0.0-0.2) 01/17/20 05:49 Seg Neutrophils % 69.2 % (42-78) 01/17/20 05:49 PT 20.7 SEC (11.4-15.4) H 01/15/20 07:14 INR 1.77 01/15/20 07:14 APTT 53.5 SEC (23.5-35.8) H 01/14/20 21:25 Sodium 134.8 mmol/L (137-145) L 01/19/20 06:40 Potassium 4.0 mmol/L (3.6-5.0) 01/19/20 06:40 Chloride 104 mmol/L (98-107) 01/19/20 06:40 Carbon Dioxide 24 mmol/L (22-30) 01/19/20 06:40 Anion Gap 7 (5-19) 01/19/20 06:40 BUN 22 mg/dL (7-20) H 01/19/20 06:40 Creatinine 0.95 mg/dL (0.52-1.25) 01/19/20 06:40 Est GFR ( Amer) > 60 (>60) 01/19/20 06:40 Est GFR (MDRD) Non-Af > 60 (>60) 01/19/20 06:40 Glucose 109 mg/dL (75-110) 01/19/20 06:40 POC Glucose 137 mg/dL (70-110) H 01/19/20 11:20 Calcium 8.6 mg/dL (8.4-10.2) 01/19/20 06:40 Magnesium 1.6 mg/dL (1.6-2.3) 01/19/20 06:40 Total Bilirubin 0.8 mg/dL (0.2-1.3) 01/14/20 21:25 Direct Bilirubin 0.4 mg/dL (0.0-0.4) 01/14/20 21:25 Neonat Total Bilirubin Not Reportable 01/14/20 21:25 Neonat Direct Bilirubin Not Reportable 01/14/20 21:25 Neonat Indirect Bili Not Reportable 01/14/20 21:25 AST 29 U/L (17-59) 01/14/20 21:25 ALT 15 U/L (<50) 01/14/20 21:25 Alkaline Phosphatase 79 U/L (38-126) 01/14/20 21:25 NT-Pro-B Natriuret Pep 3030 pg/mL (<450) H 01/14/20 21:25 Total Protein 8.3 g/dL (6.3-8.2) H 01/14/20 21:25 Albumin 4.4 g/dL (3.5-5.0) 01/14/20 21:25 Urine Color YELLOW 01/15/20 08:40 Urine Appearance CLEAR 01/15/20 08:40 Urine pH 6.0 (5.0-9.0) 01/15/20 08:40 Ur Specific [place] 1.015 01/15/20 08:40 Urine Protein NEGATIVE mg/dL (NEGATIVE) 01/15/20 08:40 Urine Glucose (UA) NEGATIVE mg/dL (NEGATIVE) 01/15/20 08:40 Urine Ketones TRACE mg/dL (NEGATIVE) H 01/15/20 08:40 Urine Blood SMALL (NEGATIVE) H 01/15/20 08:40 Urine Nitrite (Reflex) NEGATIVE (NEGATIVE) 01/15/20 08:40 Urine Bilirubin NEGATIVE (NEGATIVE) 01/15/20 08:40 Urine Urobilinogen NEGATIVE mg/dL (<2.0) 01/15/20 08:40 Leukocyte Esterase Rfl MODERATE (NEGATIVE) H 01/15/20 08:40 Urine RBC (Auto) 5 /HPF 01/15/20 08:40 U Hyaline Cast (Auto) 2 /LPF 01/15/20 08:40 Urine WBC (Reflex) 9 /HPF 01/15/20 08:40 Squamous Epi Cells Auto 1 /HPF 01/15/20 08:40 Urine Mucus (Auto) RARE /LPF 01/15/20 08:40 Urine Ascorbic Acid NEGATIVE (NEGATIVE) 01/15/20 08:40 SARS-CoV-2 (PCR) NEGATIVE (NEGATIVE) 01/14/20 22:27 Blood Type A NEGATIVE 01/14/20 22:06 Antibody Screen NEGATIVE 01/14/20 22:06 01/14/20 21:25 NT-Pro-B Natriuret Pep 3030 H Impressions: Hip/Pelvis X-Ray 01/14/20 19:13 IMPRESSION: Acute nondisplaced nonangulated right intertrochanteric proximal femoral fracture Chest X-Ray 01/14/20 20:43 overt left rib fractures on the image provided. IMPRESSION: 1. Significant chronic findings. 2. There is increased left lower chest pleural parenchymal abnormality which may be related to trauma. The finding could also represent worsening of parenchymal abnormality related to the patient's interstitial lung disease and cancer. Fluoroscopy 01/15/20 00:00 IMPRESSION: ORIF right hip. Refer to operative note for further information. Hip/Pelvis X-Ray 01/15/20 00:00 IMPRESSION: ORIF right hip. Refer to operative note for further information. Plan Time Spent: Greater than 30 Minutes Stroke Is this a Stroke Patient?: No Acute Heart Failure Is this a Heart Failure Patient?: Yes Documentation of LVEF assessment?: Yes LVEF: LVEF Less Than or Equal to 35% Anticoagulant Therapy: Yes Discharged on Evidence-Based Beta Blockers: Yes Discharged on ARNI?: No-Document Contraindications Reason(s) not discharged on ARNI: Hypotension Discharged on ARB?: No-document contraindications Reason(s) not Discharged on ARB: Hypotenson Discharged on ACEI?: No, document contraindications Reason(s) not Discharged on ACEI: Hypotension For LVEF <35%, discharged on Aldosterone Antagonist?: Yes Reason(s) not discharged on Aldosterone Antagonist: Other - hypotension Aldosterone Antagonist Reason - Other: hypotension Follow-up Appointment scheduled within 7 days?: Yes
[2020-01-19 16:14] VITALS: BP 116/76
[2020-01-19] MEDS ORDERED: METOPROLOL SUCCINATE 50 MG TAB.SR.24H PO SCH (22:00)
== END 2020-01-19 17:40 | DRG 481 ==
LOC: ER 18:00 → EH 01-15 00:46 → 4W 01-15 01:53
PROVIDERS: ADMIT Student in an Organized Health Care Education/Training Program; ATTEND Internal Medicine
PROC: 0QS606Z Reposition Right Upper Femur with Intramedullary Internal Fixation Device, Open Approach (ICD-10-PCS; principal; 2020-01-15 11:45)
DX: S72.141A Displaced intertrochanteric fracture of right femur, initial encounter for closed fracture (principal); I48.11 Longstanding persistent atrial fibrillation; I50.42 Chronic combined systolic (congestive) and diastolic (congestive) heart failure; I42.9 Cardiomyopathy, unspecified; E11.9 Type 2 diabetes mellitus without complications; I11.0 Hypertensive heart disease with heart failure; N40.1 Benign prostatic hyperplasia with lower urinary tract symptoms; R39.11 Hesitancy of micturition; D72.829 Elevated white blood cell count, unspecified; J44.9 Chronic obstructive pulmonary disease, unspecified; Z20.828 Contact with and (suspected) exposure to other viral communicable diseases; Z96.652 Presence of left artificial knee joint; M19.90 Unspecified osteoarthritis, unspecified site; E78.00 Pure hypercholesterolemia, unspecified; Z85.118 Personal history of other malignant neoplasm of bronchus and lung; Z90.2 Acquired absence of lung [part of]; Z79.01 Long term (current) use of anticoagulants; Z83.3 Family history of diabetes mellitus; Z79.899 Other long term (current) drug therapy; Z79.84 Long term (current) use of oral hypoglycemic drugs; W01.0XXA Fall on same level from slipping, tripping and stumbling without subsequent striking against object, initial encounter; Y92.009 Unspecified place in unspecified non-institutional (private) residence as the place of occurrence of the external cause; Z88.6 Allergy status to analgesic agent
CPT/HCPCS: 01230; 36415; 71045; 80048; 80053; 81001; 82962; 83735; 83880; 85025; 85027; 85610; 85730; 86850; 86900; 86901; 87086; 87635; 94799; 99285; C1713; C1769; C9803; J0690; J1815; J2250; J2270; J2370; J2405; J2704; J3010; J3490; J7030; J7040; J7060

== ENCOUNTER 2020-01-26 12:12 | Inpatient (IN) | payer MEDICARE, OTHER ==
[2020-01-26] MEDS ORDERED: NORMAL SALINE 1000 ML 1,000 ML IV ONE ×2 (12:20→13:05)
[2020-01-26] MEDS ORDERED: ONDANSETRON HCL INJ/PF 4 MG/2 ML SDV IV ONE (12:21)
[2020-01-26 12:57] LABS: ABSOLUTE BASOPHILS # (AUTO) 0.1 10^3/uL (0.0-0.2); ABSOLUTE EOSINOPHILS # (AUTO) 0.1 10^3/uL (0.0-0.6); ABSOLUTE LYMPHOCYTES (AUTO) 1.3 10^3/uL (0.5-4.7); ABSOLUTE MONOCYTES (AUTO) 0.6 10^3/uL (0.1-1.4); ABSOLUTE NEUT (AUTO) 9.1 10^3/uL (1.7-8.2); BASOPHILS % (AUTO) 0.5 % (0-2); EOSINOPHILS % (AUTO) 1.1 % (0-6); HEMOGLOBIN 11.3 g/dL (13.5-17.0); MEAN CORPUSCULAR HEMOGLOBIN 28.6 pg (27.0-33.4); MEAN CORPUSCULAR HGB CONC 33.1 g/dL (32.0-36.0); MEAN CORPUSCULAR VOLUME 86 fl (80-97); MONOCYTES % (AUTO) 5.1 % (3-13); PLATELET COUNT 413 10^3/uL (150-450); RED BLOOD COUNT 3.94 10^6/uL (4.35-5.55); RED CELL DISTRIBUTION WIDTH 18.8 % (11.5-14.0); SEGMENTED NEUTROPHILS % (AUTO) 81.3 % (42-78); TOTAL CELLS COUNTED % (AUTO) 100 %; WHITE BLOOD COUNT 11.2 10^3/uL (4.0-10.5)
[2020-01-26 13:17] LABS: ALBUMIN 3.5 g/dL (3.5-5.0); ALKALINE PHOSPHATASE 94 U/L (38-126); ANION GAP 11 (5-19); ASPARTATE AMINO TRANSFERASE 27 U/L (17-59); BILIRUBIN,DIRECT 0.3 mg/dL (0.0-0.4); BILIRUBIN,TOTAL 1.4 mg/dL (0.2-1.3); BLOOD UREA NITROGEN 52 mg/dL (7-20); CALCIUM 9.5 mg/dL (8.4-10.2); CARBON DIOXIDE 23 mmol/L (22-30); CHLORIDE 101 mmol/L (98-107); GLUCOSE 123 mg/dL (75-110); POTASSIUM 4.5 mmol/L (3.6-5.0); TOTAL PROTEIN 6.9 g/dL (6.3-8.2)
--- NOTE | 2020-01-26 13:28 | ER Document Report ---
ED GI/ - General Chief Complaint: Nausea/Vomiting/Diarrhea Stated Complaint: LOOSE STOOL Time Seen by Provider: 01/26/20 12:53 Primary Care Provider: TERRY SANDOVAL MD [Primary Care Provider] - Follow up as needed Notes: 84-year-old male sent from the retirement for nausea vomiting diarrhea. Was recently treated with antibiotics for pneumonia. He states that he threw up a couple times yesterday. Has about 4-5 loose stools a day. He states his and has abdominal discomfort cramping especially with the diarrhea. He states that he was given nausea medicine and diarrhea medicine at the retirement and t hings have not stopped. He is feeling poorly. Is very weak and tired denies chest pain denies shortness of breath. Describes abdominal cramping is moderate. It comes and goes.. Denies any rashes. TRAVEL OUTSIDE OF THE [place] IN LAST 30 DAYS: No - Related Data Allergies/Adverse Reactions: aspirin Allergy (Verified 01/26/20 12:48) Past Medical History - Social History Smoking Status: Never Smoker Chew tobacco use (# tins/day): No Frequency of alcohol use: None Drug Abuse: None Family History: Reviewed & Not Pertinent, DM Patient has homicidal ideation: No - Past Medical History Cardiac Medical History: Reports: Hx Atrial Fibrillation, Hx Congestive Heart Failure, Hx Hypercholesterolemia, Hx Hypertension Pulmonary Medical History: Reports: Hx COPD, Hx Pneumonia Endocrine Medical History: Reports: Hx Diabetes Mellitus Type 2 Renal/ Medical History: Reports: Hx Benign Prostatic Hyperplasia Malignancy Medical History: Reports Hx Lung Cancer - left 1/3 lung resected Musculoskeletal Medical History: Reports Hx Arthritis - Neck and back primarily with other joint involvement. 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 denies: Constipation, Blood streaked bowels, Black stools Genitourinary: denies: Burning Skin: denies: Rash Neurological/Psychological: Headaches -: Yes All other systems reviewed and negative Physical Exam - Vital signs Vitals: Resp 22 H 01/26/20 12:20 - Notes Notes: GENERAL_APPEARANCE: well_nourished, alert, cooperative, no_acute_distress, no_obvious_discomfort. VITALS: reviewed, see vital signs table. HEAD: no_swelling\tenderness on the head. EYES: PERRL, EOMI, conjunctiva_clear. NOSE: no_nasal_discharge. MOUTH: Tongue is lips and mucous membranes THROAT: no_tonsilar_inflammation, no_airway_obstruction. no_lymphadenopathy NECK: supple, no_neck_tenderness, (-)thyromegaly. BACK: no_back_tenderness. CHEST_WALL: no_chest_tenderness. LUNGS: no_wheezing, no_rales, no_rhonchi, (-)accessory muscle use, good air exchange bilateral. HEART: normal_rate, normal_rhythm, normal_S1, normal_S2, (-)S3, (-)S4, no_murmur, no_rub. ABDOMEN: soft, difuse abd_tenderness, (-)guarding, (-)rebound, no_organomegaly, no_abd_masses. EXTREMITIES: strength 5/5 in all_extremities, good pulses in all_extremities, no_swelling\tenderness in the extremities, no_edema. SKIN: warm, dry, pale_color, no_rash. MENTAL_STATUS: speech_clear, oriented_X_3, normal_affect, responds_appropriately to questions. NEURO: Neg Motor or Sensory Deficits on exam, CN 2-12 intact, DTR 2+ symmetric x 4, No cerbellar signs Course - Re-evaluation Re-evalutation: 01/26/20 13:29 84-year-old chronically appearing male presents with nausea vomiting diarrhea for the last 8 days. If were able to get stool sent for C. difficile ova parasites and other pathogens. Patient has been on antibiotics recently for pneumonia and is at risk for C. difficile also was in a retirement. Patient will be given IV fluids. Patient mildly hypotensive. Mentating well. We will get a CT of the abdomen pelvis looking for colitis. 01/26/20 17:39 Patient's BUN is elevated. He feels better after a couple liters of IV fluids still appears pretty dry. Or still waiting for a stool sample to send for C. difficile. CT showed no significant abnormalities. He did have a dilated bladder which is likely from the IV fluids have given him. He still feels pretty miserable. I think he would benefit from observation and IV fluids to continue hydration and hopefully will be able to get a stool sample for C. difficile. - Vital Signs Vital signs: Temp Pulse Resp BP Pulse Ox 97.7 F 15 97/60 L 98 01/26/20 12:40 01/26/20 17:01 01/26/20 17:01 01/26/20 17:01 - Laboratory Result Diagrams: 01/26/20 12:38 01/26/20 12:38 Laboratory results interpreted by me: 01/26/20 01/26/20 01/26/20 12:38 12:38 12:38 WBC 11.2 H RBC 3.94 L Hgb 11.3 L Hct 34.0 L RDW 18.8 H Lymph % (Auto) 12.0 L Absolute Neuts (auto) 9.1 H Seg Neutrophils % 81.3 H Sodium 135.2 L BUN 52 H Creatinine 1.44 H Est GFR ( Amer) 56 L Est GFR (MDRD) Non-Af 47 L Glucose 123 H Total Bilirubin 1.4 H Creatine Kinase 27 L Urine Blood Ur Leukocyte Esterase 01/26/20 13:12 WBC RBC Hgb Hct RDW Lymph % (Auto) Absolute Neuts (auto) Seg Neutrophils % Sodium BUN Creatinine Est GFR ( Amer) Est GFR (MDRD) Non-Af Glucose Total Bilirubin Creatine Kinase Urine Blood SMALL H Ur Leukocyte Esterase LARGE H - Diagnostic Test Radiology reviewed: Reports reviewed Radiology results interpreted by me: 01/26/20 17:39 Abdomen/Pelvis CT 01/26/20 13:04 IMPRESSION: 1. Distended urinary bladder associated with mild bilateral pelvicaliectasis - correlate with clinical findings to exclude urinary retent ion. 2. Intertrochanteric fracture of the right femur status post ORIF. 3. Other secondary findings as detailed above. - EKG Interpretation by Me Rate: Normal Rhythm: A.Fib Discharge - Discharge Clinical Impression: Dehydration Diarrhea Qualifiers: Diarrhea type: unspecified type Qualified Code(s): R19.7 - Diarrhea, unspecified Nausea & vomiting Qualifiers: Vomiting type: unspecified Vomiting Intractability: intractable Qualified Code(s): R11.2 - Nausea with vomiting, unspecified Condition: Good Disposition: ADMITTED OBSERVATION Admitting Provider: Marychuy (Hospitalist) Unit Admitted: Medical Floor Referrals: TERRY SANDOVAL MD [Primary Care Provider] - Follow up as needed
[2020-01-26 13:29] LABS: APPEARANCE,URINE SLIGHTLY-CLOUDY; BILIRUBIN,URINE NEGATIVE (NEGATIVE); COLOR,URINE YELLOW; GLUCOSE, URINE NEGATIVE (NEGATIVE); KETONES,URINE NEGATIVE (NEGATIVE); LEUKOCYTE ESTERASE,URINE LARGE (NEGATIVE); NITRITE,URINE NEGATIVE (NEGATIVE); PROTEIN,URINE NEGATIVE (NEGATIVE); URINE SPECIFIC GRAVITY 1.017; UROBILINOGEN,URINE NEGATIVE mg/dL (<2.0)
--- NOTE | 2020-01-26 15:12 | RADIOLOGY REPORT (SQ) ---
EXAM DESCRIPTION: CT ABD/PELVIS WITH IV ONLY IMAGES COMPLETED DATE/TIME: 01/26/2020 2:47 pm REASON FOR STUDY: abdominal pain diarrhea COMPARISON: CT of the chest without contrast from 01/08/2020. TECHNIQUE: CT scan of the abdomen and pelvis performed using helical scanning technique with dynamic intravenous contrast injection. No oral contrast. Images reviewed with lung, soft tissue, and bone windows. Reconstructed coronal and sagittal MPR images reviewed. Delayed images for evaluation of the urinary system also acquired. All images stored on PACS. All CT scanners at this facility use dose modulation, iterative reconstruction, and/or weight based d osing when appropriate to reduce radiation dose to as low as reasonably achievable (ALARA). [facility]: Dose Right [facility]: CareDose [facility]: Dose Right [facility]: Teradose 4D [facility]: [employer] CONTRAST TYPE AND DOSE: Contrast/concentration: Isovue 350.00 mmol/ml; Total Contrast Delivered: 89. 0 ml; Total Saline Delivered: 40.3 ml RENAL FUNCTION: Creatinine 1.44 milligrams/deciliter. RADIATION DOSE: CT Rad equipment meets quality standard of care and radiation dose reduction techniq ues were employed. CTDIvol: 6.7 - 9.4 mGy. DLP: 1464 mGy-cm. LIMITATIONS: None. FINDINGS: LOWER CHEST: Cardiomegaly, calcified pleural plaques, and peripheral reticular opacities i n the lower lobes. LIVER: The morphology of the liver is noncirrhotic. The portal veins are patent. There is no hepati c mass. SPLEEN: No splenomegaly or splenic mass. PANCREAS: No acute gross abnormality of the pancreas. GALLBLADDER: No acute gross abnormality of the gallbladder. ADRENAL GLANDS: No mass or asymmetry. RIGHT KIDNEY AND URETER: The subcentimeter low-attenuation lesions in the lateral cortex of the upper pole (image 23 of series 5) and in the posterior cortex of the lower pole (image 33 of series 5) are considered too small to characterize. There is no solid mass. There is a 3 mm caliceal calculus in the upper pole of the kidney (image 26 of series 3) and there is mild pelvicaliectasis. The proximal ureter is also distended however below the level of the iliac c rest it tapers to a normal caliber. There is no ureterolithiasis. On the delayed phase there is par tial opacification of the renal calices and renal pelvis. There is no contrast within the ureter or urinary bladder. LEFT KIDNEY AND URETER: The round low-attenuation lesions in the lower pole of the kidney (image 36 o f series 5 and image 30 of series 5) that measure 4.3 x 3.8 cm and 17 x 14 mm respectively likely rep resent simple cysts. There is no solid mass or nephrolithiasis. There is mild pelvicaliectasis. Th e proximal ureter is also distended however below the level of the iliac crest it tapers to a normal caliber. There is no ureterolithiasis. On the delayed phase there is partial opacification of the re nal calices and renal pelvis. There is no contrast within the ureter or urinary bladder. AORTA AND VESSELS: No aneurysm of the abdominal aorta and variant retroaortic left renal vein. RETROPERITONEUM: No retroperitoneal adenopathy, hemorrhage or mass. BOWEL AND PERITONEAL CAVITY: The rectum is distended with fecal material. There are diverticula thro ughout the colon. There is no bowel obstruction, bowel wall thickening or pericolonic/ perienteric i nflammation. There is no mesenteric adenopathy, free intracranial fluid or mesenteric/omental inflam mation. APPENDIX: Normal. PELVIS: The prostate gland is enlarged and contains dense calcifications. The urinary bladder is dis tended. There is no pericystic inflammation. ABDOMINAL WALL: No abdominal wall mass or hernia. BONES: Transpedicular fusion hardware in the lumbar spine and intertrochanteric fracture of the right femur status post ORIF with placement of an antegrade intramedullary nail and compression screw. OTHER: No other findings. IMPRESSION: 1. Distended urinary bladder associated with mild bilateral pelvicaliectasis - correlate with clinical findings to exclude urinary retention. 2. Intertrochanteric fracture of the right femur status post ORIF. 3. Other secondary findings as detailed above. TECHNICAL DOCUMENTATION: JOB ID: [id number] Quality ID # [id number]: Final reports with documentation of one or more dose reduction techniques (e.g., Au tomated exposure control, adjustment of the mA and/or kV according to patient size, use of iterative reconstruction technique) 2010 [employer]- All Rights Reserved Reading location - IP/workstation name: [email or web address]
--- NOTE | 2020-01-26 15:49 | EKG REPORT ---
SEVERITY:- ABNORMAL ECG - ATRIAL FIBRILLATION PROLONGED QT INTERVAL : Confirmed by: Nicole Evans MD 26-Jan-2020 15:48:30
[2020-01-26] MEDS ORDERED: ONDANSETRON HCL INJ/PF 4 MG/2 ML SDV IV PRN (18:33)
[2020-01-26] MEDS ORDERED: MAG HYDROX/AL HYDROX/SIMETH SUSP 30 ML UDCUP PO PRN (18:33)
[2020-01-26] MEDS ORDERED: ACETAMINOPHEN 325 MG TABLET PO PRN (18:33)
[2020-01-26] MEDS ORDERED: RINGERS SOLUTION,LACTATED 1,000 ML IV PRN (18:33)
--- NOTE | 2020-01-26 19:16 | PDOC H&P ---
History of Present Illness Admission Date/PCP: 01/26/20 18:05 TERRY SANDOVAL MD Patient complains of: Intractable diarrhea, acute kidney injury with acute tubular necrosis, dehydration History of Present Illness: MICHAEL PIZARRO is a 84 year old male who was transferred from [facility] to [facility] rehab on January 29, 2020. The patient states that approximately 1 day after he transferred he began having diarrhea. The diarrhea worsened. His appetite decreased and he has not been able to take in adequate fluids to compensate for the diarrhea. His blood pressure has also been low. He presents with systolic blood pressures consistently below 100. At the time of discharge his BUN was 22 and it is now 52. His creatinine was normal at 0.95 and is now elevated to 1.44. White blood cell count and total bilirubin are also just above the upper limit normal. His mouth is extremely dry. He was also noted to have a markedly distended bladder on CT scan. Urinalysis was suggestive of infection and he does have a history of prostatic hyperplasia. Because of the marked dehydration, acute kidney injury with acute tubular necrosis, probable urinary tract infection and possibility of C. difficile mediated diarrhea the patient be admitted to the hospital. He has a history of persistent atrial fibrillation on anticoagulation as well as severe systolic heart failure. Will need to be cautious with rehydration. Past Medical History Cardiac Medical History: Reports: Atrial Fibrillation, Congestive Heart Failure, Hyperlipidema, Hypertension Pulmonary Medical History: Reports: Chronic Obstructive Pulmonary Disease (COPD), Pneumonia Endocrine Medical History: Reports: Diabetes Mellitus Type 2 Malignancy Medical History: Reports: Lung Cancer - left 1/3 lung resected Musculoskeltal Medical History: Reports: Arthritis - Neck and back primarily with other joint involvement. 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, left lower lobectomy Social History Information Source: Patient, [facility] Records Lives with: Other - Currently at short-term rehab Smoking Status: Never Smoker Electronic Cigarette use?: No Frequency of Alcohol Use: Rare Hx Recreational Drug Use: No Drugs: None Hx Prescription Drug Abuse: No - Advance Directive Resuscitation Status: Full Code Surrogate healthcare decision maker:: Gerry and Cindy Rabago are listed as next of kin Family History Family History: DM Parental Family History Reviewed: Yes Children Family History Reviewed: Yes Sibling(s) Family History Reviewed.: Yes Medication/Allergy Home Medications: Dabigatran Etexilate Mesylate [Pradaxa 150 mg Capsule] 150 mg PO Q12 04/30/19 Metformin HCl [Glucophage] 1,000 mg PO BIDBS 04/30/19 Tamsulosin HCl [Flomax] 0.4 mg PO DAILY 12/29/19 Acetaminophen [Tylenol 325 mg Tablet] 975 mg PO Q4HP PRN tablet 01/19/20 Amiodarone HCl [Cordarone 200 mg Tablet] 200 mg PO Q12 tablet 01/19/20 Docusate Sodium [Colace 100 mg Capsule] 100 mg PO DAILY capsule 01/19/20 Furosemide [Lasix 20 mg Tablet] 20 mg PO Q2D #0 01/19/20 Metoprolol Succinate [Toprol Xl 25 mg Tab.sr] 75 mg PO Q12 30 Days 01/19/20 Allergies/Adverse Reactions: aspirin Allergy (Verified 01/26/20 12:48) Review of Systems All systems: reviewed and no additional remarkable complaints except as stated Constitutional: PRESENT: weight loss Nose, Mouth, and Throat: PRESENT: other - Extremely dry mouth Gastrointestinal: PRESENT: diarrhea, nausea Genitourinary: PRESENT: difficulty urinating Physical Exam Vital Signs: Temp Pulse Resp BP Pulse Ox 97.7 F 15 97/60 L 98 01/26/20 12:40 01/26/20 17:01 01/26/20 17:01 01/26/20 17:01 Intake & Output 01/25/20 01/26/20 01/27/20 06:59 06:59 06:59 Intake Total 1999 Balance 1999 General appearance: PRESENT: cooperative, mild distress, thin, well-developed Head exam: PRESENT: atraumatic, normocephalic Ear exam: PRESENT: normal external ear exam. ABSENT: bleeding, drainage Mouth exam: PRESENT: dry mucosa, tongue midline Respiratory exam: PRESENT: clear to auscultation [place], symmetrical, unlabored. ABSENT: rales, rhonchi, tachypnea, wheezes Cardiovascular exam: PRESENT: RRR, +S1, +S2 GI/Abdominal exam: PRESENT: hypoactive bowel sounds, soft, other - Palpable enlarged bladder. ABSENT: distended, guarding, tenderness Rectal exam: PRESENT: deferred Gentrourinary exam: ABSENT: indwelling catheter Extremities exam: ABSENT: pedal edema Musculoskeletal exam: PRESENT: other - Decreased muscle mass Neurological exam: PRESENT: alert, awake, oriented to person, oriented to place, oriented to time, oriented to situation, CN II-XII grossly intact. ABSENT: altered Psychiatric exam: ABSENT: agitated, anxious Focused psych exam: ABSENT: delusional, paranoid, restlessness Skin exam: PRESENT: dry, normal color, warm. ABSENT: rash Results Laboratory Results: 01/26/20 12:38 01/26/20 12:38 01/26/20 01/26/20 01/26/20 12:38 12:38 12:38 WBC 11.2 H RBC 3.94 L Hgb 11.3 L Hct 34.0 L MCV 86 MCH 28.6 MCHC 33.1 RDW 18.8 H Plt Count 413 Seg Neutrophils % 81.3 H Sodium 135.2 L Potassium 4.5 Chloride 101 Carbon Dioxide 23 Anion Gap 11 BUN 52 H Creatinine 1.44 H Est GFR ( Amer) 56 L Glucose 123 H Calcium 9.5 Total Bilirubin 1.4 H AST 27 Alkaline Phosphatase 94 Total Protein 6.9 Albumin 3.5 Lipase 74.7 Urine Color Urine Appearance Urine pH Ur Specific [place] Urine Protein Urine Glucose (UA) Urine Ketones Urine Blood Urine Nitrite Ur Leukocyte Esterase Urine WBC (Auto) Urine RBC (Auto) 01/26/20 13:12 WBC RBC Hgb Hct MCV MCH MCHC RDW Plt Count Seg Neutrophils % Sodium Potassium Chloride Carbon Dioxide Anion Gap BUN Creatinine Est GFR ( Amer) Glucose Calcium Total Bilirubin AST Alkaline Phosphatase Total Protein Albumin Lipase Urine Color YELLOW Urine Appearance SLIGHTLY-CLOUDY Urine pH 5.0 Ur Specific [place] 1.017 Urine Protein NEGATIVE Urine Glucose (UA) NEGATIVE Urine Ketones NEGATIVE Urine Blood SMALL H Urine Nitrite NEGATIVE Ur Leukocyte Esterase LARGE H Urine WBC (Auto) 16 Urine RBC (Auto) 01/26/20 01/26/20 12:38 12:38 Creatine Kinase 27 L Troponin I < 0.012 Impressions: Abdomen/Pelvis CT 01/26/20 13:04 IMPRESSION: 1. Distended urinary bladder associated with mild bilateral pelvicaliectasis - correlate with clinical findings to exclude urinary retention. 2. Intertrochanteric fracture of the right femur status post ORIF. 3. Other secondary findings as detailed above. 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: without group home use Qualified Code(s): E11.65 - Type 2 diabetes mellitus with hyperglycemia Is this a current diagnosis for this admission?: Yes (5) Longstanding persistent atrial fibrillation Is this a current diagnosis for this admission?: Yes (6) Heart failure with reduced ejection fraction Is this a current diagnosis for this admission?: Yes (7) Benign prostatic hyperplasia with lower urinary tract symptoms Qualifiers: Lower urinary tract symptom detail: urinary retention Qualified Code(s): N40.1 - Benign prostatic hyperplasia with lower urinary tract symptoms; R33.8 - Other retention of urine Is this a current diagnosis for this admission?: Yes (8) Abnormal finding on urinalysis Is this a current diagnosis for this admission?: Yes (9) Hypotension due to hypovolemia Is this a current diagnosis for this admission?: Yes - Plan Summary Summary: (1) Diarrhea Qualifiers: Diarrhea type: presumed infectious Qualified Code(s): R19.7 - Diarrhea, unspecified Is this a current diagnosis for this admission?: Yes (2) Dehydration Is this a current diagnosis for this admission?: Yes (3) Acute kidney injury with acute tubular necrosis Is this a current diagnosis for this admission?: Yes (4) Hyperglycemia due to type 2 diabetes mellitus Qualifiers: Diabetes mellitus group home insulin use: without group home use Qualified Code(s): E11.65 - Type 2 diabetes mellitus with hyperglycemia Is this a current diagnosis for this admission?: Yes (5) Longstanding persistent atrial fibrillation Is this a current diagnosis for this admission?: Yes (6) Heart failure with reduced ejection fraction Is this a current diagnosis for this admission?: Yes (7) Benign prostatic hyperplasia with lower urinary tract symptoms Qualifiers: Lower urinary tract symptom detail: urinary retention Qualified Code(s): N40.1 - Benign prostatic hyperplasia with lower urinary tract symptoms; R33.8 - Other retention of urine Is this a current diagnosis for this admission?: Yes (8) Abnormal finding on urinalysis Is this a current diagnosis for this admission?: Yes (9) Hypotension due to hypovolemia Is this a current diagnosis for this admission?: Yes 01/26/2020 Possible C. difficile colitis-we have ordered stool for C. difficile. Will initiate oral vancomycin therapy until results are available. He is at high risk having just been discharged from the hospital with antibiotic therapy and being at a retirement facility. Acute kidney injury with acute tubular necrosis-the patient did have an abnormal urinalysis. There is a large amount of leukocyte esterase. There were white cells and red cells noted on the urinalysis. Trace bacteria were noted. A urine culture has been ordered. BPH with retention-imaging of the abdomen revealed a very enlarged bladder. He is on tamsulosin 0.4 mg daily. I will increase this to 0.8 mg and add 5 mg of finasteride. His urinary retention also puts him at risk for an infection. I have asked that a [place] catheter be placed. Not only to relieve the retention but also with his history of heart failure and dehydration we will need to monitor strict intake and output. It would be very easy to fluid overload this patient. Chronic systolic heart failure with depressed ejection fraction (less than 20%)- the patient will remain on beta-[place] therapy. He was on furosemide 20 mg every other day but we will hold this at this time. Longstanding persistent atrial fibrillation on anticoagulation-continue Pradaxa, metoprolol (at a reduced dose due to low blood pressure) and amiodarone. Monitor patient on telemetry. Hyperglycemia due to diabetes mellitus type 2-hold Metformin due to altered renal function. [place] mealtime and bedtime Accu-Cheks with sliding scale coverage. Hypotension due to hypovolemia-we will decrease the metoprolol dose. As blood pressure normalizes will return to 75 mg twice daily. If the patient becomes tachycardic then we can temporarily use dopamine and resume the baseline metoprolol dose. We will continue the amiodarone. The patient requests full CODE STATUS. This certainly merits further discussion considering his severely depressed ejection fraction as well as advanced age. - Time Time Spent with patient: 35 or more minutes Medications reviewed and adjusted accordingly: Yes Anticipated Discharge Disposition: Group Home Facility Anticipated Discharge Timeframe: within 48 hours
[2020-01-26] MEDS: FAMOTIDINE 20 MG TABLET PO SCH (21:23)
[2020-01-26] MEDS: METOPROLOL SUCCINATE 50 MG TAB.SR.24H PO SCH (21:23)
[2020-01-26] MEDS: DABIGATRAN ETEXILATE 150 MG CAPSULE PO SCH (21:23)
[2020-01-26] MEDS: AMIODARONE HCL 200 MG TABLET PO SCH (21:23)
[2020-01-26 21:43] LABS: C DIFFICILE GDH NEGATIVE (NEGATIVE)
[2020-01-26 23:41] LABS: HEMATOCRIT 32.6 % (37.9-51.0); HEMOGLOBIN 11.1 g/dL (13.5-17.0); MEAN CORPUSCULAR HEMOGLOBIN 29.3 pg (27.0-33.4); MEAN CORPUSCULAR HGB CONC 33.9 g/dL (32.0-36.0); MEAN CORPUSCULAR VOLUME 87 fl (80-97); PLATELET COUNT 351 10^3/uL (150-450); RED BLOOD COUNT 3.77 10^6/uL (4.35-5.55); RED CELL DISTRIBUTION WIDTH 19.6 % (11.5-14.0); WHITE BLOOD COUNT 10.4 10^3/uL (4.0-10.5)
[2020-01-26] MEDS: VANCOMYCIN HCL INJ 500 MG VIAL PO SCH (23:49)
[2020-01-27] MEDS: VANCOMYCIN HCL INJ 500 MG VIAL PO SCH (06:46)
[2020-01-27 07:26] LABS: HEMATOCRIT 31.2 % (37.9-51.0); HEMOGLOBIN 10.6 g/dL (13.5-17.0); MEAN CORPUSCULAR HEMOGLOBIN 28.9 pg (27.0-33.4); MEAN CORPUSCULAR HGB CONC 33.8 g/dL (32.0-36.0); MEAN CORPUSCULAR VOLUME 86 fl (80-97); PLATELET COUNT 355 10^3/uL (150-450); RED BLOOD COUNT 3.65 10^6/uL (4.35-5.55); WHITE BLOOD COUNT 10.5 10^3/uL (4.0-10.5)
[2020-01-27 07:43] LABS: BLOOD UREA NITROGEN 42 mg/dL (7-20); CALCIUM 8.9 mg/dL (8.4-10.2); GLUCOSE 84 mg/dL (75-110)
[2020-01-27 07:44] LABS: ANION GAP 10 (5-19); CARBON DIOXIDE 18 mmol/L (22-30); CHLORIDE 108 mmol/L (98-107); PHOSPHORUS 3.4 mg/dL (2.5-4.5); POTASSIUM 4.5 mmol/L (3.6-5.0)
[2020-01-27] MEDS: AMIODARONE HCL 200 MG TABLET PO SCH ×2 (09:46→21:40)
[2020-01-27] MEDS: METOPROLOL SUCCINATE 50 MG TAB.SR.24H PO SCH ×2 (09:47→21:40)
[2020-01-27] MEDS: FINASTERIDE 5 MG TABLET PO SCH (09:47)
[2020-01-27] MEDS: FAMOTIDINE 20 MG TABLET PO SCH (09:47)
[2020-01-27] MEDS: DABIGATRAN ETEXILATE 150 MG CAPSULE PO SCH (09:50)
[2020-01-27] MEDS ORDERED: DOCUSATE SODIUM 100 MG CAPSULE PO SCH (10:00)
[2020-01-27] MEDS ORDERED: LOPERAMIDE HCL 2 MG CAPSULE PO PRN (10:12)
[2020-01-27] MEDS ORDERED: POLYETHYLENE GLYCOL 3350 POWDER 17 GM/1 PACKET PO ONE (16:17)
--- NOTE | 2020-01-27 16:17 | PDOC CONSULTATION ---
Consultation Consult Date: 01/27/20 Provider Consulted: JESSI SALAZAR Consult reason:: patient is having GI bleeding, painless History of Present Illness Admission Date/PCP: 01/26/20 19:49 TERRY SANDOVAL MD History of Present Illness: MICHAEL PIZARRO is a 84 year old male I was asked to see this patient had recent fall with orthopedic procedure, was sent to rehab patient started to have diarrhea C.Diff is negative now has blood diarrhea of note EF< 20%, also got dehydrated consult for possibel colonoscopy to find out etiology of bleeding consider diverticular vs possible ischemic colitis Past Medical History Cardiac Medical History: Reports: Atrial Fibrillation, Congestive Heart Failure, Hyperlipidema, Hypertension Pulmonary Medical History: Reports: Chronic Obstructive Pulmonary Disease (COPD), Pneumonia Endocrine Medical History: Reports: Diabetes Mellitus Type 2 Malignancy Medical History: Reports: Lung Cancer - left 1/3 lung resected Musculoskeltal Medical History: Reports: Arthritis - Neck and back primarily with other joint involvement. 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, left lower lobectomy Social History Lives with: Other - Currently at short-term rehab Smoking Status: Former Smoker Electronic Cigarette use?: No Frequency of Alcohol Use: None Hx Recreational Drug Use: No Drugs: None Hx Prescription Drug Abuse: No - Advance Directive Resuscitation Status: Full Code Family History Family History: DM Parental Family History Reviewed: Yes Children Family History Reviewed: Unknown Sibling(s) Family History Reviewed.: Unknown Medication/Allergy Home Medications: Dabigatran Etexilate Mesylate [Pradaxa 150 mg Capsule] 150 mg PO Q12 04/30/19 Metformin HCl [Glucophage] 1,000 mg PO BID 04/30/19 Tamsulosin HCl [Flomax] 0.4 mg PO DAILY 12/29/19 Amiodarone HCl [Cordarone 200 mg Tablet] 200 mg PO Q12 tablet 01/19/20 Furosemide [Lasix 20 mg Tablet] 20 mg PO Q2D #0 01/19/20 Brinzolamide/Brimonidine Tart [Simbrinza 1%-0.2% Eye Drops] 1 drop OU BID 01/27/20 Docusate Sodium [Colace 100 mg Capsule] 100 mg PO DAILY 01/27/20 Guaifenesin [Mucinex Sr 600 mg Tablet.sa] 600 mg PO Q12 01/27/20 Ipratropium [place] [Atrovent 0.06% Nasal [place]] 1 spray NAREB TID 01/27/20 Metoprolol Succinate [Toprol Xl 25 mg Tab.sr] 75 mg PO Q12 01/27/20 Allergies/Adverse Reactions: aspirin Allergy (Verified 01/26/20 12:48) Review of Systems Constitutional: ABSENT: fever(s), headache(s), night sweats Eyes: ABSENT: visual disturbances Ears: ABSENT: hearing changes Nose, Mouth, and Throat: ABSENT: mouth pain, sore throat Respiratory: ABSENT: dyspnea, hemoptysis Gastrointestinal: ABSENT: diarrhea, hematemesis, hematochezia Genitourinary: ABSENT: dysuria, hematuria Musculoskeletal: ABSENT: deformity, joint swelling Neurological: ABSENT: syncope, tingling, tremor(s), vertigo Endocrine: ABSENT: polydipsia, polyphagia, polyuria Hematologic/Lymphatic: ABSENT: easy bruising Physical Exam Vital Signs: Temp Pulse Resp BP Pulse Ox 97.5 F 82 16 100/53 L 100 01/27/20 13:16 01/27/20 14:00 01/27/20 13:16 01/27/20 13:16 01/27/20 13:16 Intake & Output 01/26/20 01/27/20 01/28/20 06:59 06:59 06:59 Intake Total 3000 Output Total 1900 Balance 1100 General appearance: PRESENT: mild distress - s Head exam: PRESENT: atraumatic, normocephalic Eye exam: PRESENT: EOMI, PERRLA. ABSENT: nystagmus, periorbital swelling, scleral icterus Mouth exam: PRESENT: moist, neck supple Neck exam: ABSENT: meningismus, tenderness, thyromegaly Respiratory exam: ABSENT: symmetrical, unlabored, wheezes Cardiovascular exam: PRESENT: irregular rhythm GI/Abdominal exam: PRESENT: normal bowel sounds. ABSENT: Abbott's sign, rebound, rigid, soft Extremities exam: ABSENT: joint swelling Musculoskeletal exam: PRESENT: full ROM Neurological exam: PRESENT: oriented to person, oriented to place, CN II-XII gr ossly intact Skin exam: PRESENT: normal color. ABSENT: mottled, pallor, urticaria - s, vesicles Results Laboratory Results: 01/27/20 06:38 01/27/20 06:38 01/26/20 01/27/20 01/27/20 23:30 06:38 06:38 WBC 10.4 10.5 RBC 3.77 L 3.65 L Hgb 11.1 L 10.6 L Hct 32.6 L 31.2 L MCV 87 86 MCH 29.3 28.9 MCHC 33.9 33.8 RDW 19.6 H 19.0 H Plt Count 351 355 Sodium 135.5 L Potassium 4.5 Chloride 108 H Carbon Dioxide 18 L Anion Gap 10 BUN 42 H Creatinine 1.08 Est GFR ( Amer) > 60 Glucose 84 Calcium 8.9 Phosphorus 3.4 Albumin 3.0 L 01/26/20 01/26/20 12:38 12:38 Creatine Kinase 27 L Troponin I < 0.012 Impressions: Abdomen/Pelvis CT 01/26/20 13:04 IMPRESSION: 1. Distended urinary bladder associated with mild bilateral pelvicaliectasis - correlate with clinical findings to exclude urinary retention. 2. Intertrochanteric fracture of the right femur status post ORIF. 3. Other secondary findings as detailed above. Assessment & Plan - Diagnosis (1) GI bleeding Plan: as noted above, with A fin and low EF, consideration for possible ischemic colitis could be diverticular in nature anticoagulant has been stopped will need rapd Covid 19 testing for procedure will need to be done in the OR Risks, benefits and alternatives are discussed with the patient in detail further recommendations to follow - Time Time Spent: 50 to 70 Minutes
[2020-01-27 19:48] LABS: HEMATOCRIT 31.9 % (37.9-51.0); HEMOGLOBIN 10.4 g/dL (13.5-17.0); MEAN CORPUSCULAR HEMOGLOBIN 28.3 pg (27.0-33.4); MEAN CORPUSCULAR HGB CONC 32.6 g/dL (32.0-36.0); MEAN CORPUSCULAR VOLUME 87 fl (80-97); PLATELET COUNT 400 10^3/uL (150-450); RED BLOOD COUNT 3.67 10^6/uL (4.35-5.55); RED CELL DISTRIBUTION WIDTH 19.4 % (11.5-14.0); WHITE BLOOD COUNT 11.7 10^3/uL (4.0-10.5)
[2020-01-27] MEDS ORDERED: POLYETHYLENE GLYCOL 3350 238 GM POWDER PO SCH (20:00)
--- NOTE | 2020-01-27 20:17 | PDOC PROGRESS REPORT ---
<COLEENTATYANA Roth - Last Filed: 01/27/20 20:21> Subjective Date:: 01/27/20 Subjective:: Patient resting in bed comfortably. States that overall he is doing much better with less episodes of diarrhea. She informed that his C. difficile came back negative, can initiate Imodium as needed. Bright red blood per rectum noted on bed sheet. Denies blood in stools or melena prior to hospitalization. Denies history of GI bleed. Hx of Afib, on Pradaxa. Last colonoscopy was several years ago with no significant findings. No further complaints or concerns. Reason For Visit: ADDITIONAL DX OF GI BLEEDING CHF WITH EF <20% Physical Exam Vital Signs: Temp Pulse Resp BP Pulse Ox 97.5 F 100 16 94/58 L 100 01/27/20 19:53 01/27/20 19:53 01/27/20 19:53 01/27/20 19:53 01/27/20 19:53 Intake & Output 01/26/20 01/27/20 01/28/20 06:59 06:59 06:59 Intake Total 3000 240 Output Total 1900 Balance 1100 240 Weight 72.5 kg General appearance: PRESENT: no acute distress, cooperative, well-developed, well-nourished Head exam: PRESENT: atraumatic, normocephalic Eye exam: PRESENT: EOMI, PERRLA. ABSENT: scleral icterus Mouth exam: PRESENT: dry mucosa, tongue midline Neck exam: PRESENT: full ROM. ABSENT: JVD, tenderness Respiratory exam: PRESENT: clear to auscultation socorro, symmetrical, unlabored. ABSENT: crackles, rales, tachypnea Cardiovascular exam: PRESENT: RRR, +S1, +S2 Pulses: PRESENT: normal radial pulses GI/Abdominal exam: PRESENT: normal bowel sounds, soft. ABSENT: distended, firm, guarding, tenderness Rectal exam: PRESENT: bloody stool, heme (+) stool, hemorrhoids. ABSENT: tenderness Gentrourinary exam: PRESENT: indwelling catheter Extremities exam: PRESENT: other - Decrease muscle mass. There is a well healing incision on the lateral aspect right hip/thigh, without warmth, redness, swelling or discharge.. ABSENT: clubbing Musculoskeletal exam: PRESENT: full ROM. ABSENT: deformity, dislocation Neurological exam: PRESENT: alert, awake, oriented to person, oriented to place, oriented to time, oriented to situation Psychiatric exam: PRESENT: appropriate affect, normal mood Skin exam: PRESENT: dry, intact, warm Results Laboratory Results: 01/27/20 19:31 01/27/20 06:38 01/26/20 01/27/20 01/27/20 23:30 06:38 06:38 WBC 10.4 10.5 RBC 3.77 L 3.65 L Hgb 11.1 L 10.6 L Hct 32.6 L 31.2 L MCV 87 86 MCH 29.3 28.9 MCHC 33.9 33.8 RDW 19.6 H 19.0 H Plt Count 351 355 Sodium 135.5 L Potassium 4.5 Chloride 108 H Carbon Dioxide 18 L Anion Gap 10 BUN 42 H Creatinine 1.08 Est GFR ( Amer) > 60 Glucose 84 Calcium 8.9 Phosphorus 3.4 Albumin 3.0 L 01/27/20 19:31 WBC 11.7 H RBC 3.67 L Hgb 10.4 L Hct 31.9 L MCV 87 MCH 28.3 MCHC 32.6 RDW 19.4 H Plt Count 400 Sodium Potassium Chloride Carbon Dioxide Anion Gap BUN Creatinine Est GFR ( Amer) Glucose Calcium Phosphorus Albumin 01/26/20 01/26/20 12:38 12:38 Creatine Kinase 27 L Troponin I < 0.012 Impressions: Abdomen/Pelvis CT 01/26/20 13:04 IMPRESSION: 1. Distended urinary bladder associated with mild bilateral pelvicaliectasis - correlate with clinical findings to exclude urinary retenti on. 2. Intertrochanteric fracture of the right femur status post ORIF. 3. Other secondary findings as detailed above. Assessment and Plan - Diagnosis (1) Abnormal finding on urinalysis Is this a current diagnosis for this admission?: Yes (2) Acute kidney injury with acute tubular necrosis Is this a current diagnosis for this admission?: Yes (3) Dehydration Is this a current diagnosis for this admission?: Yes (4) Diarrhea Qualifiers: Diarrhea type: presumed infectious Qualified Code(s): R19.7 - Diarrhea, unspecified Is this a current diagnosis for this admission?: Yes (5) Hematochezia Is this a current diagnosis for this admission?: Yes (6) Hypotension due to hypovolemia Is this a current diagnosis for this admission?: Yes (7) Benign prostatic hyperplasia with lower urinary tract symptoms Qualifiers: Lower urinary tract symptom detail: urinary retention Qualified Code(s): N40.1 - Benign prostatic hyperplasia with lower urinary tract symptoms; R33.8 - Other retention of urine Is this a current diagnosis for this admission?: Yes (8) Heart failure with reduced ejection fraction Is this a current diagnosis for this admission?: Yes (9) Hyperglycemia due to type 2 diabetes mellitus Qualifiers: Diabetes mellitus jail insulin use: without jail use Qualified Code(s): E11.65 - Type 2 diabetes mellitus with hyperglycemia Is this a current diagnosis for this admission?: Yes (10) Longstanding persistent atrial fibrillation Is this a current diagnosis for this admission?: Yes (11) Lactic acid acidosis Is this a current diagnosis for this admission?: Yes - Plan Summary Summary: 01/27/2020 Hematochezia-heme positive stools. Surgery consulted, agreed to evaluate the patient. Patient scheduled for colonoscopy tomorrow. He is to be n.p.o. tonight after midnight. We will hold his Pradaxa at this time. Hemoglobin has gradually decreased to [id number] -> 11.1 -> 10.6 -> 10.4. Continue to monitor on daily labs. Continue gentle fluids. Lactic acidosis- Lactic acid 2.2. Repeat/trending lactic acid pending. BC pending. Diarrhea-C.diff negative. Discontinue oral vanc. May utilize Imodium as needed. Acute kidney injury with acute tubular necrosis-UA:large amount of leukocyte esterase, white cells and red cells, trace bacterie. UC without growth in 1 day. BPH with retention-imaging of the abdomen enlarged bladder. Continue tamsulosin 0.8 mg and 5 mg of finasteride. Continue [place] catheter. Strict I&Os given hx BPH, heart failure and dehydration; avoid fluid overload. Chronic systolic heart failure with depressed ejection fraction (less than 20%)- Cnt Metoprolol at lowered dose. Hold Lasix. Strict I&Os as not to fluid overload. Longstanding persistent atrial fibrillation on anticoagulation- Hold Pradaxa as above. Continue metoprolol (at a reduced dose due to low blood pressure) and amiodarone. Monitor patient on telemetry. Hyperglycemia due to diabetes mellitus type 2-hold Metformin due to altered renal function. [place] mealtime and bedtime Accu-Cheks with sliding scale coverage. Hypotension due to hypovolemia-we will decrease the metoprolol dose. As blood pressure normalizes will return to 75 mg twice daily. If the patient becomes tachycardic then we can temporarily use dopamine and resume the baseline metoprolol dose. We will continue the amiodarone. - Time Time Spent with patient: 25-34 minutes Medications reviewed and adjusted accordingly: Yes <CHERIE STONE - Last Filed: 01/27/20 21:32> Subjective Reason For Visit: ADDITIONAL DX OF GI BLEEDING CHF WITH EF <20% Physical Exam Vital Signs: Temp Pulse Resp BP Pulse Ox 97.5 F 100 16 102/60 100 01/27/20 19:53 01/27/20 19:53 01/27/20 19:53 01/27/20 20:00 01/27/20 19:53 Intake & Output 01/26/20 01/27/20 01/28/20 06:59 06:59 06:59 Intake Total 3000 497 Output Total 1900 300 Balance 1100 197 Weight 72.5 kg Results Laboratory Results: 01/27/20 19:31 01/27/20 06:38 01/26/20 01/27/20 01/27/20 23:30 06:38 06:38 WBC 10.4 10.5 RBC 3.77 L 3.65 L Hgb 11.1 L 10.6 L Hct 32.6 L 31.2 L MCV 87 86 MCH 29.3 28.9 MCHC 33.9 33.8 RDW 19.6 H 19.0 H Plt Count 351 355 Sodium 135.5 L Potassium 4.5 Chloride 108 H Carbon Dioxide 18 L Anion Gap 10 BUN 42 H Creatinine 1.08 Est GFR ( Amer) > 60 Glucose 84 Lactic Acid Calcium 8.9 Phosphorus 3.4 Albumin 3.0 L 01/27/20 01/27/20 19:31 19:31 WBC 11.7 H RBC 3.67 L Hgb 10.4 L Hct 31.9 L MCV 87 MCH 28.3 MCHC 32.6 RDW 19.4 H Plt Count 400 Sodium Potassium Chloride Carbon Dioxide Anion Gap BUN Creatinine Est GFR ( Amer) Glucose Lactic Acid 2.2 H Calcium Phosphorus Albumin 01/26/20 01/26/20 12:38 12:38 Creatine Kinase 27 L Troponin I < 0.012 Impressions: Abdomen/Pelvis CT 01/26/20 13:04 IMPRESSION: 1. Distended urinary bladder associated with mild bilateral pelvicaliectasis - correlate with clinical findings to exclude urinary retention. 2. Intertrochanteric fracture of the right femur status post ORIF. 3. Other secondary findings as detailed above. Assessment and Plan - Diagnosis (1) Abnormal finding on urinalysis Is this a current diagnosis for this admission?: Yes (2) Diarrhea Qualifiers: Diarrhea type: presumed infectious Qualified Code(s): R19.7 - Diarrhea, unspecified Is this a current diagnosis for this admission?: Yes (3) GI bleeding Is this a current diagnosis for this admission?: Yes (4) Hematochezia Is this a current diagnosis for this admission?: Yes (5) Hypotension due to hypovolemia Is this a current diagnosis for this admission?: Yes (6) Lactic acid acidosis Is this a current diagnosis for this admission?: Yes (7) Nausea & vomiting Qualifiers: Vomiting type: unspecified Vomiting Intractability: intractable Qualified Code(s): R11.2 - Nausea with vomiting, unspecified Is this a current diagnosis for this admission?: Yes (8) Benign prostatic hyperplasia with lower urinary tract symptoms Qualifiers: Lower urinary tract symptom detail: urinary retention Qualified Code(s): N40.1 - Benign prostatic hyperplasia with lower urinary tract symptoms; R33.8 - Other retention of urine Is this a current diagnosis for this admission?: Yes (9) Heart failure with reduced ejection fraction Is this a current diagnosis for this admission?: Yes (10) Intertrochanteric fracture of right hip Qualifiers: Encounter type: initial encounter Fracture alignment: displaced Is this a current diagnosis for this admission?: Yes (11) Longstanding persistent atrial fibrillation Is this a current diagnosis for this admission?: Yes - Time Time Spent with patient: 35 or more minutes Medications reviewed and adjusted accordingly: Yes Anticipated Discharge Disposition: Home with Home Health Anticipated Discharge Timeframe: within 48 hours
[2020-01-27] MEDS: TAMSULOSIN HCL 0.4 MG CAP.SR.24H PO SCH (21:39)
[2020-01-28 05:58] LABS: HEMOGLOBIN 10.4 g/dL (13.5-17.0); MEAN CORPUSCULAR HEMOGLOBIN 28.2 pg (27.0-33.4); MEAN CORPUSCULAR HGB CONC 32.7 g/dL (32.0-36.0); MEAN CORPUSCULAR VOLUME 86 fl (80-97); PLATELET COUNT 346 10^3/uL (150-450); RED CELL DISTRIBUTION WIDTH 19.5 % (11.5-14.0); WHITE BLOOD COUNT 9.8 10^3/uL (4.0-10.5)
[2020-01-28 06:27] LABS: ANION GAP 9 (5-19); BLOOD UREA NITROGEN 35 mg/dL (7-20); CARBON DIOXIDE 24 mmol/L (22-30); CHLORIDE 102 mmol/L (98-107); GLUCOSE 104 mg/dL (75-110); POTASSIUM 4.1 mmol/L (3.6-5.0)
[2020-01-28] MEDS ORDERED: GLUCAGON,HUMAN RECOMB 1 MG INJ ONE (09:46)
[2020-01-28] MEDS ORDERED: EPINEPHRINE INJ 1 MG/10 ML DISP.SYRIN ONE (09:46)
[2020-01-28] MEDS ORDERED: MIDAZOLAM 2 MG/2 ML INJ ONE (09:58)
[2020-01-28] MEDS ORDERED: FENTANYL CITRATE INJ/PF 100 MCG/2 ML AMPUL ONE (09:58)
[2020-01-28] MEDS ORDERED: FENTANYL CITRATE INJ/PF 100 MCG/2 ML AMPUL IV PRN ×3 (10:30)
[2020-01-28] MEDS ORDERED: DIPHENHYDRAMINE HCL 50 MG/ML VIAL IV PRN (10:30)
[2020-01-28] MEDS ORDERED: PROMETHAZINE HCL INJ 25 MG/1 ML VIAL IV PRN (10:30)
--- NOTE | 2020-01-28 11:14 | Operative Report ---
Operative Report DATE OF SURGERY: 01/28/20 Operative Report: The risk, benefits and alternatives of the procedure including the risk of bleeding, perforation requiring surgery have been explained to the patient in detail and informed consent has been obtained. Patient is taken back to the operating room and placed in a left, lateral decubital position. Timeout was called. Propofol medication is administered. Rectal examination is done which did not reveal any masses, tears or fissures. An Olympus videoscope was introduced into the patient's rectum the scope was then carefully advanced all the way to the cecum. The cecum was identified by the usual anatomical landmarks including the ileocecal valve as well as the appendiceal office. Photodocumentation is obtained. Scope was then sequentially pulled back via the various segments of the colon including the ascending colon, flexure, transverse colon, splenic flexure, descending colon finding to the rectosigmoid portions of the colon. Retroflexion maneuvers performed. The risks benefits and alternatives of the procedure explained to the patient in detail and informed consent is obtained.A GIF Olympus video scope was inserted into the patient's mouth and hypopharynx, the esophagus is identified intubated and insufflated, the scope was then advanced through the esophagus stomach and duodenum, retroflexion maneuver is done the esophagus stomach and first and second portions of the duodenum examined PREOPERATIVE DIAGNOSIS: GI bleeding POSTOPERATIVE DIAGNOSIS: Diverticulosis. Solitary rectal ulcer probably explaining the patient's rectal bleeding. Mild right sidecolon Inflammation status post biopsy. Gastritis status post biopsy OPERATION: Colonoscopy with biopsy. EGD with biopsy SURGEON: JESSI SALAZAR ANESTHESIA: LMAC TISSUE REMOVED OR ALTERED: As noted above. COMPLICATIONS: None. ESTIMATED BLOOD LOSS: None. INTRAOPERATIVE FINDINGS: As noted above. PROCEDURE: Patient tolerated the procedure well. No immediate postprocedure complications are noted. Patient is sent back to his room in good condition. Resume regular diet clears, advance as tolerated Resume previous activity level Wait on biopsy Outpatient follow-up as needed Spoke with hospitalist physician
[2020-01-28] MEDS ORDERED: BRIMONIDINE TART OU SCH (12:15)
[2020-01-28] MEDS ORDERED: BRINZOLAMIDE OU SCH (12:15)
[2020-01-28] MEDS ORDERED: [UNRECOGNIZED DRUG - OTHER] OU SCH (12:15)
[2020-01-28] MEDS: FINASTERIDE 5 MG TABLET PO SCH (12:19)
[2020-01-28] MEDS: AMIODARONE HCL 200 MG TABLET PO SCH ×2 (12:19→22:00)
[2020-01-28] MEDS: METOPROLOL SUCCINATE 50 MG TAB.SR.24H PO SCH ×2 (12:19→22:00)
[2020-01-28] MEDS: DABIGATRAN ETEXILATE 150 MG CAPSULE PO SCH ×2 (13:51→22:00)
[2020-01-28] MEDS ORDERED: ONDANSETRON HCL INJ/PF 4 MG/2 ML SDV ONE (14:40)
[2020-01-28] MEDS ORDERED: ETOMIDATE INJ/PF 20 MG/10 ML SDV IV ONE (14:40)
--- NOTE | 2020-01-28 15:24 | PDOC PROGRESS REPORT ---
Subjective Date:: 01/28/20 Subjective:: Patient was evaluated on morning rounds.. He is status post colonoscopy/EGD with biopsy. Findings discussed with Dr. Forte, GI. Notable for diverticulosis, and solitary rectal ulcer. Findings discussed with patient in detail. Ok to restart Pradaxa. Pt denies episode of diarrhea or bloody stool thus far today. Patient again emphasizes that he does not want to return to [facility] custodial. Provides me with no further complaints or concerns. No concerns per nursing. Reason For Visit: ADDITIONAL DX OF GI BLEEDING CHF WITH EF <20% Physical Exam Vital Signs: Temp Pulse Resp BP Pulse Ox 97.4 F 85 17 108/58 L 100 01/28/20 13:20 01/28/20 13:20 01/28/20 13:20 01/28/20 13:20 01/28/20 13:20 Intake & Output 01/27/20 01/28/20 01/29/20 06:59 06:59 06:59 Intake Total 3000 1647 300 Output Total 1900 650 150 Balance 1100 997 150 Weight 72.5 kg 72.5 kg Additional comments: General appearance: PRESENT: no acute distress, cooperative, well-developed, well-nourished Head exam: PRESENT: atraumatic, normocephalic Eye exam: PRESENT: EOMI, PERRLA. ABSENT: scleral icterus Mouth exam: PRESENT: dry mucosa, tongue midline Neck exam: PRESENT: full ROM. ABSENT: JVD, tenderness Respiratory exam: PRESENT: clear to auscultation socorro, symmetrical, unlabored. ABSENT: crackles, rales, tachypnea Cardiovascular exam: PRESENT: RRR, +S1, +S2 Pulses: PRESENT: normal radial pulses GI/Abdominal exam: PRESENT: normal bowel sounds, soft. ABSENT: distended, firm, guarding, tenderness Rectal exam: Deferred today. Gentrourinary exam: PRESENT: indwelling catheter Extremities exam: PRESENT: other - Decrease muscle mass. There is a well healing incision on the lateral aspect right hip/thigh, without warmth, redness, swelling or discharge.. ABSENT: clubbing Musculoskeletal exam: PRESENT: full ROM. ABSENT: deformity, dislocation Neurological exam: PRESENT: alert, awake, oriented to person, oriented to place, oriented to time, oriented to situation Psychiatric exam: PRESENT: appropriate affect, normal mood Skin exam: PRESENT: dry, intact, warm Results Laboratory Results: 01/28/20 05:46 01/28/20 05:46 01/27/20 01/27/20 01/28/20 19:31 19:31 05:46 WBC 11.7 H 9.8 RBC 3.67 L 3.70 L Hgb 10.4 L 10.4 L Hct 31.9 L 32.0 L MCV 87 86 MCH 28.3 28.2 MCHC 32.6 32.7 RDW 19.4 H 19.5 H Plt Count 400 346 Sodium Potassium Chloride Carbon Dioxide Anion Gap BUN Creatinine Est GFR ( Amer) Glucose Lactic Acid 2.2 H Calcium 01/28/20 01/28/20 05:46 05:46 WBC RBC Hgb Hct MCV MCH MCHC RDW Plt Count Sodium 135.4 L Potassium 4.1 Chloride 102 Carbon Dioxide 24 Anion Gap 9 BUN 35 H Creatinine 1.13 Est GFR ( Amer) > 60 Glucose 104 Lactic Acid 1.0 Calcium 9.0 01/26/20 21:33 Catheterized Urine Urine Culture - Final NO GROWTH 2 DAYS 01/26/20 01/26/20 12:38 12:38 Creatine Kinase 27 L Troponin I < 0.012 Impressions: Abdomen/Pelvis CT 01/26/20 13:04 IMPRESSION: 1. Distended urinary bladder associated with mild bilateral pelvicaliectasis - correlate with clinical findings to exclude urinary retention. 2. Intertrochanteric fracture of the right femur status post ORIF. 3. Other secondary findings as detailed above. Assessment and Plan - Diagnosis (1) Abnormal finding on urinalysis Is this a current diagnosis for this admission?: Yes (2) Diarrhea Qualifiers: Diarrhea type: presumed infectious Qualified Code(s): R19.7 - Diarrhea, unspecified Is this a current diagnosis for this admission?: Yes (3) GI bleeding Qualifiers: GI bleed type/associated pathology: anorectal hemorrhage Qualified Code(s): K62.5 - Hemorrhage of anus and rectum Is this a current diagnosis for this admission?: Yes (4) Solitary rectal ulcer Is this a current diagnosis for this admission?: Yes (5) Diverticulosis Is this a current diagnosis for this admission?: Yes (6) Hematochezia Is this a current diagnosis for this admission?: Yes (7) Hypotension due to hypovolemia Is this a current diagnosis for this admission?: Yes (8) Lactic acid acidosis Is this a current diagnosis for this admission?: Yes (9) Nausea & vomiting Qualifiers: Vomiting type: unspecified Vomiting Intractability: non-intractable Qualified Code(s): R11.2 - Nausea with vomiting, unspecified Is this a current diagnosis for this admission?: Yes (10) Benign prostatic hyperplasia with lower urinary tract symptoms Qualifiers: Lower urinary tract symptom detail: urinary retention Qualified Code(s): N40.1 - Benign prostatic hyperplasia with lower urinary tract symptoms; R33.8 - Other retention of urine Is this a current diagnosis for this admission?: Yes (11) Heart failure with reduced ejection fraction Is this a current diagnosis for this admission?: Yes (12) Intertrochanteric fracture of right hip Qualifiers: Encounter type: initial encounter Fracture alignment: displaced Is this a current diagnosis for this admission?: Yes (13) Longstanding persistent atrial fibrillation Is this a current diagnosis for this admission?: Yes - Plan Summary Summary: Hematochezia / Solitary rectal ulcer / Diverticulosis / GI bleed Heme positive stools yesterday. Hgb 11.3 -> 11.1 -> 10.6 -> 10.4 -> 10.4 Patient s/p EGD/Colonoscopy with biopsy this a.m. findings: - "Diverticulosis. Solitary rectal ulcer probably explaining the patient's rectal bleeding." - Biopsies pending Without bloody stool today. Cnt to monitor Hgb closely. Restart Pradaxa at this time. Intertrochanteric fracture of right hip S/p ORIF on 01/[address] Luz. Scheduled to f/u with Dr. Luz in clinic x2 weeks from procedure for wound recheck. Call placed to Dr. Luz, will consult for f/u appt while pt in house. Pt was d/c to [facility] on 01/19/2020 for SNF following procedure, as per PT recommendations. Pt does not want to return. Ordered PT evaluation, consider home health with PT pending PT recommendations. Historically pt was very independent prior to fracture. Lactic acidosis Lactic acid 2.2 -> 1.0. No further attention needed at this time. Diarrhea C.diff negative. Discontinue oral vanc. May utilize Imodium as needed. BPH with retention Initial imaging abd enlarged bladder. Continue tamsulosin 0.8 mg and 5 mg of finasteride. Discontinued [place] catheter. Bladder scan if >400ccs [place] catheter again, though try to avoid. Strict I&Os given hx BPH, heart failure and dehydration; avoid fluid overload. Chronic systolic heart failure with depressed ejection fraction (less than 20%) Cnt Metoprolol at lowered dose. Hold Lasix. Strict I&Os as not to fluid overload. Longstanding persistent atrial fibrillation on anticoagulation Resume Pradaxa as above. Continue metoprolol (at a reduced dose due to low blood pressure) and am iodarone. Monitor patient on telemetry. Hyperglycemia due to diabetes mellitus type 2 hold Metformin due to altered renal function. [place] mealtime and bedtime Accu-Cheks with sliding scale coverage. Hypotension due to hypovolemia BP consistently low 100/50s. Given hx of LVEF <20% this is likely patinet's baseline. Continue metoprolol and amlodipine. - Time Time Spent with patient: 25-34 minutes Medications reviewed and adjusted accordingly: Yes Anticipated Discharge Disposition: Home with Home Health Anticipated Discharge Timeframe: within 48 hours
[2020-01-28 15:44] LABS: HEMATOCRIT 31.7 % (37.9-51.0); HEMOGLOBIN 10.4 g/dL (13.5-17.0); MEAN CORPUSCULAR HEMOGLOBIN 28.6 pg (27.0-33.4); MEAN CORPUSCULAR HGB CONC 32.7 g/dL (32.0-36.0); MEAN CORPUSCULAR VOLUME 87 fl (80-97); PLATELET COUNT 328 10^3/uL (150-450); RED BLOOD COUNT 3.64 10^6/uL (4.35-5.55); RED CELL DISTRIBUTION WIDTH 19.3 % (11.5-14.0)
[2020-01-28] MEDS: TAMSULOSIN HCL 0.4 MG CAP.SR.24H PO SCH (18:24)
[2020-01-28] MEDS: NORMAL SALINE 1000 ML 1,000 ML IV PRN (18:29)
[2020-01-29] MEDS: PANTOPRAZOLE SODIUM 40 MG TABLET.DR PO SCH (06:27)
[2020-01-29 06:40] LABS: HEMATOCRIT 30.9 % (37.9-51.0); HEMOGLOBIN 10.1 g/dL (13.5-17.0); MEAN CORPUSCULAR HEMOGLOBIN 28.5 pg (27.0-33.4); MEAN CORPUSCULAR HGB CONC 32.6 g/dL (32.0-36.0); MEAN CORPUSCULAR VOLUME 87 fl (80-97); PLATELET COUNT 334 10^3/uL (150-450); RED BLOOD COUNT 3.54 10^6/uL (4.35-5.55); RED CELL DISTRIBUTION WIDTH 19.5 % (11.5-14.0); WHITE BLOOD COUNT 7.6 10^3/uL (4.0-10.5)
[2020-01-29 07:07] LABS: ANION GAP 5 (5-19); BLOOD UREA NITROGEN 21 mg/dL (7-20); CARBON DIOXIDE 27 mmol/L (22-30); CHLORIDE 103 mmol/L (98-107); GLUCOSE 92 mg/dL (75-110); POTASSIUM 4.2 mmol/L (3.6-5.0)
[2020-01-29] MEDS: NORMAL SALINE 1000 ML 1,000 ML IV PRN ×2 (09:20→17:44)
[2020-01-29] MEDS: FINASTERIDE 5 MG TABLET PO SCH (09:33)
[2020-01-29] MEDS: METOPROLOL SUCCINATE 50 MG TAB.SR.24H PO SCH (09:33)
[2020-01-29] MEDS: DABIGATRAN ETEXILATE 150 MG CAPSULE PO SCH ×2 (09:33→22:22)
[2020-01-29] MEDS: AMIODARONE HCL 200 MG TABLET PO SCH ×2 (09:33→22:22)
[2020-01-29] MEDS ORDERED: METOPROLOL SUCCINATE 50 MG TAB.SR.24H PO ONE ×2 (10:28→11:15)
--- NOTE | 2020-01-29 16:21 | PDOC PROGRESS REPORT ---
Subjective Date:: 01/29/20 Subjective:: Patient was seen ambulating with walker and physical therapy prior to visit. During visit patient seen resting in bed comfortably. Reports x2 episodes of small amounts of diarrhea daily, significantly improved since prior to admission. Denies blood in stool. Plan to continue Imodium once dc. Home health has been organized and is set to see patient. Patient provides me with no co mplaints or concerns today. Discussed case with nursing. Patient's heart rate in 100s, increased dose of Metoprolol. Contacted pt's cousin Emily Rabago at to discuss patient's support at home. She tells me that she has arranged for constant [employer] trailers and motor homes coverage with patient starting tomorrow. Herself and her plan to be present for additional assistance. Reason For Visit: ADDITIONAL DX OF GI BLEEDING CHF WITH EF <20% Physical Exam Vital Signs: Temp Pulse Resp BP Pulse Ox 97.6 F 100 18 115/75 100 01/29/20 12:06 01/29/20 14:00 01/29/20 12:06 01/29/20 12:06 01/29/20 12:06 Intake & Output 01/28/20 01/29/20 01/30/20 06:59 06:59 06:59 Intake Total 1647 1420 200 Output Total 650 450 100 Balance 997 970 100 Weight 72.5 kg 69.4 kg Additional comments: General appearance: PRESENT: no acute distress, cooperative, well-developed, well-nourished Head exam: PRESENT: atraumatic, normocephalic Eye exam: PRESENT: EOMI, PERRLA. ABSENT: scleral icterus Mouth exam: PRESENT: dry mucosa, tongue midline Neck exam: PRESENT: full ROM. ABSENT: JVD, tenderness Respiratory exam: PRESENT: clear to auscultation socorro, symmetrical, unlabored. ABSENT: crackles, rales, tachypnea Cardiovascular exam: PRESENT: RRR, +S1, +S2 Pulses: PRESENT: normal radial pulses GI/Abdominal exam: PRESENT: normal bowel sounds, soft. ABSENT: distended, firm, guarding, tenderness Rectal exam: Deferred today. Gentrourinary exam: PRESENT: indwelling catheter Extremities exam: PRESENT: other - Decrease muscle mass. There is a well healing incision on the lateral aspect right hip/thigh, without warmth, redness, swelling or discharge. Chantale remain in place. ABSENT: clubbing Musculoskeletal exam: PRESENT: full ROM. ABSENT: deformity, dislocation Neurological exam: PRESENT: alert, awake, oriented to person, oriented to place, oriented to time, oriented to situation Psychiatric exam: PRESENT: appropriate affect, normal mood Skin exam: PRESENT: dry, intact, warm Results Laboratory Results: 01/29/20 05:55 01/29/20 05:55 01/29/20 01/29/20 05:55 05:55 WBC 7.6 RBC 3.54 L Hgb 10.1 L Hct 30.9 L MCV 87 MCH 28.5 MCHC 32.6 RDW 19.5 H Plt Count 334 Sodium 135.4 L Potassium 4.2 Chloride 103 Carbon Dioxide 27 Anion Gap 5 BUN 21 H Creatinine 1.02 Est GFR ( Amer) > 60 Glucose 92 Calcium 9.0 01/26/20 19:50 Stool - Stool - Final 01/26/20 01/26/20 12:38 12:38 Creatine Kinase 27 L Troponin I < 0.012 Impressions: Abdomen/Pelvis CT 01/26/20 13:04 IMPRESSION: 1. Distended urinary bladder associated with mild bilateral pelvicaliectasis - correlate with clinical findings to exclude urinary retention. 2. Intertrochanteric fracture of the right femur status post ORIF. 3. Other secondary findings as detailed above. Assessment and Plan - Diagnosis (1) Abnormal finding on urinalysis Is this a current diagnosis for this admission?: Yes (2) Diarrhea Qualifiers: Diarrhea type: presumed infectious Qualified Code(s): R19.7 - Diarrhea, unspecified Is this a current diagnosis for this admission?: Yes (3) GI bleeding Qualifiers: GI bleed type/associated pathology: anorectal hemorrhage Qualified Code(s): K62.5 - Hemorrhage of anus and rectum Is this a current diagnosis for this admission?: Yes (4) Solitary rectal ulcer Is this a current diagnosis for this admission?: Yes (5) Diverticulosis Is this a current diagnosis for this admission?: Yes (6) Hematochezia Is this a current diagnosis for this admission?: Yes (7) Hypotension due to hypovolemia Is this a current diagnosis for this admission?: Yes (8) Lactic acid acidosis Is this a current diagnosis for this admission?: Yes (9) Nausea & vomiting Qualifiers: Vomiting type: unspecified Vomiting Intractability: non-intractable Qualified Code(s): R11.2 - Nausea with vomiting, unspecified Is this a current diagnosis for this admission?: Yes (10) Benign prostatic hyperplasia with lower urinary tract symptoms Qualifiers: Lower urinary tract symptom detail: urinary retention Qualified Code(s): N40.1 - Benign prostatic hyperplasia with lower urinary tract symptoms; R33.8 - Other retention of urine Is this a current diagnosis for this admission?: Yes (11) Heart failure with reduced ejection fraction Is this a current diagnosis for this admission?: Yes (12) Intertrochanteric fracture of right hip Qualifiers: Encounter type: initial encounter Fracture alignment: displaced Is this a current diagnosis for this admission?: Yes (13) Longstanding persistent atrial fibrillation Is this a current diagnosis for this admission?: Yes - Plan Summary Summary: Hematochezia / Solitary rectal ulcer / Diverticulosis / GI bleed Hgb remained consistently >10. Heme positive stools with bright red blood per rectum. Patient s/p EGD/Colonoscopy with biopsy this a.m. findings: - "Diverticulosis. Solitary rectal ulcer probably explaining the patient's rectal bleeding." - Biopsies pending Without bloody stool today. Cnt to monitor Hgb. Restart Pradaxa at this time. Intertrochanteric fracture of right hip S/p ORIF on 01/[address] Luz was contacted and made aware pt is in hospital, me with pt f/u in outpatient setting, no attention required inpatient setting. Pt was d/c to [facility] on 01/19/2020 for SNF following procedure, as per PT recommendations. Evaluated by PT today, recommend continued therapy 1-2 days/week. Home health with PT 2x/week has been arranged. Lactic acidosis Lactic acid 2.2 -> 1.0. No further attention needed at this time. Diarrhea C.diff negative. Discontinue oral vanc. May utilize Imodium as needed. BPH with retention Initial imaging abd enlarged bladder. Continue tamsulosin 0.8 mg and 5 mg of finasteride. Discontinued Salinas catheter. Bladder scan if >400ccs Salinas catheter again, though try to avoid. Strict I&Os given hx BPH, heart failure and dehydration; avoid fluid overload. Chronic systolic heart failure with depressed ejection fraction (less than 20%) Dr. Peña made aware pt in hospital. Recommends routine HF medications and diet. Follow up with Dr. Painting in office within x1 week of discharge from the hospital. Continue to hold lasix, restart upon discharge/diarrhea stops. Consider adding ACEI low dose. Strict I&Os as not to fluid overload. Limit fluid intake <1500 daily. Limit sodium intake <1500ccs daily. Longstanding persistent atrial fibrillation on anticoagulation Resume Pradaxa as above. Increased Metoprolol to 200mg daily as heart rate noted to be >100, and amiodarone. Monitor patient on telemetry. Hyperglycemia due to diabetes mellitus type 2 Most recent Hemoglobin A1c 5.7 (12/2019) Glucose readings consistently <120 without Metformin. Discontinue Metformin. Hypotension due to hypovolemia BP consistently low 100/50s. Given hx of LVEF <20% this is likely patient's baseline. Continue metoprolol and amlodipine. - Time Time Spent with patient: 35 or more minutes Medications reviewed and adjusted accordingly: Yes Anticipated Discharge Disposition: Home with Home Health Anticipated Discharge Timeframe: within 24 hours
[2020-01-29] MEDS: TAMSULOSIN HCL 0.4 MG CAP.SR.24H PO SCH (17:43)
[2020-01-30] MEDS: NORMAL SALINE 1000 ML 1,000 ML IV PRN (05:00)
[2020-01-30] MEDS: PANTOPRAZOLE SODIUM 40 MG TABLET.DR PO SCH (06:00)
[2020-01-30 06:57] LABS: HEMATOCRIT 28.5 % (37.9-51.0); HEMOGLOBIN 9.5 g/dL (13.5-17.0); MEAN CORPUSCULAR HEMOGLOBIN 28.9 pg (27.0-33.4); MEAN CORPUSCULAR HGB CONC 33.4 g/dL (32.0-36.0); MEAN CORPUSCULAR VOLUME 87 fl (80-97); PLATELET COUNT 306 10^3/uL (150-450); RED CELL DISTRIBUTION WIDTH 19.6 % (11.5-14.0)
[2020-01-30 07:22] LABS: ANION GAP 9 (5-19); BLOOD UREA NITROGEN 15 mg/dL (7-20); CALCIUM 8.4 mg/dL (8.4-10.2); CARBON DIOXIDE 21 mmol/L (22-30); CHLORIDE 107 mmol/L (98-107); GLUCOSE 94 mg/dL (75-110); POTASSIUM 3.4 mmol/L (3.6-5.0)
[2020-01-30] MEDS ORDERED: POTASSIUM CHLORIDE 20 MEQ PACKET PO ONE (08:30)
[2020-01-30 09:18] VITALS: BP 100/58
[2020-01-30] MEDS: AMIODARONE HCL 200 MG TABLET PO SCH (09:30)
[2020-01-30] MEDS: DABIGATRAN ETEXILATE 150 MG CAPSULE PO SCH (09:30)
[2020-01-30] MEDS: FINASTERIDE 5 MG TABLET PO SCH (09:31)
[2020-01-30] MEDS ORDERED: METOPROLOL SUCCINATE 50 MG TAB.SR.24H PO SCH (10:00)
--- NOTE | 2020-01-30 12:33 | PDOC DISCHARGE SUMMARY ---
Impression - Admit/DC Date/PCP Admission Date/Primary Care Provider: 01/26/20 19:49 MARTY HINES MD Discharge Date: 01/30/20 - Discharge Diagnosis (1) Abnormal finding on urinalysis Is this a current diagnosis for this admission?: Yes (2) Diarrhea Is this a current diagnosis for this admission?: Yes (3) GI bleeding Is this a current diagnosis for this admission?: Yes (4) Solitary rectal ulcer Is this a current diagnosis for this admission?: Yes (5) Diverticulosis Is this a current diagnosis for this admission?: Yes (6) Hematochezia Is this a current diagnosis for this admission?: Yes (7) Hypotension due to hypovolemia Is this a current diagnosis for this admission?: Yes (8) Lactic acid acidosis Is this a current diagnosis for this admission?: Yes (9) Nausea & vomiting Is this a current diagnosis for this admission?: Yes (10) Benign prostatic hyperplasia with lower urinary tract symptoms Is this a current diagnosis for this admission?: Yes (11) Heart failure with reduced ejection fraction Is this a current diagnosis for this admission?: Yes (12) Intertrochanteric fracture of right hip Is this a current diagnosis for this admission?: Yes (13) Longstanding persistent atrial fibrillation Is this a current diagnosis for this admission?: Yes - Additional Information Resuscitation Status: Full Code Discharge Diet: Cardiac, Diabetic Discharge Activity: Activity As Tolerated, Balance Activity w/Rest, Weigh Daily Referrals: LIZ CAMPOS MD [ACTIVE STAFF] - 02/02/20 10:30 am TERRY SANDOVAL MD [NO LOCAL MD] - 02/03/20 11:15 am Prescriptions: Loperamide HCl [Imodium 2 mg Capsule] 2 mg PO Q4HP PRN #30 capsule PRN Reason: Finasteride [Proscar 5 mg Tablet] 5 mg PO DAILY #30 tablet Metoprolol Succinate [Toprol Xl 50 mg Tab.sr] 200 mg PO DAILY #30 tab.sr.24h Home Medications: Dabigatran Etexilate Mesylate [Pradaxa 150 mg Capsule] 150 mg PO Q12 04/30/19 Tamsulosin HCl [Flomax] 0.4 mg PO DAILY 12/29/19 Amiodarone HCl [Cordarone 200 mg Tablet] 200 mg PO Q12 tablet 01/19/20 Furosemide [Lasix 20 mg Tablet] 20 mg PO Q2D #0 01/19/20 Brinzolamide/Brimonidine Tart [Simbrinza 1%-0.2% Eye Drops] 1 drop OU BID Guaifenesin [Mucinex Sr 600 mg Tablet.sa] 600 mg PO Q12 01/27/20 Ipratropium [place] [Atrovent 0.06% Nasal [place]] 1 spray NAREB TID 01/27/20 Finasteride [Proscar 5 mg Tablet] 5 mg PO DAILY #30 tablet 01/30/20 Loperamide HCl [Imodium 2 mg Capsule] 2 mg PO Q4HP PRN #30 capsule 01/30/20 Metoprolol Succinate [Toprol Xl 50 mg Tab.sr] 200 mg PO DAILY #30 tab.sr.24h 01/30/20 History of Present Illiness History of Present Illness: As per admitting HPI on 01/26/[address] Perrin "MICHAEL PIZARRO is a 84 year old male who was transferred from [facility] to [facility] and rehab on January 29, 2020. The patient states that approximately 1 day after he transferred he began having diarrhea. The diarrhea worsened. His appetite decreased and he has not been able to take in adequate fluids to compensate for the diarrhea. His blood pressure has also been low. He presents with systolic blood pressures consistently below 100. At the time of discharge his BUN was 22 and it is now 52. His creatinine was normal at 0.95 and is now elevated to 1.44. White blood cell count and total bilirubin are also just above the upper limit normal. His mouth is extremely dry. He was also noted to have a markedly distended bladder on CT scan. Urinalysis was suggestive of infection and he does have a history of prostatic hyperplasia. Because of the marked dehydration, acute kidney injury with acute tubular necrosis, probable urinary tract infection and possibility of C. difficile mediated diarrhea the patient be admitted to the hospital. He has a history of persistent atrial fibrillation on anticoagulation as well as severe systolic heart failure. Will need to be cautious with rehydration." Hospital Course Hospital Course: Hematochezia / Solitary rectal ulcer / Diverticulosis / GI bleed Patient hemodynamically stable prior to discharge. Denies blood in bowel movement. Heme positive stools with bright red blood per rectum. EGD/Colonoscopy performed by Dr. Forte on 01/28/2020 notable for: - "Diverticulosis. Solitary rectal ulcer probably explaining the patient's rectal bleeding." - Biopsies pending Follow up with PCP within one week of discharge from hospital, recommend f/u CBC for counts. Intertrochanteric fracture of right hip S/p ORIF on 01/[address] Luz was contacted and made aware pt is in hospital, ok with pt f/u in outpatient setting, no attention required inpatient setting. Pt was d/c to [facility] on 01/19/2020 for SNF following procedure, as per PT recommendations. Evaluated by PT, patient has home health with PT 2x/week arranged. Discharged home with home-aids arranged for support. In addition his cousins will be available to provide support. Of note, just prior to discharge I was told by the patient that earlier in the morning the patient was in the bathroom and with landed heavily on the toilet after mistaking the distance between himself and the toilet. The aide was present at this time. Following this patient was able to ambulate back into his bed. Nurse gave patient Tylenol, which reportedly eased residual discomfort. I evaluated the patient, primarily in the region of the right hip, where previous hip procedure was completed. There was no sign of trauma noted. Patient demonstr ated full ROM of both lower extremities without pain. I asked the patient on several occasions to rate the pain and patient denied pain. Discussed possible need for imaging with the patient, and he denied stating there was no pain. No imaging completed prior to discharge. Following this patient was observed putting on clothes on his own without concern or complaints of pain. I discussed the described event above with the nurse who confirmed series of events as dictated by the patient. Nurse states she examined patient following without any signs of trauma or bruising. Nurse confirms patient was able to ambulate back into bed without difficulty. Overseeing provider Dr. Hammer was notified of this as well. Patient was examined and found to be clear for discharge. Lactic acidosis Lactic acid 2.2 -> 1.0. No further attention needed at this time. Diarrhea Negative C. Diff. Diarrhea has significantly improved. Initial presentation experiencing 4-8 episodes of diarrhea daily. Continue Imodium 2mg every four hours as needed. BPH with retention Initial imaging of the abdomen showed an enlarged bladder. Salinas catheter placed due to urinary retention. Removed on 01/28/2020. Tamsulosin 0.8 mg and 5 mg of finasteride initiated with improvement in urinary habits. Continue Tamsulosin and Finasteride outpatient. Chronic systolic heart failure with depressed ejection fraction (less than 20%) Echo 12/29/2019 reviewed: left ventricular systolic function severely reduced <20%. Atrial fibrillation. Severe global hypokinesis of the left ventricle. RV systolic function moderatly reduced. Mild to moderate MR, trace AI, moderate to severe TR, mild PI. Moderate pulmonary hypertension. Dilated IVC. Over course of hospitalization held lasix due to dehydration. Restart lasix 20mg every other day in the outpatient setting. Weigh himself daily. Limit fluids <1500 daily. Limit sodium to <1500ccs daily. Blood pressures ran 90-low 100s/40-60s thus did not start ACEI/ARB/ARNI at this time. Dr. Peña made aware pt in hospital. Recommends routine HF medications and diet. Follow up with Dr. Campos in office within x1 week of discharge from the hospital, discuss/consider initiation of low-dose ACEI at that time. Longstanding persistent atrial fibrillation on anticoagulation Pradaxa was held for short period due to GI bleed. Pradaxa restarted following Colonscopy/EGD results. Increased Metoprolol to 200mg daily as heart rate noted to be >100. Continue amioderone 200mg twice daily. Follow up with cardiology within one weeek od discharge. Hyperglycemia due to diabetes mellitus type 2 Most recent Hemoglobin A1c 5.7 (12/2019) Glucose readings consistently <120 without Metformin. Discontinue Metformin. Hypotension due to hypovolemia BP consistently low 100/50s. Given hx of LVEF <20% this is likely patient's baseline. Continue metoprolol and amlodipine. Physical Exam Vital Signs: Temp Pulse Resp BP Pulse Ox 97.7 F 92 17 100/58 L 100 01/30/20 09:17 01/30/20 09:17 01/30/20 09:17 01/30/20 09:17 01/30/20 09:17 Intake & Output 01/29/20 01/30/20 01/31/20 06:59 06:59 06:59 Intake Total 1420 2986 1000 Output Total 450 450 Balance 970 2536 1000 Weight 69.4 kg 69.2 kg Additional comments: General appearance: PRESENT: no acute distress, cooperative, well-developed, well-nourished Head exam: PRESENT: atraumatic, normocephalic Eye exam: PRESENT: EOMI, PERRLA. ABSENT: scleral icterus Mouth exam: PRESENT: dry mucosa, tongue midline Neck exam: PRESENT: full ROM. ABSENT: JVD, tenderness Respiratory exam: PRESENT: clear to auscultation socorro, symmetrical, unlabored. ABSENT: crackles, rales, tachypnea Cardiovascular exam: PRESENT: RRR, +S1, +S2 Pulses: PRESENT: normal radial pulses GI/Abdominal exam: PRESENT: normal bowel sounds, soft. ABSENT: distended, firm, guarding, tenderness Rectal exam: Deferred today. Gentrourinary exam: PRESENT: indwelling catheter Extremities exam: PRESENT: other - Decrease muscle mass. There is a well healing incision on the lateral aspect right hip/thigh, without warmth, redness, swelling or discharge. Only remain in place. ABSENT: clubbing Musculoskeletal exam: PRESENT: full ROM. ABSENT: deformity, dislocation Neurological exam: PRESENT: alert, awake, oriented to person, oriented to place, oriented to time, oriented to situation Psychiatric exam: PRESENT: appropriate affect, normal mood Skin exam: PRESENT: dry, intact, warm Results Laboratory Results: WBC 7.0 10^3/uL (4.0-10.5) 01/30/20 06:16 RBC 3.30 10^6/uL (4.35-5.55) L 01/30/20 06:16 Hgb 9.5 g/dL (13.5-17.0) L 01/30/20 06:16 Hct 28.5 % (37.9-51.0) L 01/30/20 06:16 MCV 87 fl (80-97) 01/30/20 06:16 MCH 28.9 pg (27.0-33.4) 01/30/20 06:16 MCHC 33.4 g/dL (32.0-36.0) 01/30/20 06:16 RDW 19.6 % (11.5-14.0) H 01/30/20 06:16 Plt Count 306 10^3/uL (150-450) 01/30/20 06:16 Lymph % (Auto) 12.0 % (13-45) L 01/26/20 12:38 [place]ley % (Auto) 5.1 % (3-13) 01/26/20 12:38 Eos % (Auto) 1.1 % (0-6) 01/26/20 12:38 Baso % (Auto) 0.5 % (0-2) 01/26/20 12:38 Absolute Neuts (auto) 9.1 10^3/uL (1.7-8.2) H 01/26/20 12:38 Absolute Lymphs (auto) 1.3 10^3/uL (0.5-4.7) 01/26/20 12:38 Absolute Monos (auto) 0.6 10^3/uL (0.1-1.4) 01/26/20 12:38 Absolute Eos (auto) 0.1 10^3/uL (0.0-0.6) 01/26/20 12:38 Absolute Basos (auto) 0.1 10^3/uL (0.0-0.2) 01/26/20 12:38 Seg Neutrophils % 81.3 % (42-78) H 01/26/20 12:38 Sodium 136.7 mmol/L (137-145) L 01/30/20 06:16 Potassium 3.4 mmol/L (3.6-5.0) L 01/30/20 06:16 Chloride 107 mmol/L (98-107) 01/30/20 06:16 Carbon Dioxide 21 mmol/L (22-30) L 01/30/20 06:16 Anion Gap 9 (5-19) 01/30/20 06:16 BUN 15 mg/dL (7-20) 01/30/20 06:16 Creatinine 0.86 mg/dL (0.52-1.25) 01/30/20 06:16 Est GFR ( Amer) > 60 (>60) 01/30/20 06:16 Est GFR (MDRD) Non-Af > 60 (>60) 01/30/20 06:16 Glucose 94 mg/dL (75-110) 01/30/20 06:16 Lactic Acid 1.0 mmol/L (0.7-2.1) 01/28/20 05:46 Calcium 8.4 mg/dL (8.4-10.2) 01/30/20 06:16 Phosphorus 3.4 mg/dL (2.5-4.5) 01/27/20 06:38 Total Bilirubin 1.4 mg/dL (0.2-1.3) H 01/26/20 12:38 Direct Bilirubin 0.3 mg/dL (0.0-0.4) 01/26/20 12:38 Neonat Total Bilirubin Not Reportable 01/26/20 12:38 Neonat Direct Bilirubin Not Reportable 01/26/20 12:38 Neonat Indirect Bili Not Reportable 01/26/20 12:38 AST 27 U/L (17-59) 01/26/20 12:38 ALT 10 U/L (<50) 01/26/20 12:38 Alkaline Phosphatase 94 U/L (38-126) 01/26/20 12:38 Creatine Kinase 27 U/L (55-170) L 01/26/20 12:38 Troponin I < 0.012 ng/mL 01/26/20 12:38 Total Protein 6.9 g/dL (6.3-8.2) 01/26/20 12:38 Albumin 3.0 g/dL (3.5-5.0) L 01/27/20 06:38 Lipase 74.7 U/L (23-300) 01/26/20 12:38 Urine Color YELLOW 01/26/20 13:12 Urine Appearance SLIGHTLY-CLOUDY 01/26/20 13:12 Urine pH 5.0 (5.0-9.0) 01/26/20 13:12 Ur Specific [place] 1.017 01/26/20 13:12 Urine Protein NEGATIVE mg/dL (NEGATIVE) 01/26/20 13:12 Urine Glucose (UA) NEGATIVE mg/dL (NEGATIVE) 01/26/20 13:12 Urine Ketones NEGATIVE mg/dL (NEGATIVE) 01/26/20 13:12 Urine Blood SMALL (NEGATIVE) H 01/26/20 13:12 Urine Nitrite NEGATIVE (NEGATIVE) 01/26/20 13:12 Urine Bilirubin NEGATIVE (NEGATIVE) 01/26/20 13:12 Urine Urobilinogen NEGATIVE mg/dL (<2.0) 01/26/20 13:12 Ur Leukocyte Esterase LARGE (NEGATIVE) H 01/26/20 13:12 Urine WBC (Auto) 16 /HPF 01/26/20 13:12 Urine RBC (Auto) 11 /HPF 01/26/20 13:12 U Hyaline Cast (Auto) 6 /LPF 01/26/20 13:12 Urine Bacteria (Auto) TRACE /HPF 01/26/20 13:12 Squamous Epi Cells Auto 1 /HPF 01/26/20 13:12 Urine Mucus (Auto) FEW /LPF 01/26/20 13:12 Urine Yeast (Budding) PRESENT /HPF 01/26/20 13:12 Urine Ascorbic Acid NEGATIVE (NEGATIVE) 01/26/20 13:12 POC Stool Occult Blood POSITIVE (NEGATIVE) 01/27/20 13:02 Stl C. Difficile GDH Ag NEGATIVE (NEGATIVE) 01/26/20 19:50 Stl C.difficile Tox A&B NEGATIVE (NEGATIVE) 01/26/20 19:50 COVID-19 Source Cancelled 01/27/20 11:17 COVID-19 (NIR) Cancelled 01/27/20 11:17 SARS-CoV-2 (PCR) NEGATIVE (NEGATIVE) 01/27/20 11:17 01/26/20 12:38 Troponin I < 0.012 Impressions: Abdomen/Pelvis CT 01/26/20 13:04 IMPRESSION: 1. Distended urinary bladder associated with mild bilateral pelvicaliectasis - correlate with clinical findings to exclude urinary retention. 2. Intertrochanteric fracture of the right femur status post ORIF. 3. Other secondary findings as detailed above. Plan Health Concerns: LVEF <20%. Plan of Treatment: 1. GI bleed: diverticulosis, single rectal ulcer. No signs acute bleed. No further attention required. 2. Negative C. diff. Significantly improved. Imodium 2mg every four hours as needed. 3. Heart failure: follow up with your corn popper, Dr. Campos, within one week of discharge from the hospital. - Resume your fluid pill Furosemide (lasix) 20mg one tablet every two days. - Weigh yourself daily - Limit fluid intake to less than 50 fluid ounces daily - Limit sodium (salt) intake to less than 1500ccs daily - Due to hypotension did not add ACEI /ARB/ARNI, f/u with cardio. 4. Atrial fibrillation continue Amioderone 200mg twice daily. Increased your Metoprolol to 200mg PO daily. Continue taking your Pradaxa 150mg PO twice daily. Follow up with your corn popper, Dr. Campos, within one week of discharge. 5. A1c was 5.7. Blood sugars consistently ran less than 120 over entire hospitalization, this was while holding Metformin. Discontinued Metformin at this time. 6. Surgical scar right hip fracture appears to be healing well with no signs of infection. Home health to visit and continue physical therapy. Follow up with Dr. Luz within one week of discharge 7. BPH and urinary retention Finasteride 5mg daily. Continue taking Tamsulosin (Flomax) 0.4mg daily. Follow up with PCP within one week of discharge. Goals: Home health PT. Follow up with cardiology. Follow up with PCP. Follow up with ortho. Time Spent: Greater than 30 Minutes Stroke Is this a Stroke Patient?: No Acute Heart Failure Is this a Heart Failure Patient?: Yes Documentation of LVEF assessment?: Yes LVEF: LVEF Less Than or Equal to 35% Anticoagulant Therapy: Yes Discharged on Evidence-Based Beta Blockers: Yes Discharged on ARNI?: No-Document Contraindications Reason(s) not discharged on ARNI: Hypotension Discharged on ARB?: No-document contraindications Reason(s) not Discharged on ARB: Hypotenson Discharged on ACEI?: No, document contraindications Reason(s) not Discharged on ACEI: Hypotension For LVEF <35%, discharged on Aldosterone Antagonist?: No-document contraincations Reason(s) not discharged on Aldosterone Antagonist: Other - hypotension Aldosterone Antagonist Reason - Other: Hyoptension Follow-up Appointment scheduled within 7 days?: Yes
--- NOTE | 2020-01-30 15:19 | Progress Note ---
Provider Note Provider Note: This morning, Mr. Campo ambulated to his bathroom. Upon trying to sit down on the toilet, he apparently sat down very hard, because he expected the toilet seat to be much higher than it was. He was subsequently able to stand up and ambulate independently back to his bed. After this incident, he was examined separately by three different people: his RN, PA and MD (myself). To each of us, he stated that he had minimal, well-controlled pain, that he was able to ambulate, and that he could move his legs without issue. I personally examined his hip and RLE strength/ROM was unchanged from the day prior. He was offered diagnostic imaging of the hips but declined, stating that he felt well and wanted to go home [facility]. His RN observed him dressing himself without issue prior to discharge. He was able to stand up and ambulate to a wheelchair independently. He was wheeled downstairs to his family's vehicle. I witnessed him being wheeled downstairs, and he waved happily from the wheelchair and thanked us for the care he received here. Per his nurse, when he got to the vehicle downstairs, he was able to stand up and maneuver into a car independently. Prior to today, we had repeatedly offered Mr. Campo transfer to a SNF for ongoing PT/OT, but he has been declining due to his very poor experience at his last SNF. He was thus discharged home with home healthcare services to begin on 01/30 as well as 24 hour/day caretakers for increased support and assistance. He lives alone, is weak/debilitated and at risk for falls - this was discussed with him in detail, and he chose to be at home rather than return to a SNF. A few hours after his discharge, we received a call from his daughter, Ms. Jocelyn Crespo ([phone]) stating that Mr. Campo is unable to ambulate and in severe pain. She was upset because she was under the impression that he had sustained a fall while in the hospital and that no one had addressed this. I spoke to her at length, stating that Mr. Campo did not sustain a fall, but that he had sat down on the toilet seat too firmly this morning, and that his examination this morning was unchanged from previous day. I also offered to personally meet Mr. Campo in the ED to re-examine him and order imaging studies for further work-up if he was indeed in such severe pain and unable to walk, as this was not how he appeared when he was discharged from [facility]. I have since also talked with his cousins, and Mrs. Rabago, who picked up Mr. Campo from the hospital this morning. They too are concerned that Mr. Campo is much weaker than they anticipated. Mrs. Rabago tells me that Mr. Campo was in a lot of pain upon arriving home, but that his pain is now much better controlled after taking pain medication. Her greatest concern is his limited mobility. Again, I offered to meet them in the ED to re-examine Mr. Campo and to perform imaging work-up, but they declined, stating that Mr. Campo wants to remain home and is not interested in returning to the hospital. At this point, I recommended that they call EMS to bring Mr. Campo to the hospital if they are concerned for his pain/mobility and think that he doesn't want to come back to the hospital because it would be too difficult for him to get back into a car. I also let them know that they could always go to a different hospital if they had lost trust in this one, but I encouraged them to get help if he was truly in excruciating pain and unable to ambulate, as - again - this would be a big change from how he appeared this morning upon discharge from the hospital. I have been unable to reach Mr. Campo myself. I have tried calling his number, but it goes straight to [employer], and his inbox has not been set up, so I can't leave a message. His daughter and his cousins all have my number and know how to reach me. He will have home healthcare services go out to his home tomorrow, but unfortunately they are not available to go check on him today.
== END 2020-01-30 10:30 | disposition home health service (06) | DRG 377 ==
LOC: ER 12:12 → EH 18:05 → OBSVTOIN 19:49 → EH 01-27 00:41 → 5TH 01-27 14:01 → 4S 01-27 15:30
PROVIDERS: ADMIT Hospitalist; ATTEND Physician Assistant
PROC: 0DBF8ZX Excision of Right Large Intestine, Via Natural or Artificial Opening Endoscopic, Diagnostic (ICD-10-PCS; principal; 2020-01-28 10:00)
PROC: 0DB68ZX Excision of Stomach, Via Natural or Artificial Opening Endoscopic, Diagnostic (ICD-10-PCS; 2020-01-28 10:00)
DX: K62.5 Hemorrhage of anus and rectum (principal); N17.0 Acute kidney failure with tubular necrosis; E87.2 Acidosis; I48.11 Longstanding persistent atrial fibrillation; M84.459A Pathological fracture, hip, unspecified, initial encounter for fracture; I50.22 Chronic systolic (congestive) heart failure; K29.71 Gastritis, unspecified, with bleeding; I27.20 Pulmonary hypertension, unspecified; D63.1 Anemia in chronic kidney disease; I95.9 Hypotension, unspecified; I11.0 Hypertensive heart disease with heart failure; E86.1 Hypovolemia; N40.1 Benign prostatic hyperplasia with lower urinary tract symptoms; E86.0 Dehydration; I34.0 Nonrheumatic mitral (valve) insufficiency; I36.1 Nonrheumatic tricuspid (valve) insufficiency; E11.65 Type 2 diabetes mellitus with hyperglycemia; E78.5 Hyperlipidemia, unspecified; J44.9 Chronic obstructive pulmonary disease, unspecified; M47.819 Spondylosis without myelopathy or radiculopathy, site unspecified; Z96.652 Presence of left artificial knee joint; R19.7 Diarrhea, unspecified; R11.2 Nausea with vomiting, unspecified; R33.8 Other retention of urine; Z79.899 Other long term (current) drug therapy; Z85.118 Personal history of other malignant neoplasm of bronchus and lung; Z90.2 Acquired absence of lung [part of]; Z87.891 Personal history of nicotine dependence; Z83.3 Family history of diabetes mellitus; Z88.6 Allergy status to analgesic agent; Z98.1 Arthrodesis status; Z79.01 Long term (current) use of anticoagulants
CPT/HCPCS: 00813; 36415; 43239; 45380; 74177; 80048; 80053; 80069; 81001; 82270; 82550; 83605; 83690; 84484; 85025; 85027; 87040; 87045; 87077; 87086; 87205; 87324; 87449; 87635; 88305; 93005; 93010; 96361; 96374; 99285; C9803; G0378; J0171; J1610; J2250; J2405; J3010; J3370; J3490; J7030; J7120

== ENCOUNTER 2020-02-01 09:48 | Inpatient (IN) | payer MEDICARE, OTHER ==
--- NOTE | 2020-02-01 10:32 | ER Document Report ---
ED Medical Screen (RME) - General Stated Complaint: URINATION PROBLEM, WOUND CHECK Time Seen by Provider: 02/01/20 10:27 Primary Care Provider: MARTY HINES MD [Primary Care Provider] - Follow up as needed Notes: HPI: History is obtained from the patient and his son. An 84-year-old male discharged on Sunday after a right hip fracture repair presenting for multiple issues. Patient states that while he was in the hospital the nurses were lowering him down onto a commode and let go and he slipped about 10 inches before striking the commode with the right hip region complains of continued increased discomfort to the right hip region. Patient also with frequency of urination over the last 2 days no fever nausea or vomiting. Son is concerned about UTI. Patient did have catheter while in the hospital PHYSICAL EXAMINATION: exam deferred in triage. Orthopedic exam deferred in triage as patient has difficulty standing without significant assistance. No abdominal pain on palpation I have greeted and performed a rapid initial assessment of this patient. A comprehensive ED assessment and evaluation of the patient, analysis of test results and completion of medical decision making process will be conducted by an additional ED providers. TRAVEL OUTSIDE OF THE [place] IN LAST 30 DAYS: No - Related Data Allergies/Adverse Reactions: aspirin Allergy (Verified 02/01/20 10:27) Past Medical History - Social History Family history: Reviewed & Not Pertinent - Past Medical History Cardiac Medical History: Reports: Hx Atrial Fibrillation, Hx Congestive Heart Failure, Hx Hypercholesterolemia, Hx Hypertension Pulmonary Medical History: Reports: Hx COPD, Hx Pneumonia Endocrine Medical History: Reports: Hx Diabetes Mellitus Type 2 Renal/ Medical History: Reports: Hx Benign Prostatic Hyperplasia Malignancy Medical History: Reports Hx Lung Cancer - left 1/3 lung resected Musculoskeltal Medical History: Reports Hx Arthritis - Neck and back primarily with other joint involvement. 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
--- NOTE | 2020-02-01 11:10 | RADIOLOGY REPORT (SQ) ---
EXAM DESCRIPTION: HIP RIGHT AP/LATERAL IMAGES COMPLETED DATE/TIME: 02/01/2020 10:59 am REASON FOR STUDY: fall COMPARISON: 01/14/2020 EXAM PARAMETERS: NUMBER OF VIEWS: Three views. TECHNIQUE: AP, lateral and oblique radiographic images acquired of the right hip LIMITATIONS: None. FINDINGS: MINERALIZATION: Normal. BONES: No acute fracture or dislocation. Healing right femoral neck fracture. Left femoral fixation hardware appears stable. . JOINTS: No effusion. SOFT TISSUES: No significant soft tissue swelling. No radiopaque foreign body. OTHER: No other significant finding. IMPRESSION: No acute fracture or dislocation. Healing right femoral neck fracture. Left femoral fi xation hardware appears stable. TECHNICAL DOCUMENTATION: JOB ID: [id number] [place]-[id number] 2010 [employer]- All Rights Reserved Reading location - IP/workstation name: [email or web address]
[2020-02-01 11:46] LABS: ABSOLUTE EOSINOPHILS # (AUTO) 0.1 10^3/uL (0.0-0.6); ABSOLUTE LYMPHOCYTES (AUTO) 1.4 10^3/uL (0.5-4.7); ABSOLUTE MONOCYTES (AUTO) 0.7 10^3/uL (0.1-1.4); ABSOLUTE NEUT (AUTO) 12.7 10^3/uL (1.7-8.2); BASOPHILS % (AUTO) 0.1 % (0-2); EOSINOPHILS % (AUTO) 0.5 % (0-6); HEMOGLOBIN 10.8 g/dL (13.5-17.0); LYMPHOCYTES % (AUTO) 9.6 % (13-45); MEAN CORPUSCULAR HEMOGLOBIN 28.6 pg (27.0-33.4); MEAN CORPUSCULAR HGB CONC 32.6 g/dL (32.0-36.0); MEAN CORPUSCULAR VOLUME 88 fl (80-97); MONOCYTES % (AUTO) 4.5 % (3-13); PLATELET COUNT 413 10^3/uL (150-450); RED BLOOD COUNT 3.77 10^6/uL (4.35-5.55); RED CELL DISTRIBUTION WIDTH 20.6 % (11.5-14.0); SEGMENTED NEUTROPHILS % (AUTO) 85.3 % (42-78); TOTAL CELLS COUNTED % (AUTO) 100 %
[2020-02-01 11:47] LABS: WHITE BLOOD COUNT 14.9 10^3/uL (4.0-10.5)
[2020-02-01 11:54] LABS: ALBUMIN 3.2 g/dL (3.5-5.0); ALKALINE PHOSPHATASE 107 U/L (38-126); ANION GAP 11 (5-19); ASPARTATE AMINO TRANSFERASE 33 U/L (17-59); BILIRUBIN,DIRECT 0.1 mg/dL (0.0-0.4); BILIRUBIN,TOTAL 1.5 mg/dL (0.2-1.3); BLOOD UREA NITROGEN 17 mg/dL (7-20); CARBON DIOXIDE 23 mmol/L (22-30); CHLORIDE 100 mmol/L (98-107); GLUCOSE 153 mg/dL (75-110); POTASSIUM 4.4 mmol/L (3.6-5.0); TOTAL PROTEIN 6.5 g/dL (6.3-8.2)
[2020-02-01] MEDS ORDERED: NORMAL SALINE 1000 ML 1,000 ML IV ONE (14:03)
--- NOTE | 2020-02-01 14:38 | ER Document Report ---
ED General - General Chief Complaint: Hip Pain Stated Complaint: URINATION PROBLEM, WOUND CHECK Time Seen by Provider: 02/01/20 10:27 Primary Care Provider: MARTY HINES MD [NO LOCAL MD] - Follow up as needed Notes: HPI: 84-year-old male status post discharge 2 days ago secondary to right hip fracture with operative repair. Patient did have a Salinas catheter. He has had some pain with urination and increased frequency. No fevers. He does have some continued pain in his right hip. He states he did sit down harshly on a commode around 10 inches high from a standing to a seated position. No runny nose, yanique estion, headache, neck pain, chest pain, or cough. No vomiting or diarrhea. ROS: See HPI All other review of systems reviewed and otherwise negative Reviewed vital signs and nursing note as charted by RN. PHYSICAL EXAM: CONSTITUTIONAL: Alert and oriented and responds appropriately to questions. Well-appearing; well-nourished HEAD: Normocephalic; atraumatic EYES: PERRL; Conjunctivae clear, sclerae non-icteric ENT: Normal nose; no rhinorrhea; moist mucous membranes; pharynx without lesions noted NECK: Supple without meningismus; non-tender; no cervical lymphadenopathy, no masses CARD: Regular rate and rhythm; no murmurs; symmetric distal pulses RESP: Normal chest excursion without splinting or tachypnea; breath sounds clear and equal bilaterally ABD/GI: Normal bowel sounds; non-distended; soft, non-tender BACK: The back appears normal and is non-tender to palpation EXT: Surgical lateral right hip scar is clean dry and intact. No obvious swelling erythema or induration SKIN: See above NEURO: CN 2-12 intact; 5/5 bilateral upper and lower extremity strength with sensation intact to light touch PSYCH: The patient's mood and manner are appropriate. Grooming and personal hygiene are appropriate. TRAVEL OUTSIDE OF THE [place] IN LAST 30 DAYS: No - Related Data Allergies/Adverse Reactions: aspirin Allergy (Verified 02/01/20 10:27) Past Medical History - Social History Smoking Status: Never Smoker Chew tobacco use (# tins/day): No Frequency of alcohol use: Rare Drug Abuse: None Family History: DM - Past Medical History Cardiac Medical History: Reports: Hx Atrial Fibrillation, Hx Congestive Heart Failure, Hx Hypercholesterolemia, Hx Hypertension Pulmonary Medical History: Reports: Hx COPD, Hx Pneumonia Endocrine Medical History: Reports: Hx Diabetes Mellitus Type 2 Renal/ Medical History: Reports: Hx Benign Prostatic Hyperplasia Malignancy Medical History: Reports Hx Lung Cancer - left 1/3 lung resected Musculoskeletal Medical History: Reports Hx Arthritis - Neck and back primarily with other joint involvement. 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 We would like to evaluate for the possibility of urinary tract infection with sepsis. Would also like to evaluate the possibility of a reinjury to the right hip. 02/01/20 15:50 Labs and imaging as recorded. Obvious urinary tract infection. Urine culture has been sent. A liter of fluid has been provided. Rocephin has been given. Given the above history and physical examination, with initial low blood pressure, obvious urinary tract infection, status post hip surgery, generalized fatigue and the inability supposedly of son to take care of him at home currently, patient will be admitted to the hospitalist service. - Vital Signs Vital signs: Temp Pulse Resp BP Pulse Ox 97.4 F 97 18 114/65 99 02/01/20 10:17 02/01/20 10:17 02/01/20 15:00 02/01/20 15:00 02/01/20 15:00 - Laboratory Result Diagrams: 02/01/20 11:07 02/01/20 11:07 Laboratory results interpreted by me: 02/01/20 02/01/20 02/01/20 11:07 11:07 14:30 WBC 14.9 H D RBC 3.77 L Hgb 10.8 L Hct 33.0 L RDW 20.6 H Lymph % (Auto) 9.6 L Absolute Neuts (auto) 12.7 H Seg Neutrophils % 85.3 H Sodium 134.4 L Glucose 153 H Total Bilirubin 1.5 H Albumin 3.2 L Urine Blood SMALL H Urine Nitrite POSITIVE H Urine Urobilinogen 2.0 H Ur Leukocyte Esterase MODERATE H Discharge - Discharge Clinical Impression: Hypotension Qualifiers: Hypotension type: unspecified hypotension type Qualified Code(s): I95.9 - Hypotension, unspecified UTI (urinary tract infection) Qualifiers: Urinary tract infection type: site unspecified Hematuria presence: without hematuria Qualified Code(s): N39.0 - Urinary tract infection, site not specified Condition: Fair Disposition: ADMITTED INPATIENT Admitting Provider: Marielle (Hospitalist) Unit Admitted: Telemetry Referrals: MARTY HINES MD [NO LOCAL MD] - Follow up as needed
[2020-02-01 14:46] LABS: APPEARANCE,URINE CLEAR; BILIRUBIN,URINE NEGATIVE (NEGATIVE); COLOR,URINE AMBER; GLUCOSE, URINE NEGATIVE (NEGATIVE); KETONES,URINE NEGATIVE (NEGATIVE); LEUKOCYTE ESTERASE,URINE MODERATE (NEGATIVE); NITRITE,URINE POSITIVE (NEGATIVE); PROTEIN,URINE NEGATIVE (NEGATIVE); URINE SPECIFIC GRAVITY 1.008
[2020-02-01] MEDS ORDERED: CEFTRIAXONE 1 GM/D5W RTU 1 GM/50 ML RTUPB IV ONE (15:50)
[2020-02-01] MEDS ORDERED: ACETAMINOPHEN 325 MG TABLET PO PRN (17:03)
--- NOTE | 2020-02-01 17:27 | PDOC H&P ---
History of Present Illness Admission Date/PCP: 02/01/20 16:28 History of Present Illness: MICHAEL PIZARRO is a 84 year old male with congestive heart failure with an EF of 20%, atrial fibrillation on amiodarone and Pradaxa, several hospitalizations so far this year, with 5 of them coming down in the past 2 months, who presents after falling forward on his rear end while trying to sit on the toilet again. He had a similar episode during his previous hospitalization here, and it happened again today. He lost his strength while he was trying to sit down and he came down hard on his rear end on the toilet. He recently had a fall at home earlier this month and had surgery on his right femur to repair the fracture in that bone. He said he went to [facility] for 8 days and they let him sit over there with diarrhea for several days and they would not give him his eyedrop medications that he has to take every day and so he left. He has not started physical therapy at home yet but someone is supposed to come out and see him this week. There was also some concern for urinary tract infection due to frequent urination. He has had a Salinas catheter at home that was apparently taken out sometime recently. He did have a positive urinalysis in the ER and his plain films of his hip and femur were unremarkable. Past Medical History Cardiac Medical History: Reports: Atrial Fibrillation, Congestive Heart Failure, Hyperlipidema, Hypertension Pulmonary Medical History: Reports: Chronic Obstructive Pulmonary Disease ([place]), Pneumonia Endocrine Medical History: Reports: Diabetes Mellitus Type 2 Malignancy Medical History: Reports: Lung Cancer - left 1/3 lung resected Musculoskeltal Medical History: Reports: Arthritis - Neck and back primarily with other joint involvement. 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, left lower lobectomy Social History Smoking Status: Never Smoker Electronic Cigarette use?: No Frequency of Alcohol Use: None Hx Recreational Drug Use: No Drugs: None Hx Prescription Drug Abuse: No Family History Family History: DM Parental Family History Reviewed: Yes Children Family History Reviewed: Yes Sibling(s) Family History Reviewed.: Yes Medication/Allergy Home Medications: Dabigatran Etexilate Mesylate [Pradaxa 150 mg Capsule] 150 mg PO Q12 04/30/19 Tamsulosin HCl [Flomax] 0.4 mg PO DAILY 12/29/19 Amiodarone HCl [Cordarone 200 mg Tablet] 200 mg PO Q12 tablet 01/19/20 Furosemide [Lasix 20 mg Tablet] 20 mg PO Q2D #0 01/19/20 Brinzolamide/Brimonidine Tart [Simbrinza 1%-0.2% Eye Drops] 1 drop OU BID 01/27/20 Guaifenesin [Mucinex Sr 600 mg Tablet.sa] 600 mg PO Q12 01/27/20 Ipratropium [place]re [Atrovent 0.06% Nasal [place]] 1 spray NAREB TID 01/27/20 Finasteride [Proscar 5 mg Tablet] 5 mg PO DAILY #30 tablet 01/30/20 Loperamide HCl [Imodium 2 mg Capsule] 2 mg PO Q4HP PRN #30 capsule 01/30/20 Metoprolol Succinate [Toprol Xl 50 mg Tab.sr] 200 mg PO DAILY #30 tab.sr.24h 01/30/20 Allergies/Adverse Reactions: aspirin Allergy (Verified 02/01/20 10:27) Review of Systems All systems: reviewed and no additional remarkable complaints except as stated - All systems were reviewed and were negative except as noted in the HPI Physical Exam Vital Signs: Temp Pulse Resp BP Pulse Ox 97.4 F 97 18 99/75 L 100 02/01/20 10:17 02/01/20 10:17 02/01/20 17:01 02/01/20 17:01 02/01/20 17:01 Intake & Output 01/31/20 02/01/20 02/02/20 06:59 06:59 06:59 Intake Total 1050 Balance 1050 Weight 71.3 kg General appearance: PRESENT: no acute distress, cooperative, disheveled, thin Head exam: PRESENT: atraumatic, normocephalic Eye exam: PRESENT: EOMI, PERRLA. ABSENT: conjunctival injection, nystagmus, scleral icterus Ear exam: PRESENT: normal external ear exam Mouth exam: PRESENT: dry mucosa, neck supple Throat exam: ABSENT: post pharyngeal erythema Neck exam: PRESENT: full ROM. ABSENT: carotid bruit, JVD, lymphadenopathy, meningismus, tenderness, thyromegaly Respiratory exam: PRESENT: clear to auscultation socorro, symmetrical, unlabored, other - When he is at rest he looks very comfortable, but when he starts talking it almost seems a little bit labored, but as soon as he stops talking he is breathing fine. ABSENT: accessory muscle use, chest wall tenderness, crackles, prolonged expiratory phas, rhonchi, tachypnea, wheezes Cardiovascular exam: PRESENT: RRR, +S1, +S2 Pulses: PRESENT: normal carotid pulses Vascular exam: PRESENT: normal capillary refill GI/Abdominal exam: PRESENT: normal bowel sounds, soft. ABSENT: distended, guarding, rebound, tenderness Extremities exam: ABSENT: clubbing, pedal edema Musculoskeletal exam: ABSENT: deformity Neurological exam: PRESENT: alert, awake, oriented to person, oriented to place, oriented to situation, CN II-XII grossly intact, other - Generally weak. ABSENT: motor sensory deficit Psychiatric exam: PRESENT: appropriate affect, normal mood Skin exam: PRESENT: dry, warm Results Laboratory Results: 02/01/20 11:07 02/01/20 11:07 02/01/20 02/01/20 02/01/20 11:07 11:07 14:30 WBC 14.9 H D RBC 3.77 L Hgb 10.8 L Hct 33.0 L MCV 88 MCH 28.6 MCHC 32.6 RDW 20.6 H Plt Count 413 Seg Neutrophils % 85.3 H Sodium 134.4 L Potassium 4.4 Chloride 100 Carbon Dioxide 23 Anion Gap 11 BUN 17 Creatinine 1.15 Est GFR ( Amer) > 60 Glucose 153 H Calcium 9.0 Total Bilirubin 1.5 H AST 33 Alkaline Phosphatase 107 Total Protein 6.5 Albumin 3.2 L Urine Color KAREN Urine Appearance CLEAR Urine pH 5.0 Ur Specific Strang 1.008 Urine Protein NEGATIVE Urine Glucose (UA) NEGATIVE Urine Ketones NEGATIVE Urine Blood SMALL H Urine Nitrite POSITIVE H Ur Leukocyte Esterase MODERATE H Urine WBC (Auto) 56 Urine RBC (Auto) 4 Impressions: Hip/Pelvis X-Ray 02/01/20 10:30 IMPRESSION: No acute fracture or dislocation. Healing right femoral neck fracture. Left femoral fixation hardware appears stable. Assessment and Plan - Diagnosis (1) Hypotension Qualifiers: Hypotension type: hypotension due to hypovolemia Qualified Code(s): I95.89 - Other hypotension; E86.1 - Hypovolemia Is this a current diagnosis for this admission?: Yes (2) UTI (urinary tract infection) Qualifiers: Urinary tract infection type: acute cystitis Hematuria presence: without hematuria Qualified Code(s): N30.00 - Acute cystitis without hematuria Is this a current diagnosis for this admission?: Yes (3) Benign prostatic hyperplasia with lower urinary tract symptoms Qualifiers: Lower urinary tract symptom detail: urinary retention Qualified Code(s): N40.1 - Benign prostatic hyperplasia with lower urinary tract symptoms; R33.8 - Other retention of urine Is this a current diagnosis for this admission?: Yes (4) CHF (congestive heart failure) Qualifiers: Heart failure type: combined systolic and diastolic Heart failure chronicity: chronic Qualified Code(s): I50.42 - Chronic combined systolic (congestive) and diastolic (congestive) heart failure Is this a current diagnosis for this admission?: Yes (5) Hip fracture, intertrochanteric Qualifiers: Encounter type: subsequent encounter Fracture type: closed Fracture alignment: nondisplaced Laterality: right Fracture healing: with routine healing Qualified Code(s): S72.144D - Nondisplaced intertrochanteric fracture of right femur, subsequent encounter for closed fracture with routine healing Is this a current diagnosis for this admission?: Yes (6) History of lobectomy of lung Is this a current diagnosis for this admission?: Yes (7) History of lung cancer Is this a current diagnosis for this admission?: Yes (8) Longstanding persistent atrial fibrillation Is this a current diagnosis for this admission?: Yes (9) Solitary rectal ulcer Is this a current diagnosis for this admission?: Yes - Plan Summary Summary: His comorbidities all seem to be relatively well controlled. He has a much streamlined medication list from home after one of his recent discharges. We will continue his amiodarone and his Pradaxa, will hold his Lasix because of b lood pressure, but he only takes it every 2 days anyway. We had to hold his beta-america on a previous admission because of blood pressure but amiodarone seems to do a good job of controlling his heart rate. Likewise, he cannot be on an FAHAD inhibitor, ARB, or Entresto because of his blood pressure. His blood pressure responded to a bag of IV fluids in the ER and his blood pressure is now back to his normal. His urinalysis was positive and so we will start him on some Rocephin and send his urine off for culture. I recommended to him that he should reconsider going to rehab. He said that he would, but he does not want to go to either of the places here in [place]. We will get case management involved tomorrow. We will get physical therapy to come see him tomorrow. - Time Time Spent with patient: 35 or more minutes Anticipated Discharge Disposition: Residential Facility Anticipated Discharge Timeframe: Unknown
[2020-02-02 06:03] LABS: HEMATOCRIT 29.7 % (37.9-51.0); HEMOGLOBIN 9.8 g/dL (13.5-17.0); MEAN CORPUSCULAR HEMOGLOBIN 28.8 pg (27.0-33.4); MEAN CORPUSCULAR HGB CONC 33.1 g/dL (32.0-36.0); MEAN CORPUSCULAR VOLUME 87 fl (80-97); PLATELET COUNT 359 10^3/uL (150-450); RED BLOOD COUNT 3.41 10^6/uL (4.35-5.55); RED CELL DISTRIBUTION WIDTH 20.7 % (11.5-14.0); WHITE BLOOD COUNT 10.5 10^3/uL (4.0-10.5)
[2020-02-02 06:36] LABS: ANION GAP 9 (5-19); BLOOD UREA NITROGEN 19 mg/dL (7-20); CALCIUM 8.9 mg/dL (8.4-10.2); CARBON DIOXIDE 25 mmol/L (22-30); CHLORIDE 104 mmol/L (98-107); GLUCOSE 106 mg/dL (75-110); POTASSIUM 4.3 mmol/L (3.6-5.0)
--- NOTE | 2020-02-02 17:19 | PDOC PROGRESS REPORT ---
Subjective Date:: 02/02/20 Subjective:: Adverse events overnight. Complaints. His heart rate was starting to creep up but we got his amiodarone reordered. He has been eating a little bit. He has been napping off and on during the day. No fevers. He was retaining some urine and did not want another Sal[place] catheter. He agreed to be straight cath. His blood pressure has improved a little bit. Reason For Visit: WEAKNESS, UTI Physical Exam Vital Signs: Temp Pulse Resp BP Pulse Ox 97.5 F 108 H 19 112/67 99 02/02/20 15:24 02/02/20 15:24 02/02/20 15:24 02/02/20 15:24 02/02/20 15:24 Intake & Output 02/01/20 02/02/20 02/03/20 06:59 06:59 06:59 Intake Total 1050 120 Output Total 225 Balance 825 120 Weight 71.3 kg General appearance: PRESENT: no acute distress, cooperative, disheveled, thin Respiratory exam: PRESENT: clear to auscultation socorro, symmetrical, unlabored. ABSENT: accessory muscle use, chest wall tenderness, crackles, prolonged expiratory phas, rhonchi, tachypnea, wheezes Cardiovascular exam: PRESENT: RRR, +S1, +S2 Pulses: PRESENT: normal carotid pulses Vascular exam: PRESENT: normal capillary refill GI/Abdominal exam: PRESENT: normal bowel sounds, soft. ABSENT: distended, guarding, rebound, tenderness Extremities exam: ABSENT: clubbing, pedal edema Musculoskeletal exam: ABSENT: deformity Neurological exam: PRESENT: alert, awake, oriented to person, oriented to place, oriented to situation Psychiatric exam: PRESENT: appropriate affect, normal mood Skin exam: PRESENT: dry, warm Results Laboratory Results: 02/02/20 04:23 02/02/20 04:23 02/02/20 02/02/20 04:23 04:23 WBC 10.5 RBC 3.41 L Hgb 9.8 L Hct 29.7 L MCV 87 MCH 28.8 MCHC 33.1 RDW 20.7 H Plt Count 359 Sodium 137.9 Potassium 4.3 Chloride 104 Carbon Dioxide 25 Anion Gap 9 BUN 19 Creatinine 1.00 Est GFR ( Amer) > 60 Glucose 106 Calcium 8.9 Impressions: Hip/Pelvis X-Ray 02/01/20 10:30 IMPRESSION: No acute fracture or dislocation. Healing right femoral neck fracture. Left femoral fixation hardware appears stable. Assessment and Plan - Diagnosis (1) Hypotension Qualifiers: Hypotension type: hypotension due to hypovolemia Qualified Code(s): I95.89 - Other hypotension; E86.1 - Hypovolemia Is this a current diagnosis for this admission?: Yes (2) UTI (urinary tract infection) Qualifiers: Urinary tract infection type: acute cystitis Hematuria presence: without hematuria Qualified Code(s): N30.00 - Acute cystitis without hematuria Is this a current diagnosis for this admission?: Yes (3) Benign prostatic hyperplasia with lower urinary tract symptoms Qualifiers: Lower urinary tract symptom detail: urinary retention Qualified Code(s): N40.1 - Benign prostatic hyperplasia with lower urinary tract symptoms; R33.8 - Other retention of urine Is this a current diagnosis for this admission?: Yes (4) CHF (congestive heart failure) Qualifiers: Heart failure type: combined systolic and diastolic Heart failure chronicity: chronic Qualified Code(s): I50.42 - Chronic combined systolic (congestive) and diastolic (congestive) heart failure Is this a current diagnosis for this admission?: Yes (5) Hip fracture, intertrochanteric Qualifiers: Encounter type: subsequent encounter Fracture type: closed Fracture alignment: nondisplaced Laterality: right Fracture healing: with routine healing Qualified Code(s): S72.144D - Nondisplaced intertrochanteric fracture of right femur, subsequent encounter for closed fracture with routine healing Is this a current diagnosis for this admission?: Yes (6) History of lobectomy of lung Is this a current diagnosis for this admission?: Yes (7) History of lung cancer Is this a current diagnosis for this admission?: Yes (8) Longstanding persistent atrial fibrillation Is this a current diagnosis for this admission?: Yes (9) Solitary rectal ulcer Is this a current diagnosis for this admission?: Yes - Plan Summary Summary: His comorbidities all seem to be relatively well controlled. We will continue his home medicine, but will continue to hold his Lasix. We will also hold his other blood pressure medications for now. Blood pressure has improved, so we will restart his tamsulosin. Continue Rocephin. Urine culture pending. - Time Time Spent with patient: 15-24 minutes Anticipated Discharge Disposition: Intermediate Facility Anticipated Discharge Timeframe: Unknown
[2020-02-02] MEDS: AMIODARONE HCL 200 MG TABLET PO SCH ×2 (17:51→22:52)
[2020-02-02] MEDS ORDERED: BRINZOLAMIDE OU SCH (18:00)
[2020-02-02] MEDS ORDERED: TAMSULOSIN HCL 0.4 MG CAP.SR.24H PO ONE (18:00)
[2020-02-02] MEDS ORDERED: [UNRECOGNIZED DRUG - OTHER] OU SCH (18:00)
[2020-02-02] MEDS ORDERED: BRIMONIDINE TART OU SCH (18:00)
[2020-02-02] MEDS ORDERED: CEFTRIAXONE 1 GM/D5W RTU 1 GM/50 ML RTUPB IV SCH (18:00)
[2020-02-02] MEDS: DABIGATRAN ETEXILATE 150 MG CAPSULE PO SCH (22:53)
[2020-02-03 05:53] LABS: HEMATOCRIT 29.5 % (37.9-51.0); HEMOGLOBIN 9.7 g/dL (13.5-17.0); MEAN CORPUSCULAR HEMOGLOBIN 28.8 pg (27.0-33.4); MEAN CORPUSCULAR HGB CONC 32.9 g/dL (32.0-36.0); MEAN CORPUSCULAR VOLUME 88 fl (80-97); PLATELET COUNT 327 10^3/uL (150-450); RED BLOOD COUNT 3.37 10^6/uL (4.35-5.55); RED CELL DISTRIBUTION WIDTH 20.6 % (11.5-14.0); WHITE BLOOD COUNT 7.9 10^3/uL (4.0-10.5)
[2020-02-03 06:19] LABS: ANION GAP 8 (5-19); BLOOD UREA NITROGEN 16 mg/dL (7-20); CALCIUM 8.8 mg/dL (8.4-10.2); CARBON DIOXIDE 26 mmol/L (22-30); CHLORIDE 104 mmol/L (98-107); GLUCOSE 91 mg/dL (75-110); POTASSIUM 3.7 mmol/L (3.6-5.0)
[2020-02-03] MEDS ORDERED: METOPROLOL TARTRATE 50 MG TABLET PO ONE (08:15)
[2020-02-03] MEDS: CEPHALEXIN 500 MG CAPSULE PO SCH ×2 (14:18→17:11)
[2020-02-03] MEDS: FINASTERIDE 5 MG TABLET PO SCH (14:18)
[2020-02-03] MEDS: DABIGATRAN ETEXILATE 150 MG CAPSULE PO SCH ×2 (14:18→21:39)
[2020-02-03] MEDS: AMIODARONE HCL 200 MG TABLET PO SCH ×2 (14:18→21:39)
--- NOTE | 2020-02-03 16:24 | PDOC PROGRESS REPORT ---
Subjective Date:: 02/03/20 Subjective:: No adverse events overnight. His heart rate got fast this morning but we gave h im a single dose of p.o. Lopressor and it came back down. It is been pretty steady the rest of the day. His blood pressure was little bit low because we restart his Flomax but he is asymptomatic, and his urine output is also increased. Reason For Visit: UTI, GENERALIZED WEAKNESS, TACHYCARDIA Physical Exam Vital Signs: Temp Pulse Resp BP Pulse Ox 98.2 F 80 18 90/46 L 100 02/03/20 12:00 02/03/20 12:00 02/03/20 12:00 02/03/20 12:00 02/03/20 12:00 Intake & Output 02/02/20 02/03/20 02/04/20 06:59 06:59 06:59 Intake Total 1050 770 Output Total 225 650 Balance 825 120 Weight 71.3 kg 52.7 kg General appearance: PRESENT: no acute distress, cooperative, disheveled, thin Respiratory exam: PRESENT: clear to auscultation soc[place], symmetrical, unlabored. ABSENT: accessory muscle use, chest wall tenderness, crackles, prolonged expiratory phas, rhonchi, tachypnea, wheezes Cardiovascular exam: PRESENT: RRR, +S1, +S2 Pulses: PRESENT: normal carotid pulses Vascular exam: PRESENT: normal capillary refill GI/Abdominal exam: PRESENT: normal bowel sounds, soft. ABSENT: distended, guarding, rebound, tenderness Extremities exam: ABSENT: clubbing, pedal edema Musculoskeletal exam: ABSENT: deformity Neurological exam: PRESENT: alert, awake, oriented to person, oriented to place, oriented to situation Psychiatric exam: PRESENT: appropriate affect, normal mood Skin exam: PRESENT: dry, warm Results Laboratory Results: 02/03/20 04:26 02/03/20 04:26 02/03/20 02/03/20 04:26 04:26 WBC 7.9 RBC 3.37 L Hgb 9.7 L Hct 29.5 L MCV 88 MCH 28.8 MCHC 32.9 RDW 20.6 H Plt Count 327 Sodium 137.6 Potassium 3.7 Chloride 104 Carbon Dioxide 26 Anion Gap 8 BUN 16 Creatinine 0.86 Est GFR ( Amer) > 60 Glucose 91 Calcium 8.8 02/01/20 14:30 Catheterized Urine Urine Culture - Final Klebsiella Pneumoniae Impressions: Hip/Pelvis X-Ray 02/01/20 10:30 IMPRESSION: No acute fracture or dislocation. Healing right femoral neck fracture. Left femoral fixation hardware appears stable. Assessment and Plan - Diagnosis (1) Hypotension Qualifiers: Hypotension type: hypotension due to hypovolemia Qualified Code(s): I95.89 - Other hypotension; E86.1 - Hypovolemia Is this a current diagnosis for this admission?: Yes (2) UTI (urinary tract infection) Qualifiers: Urinary tract infection type: acute cystitis Hematuria presence: without hematuria Qualified Code(s): N30.00 - Acute cystitis without hematuria Is this a current diagnosis for this admission?: Yes (3) Benign prostatic hyperplasia with lower urinary tract symptoms Qualifiers: Lower urinary tract symptom detail: urinary retention Qualified Code(s): N40.1 - Benign prostatic hyperplasia with lower urinary tract symptoms; R33.8 - Other retention of urine Is this a current diagnosis for this admission?: Yes (4) CHF (congestive heart failure) Qualifiers: Heart failure type: combined systolic and diastolic Heart failure chronicity: chronic Qualified Code(s): I50.42 - Chronic combined systolic (congestive) and diastolic (congestive) heart failure Is this a current diagnosis for this admission?: Yes (5) Hip fracture, intertrochanteric Qualifiers: Encounter type: subsequent encounter Fracture type: closed Fracture alignment: nondisplaced Laterality: right Fracture healing: with routine healing Qualified Code(s): S72.144D - Nondisplaced intertrochanteric fracture of right femur, subsequent encounter for closed fracture with routine healing Is this a current diagnosis for this admission?: Yes (6) History of lobectomy of lung Is this a current diagnosis for this admission?: Yes (7) History of lung cancer Is this a current diagnosis for this admission?: Yes (8) Longstanding persistent atrial fibrillation Is this a current diagnosis for this admission?: Yes (9) Solitary rectal ulcer Is this a current diagnosis for this admission?: Yes - Plan Summary Summary: His comorbidities all seem to be relatively well controlled. We will continue his home medicine, but will continue to hold his Lasix. We will also hold his other blood pressure medications for now. We restarted his Flomax and his urine output has increased but his blood pressure dipped a little bit, fortunately he is asymptomatic. Despite the fact that he would benefit tremendously from going back to a halfway facility, and and that he had agreed to going to a different halfway facility, he is now saying he refuses to go. We tried to set him up with home health but he is refusing that as well. We switched him to Keflex for his UTI. If his heart rate and blood pressure are stable overnight, he can be discharged tomorrow. - Time Time Spent with patient: 15-24 minutes Anticipated Discharge Disposition: Home, Self Care Anticipated Discharge Timeframe: within 24 hours
[2020-02-03] MEDS: TAMSULOSIN HCL 0.4 MG CAP.SR.24H PO SCH (17:12)
[2020-02-04] MEDS: CEPHALEXIN 500 MG CAPSULE PO SCH ×2 (00:17→05:31)
[2020-02-04 04:54] LABS: HEMOGLOBIN 9.4 g/dL (13.5-17.0); MEAN CORPUSCULAR HEMOGLOBIN 29.1 pg (27.0-33.4); MEAN CORPUSCULAR HGB CONC 33.7 g/dL (32.0-36.0); MEAN CORPUSCULAR VOLUME 86 fl (80-97); PLATELET COUNT 333 10^3/uL (150-450); RED BLOOD COUNT 3.23 10^6/uL (4.35-5.55); RED CELL DISTRIBUTION WIDTH 20.9 % (11.5-14.0)
[2020-02-04 05:17] LABS: ANION GAP 7 (5-19); BLOOD UREA NITROGEN 15 mg/dL (7-20); CALCIUM 8.5 mg/dL (8.4-10.2); CARBON DIOXIDE 27 mmol/L (22-30); CHLORIDE 104 mmol/L (98-107); GLUCOSE 94 mg/dL (75-110); POTASSIUM 3.4 mmol/L (3.6-5.0)
[2020-02-04] MEDS: FINASTERIDE 5 MG TABLET PO SCH (09:25)
[2020-02-04] MEDS: DABIGATRAN ETEXILATE 150 MG CAPSULE PO SCH (09:25)
[2020-02-04] MEDS: AMIODARONE HCL 200 MG TABLET PO SCH (09:25)
[2020-02-04] MEDS: TAMSULOSIN HCL 0.4 MG CAP.SR.24H PO SCH (09:26)
[2020-02-04] MEDS ORDERED: METOPROLOL SUCCINATE 25 MG TAB.SR.24H PO SCH (10:00)
--- NOTE | 2020-02-04 12:08 | PDOC DISCHARGE SUMMARY ---
Impression - Admit/DC Date/PCP Admission Date/Primary Care Provider: 02/03/20 09:25 Discharge Date: 02/04/20 - Discharge Diagnosis (1) Hypotension Is this a current diagnosis for this admission?: Yes (2) UTI (urinary tract infection) Is this a current diagnosis for this admission?: Yes (3) Benign prostatic hyperplasia with lower urinary tract symptoms Is this a current diagnosis for this admission?: Yes (4) CHF (congestive heart failure) Is this a current diagnosis for this admission?: Yes (5) Hip fracture, intertrochanteric Is this a current diagnosis for this admission?: Yes (6) History of lobectomy of lung Is this a current diagnosis for this admission?: Yes (7) History of lung cancer Is this a current diagnosis for this admission?: Yes (8) Longstanding persistent atrial fibrillation Is this a current diagnosis for this admission?: Yes (9) Solitary rectal ulcer Is this a current diagnosis for this admission?: Yes - Additional Information Referrals: TERRY SANDOVAL MD [NO LOCAL MD] - Prescriptions: Cephalexin Monohydrate [Keflex 500 mg Capsule] 500 mg PO Q6 #24 capsule Metoprolol Succinate [Toprol Xl 25 mg Tab.sr] 12.5 mg PO DAILY #15 tab.sr.24h Home Medications: Dabigatran Etexilate Mesylate [Pradaxa 150 mg Capsule] 150 mg PO Q12 04/30/19 Tamsulosin HCl [Flomax] 0.4 mg PO DAILY 12/29/19 Amiodarone HCl [Cordarone 200 mg Tablet] 200 mg PO Q12 tablet 01/19/20 Brinzolamide/Brimonidine Tart [Simbrinza 1%-0.2% Eye Drops] 1 drop OU BID 01/27/20 Finasteride [Proscar 5 mg Tablet] 5 mg PO DAILY #30 tablet 01/30/20 Cephalexin Monohydrate [Keflex 500 mg Capsule] 500 mg PO Q6 #24 capsule 02/04/20 Metoprolol Succinate [Toprol Xl 25 mg Tab.sr] 12.5 mg PO DAILY #15 tab.sr.24h 02/04/20 History of Present Illiness History of Present Illness: MICHAEL PIZARRO is a 84 year old male with congestive heart failure with an EF of 20%, atrial fibrillation on amiodarone and Pradaxa, several hospitalizations so far this year, with 5 of them coming down in the past 2 months, who presents after falling forward on his rear end while trying to sit on the toilet again. He had a similar episode during his previous hospitalization here, and it happened again today. He lost his strength while he was trying to sit down and he came down hard on his rear end on the toilet. He recently had a fall at home earlier this month and had surgery on his right femur to repair the fracture in that bone. He said he went to [place] for 8 days and they let him sit over there with diarrhea for several days and they would not give him his eyedrop medications that he has to take every day and so he left. He has not started physical therapy at home yet but someone is supposed to come out and see him this week. There was also some concern for urinary tract infection due to frequent urination. He has had a Salinas catheter at home that was apparently taken out sometime recently. He did have a positive urinalysis in the ER and his plain films of his hip and femur were unremarkable. Hospital Course Hospital Course: Summary: His comorbidities all seem to be relatively well controlled. We continued his home medicine, but will continue to hold his Lasix. We will also hold his other blood pressure medications for now. We restarted his Flomax and his urine output has increased but his blood pressure dipped a little bit, fortunately he is asymptomatic. Despite the fact that he would benefit tremendously from going back to a fdc facility, and and that he had agreed to going to a different fdc facility, he is now saying he refuses to go. We tried to set him up with home health but he is refusing that as well. We switched him to Keflex for his UTI. We restarted his Toprol-XL at a much lower dose because he was slightly tachycardic. He wants to go home today. He is hemodynamically stable. Will write him a prescription for Keflex on discharge. He said he has home care [id number]. Physical Exam Vital Signs: Temp Pulse Resp BP Pulse Ox 97.8 F 108 H 19 111/69 99 02/04/20 08:00 02/04/20 08:00 02/04/20 08:00 02/04/20 08:00 02/04/20 08:00 Intake & Output 02/03/20 02/04/20 02/05/20 06:59 06:59 06:59 Intake Total 770 1062 Output Total 650 2100 Balance 120 -1038 Weight 116 lb 2.938 oz 120 lb 2.431 oz Exam: General appearance: PRESENT: no acute distress, cooperative, disheveled, thin Respiratory exam: PRESENT: clear to auscultation soc[place], symmetrical, unlabored. ABSENT: accessory muscle use, chest wall tenderness, crackles, prolonged expiratory phas, rhonchi, tachypnea, wheezes Cardiovascular exam: PRESENT: RRR, +S1, +S2 Pulses: PRESENT: normal carotid pulses Vascular exam: PRESENT: normal capillary refill GI/Abdominal exam: PRESENT: normal bowel sounds, soft. ABSENT: distended, guarding, rebound, tenderness Extremities exam: ABSENT: clubbing, pedal edema Musculoskeletal exam: ABSENT: deformity Neurological exam: PRESENT: alert, awake, oriented to person, oriented to place, oriented to situation Psychiatric exam: PRESENT: appropriate affect, normal mood Skin exam: PRESENT: dry, warm Results Laboratory Results: WBC 7.0 10^3/uL (4.0-10.5) 02/04/20 04:32 RBC 3.23 10^6/uL (4.35-5.55) L 02/04/20 04:32 Hgb 9.4 g/dL (13.5-17.0) L 02/04/20 04:32 Hct 28.0 % (37.9-51.0) L 02/04/20 04:32 MCV 86 fl (80-97) 02/04/20 04:32 MCH 29.1 pg (27.0-33.4) 02/04/20 04:32 MCHC 33.7 g/dL (32.0-36.0) 02/04/20 04:32 RDW 20.9 % (11.5-14.0) H 02/04/20 04:32 Plt Count 333 10^3/uL (150-450) 02/04/20 04:32 Lymph % (Auto) 9.6 % (13-45) L 02/01/20 11:07 [place] % (Auto) 4.5 % (3-13) 02/01/20 11:07 Eos % (Auto) 0.5 % (0-6) 02/01/20 11:07 Baso % (Auto) 0.1 % (0-2) 02/01/20 11:07 Absolute Neuts (auto) 12.7 10^3/uL (1.7-8.2) H 02/01/20 11:07 Absolute Lymphs (auto) 1.4 10^3/uL (0.5-4.7) 02/01/20 11:07 Absolute Monos (auto) 0.7 10^3/uL (0.1-1.4) 02/01/20 11:07 Absolute Eos (auto) 0.1 10^3/uL (0.0-0.6) 02/01/20 11:07 Absolute Basos (auto) 0.0 10^3/uL (0.0-0.2) 02/01/20 11:07 Seg Neutrophils % 85.3 % (42-78) H 02/01/20 11:07 Sodium 137.5 mmol/L (137-145) 02/04/20 04:32 Potassium 3.4 mmol/L (3.6-5.0) L 02/04/20 04:32 Chloride 104 mmol/L (98-107) 02/04/20 04:32 Carbon Dioxide 27 mmol/L (22-30) 02/04/20 04:32 Anion Gap 7 (5-19) 02/04/20 04:32 BUN 15 mg/dL (7-20) 02/04/20 04:32 Creatinine 0.96 mg/dL (0.52-1.25) 02/04/20 04:32 Est GFR ( Amer) > 60 (>60) 02/04/20 04:32 Est GFR (MDRD) Non-Af > 60 (>60) 02/04/20 04:32 Glucose 94 mg/dL (75-110) 02/04/20 04:32 Calcium 8.5 mg/dL (8.4-10.2) 02/04/20 04:32 Total Bilirubin 1.5 mg/dL (0.2-1.3) H 02/01/20 11:07 Direct Bilirubin 0.1 mg/dL (0.0-0.4) 02/01/20 11:07 Neonat Total Bilirubin Not Reportable 02/01/20 11:07 Neonat Direct Bilirubin Not Reportable 02/01/20 11:07 Neonat Indirect Bili Not Reportable 02/01/20 11:07 AST 33 U/L (17-59) 02/01/20 11:07 ALT 15 U/L (<50) 02/01/20 11:07 Alkaline Phosphatase 107 U/L (38-126) 02/01/20 11:07 Total Protein 6.5 g/dL (6.3-8.2) 02/01/20 11:07 Albumin 3.2 g/dL (3.5-5.0) L 02/01/20 11:07 Urine Color KAREN 02/01/20 14:30 Urine Appearance CLEAR 02/01/20 14:30 Urine pH 5.0 (5.0-9.0) 02/01/20 14:30 Ur Specific [place] 1.008 02/01/20 14:30 Urine Protein NEGATIVE mg/dL (NEGATIVE) 02/01/20 14:30 Urine Glucose (UA) NEGATIVE mg/dL (NEGATIVE) 02/01/20 14:30 Urine Ketones NEGATIVE mg/dL (NEGATIVE) 02/01/20 14:30 Urine Blood SMALL (NEGATIVE) H 02/01/20 14:30 Urine Nitrite POSITIVE (NEGATIVE) H 02/01/20 14:30 Urine Bilirubin NEGATIVE (NEGATIVE) 02/01/20 14:30 Urine Urobilinogen 2.0 mg/dL (<2.0) H 02/01/20 14:30 Ur Leukocyte Esterase MODERATE (NEGATIVE) H 02/01/20 14:30 Urine WBC (Auto) 56 /HPF 02/01/20 14:30 Urine RBC (Auto) 4 /HPF 02/01/20 14:30 Urine Bacteria (Auto) 3+ /HPF 02/01/20 14:30 Urine Mucus (Auto) RARE /LPF 02/01/20 14:30 Urine Ascorbic Acid NEGATIVE (NEGATIVE) 02/01/20 14:30 COVID-19 Source See comment 02/02/20 18:18 COVID-19 (NIR) Not Detected (Not Detect) 02/02/20 18:18 Impressions: Hip/Pelvis X-Ray 02/01/20 10:30 IMPRESSION: No acute fracture or dislocation. Healing right femoral neck fracture. Left femoral fixation hardware appears stable. Stroke Is this a Stroke Patient?: No Acute Heart Failure Is this a Heart Failure Patient?: Yes Documentation of LVEF assessment?: Yes LVEF: LVEF Less Than or Equal to 35% Anticoagulant Therapy: N/A Discharged on Evidence-Based Beta Blockers: Yes Discharged on ARNI?: No-Document Contraindications Reason(s) not discharged on ARNI: Hypotension For LVEF <35%, discharged on Aldosterone Antagonist?: N/A (LVEF > or = 35%)
[2020-02-04 16:04] VITALS: BP 96/61
== END 2020-02-04 15:36 | disposition home health service (06) | DRG 315 ==
LOC: ER 09:48 → INTOOBSV 16:28 → EH 16:28 → 4N 18:09 → OBSVTOIN 02-03 09:25
PROVIDERS: ADMIT Family Medicine; ATTEND Family Medicine
DX: I95.89 Other hypotension (principal); N39.0 Urinary tract infection, site not specified; I48.11 Longstanding persistent atrial fibrillation; I50.42 Chronic combined systolic (congestive) and diastolic (congestive) heart failure; K62.6 Ulcer of anus and rectum; I11.0 Hypertensive heart disease with heart failure; N40.1 Benign prostatic hyperplasia with lower urinary tract symptoms; E86.1 Hypovolemia; E11.9 Type 2 diabetes mellitus without complications; R33.8 Other retention of urine; M19.90 Unspecified osteoarthritis, unspecified site; Z96.652 Presence of left artificial knee joint; Z90.2 Acquired absence of lung [part of]; Z79.899 Other long term (current) drug therapy; Z79.02 Long term (current) use of antithrombotics/antiplatelets; S72.141D Displaced intertrochanteric fracture of right femur, subsequent encounter for closed fracture with routine healing; W18.00XD Striking against unspecified object with subsequent fall, subsequent encounter; Z85.118 Personal history of other malignant neoplasm of bronchus and lung; Z88.6 Allergy status to analgesic agent; Z20.828 Contact with and (suspected) exposure to other viral communicable diseases
CPT/HCPCS: 36415; 80048; 80053; 81001; 85025; 85027; 87086; 87088; 87186; 87635; 96361; 96365; 99285; C9803; G0378; J0696; J3490; J7030